=== PATIENT | male | born 1980 | race Caucasian/White ===

== ENCOUNTER 2020-08-01 17:18 | Outpatient (CLI) | payer OTHER, SELFPAY ==
--- NOTE | ~2020-08-01 | XR_ITS ---
EXAMINATION: XR chest 2V EXAM DATE: 08/01/2020 17:36 INDICATION: R07.9 - Chest pain upper right side x 5 months, no other hx . TECHNIQUE: Frontal and lateral projections of the chest obtained and reviewed. There is no prior estevan dy for comparison. FINDINGS: The lungs are clear. There are no pleural effusions. The cardiomediastinal silhouette is within normal limits. There is no pneumothorax suspected. The bones and soft tissues are unremarkab le. IMPRESSION: Normal chest x-ray exam. Reviewed, dictated and finalized at location A. IMPRESSION: Normal chest x-ray exam.
== END 2020-08-01 17:19 | disposition home or self-care (01) ==
LOC: ANHIMG 17:23
PROVIDERS: PCP Family Medicine; Visit Provider Family Medicine
DX: R07.9 Chest pain, unspecified (principal)
CPT/HCPCS: 71046

== ENCOUNTER 2021-04-28 11:05 | Outpatient (CLI) | payer OTHER, SELFPAY ==
--- NOTE | ~2021-04-28 | XR_ITS ---
XR chest 2V DATE: 04/28/2021 11:22 INDICATION: Cough TECHNIQUE: PA and lateral views COMPARISON: 08/01/2020 2 view chest FINDINGS: Normal heart size. No hilar or mediastinal enlargement. No pulmonary infiltrate or consolid ation, pleural effusion or pulmonary vascular congestion or pneumothorax. Included skeletal structure s are unremarkable. IMPRESSION: No active cardiopulmonary disease Reviewed, dictated and finalized at location A. ON CUTTER
== END 2021-04-28 11:06 | disposition home or self-care (01) ==
LOC: ANHIMG 11:13
PROVIDERS: PCP Family Medicine; Visit Provider Physician Assistant
DX: R05.9 Cough, unspecified (principal)
CPT/HCPCS: 71046

== ENCOUNTER 2021-10-27 16:31 | Outpatient (CLI) | payer OTHER, SELFPAY ==
--- NOTE | ~2021-10-27 | XR_ITS ---
XR hip LT min 2V DATE: 10/27/2021 16:43 INDICATION: Left hip pain TECHNIQUE: AP and lateral views COMPARISON: None FINDINGS: No fracture or dislocation, avascular necrosis or bone destruction of the left hip. Left hi p joint space appears well preserved. The pubic symphysis and included portions of the sacroiliac joints appear normal. IMPRESSION: No significant abnormality Reviewed, dictated and finalized at location B. IMPRESSION: No significant abnormality
== END 2021-10-27 16:32 | disposition home or self-care (01) ==
PROVIDERS: PCP Family Medicine; Visit Provider Nurse Practitioner Family
DX: M25.552 Pain in left hip (principal)
CPT/HCPCS: 73502

== ENCOUNTER → 2021-11-12 10:59 | Outpatient (CLI) | payer OTHER, SELFPAY ==
--- NOTE | ~2021-11-12 | MR_ITS ---
EXAMINATION: MR femur LT wo/w con DATE: 11/12/2021 11:48 INDICATION: 3 months of left hip and upper thigh pain after running. TECHNIQUE: Magnetic resonance imaging (MRI) of the left femur/thigh was performed without and with 19 mL Multihance intravenous contrast. Sequences included axial, sagittal and coronal T1-weighted FSE a nd fluid sensitive FSE STIR, axial T1-weighted FS FSE and post contrast axial, sagittal and coronal T 1-weighted FS FSE. COMPARISON: Left hip radiographs dated 10/27/2021 FINDINGS: Bone alignment is normal. Normal marrow signal throughout with no reactive edema, fracture, osteonecr osis or pathologic marrow replacing process. Cephalad aspect of the left hip joint is obscured. The v isualized portion of the joint spaces appear normal with no left hip joint effusion. The knee joint i s excluded from the wewao-or-tthm but with no joint effusion at the suprapatellar pouch. The muscles and tendons of the left lower limb appear normal. No muscular atrophy or abnormal signal to suggest m uscle strain. Specifically the proximal left hamstring tendons and gluteal tendons are normal. No tro chanteric bursitis or other abnormal fluid collections. Small bilateral hydroceles. No pathologically enlarged left pelvic or inguinal lymphadenopathy. No abnormally enhancing lesions identified. IMPRESSION: 1. Unremarkable MRI of the left femur/thigh. No evident etiology for reported left hip and upper thig h pain. Of note the left knee is not visualized and there is poor visualization of the cephalad aspec t of the left hip joint including portions of the labrum. Reviewed, dictated and finalized at location A. IMPRESSION: 1. Unremarkable MRI of the left femur/thigh. No evident etiology for reported l eft hip and upper thigh pain. Of note the left knee is not visualized and there is poor visualization of the cephalad aspect of the left hip joint including p ortions of the labrum.
== END ==
PROVIDERS: PCP Family Medicine; Visit Provider Nurse Practitioner Family
DX: M25.552 Pain in left hip (principal)
CPT/HCPCS: 73720; A9577

== ENCOUNTER 2021-12-30 21:27 | Observation (INO) | payer OTHER, SELFPAY ==
[2021-12-30] VITALS (9 sets, daily range): BP systolic 120–137; BP diastolic 84–104; PULSE 91–152; RESP 13–23; TEMP 36.2; O2SAT 97–100
--- NOTE | ~2021-12-30 | CT_ITS ---
EXAMINATION: CT brain wo con DATE: 12/30/2021 23:34 INDICATION: Syncope. Dizziness. TECHNIQUE: Computed tomography (CT) of the head was performed without intravenous contrast. The mA wa s adjusted according to patient size. Iterative reconstruction technique was employed. The dose-lengt h product was 605.33 mGy-cm. COMPARISON: None FINDINGS: There is no intracranial hemorrhage, acute infarction, or abnormal intracranial mass lesion . The ventricles are normal in size. There is mucosal thickening in the paranasal sinuses. The mastoi d air cells are normal. IMPRESSION: 1. Normal brain. Reviewed, dictated and finalized at location A. IMPRESSION: 1. Normal brain.
--- NOTE | 2021-12-30 21:58 | ECG_ITS ---
Measurements Intervals [place] Rate: 126 P: [place]: 0 QRS: 5 QRSD: 101 T: 29 QT: 309 QTc: 448 Interpretive Statements ATRIAL FIBRILLATION WITH RAPID VENTRICULAR RESPONSE MODERATE ST DEPRESSION [0.05+ mV ST DEPRESSION] NO PREVIOUS ECG AVAILABLE FOR COMPARISON Electronically Signed On 12-31-2021 14:53:17 CDT by Ronel Adams M.D.
[2021-12-30 22:05] LABS: Basophils Absolute Auto 0.1 K/mm3 (0.0-0.1); Basophils Percent Auto 0.7 % (0.2-1.2); Eosinophils Absolute Auto 0.5 K/mm3 (0-0.3); Eosinophils Percent Auto 4.9 % (0-4.4); Hemoglobin 14.5 g/dL (14.0-18.0); Immature Granulocyte Absolute 0.04 K/mm3 (0.00-0.031); Immature Granulocyte Percent A 0.4 % (0-0.5); Lymphocytes Percent Auto 32.1 % (18.3-44.2); Mean Corpuscular HGB Conc 34.5 g/dl (32-36); Mean Corpuscular Hemoglobin 30.9 pg (26-34); Mean Corpuscular Volume 89.6 fl (80-100); Mean Platelet Volume 10.2 fl (7.4-10.4); Monocytes Absolute Auto 0.7 K/mm3 (0.1-0.6); Monocytes Percent Auto 6.5 % (2.6-8.5); Neutrophils Absolute Auto 5.5 K/mm3 (1.3-6.7); Neutrophils Percent Auto 55.4 % (45.5-73.1); Platelet Count Result 229 k/mm3 (150-375); Red Blood Count 4.69 M/mm3 (4.6-6.20); Red Cell Distribution Width 12.5 % (11.5-14.5)
[2021-12-30 22:29] LABS: Alanine Aminotransferase 29 U/L (6-50); Albumin Level 4.3 g/dL (3.5-5.1); Alkaline Phosphatase 56 U/L (38-126); Anion Gap 9 mmol/L (8-16); Aspartate Amino Transferase 36 U/L (17-59); Bilirubin,Total 0.5 mg/dL (0.2-1.3); Blood Urea Nitrogen 18 mg/dL (9-20); Calcium 8.6 mg/dL (8.4-10.2); Carbon Dioxide 27 mmol/L (22-30); Chloride 103 mmol/L (98-107); Estimated CRCL calculation 106 ml/min; Estimated Glomerular Filt Rate > 60; Glucose 128 mg/dL (65-110); Potassium 3.6 mmol/L (3.4-5.0); Sodium 139 mmol/L (137-145)
[2021-12-30] MEDS: SODIUM CHLORIDE 0.9% IV 1,000 ML 999 ML IV CONT (23:04)
[2021-12-30] MEDS: dilTIAZem HCl INJ 25 MG/5 ML VIAL 10 MG IV PUSH (23:05)
--- NOTE | 2021-12-30 23:13 | ED.GENADULT ---
HPI - General Adult General Chief complaint: Syncope Stated complaint: Syncopal episode Time Seen by Provider: 12/30/21 21:43 History of Present Illness HPI narrative: Patient is a 41-year-old male who presents ER with syncope and palpitations. Patient reports he woke up from a nap and got up off the couch and was walking to the kitchen. He got warm and lightheaded. He began feeling like his heart was racing and then he passed out. Witnessed by spouse reports he was unconscious for 1 minute. No shaking. Patient had no loss of bowel or bladder. He awoke and continues to feel like his heart is racing and it makes him feel anxious. No chest pain or chest pressure. He is not short of breath. Reports he had palpitations in the past and underwent stress testing that was unremarkable. No history of arrhythmia. Related Data Allergies Allergy/AdvReac Type Severity Reaction Status Date / Time No Known Allergies Allergy Verified 12/30/21 21:30 Review of Systems Review of Systems: All systems reviewed & are unremarkable except as noted in HPI and below Constitutional: Constitutional: Denies chills, Denies fatigue and Denies fever(s) ENT: Denies nasal congestion and Denies sore throat Cardiovascular: Cardiovascular: Denies chest pain, Reports rapid heart rate and Denies radiating jaw, neck or arm pain Respiratory: Respiratory: Denies cough, Denies dyspnea and Denies wheezing Gastrointestinal: Gastrointestinal: Denies abdominal pain, Denies nausea and Denies vomiting Neurologic: Reports syncope, Denies headache(s), Denies focal weakness and Denies numbness PMFSH Past Medical History Medical History IFG (impaired fasting glucose) Surgical History Surgical History Status post lumbar surgery Family History Family History Father Malignant neoplasm of prostate Diabetes mellitus Social History Social History Social History: Smoking packs per day: 1 Smoking cigarettes per day: 20.0 Years smoked: 16 Smoking pack-years: 16.00 Smoking status: Former smoker Tobacco type: cigarettes Second hand tobacco smoke exposure: No Smoking end date: 03/22/14 Alcohol intake: never Substance use: never Substance use type: does not use Gender identity (if verbalized by the patient): Male Sexual Orientation (if Verbalized by the Patient): Straight or Heterosexual Exam Narrative: GENERAL: Well-appearing, well-nourished, and in no acute distress. HEAD: Normocephalic, atraumatic. EYES: PERRL and EOMI. ENT: Mucous membranes moist. CHEST: Clear to auscultation. No respiratory distress. HEART: Irregular regular rate and rhythm that is tachycardic. Normal peripheral pulses. ABDOMEN: Soft, nontender, nondistended. EXTREMITIES: Normal range of motion. No edema. SKIN: Warm, dry, no rash. NEURO: Alert and oriented x3. PSYCH: Normal mood and affect. Course Course Emergency Course: Suspect patient has been having paroxysmal atrial fibrillation. After diltiazem patient is in a normal sinus rhythm. Discussed case with cardiology who recommends admission for observation as well as echocardiogram. Accepted by hospitalist service Vital Signs Vital signs: Vital Signs Temperature 97.2 F L 12/30/21 21:30 Pulse Rate 127 H 12/30/21 21:30 Respiratory Rate 16 12/30/21 21:30 Blood Pressure 137/90 12/30/21 21:30 Pulse Oximetry 100 12/30/21 21:30 Oxygen Delivery Room Air 12/30/21 21:30 Temperature 97.2 F L 12/30/21 21:30 Pulse Rate 88 12/31/21 03:22 Respiratory Rate 20 12/31/21 03:22 Blood Pressure 134/80 12/31/21 03:22 Pulse Oximetry 100 12/31/21 03:22 Oxygen Delivery Room Air 12/30/21 21:30 Medical Decision Making Vital Signs Vital
[2021-12-31] VITALS (12 sets, daily range): BP systolic 119–144; BP diastolic 68–93; PULSE 52–88; RESP 17–20; TEMP 36.2–37; O2SAT 98–100; BMI 34.9
--- NOTE | 2021-12-31 00:47 | ECG_ITS ---
Measurements Intervals [place] Rate: 59 P: 44 [place]: 146 QRS: 2 QRSD: 113 T: 15 QT: 396 QTc: 393 Interpretive Statements SINUS BRADYCARDIA COMPARED TO ECG 12/30/2021 21:40:42 SINUS BRADYCARDIA NOW PRESENT Electronically Signed On 12-31-2021 15:16:13 CDT by Ronel Adams M.D.
--- NOTE | 2021-12-31 02:27 | ECHO_ITS ---
Patient Info Name: Stephen Tillman Age: 41 years : 1980 Gender: Male Ht: 67 in Wt: 215 lbs BSA: 2.18 m2 HR: 67 bpm BP: 121 / 75 mmHg Heart Rhythm: Sinus Rhythm Technical Quality: Fair Exam Date: 12/31/2021 8:24 AM Exam Location: [facility] Card Pulmonary Patient Status: Outpatient Admit Date: 12/31/2021 Staff Ordering Physician: Agnieszka Moon M.A., MD Pre Sales Systems Engineer: Lis Rachel RDCS Attending Provider: Grace Spencer PA-C Referring Physician: Jesus HALEY; Exam Type: CA echo doppler color flow Study Info Indications R55 - Syncope and collapse Complete two-dimensional, color flow and Doppler transthoracic echocardiogram is performed. Summary 1. Complete two-dimensional, color flow and Doppler transthoracic echocardiogram is performed. 2. Left ventricular systolic function is normal, estimated at 60-65%. 3. There is mildly increased left ventricular wall thickness. 4. The left ventricular diastolic function is normal. 5. Right ventricular systolic function is normal. 6. No significant valvular disease. Left Ventricle Left ventricular chamber dimension is normal. Left ventricular systolic function is normal, estimated at 60-65%. There is mildly increased left ventricular wall thickness. The left ventricular diastolic function is normal. Right Ventricle Right ventricular chamber dimension is normal. Right ventricular systolic function is normal. Left Atria Left atrial chamber dimension is normal. Right Atria Right atrial chamber dimension is normal. Atrial Septum Intact interatrial septum visualized by color flow imaging. Aortic Valve The aortic valve is trileaflet. There is no aortic valve stenosis. There is no aortic valve regurgitation. Pulmonic Valve The pulmonic valve is not well visualized. There is trace pulmonic regurgitation. Mitral Valve The mitral valve has normal leaflets. There is no mitral valve stenosis. There is no mitral valve regurgitation. Tricuspid Valve The tricuspid valve leaflets are normal. There is no significant tricuspid valve stenosis. There is trace tricuspid valve regurgitation. Pericardium/Pleural There is no pericardial effusion. Aorta The aortic root size at the sinus of Valsalva is normal. Left Ventricular Outflow Tract Name Value Normal LVOT 2D LVOT Diameter 2.0 cm LVOT Doppler LVOT Peak Gradient 5 mmHg LVOT Mean Gradient 2 mmHg LVOT VTI 23 cm LVOT VTI/AV VTI Ratio 0.8 LVOT Stroke Volume 70 ml LVOT CO 4.1 l/min LVOT CI 1.9 l/min/m2 Pulmonic Valve Name Value Normal RVOT Doppler RVOT Peak Gradient 3 mmHg
--- NOTE | 2021-12-31 02:30 | PM.IMHP ---
H&P: HPI History of Present Illness Date/Time: 12/31/21 02:30 Chief Complaint: 41 years old male presented to the hospital with syncopal episode patient was laying on the couch he stood up and went to the kitchen he has episode of feeling warm followed by loss of consciousness lasted for 1 minute associated with palpitation patient denies chest pain shortness of breath fever or chills patient denies similar episodes in the past at the ER patient was found to have AFib with RVR was given IV Cardizem cardiology was consulted patient will be admitted for serial troponin echo on further workup for AFib with RVR patient currently in sinus rhythm Review of Systems Review of Systems: Twelve system review was done was negative [facility] Past Medical History Medical History IFG (impaired fasting glucose) Surgical History Surgical History Status post lumbar surgery Family History Family History Father Malignant neoplasm of prostate Diabetes mellitus Social History Social History Social History: Smoking packs per day: 1 Smoking cigarettes per day: 20.0 Years smoked: 16 Smoking pack-years: 16.00 Smoking status: Former smoker Tobacco type: cigarettes Second hand tobacco smoke exposure: No Smoking end date: 03/22/14 Alcohol intake: never Substance use: never Substance use type: does not use Gender identity (if verbalized by the patient): Male Sexual Orientation (if Verbalized by the Patient): Straight or Heterosexual Meds Home Medications and Allergies Home Medications Medication Instructions Recorded Confirmed Type sertraline 50 mg tablet (Zoloft) 50 mg PO DAILY #90 tabs 12/05/21 Rx Allergies Allergy/AdvReac Type Severity Reaction Status Date / Time No Known Allergies Allergy Verified 12/30/21 21:30 Vital Signs Vital Signs - 24 hr 12/30/21 21:30 12/30/21 21:48 12/30/21 21:57 Temperature 97.2 F L Pulse Rate 127 H 146 H 138 H Respiratory Rate 16 18 Blood Pressure 137/90 136/104 H Pulse Oximetry 100 97 Oxygen Delivery Room Air 12/30/21 22:01 12/30/21 22:01 12/30/21 22:16 Temperature Pulse Rate 146 H 142 H Respiratory Rate 13 18 Blood Pressure 127/89 127/89 133/96 H Pulse Oximetry Oxygen Delivery 12/30/21 22:31 12/30/21 22:46 12/30/21 23:01 Temperature Pulse Rate 136 H 130 H 152 H Respiratory Rate 18 18 21 H Blood Pressure 122/91 H 122/85 125/95 H Pulse Oximetry Oxygen Delivery 12/30/21 23:16 12/31/21 00:33 Temperature Pulse Rate 91 65 Respiratory Rate 23 H 18 Blood Pressure 120/84 120/84 Pulse Oximetry 99 Oxygen Delivery Exam Narrative: GENERAL: Well appearing, well-nourished, non-toxic, in no acute distress. HEAD: Normocephalic, atraumatic. NECK: Supple. No adenopathy, no masses. RESPIRATORY: Airway patent, respirations nonlabored. Clear to auscultation bilaterally, no rales, rhonchi, wheezing. CARDIOVASCULAR: Regular rate and rhythm without murmurs, rubs, or gallops. Peripheral pulses 2+ and equal bilaterally. ABDOMINAL: Soft, nontender, nondistended, no hepatosplenomegaly. Normoactive BS. MUSCULOSKELETAL: Moves all extremities. Strength/ROM intact without gross deformities or TTP. No edema. No calf tenderness. No chest wall tenderness palpation. SKIN: Warm, dry, normal color. No rashes. NEURO: A&O X3. Speech clear. Cranial nerves II-XII grossly intact. Steady gait. No ataxic movements. PSYCHIATRIC: Appropriate mood and affect. Normal interaction. H&P: Results Labs Labs: Short CBC 12/30/21 Range/Units 21:59 WBC 10.0 (4.5-10.0) K/mm3 Hgb 14.5 (14.0-18.0) g/dL Hct 42.0 (42.0-52.0) % Plt Count 229 (150-375) k/mm3 [facility] 12/30/21 21:59 Sodium 139
[2021-12-31] MEDS: SODIUM CHLORIDE 0.9% IV 1,000 ML 100 ML IV CONT ×2 (03:18→13:34)
[2021-12-31 04:01] LABS: D Dimer 0.39 ug/mL (<0.48)
[2021-12-31 04:27] LABS: Thyroid Stimulating Hormone Reflex 0.724 uIU/mL (0.465-4.68)
[2021-12-31 06:07] LABS: Basophils Percent Auto 0.4 % (0.2-1.2); Eosinophils Absolute Auto 0.1 K/mm3 (0-0.3); Eosinophils Percent Auto 0.9 % (0-4.4); Hematocrit 40.1 % (42.0-52.0); Hemoglobin 13.6 g/dL (14.0-18.0); Immature Granulocyte Absolute 0.04 K/mm3 (0.00-0.031); Immature Granulocyte Percent A 0.4 % (0-0.5); Lymphocytes Absolute Auto 1.25 K/mm3 (0.9-3.2); Lymphocytes Percent Auto 13.9 % (18.3-44.2); Mean Corpuscular HGB Conc 33.9 g/dl (32-36); Mean Corpuscular Hemoglobin 30.3 pg (26-34); Mean Corpuscular Volume 89.3 fl (80-100); Mean Platelet Volume 10.3 fl (7.4-10.4); Monocytes Absolute Auto 0.4 K/mm3 (0.1-0.6); Monocytes Percent Auto 4.6 % (2.6-8.5); Neutrophils Absolute Auto 7.2 K/mm3 (1.3-6.7); Neutrophils Percent Auto 79.8 % (45.5-73.1); Platelet Count Result 233 k/mm3 (150-375); Red Blood Count 4.49 M/mm3 (4.6-6.20); Red Cell Distribution Width 12.6 % (11.5-14.5)
[2021-12-31 06:24] LABS: Alanine Aminotransferase 27 U/L (6-50); Albumin Level 4.2 g/dL (3.5-5.1); Alkaline Phosphatase 62 U/L (38-126); Anion Gap 8 mmol/L (8-16); Aspartate Amino Transferase 25 U/L (17-59); Bilirubin,Total 0.3 mg/dL (0.2-1.3); Blood Urea Nitrogen 13 mg/dL (9-20); Calcium 8.4 mg/dL (8.4-10.2); Carbon Dioxide 25 mmol/L (22-30); Chloride 108 mmol/L (98-107); Estimated CRCL calculation 118 ml/min; Estimated Glomerular Filt Rate > 60; Glucose 117 mg/dL (65-110); Sodium 141 mmol/L (137-145)
--- NOTE | 2021-12-31 08:30 | PC.NURSE ---
ECHO being performed at bedside this time.
--- NOTE | 2021-12-31 08:47 | PC.NURSE ---
BS 101
[2021-12-31 08:48] LABS: Glucose Point of Care 101 mg/dl (65-105)
[2021-12-31] MEDS: ENOXAPARIN 40 MG/0.4 ML SYRINGE SUB-Q (09:57)
[2021-12-31 12:15] LABS: Glucose Point of Care 139 mg/dl (65-105)
[2021-12-31 12:32] LABS: Hemoglobin A1C 5.4 % (<5.7)
--- NOTE | 2021-12-31 13:54 | PM.CNCAR ---
Assessment and Plan Assessment and plan (1) Atrial fibrillation with RVR: Code(s): I48.91 - Unspecified atrial fibrillation Status: Acute Assessment and Plan: history of brief palpitations, had sustained AFib RVR yesterday, converted to sinus rhythm with IV Cardizem. Few risk factors for PAF. No alcohol, hypertension, sleep apnea; normal echo, normal TSH etc.. Lone atrial fibrillation Counseled patient extensively about atrial fibrillation. There is a risk of recurrence. Reviewed stroke risk, evaluation and treatment of atrial fibrillation etc.. Unlikely to be caused by the flu shot. He did have some dental work, probably had lidocaine with epinephrine, but since there were so many hours between the filling and the event, and he was feeling fine, I doubt this contributed. CHADS2 Vasc score is 0 recommend aspirin 325 mg daily Recommend metoprolol succinate 25 mg daily to help prevent recurrent episodes. Patient is slightly bradycardic but I think he can tolerate this. If not, we can try Cardizem or digoxin, or perhaps no rate controlling treatment depending on if he has another episode in the near future or not for a long time. Can escalate therapy if needed to an antiarrhythmic if he has frequent recurrences, which I suspect will be unlikely. Up and ambulate, okay for discharge tonight or tomorrow. Follow-up in the office; will arrange for a home monitor. (2) Syncope: Code(s): R55 - Syncope and collapse Status: Acute Assessment and Plan: Syncope which occurred after the AFib RVR, probably due to the AFib RVR. Home monitor. (3) Atypical chest pain: Code(s): R07.89 - Other chest pain Status: Acute Assessment and Plan: Lower sternal chest discomfort drinking liquids, probably acid reflux. No exertional chest discomfort History of Present Illness History of Present Illness Consult date/time: 12/31/21 13:54 Reason For Visit: AFIB RVR, Syncope Narrative: Stephen Tillman is a 41 y.o. male whom I was asked to see at the request of Dr. Moon for my advice and opinion regarding his new onset a fib RVR, in consultation. The patient has noted palpitations for years, where he felt his heart was beating different, very briefly out of rhythm. He might feel winded when this occurs. He was exercising regularly, running 3 miles with no symptoms, until he hurt his back at the end of September. he got his flu shot over the weekend, and yesterday had a cavity filled. Yesterday evening he fell asleep on the couch in then woke up, and walked to the kitchen. He felt his heart was beating very fast and he was short of breath. Then he became dizzy and passed out for about a minute. He woke up sweaty and a little confused. His called 911 and on arrival to the ER he was in AFib RVR,130-150 BPM. he was given IV Cardizem and converted to sinus rhythm last night. Today he is anxious and tired but otherwise fine. No history of diabetes, heart disease, thyroid disease, sleep apnea. No alcohol intake. Has impaired glucose tolerance. Was treated for hypertension many years ago but since then stopped alcohol, cigarettes, and lost weight has not needed blood pressure medications. Evaluated for sleep apnea, negative. H/O anxiety. 1 prior episode of syncope, 15 years ago, thinks he was drinking heavily at that time. Review of Systems Constitutional: Constitutional: Denies fever(s) ENT: Denies dysphagia Cardiovascular: Cardiovascular: Denies chest pain, Denies pedal edema, Reports lightheadedness ( gets lightheaded if he stands up too quickly) and Denies dyspnea Respiratory: Respiratory: Denies chest congestion, Denies dyspnea and Reports dyspnea on exertion ( Is short of breath walking up a few flights of stairs) Comments: breathing seemed to be fine when he was jogging 3 miles. Gastrointestinal: Gastrointestinal: Denies abdominal pain and Denies hem
--- NOTE | 2021-12-31 16:00 | PC.NURSE ---
Patient taking metoprolol succinate 25mg at home.
--- NOTE | 2021-12-31 16:09 | PM.DS ---
DS: Admitting Diagnosis Discharge Date 12/31/2021 Admitting Diagnosis atrial fibrillation with rapid ventricular response DS: Discharge Diagnosis Discharge Diagnosis (1) Atrial fibrillation with RVR: Code(s): I48.91 - Unspecified atrial fibrillation Status: Acute Assessment and Plan: Presented with palpitations and syncope. EKG on presentation showed atrial fibrillation with rapid ventricular response with HR 126. Received diltiazem and converted to normal sinus rhythm with rate controlled. Seen in consultation by Cardiology. Echo reviewed with normal EF, no significant valvular disease. Patient denies alcohol use, caffeine use, drug use. TSH normal. [id number] is 0. Started on metoprolol succinate 25 mg daily per Cardiology recommendations. Also started on aspirin 325 mg daily. He will follow-up with cardiology as an outpatient and will obtain outpatient cardiac cath lab manager for further review. (2) Syncope: Code(s): R55 - Syncope and collapse Status: Acute Assessment and Plan: Patient with episode of syncope at home, felt to be secondary to AFib RVR. Head CT no acute findings. Orthostatic vital signs negative. See plan above (3) IFG (impaired fasting glucose): Code(s): R73.01 - Impaired fasting glucose Status: Acute Assessment and Plan: Random glucose 128 on presentation, fasting glucose 117. A1c is 5.4. No need for further monitoring (4) Anxiety: Code(s): F41.9 - Anxiety disorder, unspecified Status: Acute Assessment and Plan: Patient has poorly-controlled anxiety. Prescribed sertraline but had not been taking due to concern of side effects. Discussed concerns with patient and family, he would like to start taking the sertraline. Follow-up with PCP for further monitoring. DS: Summary Hospital Course Hospital Course: date of admission: 12/30/2021 date of discharge: 12/31/2021 Stephen Tillman is a 41-year-old male with a history of GERD and anxiety who presented to the emergency department on 12/30/2021 for evaluation of syncopal episode at home. she had a cavity filled earlier that day. He was feeling in his usual state of health. He got up from the couch, went to the kitchen to get some water and passed out, fell to the ground. Per his spouse, he was unconscious for about 1 minute and when he came to, he was disoriented. He complained of feeling his heart racing and feeling anxiety. On presentation to the ED, his heart rate was 127, additional vital signs stable, laboratory workup unremarkable, EKG showed atrial fibrillation with RVR, heart rate 126. He was given diltiazem and rate improved. Patient converted to normal sinus rhythm. He was admitted to the hospitalist service for further evaluation and management and was seen in consultation by cardiology. Please see above for further details. The patient was started on metoprolol succinate 25 mg daily for rate control. He will follow-up as an outpatient to obtain a 30 day cardiac cath lab manager and will follow-up with cardiology in the office. Syncopal episode felt to be related to rapid ventricular response. Etiology for onset of AFib on clear, not felt to be related to recent dental work Given prolonged duration in between in which patient was feeling fine. Patient does admit to poorly controlled anxiety, not taking his anxiety medications due to concerns of side effects. Discussed need for outpatient follow-up with PCP, possible psychiatric referral. Discussed alternative anxiety management strategies include meditation, counseling, etc. The patient was feeling back to his usual state of health and was eager for discharge. Given her overall improvement, he was determined to no longer require inpatient care and was discharged in hemodynamically stable condition on 12/31/2021. Time Spent with Patient Time attestation: Total time spent providing and/or coordinating discharge services
== END 2021-12-31 17:10 | disposition home or self-care (01) ==
LOC: ANHED 22:41 → ANH3MEDSUR 12-31 04:35
PROVIDERS: Admitting Provider Internal Medicine; Emergency Provider Emergency Medicine; PCP Family Medicine; Visit Provider Physician Assistant
DX: I48.91 Unspecified atrial fibrillation (principal); R55 Syncope and collapse; R73.01 Impaired fasting glucose; F41.9 Anxiety disorder, unspecified; R07.89 Other chest pain; R00.2 Palpitations; R00.1 Bradycardia, unspecified; M54.9 Dorsalgia, unspecified; K21.9 Gastro-esophageal reflux disease without esophagitis; J34.9 Unspecified disorder of nose and nasal sinuses; Z87.891 Personal history of nicotine dependence; Z79.899 Other long term (current) drug therapy; Z83.3 Family history of diabetes mellitus
CPT/HCPCS: 36415; 70450; 80053; 82948; 83036; 83735; 84443; 85025; 85380; 93005; 93306; 96360; 96361; 96372; 96374; 99285; G0378; J1650; J7030

== ENCOUNTER 2022-05-12 15:31 | Outpatient (CLI) | payer OTHER, SELFPAY ==
--- NOTE | 2022-05-12 15:30 | ECG_ITS ---
Measurements Intervals [place] Rate: 68 P: 63 VA: 155 QRS: -2 QRSD: 108 T: 11 QT: 386 QTc: 412 Interpretive Statements SINUS RHYTHM NONSPECIFIC ST ABNORMALITY ABNORMAL ECG COMPARED TO ECG 12/31/2021 00:47:48 SINUS RHYTHM NOW PRESENT Electronically Signed On 05-13-2022 13:36:23 [facility] by Shaw Yoon M.D.
[2022-05-12 16:01] LABS: Hematocrit 41.8 % (42.0-52.0); Hemoglobin 14.4 g/dL (14.0-18.0); Mean Corpuscular HGB Conc 34.4 g/dl (32-36); Mean Corpuscular Hemoglobin 30.5 pg (26-34); Mean Corpuscular Volume 88.6 fl (80-100); Platelet Count Result 243 k/mm3 (150-375); Red Blood Count 4.72 M/mm3 (4.6-6.20); Red Cell Distribution Width 12.8 % (11.5-14.5); White Blood Count 9.1 K/mm3 (4.5-10.0)
[2022-05-12 16:07] LABS: Appearance Urine Clear (Clear); Bilirubin Urine Negative (Negative); Blood Urine Trace-intact (Negative); Color Urine Yellow (Yellow); Glucose Urine UA Negative (Negative); Ketones Urine Negative (Negative); Leukocyte Esterase Ur Negative LEU/UL (NEGATIVE); Nitrate Urine Negative (Negative); Protein Urine Negative (Negative); Specific Grav Ur 1.015 (1.001-1.035); Urobilinogen Urine 0.2 mg/dL (<2.0); pH Urine 7.5 (5.0-9.0)
[2022-05-12 16:11] LABS: Anion Gap 4 mmol/L (8-16); Blood Urea Nitrogen 14 mg/dL (9-20); Calcium 8.6 mg/dL (8.4-10.2); Carbon Dioxide 31 mmol/L (22-30); Chloride 102 mmol/L (98-107); Estimated Glomerular Filt Rate > 60; Glucose 78 mg/dL (65-110); Potassium 3.9 mmol/L (3.4-5.0); Sodium 137 mmol/L (137-145)
[2022-05-12 16:16] LABS: Partial Thromboplastin Time 28.2 SECONDS (22.3-36.8)
[2022-05-12 16:17] LABS: Bacteria Urine Trace /hpf; Mucus Urine Rare /lpf; WBC Urine 0-3 /hpf (0-3)
[2022-05-12 16:18] LABS: Add Urine Microscopic? YES
== END 2022-05-12 15:32 | disposition home or self-care (01) ==
LOC: ANHSURGERY 15:34
PROVIDERS: PCP Family Medicine; Visit Provider Neurological Surgery
DX: Z01.818 Encounter for other preprocedural examination (principal); R94.31 Abnormal electrocardiogram [ECG] [EKG]
CPT/HCPCS: 36415; 80048; 81001; 85027; 85610; 85730; 86850; 86900; 86901; 93005

== ENCOUNTER 2022-05-19 00:57 | Day surgery (SDC) | payer OTHER, SELFPAY ==
[2022-05-07 15:13] VITALS: BMI 34.2
--- NOTE | 2022-05-07 15:15 | PC.NURSE ---
Report to the Outpatient Waiting Room, entrance under the green pavilion located off [facility], at time 11:00 on date 05/19/22. Planned Procedure Time: 1:00. Time changes happen often and if your time is changed the preop area will call you the afternoon before. - You and your visitor will be asked to self-screen and do not enter if you have any COVID symptoms. - Only one visitor is requested with a max of two and NO children visitors are allowed at this time. - The patient visitor may be requested to leave or wait in car when not with patient due to distancing restrictions. - A mask is optional within the hospital at this time. Patients may have clear liquids (water, carbonated beverages, clear teas, apple juice) until 3 hours prior to surgery (10:00) with a maximum of 20 ounces. - No food from midnight until time of surgery Take the following medications with a SIP of water the morning of surgery: NONE DO NOT STOP ANY OF YOUR OTHER PRESCRIPTION MEDICATIONS PRIOR TO SURGERY EXCEPT THE FOLLOWING Medications to discontinue per physician: N/A Date to take last dose: N/A Please no make-up, nail yoruba, hairspray, perfume, deodorant, or body powder the day of surgery. No jewelry (including any body piercings) or valuables the day of surgery, leave them at home. Please take a shower or bath the night before, or the morning of, surgery with an antibacterial soap. Wear comfortable, loose fitting clothing. - Jewelry must be removed prior to entering the operating room. Rings and piercings that are not removed may be cut off. - The hospital will not accept responsibility for valuables. - Please leave all valuables, including medications, at home the day of surgery. If you are going home after surgery, a licensed transfer driver must drive you home. - NO public transportation without another adult if you receive anesthesia. - We recommend that an adult stay with you for 24 hours following discharge. - We also recommend that you do not drive, make important decision, drink alcoholic beverages, or take any drugs that were not prescribed by your health care provider for at least 24 hours after your discharge time. Follow any additional instructions given to you from your surgeon. If you or anyone in your household have experienced Covid symptoms in the past week, please notify your surgeon or the nurse liaison at the phone number below for possible testing. Telephone instructions given to JOVI - MARTÍN MONTENEGRO and asked if any additional questions and then verbalized understanding. Patient advised to call surgeon office or pre surgery nurse liaison [phone] if any additional questions.
--- NOTE | 2022-05-18 09:19 | P.PNAN_ITS ---
Anes - Initial Pre Proc Eval Procedure: Operation Date: 05/19/22 10:00 Proposed Procedures p Left Lumbar Decompression L5-S1 - Eli Lawrence MD Date/Time: 05/18/22 09:19 Surgeon: Eli Lawrence MD Pre Op Diagnosis: lumbar spondylosis Patient Data Age: 42 Gender: M Height: 1.73 m Weight: 102 kg Allergies Allergy/AdvReac Type Severity Reaction Status Date / Time No Known Allergies Allergy Verified 05/19/22 09:01 Home Medications Medication Instructions Recorded Confirmed Type semaglutide (weight loss) 0.25 0.25 mg/0.5 mL Pen Injector#1 04/27/22 05/07/22 Sample mg/0.5 mL subcutaneous pen Samples injector (Wegovy) Patient hx anesthesia problems: none Family hx anesthesia problems: none Results Review: All pre-operative results and documents have been reviewed as part of the pre- operative evaluation. FORMERLY [facility] Past Medical History Medical History (Updated 05/18/22 @ 09:19 by Tamir Beavers DO) Anxiety Atrial fibrillation Back pain GERD (gastroesophageal reflux disease) IFG (impaired fasting glucose) Surgical History Surgical History Status post lumbar surgery Family History Family History Father Malignant neoplasm of prostate Diabetes mellitus Mother Cerebrovascular accident Mitral valve prolapse Social History Social History Social History: Smoking packs per day: 0.02 Smoking cigarettes per day: 0.4 Years smoked: 15 Smoking pack-years: 0.30 Smoking status: Former smoker Tobacco type: cigarettes Second hand tobacco smoke exposure: No Smoking end date: 03/22/15 Alcohol intake: never Substance use: never Substance use type: does not use Living arrangements: with family Occupation/Education: occupation Gender identity (if verbalized by the patient): Male Sexual Orientation (if Verbalized by the Patient): Straight or Heterosexual Spiritual care concerns: No Anes - Eval Final PreProcedure Day of Procedure 05/18/22 09:19 Patient weight: obese Heart: regular rate and rhythm Lungs: clear to auscultation Airway: Mallampati scale class II Neurological: alert and oriented Last oral intake: >/= 8 hours ASA classification: III Emergent: no Anesthetic plan: proceed Anesthesia type and monitoring: general GIVS and standard monitoring Results Review: All pre-operative results and documents have been reviewed as part of the pre- operative evaluation. Informed Consent: The patient's anesthetic plan and its attendant risks and benefits were discussed with the patient/family/POA. Questions were solicited and answers pro vided to the satisfaction of the patient/family/POA.
[2022-05-19] VITALS (10 sets, daily range): BP systolic 111–135; BP diastolic 67–85; PULSE 60–91; RESP 13–22; TEMP 36.5–36.7; O2SAT 94–100
--- NOTE | ~2022-05-19 | XR_ITS ---
EXAMINATION: XR lumbar spine min 4V DATE: 05/19/2022 09:27 INDICATION: Lumbar spondylosis. TECHNIQUE: 4 views of lumbar spine standing including flexion and extension views were obtained. COMPARISON: None. FINDINGS: There is 6 degrees dextrocurvature of thoracolumbar spine. Vertebral body heights are jose l. There is moderately decreased disc height at L4-L5 and mildly decreased disc height at L5-S1. The spine is hypomobile with flexion. There is multilevel mild facet joint osteoarthritis. IMPRESSION: 1. Moderate lower lumbar spondylosis. Reviewed, dictated and finalized at location A. APPLICATION ARCHITECT
--- NOTE | ~2022-05-19 | XR_ITS ---
EXAMINATION: XR fluoroscopy no charge DATE: 05/19/2022 10:15 INDICATION: Lumbar spondylosis. TECHNIQUE: 2 intraoperative fluoroscopic views of the lumbar spine were obtained. I was not present. Fluoroscopy the time was 4 seconds. COMPARISON: Radiographs 05/19/2022 FINDINGS: Lateral views demonstrates an instrument overlying the L5-S1 posterior elements. There is m oderate lower lumbar spondylosis. IMPRESSION: 1. Moderate lower lumbar spondylosis. Reviewed, dictated and finalized at location A. ICATIONS SPECIALIST
--- NOTE | 2022-05-19 09:04 | PM.IMHP ---
H&P: HPI History of Present Illness Date/Time: 05/19/22 09:04 Chief Complaint: Stephen Tilmlan is a 42 year old male who originally presented and was seen in January 2022? for consultation and evaluation of LLE pain, referred from Dr Minor Hinton.? Stephen reported that approximately 6 months prior to our initial visit, he started running-3 miles on his Treadmill advancing to running outdoors.? He reported that he noticed pain to his posterior left LE as well as numbness, tingling and a burning sensation stopping at his lateral left knee.? He stated that with walking he has a feeling of weakness and a heavy feeling to his left leg.? He denies any back pain, bowel or bladder dysfunction or change in his gait.? Stephen reports that his pain is exacerbated with standing and walking and feels that his pain is improved by sitting. Stephen reports having had a L4-5 microdiscectomy, completed by Dr Sharpe, on 11/13/2009.? He reported that the pre-op symptoms of back and left leg pain had significantly resolved. He has completed a formalized PT session, completed at [facility] 10/2021 which he reports did help him with stretching and muscle tension.? He has tried OTC medication which has decreased some of the tension in his low back.? He states that he obtained care from a chiropractor however received only temporary relief. a Lumbar MRI completed on 12/12/2021? shows changes from his prior lumbar decompression at L4-5 on the right with disc desiccation and loss of disc space height at this level.? At L5-S1 there is also disc desiccation and loss of disc space height with a left paracentral disc herniation that contributes to moderate to severe left lateral recess stenosis.? ? Stephen? has since participated in physical therapy.? He has seen Dr. Gusman and has undergone 2 epidural steroid injections.? These gave significant relief of his pain but only for 2-3 days at a stretch.? He is increasingly frustrated by his pain.? He has adjusted his activities at work but remains with discomfort.? He is frustrated that he is gaining weight.? He is inclined to consider surgery PMFSH Past Medical History Medical History (Updated 05/18/22 @ 09:19 by Tamir Beavers DO) Anxiety Atrial fibrillation Back pain GERD (gastroesophageal reflux disease) IFG (impaired fasting glucose) Surgical History Surgical History Status post lumbar surgery Family History Family History Father Malignant neoplasm of prostate Diabetes mellitus Mother Cerebrovascular accident Mitral valve prolapse Social History Social History Social History: Smoking packs per day: 0.02 Smoking cigarettes per day: 0.4 Years smoked: 15 Smoking pack-years: 0.30 Smoking status: Former smoker Tobacco type: cigarettes Second hand tobacco smoke exposure: No Smoking end date: 03/22/15 Alcohol intake: never Substance use: never Substance use type: does not use Living arrangements: with family Occupation/Education: occupation Gender identity (if verbalized by the patient): Male Sexual Orientation (if Verbalized by the Patient): Straight or Heterosexual Spiritual care concerns: No Meds Home Medications and Allergies Home Medications Medication Instructions Recorded Confirmed Type semaglutide (weight loss) 0.25 0.25 mg/0.5 mL Pen Injector#1 04/27/22 05/19/22 Sample mg/0.5 mL subcutaneous pen Samples injector (Wegovy) Allergies Allergy/AdvReac Type Severity Reaction Status Date / Time No Known Allergies Allergy Verified 05/19/22 09:01 Exam Narrative: Neurologic Exam: MENTAL STATUS: The patient was alert and oriented to person, place, and time, There was no memory deficit, There was a normal language pattern, attention span, and general fund of knowledge. GAIT and STATION: The ga
[2022-05-19] MEDS: LACTATED RINGERS 1,000 ML 30 ML IV CONT ×2 (09:05→11:45)
--- NOTE | 2022-05-19 09:22 | SUR.PREOP ---
0915-TO XRAY PER W/C.
--- NOTE | 2022-05-19 09:34 | WPDHPUPDATE1 ---
History and Physical Update Update Date/Time: 05/19/22 09:34 History and Physical has been reviewed, including an updated exam of the patient. There are NO changes in the patient's condition. Risks, benefits, and alternatives have been discussed and questions answered. Patient agrees to proceed with procedure. Plan is for left sided decompression at L5-S1
[2022-05-19] MEDS: ceFAZolin 2 GM/D5W 50 ML 2 GM/50 ML BAG IVPB (09:37)
[2022-05-19] MEDS: LIDO 1%/EPINEPHRINE 1:100,000 20 ML VIAL 10 ML INFILTRATE (10:08)
[2022-05-19] MEDS: methylPREDNISolone ACETATE 40 MG/ML VIAL IM (10:47)
--- NOTE | 2022-05-19 10:59 | W.PM.PROC2 ---
Procedure Note - Detailed Date of Procedure 05/19/22 Pre-op Diagnosis lumbar spondylosis Post-op Diagnosis Same Procedure Performed left sided lateral recess and neuroforaminal decompression L5-S1 Surgeon Eli Lawrence MD Anesthesia General Indications Stephen Tillman is a very pleasant? 42 year old? male who presents at the request of himself with signs and symptoms of low back and left lower extremity pain that fits best with an L5 and S1 radiculitis in the setting of? lumbar spondylosis with a left paracentral disc herniation at L5-S1 that contributes to moderate to severe left lateral recess stenosis on imaging.? Stephen has tried treatments that include defl-dbb-dzqwxqo medications, muscle relaxants, and a formal course of physical therapy without lasting relief of his pain.? he has also had 2 epidural steroid injections which have given temporary but not lasting relief the pain.? In the office today the most concerning symptom to the patient is? that he has gained 30 lb over the last 4 months due to relative inactivity.? Prior to that the patient had been exercising for weight loss and has lost nearly 50 lb. The patient and I have had an extended discussion in the office today regarding the options for management of these clinical symptoms and radiographic findings. We have discussed the option of additional physical therapy or repeated? interventional pain management strategies including SOHEILA or ablative procedures. In this case we have more specifically discussed? that? as these measures have not given lasting relief today, the likelihood that repeated times would offer a different result a small. Finally, we have thus discussed the option of surgery. In the absence of functional deficits, I have explained that my preference is to exhaust non surgical options prior to consideration of surgery. However, we have discussed that as he has been unable to obtain durable relief of symptoms with non surgical measures that it would be very reasonable to consider surgical intervention. In this case we have discussed that surgery would entail a? left-sided decompression at L5-S1.?? AP and lateral plain x-rays with flexion-extension show no evidence of dynamic instability.? ?Stephen is inclined to pursue surgery. I have discussed the indications as well as the risks of surgery including but not limited to bleeding, infection, CSF leak, numbness, weakness, paralysis, stroke, coma, even . We have discussed the fundamentals of the surgical procedure as well as the typical recovery from surgery. He indicates understanding and asks us to proceed with surgery, specifically a? lumbar decompression at L5-S1 on the left Description of Procedure The patient was brought into the operating room where general anesthesia was induced without complications.? Appropriate monitoring and access was achieved.? the patient was turned into a prone position on the operating table.? All extremities were padded The L5-S1 level was confirmed and identified using fluoroscopy.? The incision was planned and the site was prepped and draped sterilely.? A time out was performed. A linear incision was made using a #10 blade scalpel.? Dissection was carried down to the spinous process and the paraspinal muscle was dissected off of the lamina of L5 using electrocautery.? Self retaining retractors were advanced.? A curette was placed under the L5 lamina and localization was confirmed with fluoroscopy. A high speed elise drill was used to drill the left hemilamina of L5 and the medial facet.?? The medial facet was removed partially and then the bone overlying the lateral recess and neural foramen was removed using kerossen punches.? There was some fat in the lateral recess This was cauterized and the passing and exiting nerve roots were visualized and felt to be free.? The disc space was explored and there was not a soft disc herniation. The left passing L5 nerve root was medialized and the annulus was i
[2022-05-19] MEDS: fentaNYL CITRATE INJ (*CRX) 100 MCG/2 ML VIAL 25 MCG IV PUSH ×6 (11:35→12:21)
[2022-05-19] MEDS: ONDANSETRON INJ 4 MG/2 ML VIAL IV PUSH (11:44)
[2022-05-19] MEDS: diphenhydrAMINE HCl INJ 50 MG/ML VIAL 25 MG IV PUSH (12:20)
[2022-05-19] MEDS: SCOPOLAMINE 1.5 MG PATCH TRANSDERM (12:20)
[2022-05-19] MEDS: oxyCODONE HCL (*CRX) 5 MG TAB IR PO (12:50)
== END 2022-05-19 13:45 | disposition home or self-care (01) ==
PROVIDERS: PCP Family Medicine; Visit Provider Neurological Surgery
PROC: (CPT 22612; principal; 2022-05-19 11:00)
DX: M47.816 Spondylosis without myelopathy or radiculopathy, lumbar region (principal); M51.27 Other intervertebral disc displacement, lumbosacral region; Z79.899 Other long term (current) drug therapy; Z87.891 Personal history of nicotine dependence; E66.9 Obesity, unspecified; Z68.34 Body mass index [BMI] 34.0-34.9, adult
CPT/HCPCS: 63047; 36415; 72110; 80048; 81001; 85027; 85610; 85730; 86850; 86900; 86901; 93005; 99199; A9270; J0690; J1030; J1100; J1200; J2250; J2405; J2704; J2710; J3010; J7120

== ENCOUNTER 2023-06-11 01:17 | Day surgery (SDC) | payer OTHER, SELFPAY ==
[2023-06-03 14:24] VITALS: BMI 32.1
--- NOTE | 2023-06-09 10:03 | SUR.PREOP ---
Patient called regarding upcoming procedure. Reviewed preop instructions, appointment times, and procedure prep.
[2023-06-11 06:44] VITALS: BP 126/80; PULSE 69; RESP 18; TEMP 36.2; O2SAT 100; BMI 30.2
[2023-06-11] MEDS: LACTATED RINGERS 1,000 ML 150 ML IV CONT (07:03)
--- NOTE | 2023-06-11 07:44 | WPDANESEPPF ---
Anes - Initial Pre Proc Eval Procedure: Operation Date: 06/11/23 08:00 Proposed Procedures p Colonoscopy - Sidney Wright MD Date/Time: 06/11/23 07:44 Surgeon: Sidney Wright MD Pre Op Diagnosis: Family history of malignant neoplasm if digestive Patient Data Age: 43 Gender: M Height: 1.7 m Weight: 87.5 kg Last Vital Signs Temp 97.1 F L 06/11/23 06:44 Pulse 69 06/11/23 06:44 Resp 18 06/11/23 06:44 BP 126/80 06/11/23 06:44 Pulse Ox 100 06/11/23 06:44 O2 Del Method Room Air 06/11/23 06:44 Allergies Allergy/AdvReac Type Severity Reaction Status Date / Time No Known Allergies Allergy Verified 06/11/23 06:52 Home Medications Medication Instructions Recorded Confirmed Type bupropion HCl 150 mg 24 hr tablet, 300 mg PO QAM 04/07/23 06/03/23 History extended release (Wellbutrin XL) buspirone 5 mg tablet 10 mg PO TID 04/07/23 06/03/23 History fluvoxamine 50 mg tablet 50 mg PO DAILY 06/03/23 06/03/23 History Patient hx anesthesia problems: none Family hx anesthesia problems: none Results Review: All pre-operative results and documents have been reviewed as part of the pre-operative evaluation. FORMERLY [facility] Past Medical History Medical History (Updated 05/07/23 @ 08:06 by Shen Galaviz MD) Anxiety Atrial fibrillation Back pain Family history of colon cancer GERD (gastroesophageal reflux disease) IFG (impaired fasting glucose) Surgical History Surgical History Status post lumbar surgery Family History Family History Father Malignant neoplasm of prostate Diabetes mellitus Mother Cerebrovascular accident Mitral valve prolapse Social History Social History Social History: Stephen is very confident filling out medical forms. In the last 12 months he has not received any assistance from an organization or program. Stephen is a male. Smoking packs per day: 1 Smoking cigarettes per day: 20.0 Years smoked: 12 Smoking pack-years: 12.00 Smoking status: Former smoker Tobacco type: cigarettes Second hand tobacco smoke exposure: No Smoking end date: 03/22/15 Alcohol intake: never Substance use: never Substance use type: does not use Lack of Transportation: No Lack of Food: Never True Current Housing: I Have Housing Concerned About Future Housing: No Difficulty Paying Gas/Electric Bills: No Difficulty Paying for Meds: No Currently Unemployed: No Education: Trade/Vocational Certificate Difficulty w/ Childcare or Family Care: No Living arrangements: with family Occupation/Education: occupation Gender identity (if verbalized by the patient): Male Sexual Orientation (if Verbalized by the Patient): Straight or Heterosexual Spiritual care concerns: No Anes - Eval Final PreProcedure Day of Procedure 06/11/23 07:44 Patient weight: normal Heart: regular rate and rhythm Lungs: clear to auscultation Airway: Mallampati scale class II Neurological: alert and oriented Last oral intake: >/= 8 hours ASA classification: III Emergent: no Anesthetic plan: proceed Anesthesia type and monitoring: general GIVS and standard monitoring Results Review: All pre-operative results and documents have been reviewed as part of the pre-operative evaluation. Informed Consent: The patient's anesthetic plan and its attendant risks and benefits were discussed with the patient/family/POA. Questions were solicited and answers provided to the satisfaction of the patient/family/POA.
--- NOTE | 2023-06-11 07:50 | PM.HPGS ---
History of Present Illness History of Present Illness Consent: Risks, benefits, and alternatives have been discussed and questions answered. Patient agrees to proceed with procedure. Chief complaint: colon screen Narrative: Stephen Tillman is a 43 year old male here for first screening colonoscopy Review of Systems Review of Systems: All systems reviewed & are unremarkable except as noted in HPI and below PMFSH Past Medical History Medical History (Updated 06/11/23 @ 07:50 by Sidney Wright MD) Anxiety Atrial fibrillation Back pain Colon cancer screening Family history of colon cancer GERD (gastroesophageal reflux disease) IFG (impaired fasting glucose) Surgical History Surgical History Status post lumbar surgery Family History Family History Father Malignant neoplasm of prostate Diabetes mellitus Mother Cerebrovascular accident Mitral valve prolapse Social History Social History Social History: Stephen is very confident filling out medical forms. In the last 12 months he has not received any assistance from an organization or program. Stephen is a male. Smoking packs per day: 1 Smoking cigarettes per day: 20.0 Years smoked: 12 Smoking pack-years: 12.00 Smoking status: Former smoker Tobacco type: cigarettes Second hand tobacco smoke exposure: No Smoking end date: 03/22/15 Alcohol intake: never Substance use: never Substance use type: does not use Lack of Transportation: No Lack of Food: Never True Current Housing: I Have Housing Concerned About Future Housing: No Difficulty Paying Gas/Electric Bills: No Difficulty Paying for Meds: No Currently Unemployed: No Education: Trade/Vocational Certificate Difficulty w/ Childcare or Family Care: No Living arrangements: with family Occupation/Education: occupation Gender identity (if verbalized by the patient): Male Sexual Orientation (if Verbalized by the Patient): Straight or Heterosexual Spiritual care concerns: No Meds Home Medications and Allergies Home Medications Medication Instructions Recorded Confirmed Type bupropion HCl 150 mg 24 hr tablet, 300 mg PO QAM 04/07/23 06/03/23 History extended release (Wellbutrin XL) buspirone 5 mg tablet 10 mg PO TID 04/07/23 06/03/23 History fluvoxamine 50 mg tablet 50 mg PO DAILY 06/03/23 06/03/23 History Allergies Allergy/AdvReac Type Severity Reaction Status Date / Time No Known Allergies Allergy Verified 06/11/23 06:52 Vital Signs Vital Signs - 24 hr 06/11/23 06:44 Temperature 97.1 F L Pulse Rate 69 Respiratory Rate 18 Blood Pressure 126/80 Pulse Oximetry 100 Oxygen Delivery Room Air Exam Const: General: comfortable and no acute distress HENMT: Face/Nose/Sinus: Normal nares present Eyes: General: appearance normal, both eyes and all related structures Neck: Neck: no JVD Resp: Auscultation: clear to auscultation bilaterally Cardio: Rate: regular rate Rhythm: regular rhythm GI: Inspection: non-distended GI Palp: Yes Soft to palpation Skin: General skin exam: normal color Neuro: General: gait normal Speech: normal speech Extrem: General: normal to inspection Psych: Mental Status: mental status grossly normal Assessment and Plan Assessment and plan (1) Colon cancer screening: Code(s): Z12.11 - Encounter for screening for malignant neoplasm of colon Status: Acute Assessment and Plan: colonoscopy
[2023-06-11 08:10] VITALS: BP 98/60; PULSE 50; RESP 18; O2SAT 98
[2023-06-11 08:20] VITALS: BP 112/65; PULSE 57; RESP 23; O2SAT 100
== END 2023-06-11 08:36 | disposition home or self-care (01) ==
PROVIDERS: PCP Family Medicine; Visit Provider Internal Medicine Gastroenterology
PROC: 0DJD8ZZ Inspection of Lower Intestinal Tract, Via Natural or Artificial Opening Endoscopic (ICD-10-PCS; CPT 45378; principal; 2023-06-11 08:00)
DX: Z12.11 Encounter for screening for malignant neoplasm of colon (principal); K64.8 Other hemorrhoids; F41.9 Anxiety disorder, unspecified; I48.91 Unspecified atrial fibrillation; Z87.891 Personal history of nicotine dependence
CPT/HCPCS: 45378; J2704; J7120

== ENCOUNTER 2024-02-28 10:56 | Outpatient (CLI) | payer OTHER, SELFPAY ==
[2024-02-28 12:39] LABS: Influenza A QL RT-PCR Negative (Negative); Influenza B QL RT-PCR Negative (Negative); SARS-CoV-2 RNA PCR Negative (Negative)
== END 2024-02-28 10:57 | disposition home or self-care (01) ==
PROVIDERS: PCP Family Medicine; Visit Provider Physician Assistant Medical
DX: R05.9 Cough, unspecified (principal); R50.9 Fever, unspecified; R52 Pain, unspecified; Z20.822 Contact with and (suspected) exposure to COVID-19
CPT/HCPCS: 87636

== ENCOUNTER 2024-03-04 08:07 | Emergency (ER) | payer OTHER, SELFPAY ==
--- NOTE | 2024-03-04 08:28 | ED_ITS ---
HPI - General Adult General Chief complaint: Upper Respiratory Infection Stated complaint: Cough/fever/ headache Time Seen by Provider: 03/04/24 08:28 Source: patient Mode of arrival: ambulatory Limitations: no limitations History of Present Illness HPI narrative: 43-year-old male patient presents to the [facility] with complaints of cold symptoms cough past week. Patient states that he started having chills, body aches, coughing last week in and states he thought he was getting better and when out to dinner last night with his son and states that he got into a coughing fit went home continued to have chills body aches again waking up at night with sweats and continues to have an ongoing cough and low-grade fevers. Denies any abdominal pain, nausea, vomiting or diarrhea. Denies chest pain or shortness of breath at this time. Patient states he did take some COVID a and flu test earlier in the week which were both negative. Patient states that his doctor did send him in some Freeosk Incon Perles but it has not helped. Related Data Home Medications ?Medication ?Instructions ?Recorded ?Confirmed ?Last Taken ?Type bupropion HCl 150 mg 24 hr tablet, 300 mg PO QAM 04/07/23 06/03/23 Unknown History extended release (Wellbutrin XL) buspirone 5 mg tablet 10 mg PO TID 04/07/23 06/03/23 Unknown History fluvoxamine 50 mg tablet 50 mg PO DAILY 06/03/23 06/03/23 Unknown History Allergies Allergy/AdvReac Type Severity Reaction Status Date / Time No Known Allergies Allergy Verified 03/04/24 08:58 Review of Systems Review of Systems: CONSTITUTIONAL: positive fever, body aches and chills, and positive sweats. EYES: Denies visual changes, redness, or discharge. ENT: Denies rhinorrhea, congestion, sore throat, or otalgia. CARDIOVASCULAR: Denies chest pain, palpitations, or edema. RESPIRATORY: Positive cough , denies dyspnea. GASTROINTESTINAL: Denies abdominal pain, nausea, vomiting, or diarrhea. GENITOURINARY: Denies dysuria or hematuria. SKIN: Denies rash or itching. MUSCULOSKELETAL: Denies back pain, joint pain, or myalgia. NEUROLOGIC: Denies headache, numbness, or weakness. PSYCHIATRIC: Denies anxiety or depression. [facility], [facility] Past Medical History Medical History Colon cancer screening Family history of colon cancer Atrial fibrillation Back pain GERD (gastroesophageal reflux disease) Anxiety IFG (impaired fasting glucose) Surgical History Surgical History Status post lumbar surgery Family History Family History Father Malignant neoplasm of prostate Diabetes mellitus Mother Cerebrovascular accident Mitral valve prolapse Social History Social History Social History: Stephen is very confident filling out medical forms. In the last 12 months he has not received any assistance from an organization or program. Stephen is a male. Smoking packs per day: 1 Smoking cigarettes per day: 20.0 Years smoked: 12 Smoking pack-years: 12.00 Smoking status: Former smoker Tobacco type: cigarettes Second hand tobacco smoke exposure: No Smoking end date: 03/22/15 Alcohol intake: never Substance use: never Substance use type: does not use Lack of Transportation: No Lack of Food: Never True Current Housing: I Have Housing Concerned About Future Housing: No Difficulty Paying Gas/Electric Bills: No Difficulty Paying for Meds: No Currently Unemployed: No Education: Trade/Vocational Certificate Difficulty w/ Childcare or Family Care: No Living arrangements: with family Occupation/Education: occupation Gender identity (if verbalized by the patient): Male Sexual Orientation (if Verbalized by the Patient): Straight or Heterosexual Spiritual care concerns: No Comments At the time of my signature I agree with nursing past medical history, surgical, social, and family history. There is no relevant family history pertinent to the presenting complaint. Exam Narrative: GENERAL: Well-appearing, well-nourished, and in no acute distress. HEAD: Normocephalic, atraumatic. EYES: PERRLA and EOMI. ENT: Nares with erythema and edema bilaterally, no rhinorrhea or epistaxis. Mucous membranes moist. posterior pharynx with no erythema, tonsillar enlargement, exudates or lesions present. Bilateral TMs are clear no erythema or foreign bodies the canal. NECK: Supple. No lymphadenopathy CHEST: Patient has crackles noted to Left-sided lower lobes on auscultation. No respiratory distress. patient able talk in clear complete sentences. Dry cough noted during exam HEART: Regular rate and rhythm. No murmur heard. Normal peripheral pulses. ABDOMEN: Soft, nontender, nondistended, normal active bowel sounds. EXTREMITIES: Normal range of motion. No edema. SKIN: Warm, dry, no rash. NEURO: No focal deficits. Alert and oriented x3. Course Course Level of Care: Express Care Visit Vital Signs Vital signs: Vital signs reviewed. Medical Decision Making MDM Narrative Medical decision making narrative: discussed with patient that we do not have attack today and we are not able to do a chest x-ray to confirm the pneumonia however given his symptoms and the physical exam with crackles to left lower lobe I do believe he most likely does have pneumonia we will go ahead and treat appropriately. Discussed with patient we will discharge him home with oral antibiotics, inhaler and steroids. If patient continues to have worsening symptoms please follow-up with his primary doctor or report to the emergency department for further evaluation treatment. Patient verbalized understanding denies any other questions or concerns at this time. Differential Diagnosis Differential Diagnosis: Differential diagnosis: Allergic rhinitis, chronic sinusitis, tonsillitis, acute sinusitis, infectious mononucleosis, seasonal influenza, pertussis, diphtheria, meningococcal disease, viral syndrome, viral bronchitis, RSV, COVID- 19 Critical Care Time Critical Care Time Critical Care Time: No Discharge Plan Discharge Clinical Impression: Community acquired pneumonia Qualifiers: Laterality: left Lung location: lower lobe of lung Qualified Code(s): J18.9 - Pneumonia, unspecified organism Patient Disposition: Home, Self-Care Condition: Stable Instructions: Antibiotic Form, Community Acquired Pneumonia (ED) Additional Instructions: Take your medication exactly as directed. Don't skip doses. Continue taking your antibiotics as directed until they are all gone - even if you start to feel better. This will prevent the pneumonia from coming back. Drink at least 8 glasses of water daily, unless directed otherwise. This helps to loosen and thin secretions so that you can cough them up. Use a cool-mist humidifier in your bedroom. Be sure to clean the humidifier daily. Coughing up mucus is normal. Don't use medications to suppress your cough unless your cough is dry, painful, or interferes with your sleep. You may use an expectorant if ordered by your doctor. Warm compresses or a heating pad on the lowest setting can be used to relieve chest discomfort. Use several times a day for 15 to 20 minutes at a time. (To prevent injuring your skin, be sure the temperature of the compress or heating pad is warm, not hot.) Get plenty of rest until your fever, shortness of breath, and chest pain go away. Plan to get a flu shot every year. Ask your doctor about pneumonia vaccinations. Call 911 right away if you have any of the following: Chest pain Trouble breathing Blue lips or fingernails Otherwise, call your doctor if you have any of the following: Fever above 101.5?F (38.6?C) Yellow, green, bloody, or smelly sputum More than normal mucus production Vomiting Patient Language: Chinese Prescriptions: New azithromycin 250 mg tablet See Rx Instructions .ROUTE .COMPLEX Qty: 6 0RF Rx Instructions: For 250 mg dose pack: take 500 mg today (day 1), then 250 mg for 4 days (days 2-5) prednisone 20 mg tablet 40 mg PO DAILY 5 Days Qty: 10 0RF albuterol sulfate [Ventolin HFA] 90 mcg/actuation HFA aerosol inhaler 2 puff INHALATION .Q4 hours PRN (Reason: cough) Qty: 18 0RF No Action buspirone 5 mg tablet 10 mg PO TID bupropion HCl [Wellbutrin XL] 150 mg tablet extended release 24 hr 300 mg PO QAM fluvoxamine 50 mg tablet 50 mg PO DAILY benzonatate 200 mg capsule 200 mg PO TID PRN (Reason: cough) 10 Days Qty: 30 0RF Follow-up/Referrals: Shen Galaviz MD [Primary Care Provider] - Time of Disposition: 09:07
[2024-03-04 09:24] VITALS: BP 129/69; PULSE 59; RESP 18; TEMP 37.4; O2SAT 99
--- OUTSIDE RECORDS SUMMARY | 2024-03-07 22:29 | XMS_ITS ---
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 Role Phone Shen Galaviz MD Primary Care Provider Unavaila Nidhi Gilbert Unavailable [phone] REASON FOR VISIT Fluvoxamine Social History Sex Assigned At : Social History Observation Description Sex Assigned At Female Encounters Encounter Location Date Provider Diagnosis [place] [id number] [facility] [address] [address] 02/14/2024 Nidhi Bhatia Plan Of Treatment No Information Progress Notes * MONIMARTÍN TDOB: [birth year] (43 yo M)Acc No.[id number]:02/14/2024 Patient:?MARTÍN MONTENEGRO :1980???Age:43 Y???Sex:Male Address:[address] [place] [address] * true * Date:? Generated for Printi ng/Faxing/eTransmitting on:?03/07/2024 10:29 PM [employer]
--- OUTSIDE RECORDS SUMMARY | 2024-03-07 22:29 | XMS_ITS ---
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 Name Role Phone Shen Galaviz MD Primary Care Provider UnavailNidhi Centeno Unavailable [phone] REASON FOR VISIT RE:Fluvoxamine Medications Medication SIG (Take, Route, Frequency, Duration) Notes Start Date End Date Status fluvoxaMINE Maleate 100 MG 1 tablet at bedtime Oral Once a day for 30 days d/c 50 mg dose 02/04/2024 Active Social History Sex Assigned At : Social History Observation Description Sex Assigned At Female Problems Problem Type SNOMED Code ICD Code Onset Dates Problem Status W/U Status Risk Notes Problem [id number] Mixed obsessional thoughts and acts (F42.2) Active confirmed Encounters Encounter Location Date Provider Diagnosis [facility] [employer] [facility] [address] [facility] [address] [address] 03/01/2024 Nidhi Bhatia Mixed obsessional thoughts and acts F42.2 Assessments Encounter Date Diagnosis (ICD Code) Assessment Notes Treatment Notes Treatment Clinical Notes Section Notes 03/01/2024 Mixed obsessional thoughts and acts (ICD-10 - F42.2) fluvoxamine to 100 mg daily Plan Of Treatment Medication Medication Name Sig Start Date Stop Date Notes fluvoxaMINE Maleate 100 MG 1 tablet at b edtime Oral Once a day for 30 days 02/04/2024 d/c 50 mg dose Progress Notes * MARTÍN MONTENEGRO TDOB: [birth year] (43 yo M)Acc No.[id number]:03/01/2024 Patient:?MARTÍN MONTENEGRO :1980???Age:43 Y???Sex:Male Address:[address] [place] [address], [place], [address] * Refills? Refill fluvoxaMINE Maleate Tablet, 100 MG, Oral, 30, 1 tablet at bedtime, Once a day, 30 days, Refills=0 Subjective: * Chief Complaints: * ???RE:Fluvoxamine * Medical History:? * Surgical History:? * Hospitalization/Major Diagno stic Procedure:? * Medications:? Objective: * Vitals:? * Physical Examination:? Assessment: * Assessment: 1.?Mixed obsessional thought s and acts - F42.2 (Primary)??? fluvoxamine to 100 mg daily Plan: * Treatment: * Procedure Codes:? * true * Date:? Generated for cSott gomez/Grace/Sadesmitting on:?03/07/2024 10:29 PM [employer]
--- OUTSIDE RECORDS SUMMARY | 2024-03-07 22:30 | XMS_ITS ---
Author Organization [facility] [place] Address [address] [place] [address] Care Team Providers Care Machine Welt Butter Name Role Phone Shen Galaviz MD Primary Care Provider UnavailNidhi Centeno Unavailable [phone] Allergies No Known Allergies REASON FOR VISIT Follow Up Medication Eval Medications Medication SIG (Take, Route, Frequency, Duration) Notes Start Date End Date Status fluvoxaMINE Maleate 50 MG 1 tablet at be dtime Oral Once a day for 30 days 02/04/2024 Active Ibuprofen 800 MG Oral 07/30/2023 No t-Taking predniSONE 10 MG Oral 07/30/2023 No t-Taking Social History Tobacco Use: Social History Observation Description Date Details (start date - stop date) Former Smoker 03/22/1998 - 05/21/2015 Sex Assigned At : Social History Observation Description Sex Assigned At Female Household Question Answer Notes Marital status: Number of adults in household: 2 d aughter Number of children in household: 1 Level of education: finished high school Sexual History Question Answer Notes Had sex in the past 12 months (vaginal, oral, or anal)? Yes with Women only Tobacco Control (Standard) Question Answer Notes Tobacco use: Former smoker When did you start smoking? 03/22/1998 When did you stop smoking? 05/21/2015 How long has it been since y ou last smoked? Greater than 10 years Additional Findings: Tobacco user Light cigarett e smoker (1-9 cigs/day) Additional Findings: Tobacco non-user Current no nsmoker,Ex-cigarette smoker AUDIT-C (Standard) Question Answer Notes Did you have a drink containing alcohol in the p ast year? No Points 0 Interpretation Negative Vital Signs Blood pressure systolic 125 mm Hg 02/04/20 Blood pressure diastolic 80 mm Hg 024 Heart Rate 46 /min 02/04/2024 Height 67.00 in 02/04/2024 Weight 223.2 lbs 02/04/2024 BMI 34.95 kg/m2 02/04/2024 Height-cm 170.18 cm 02/04/2024 Weight-kg 101.24 kg 02/04/2024 Encounters Encounter Location Date Provider Diagnosis [email or web address] [address] [place] [address] 02/04/2024 Nidhi Bhatia Major depressive disorder, recurrent, mild F33.0 ; Generalized anxiety disorder F41.1 ; Obsessive-compulsive disorder, unspecified F42.9 ; Attention and concentration deficit R41.840 and 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 Mild recurrent major depression- patient stopped rx hx irritable at 300 mg dose educated on all medications, benefits, side effects and risk, and educated on depression, anxiety, and ADHD, mood d/o and educated on compliance of medications, metabolic and movement d/o education appointment's, continue therapy discussion with patient about course of treatmentand patient instructions. education on serotonin syndrome testoterone checked with PCP Continue therapy 2. Obsessive-compuls cristina disorder -therapy seen for last 5-6 years patient would like to restart Ehrrsfwmlas41 mg daily for OCD Discuss TMS 11/29/23 07/30/23 discuss TMS for OCD- patient has not thought about TMS since last visit hx Fluvoxamine 100 mg - educated on rx and take as prescribed- continue to have OCD and anxiety s/s therapy Discuss TMS for OCD and educated on TMS and pamphlet given- 05/28/23 patient will continue to think about TMS- patient would like to wait on TMS 09/27/23 discuss rx optionshx sexual side effects per patient on SSRI SSRI side effects discussed including but not limited to, gastric upset, nausea, vomiting, diarrhea and/or constipation, weight changes, sexual side effects including loss of libido, increased suicidal thoughts/behavior s in children and young adults, and serotonin syndrome. 3. Generalized anxiety disorder - lorazepam prescribed for flying- helped no rx prescribed pateint reported was taking Buspar daily and stopped rx Buspar 10 mg d/c Discussed and educated pt regarding benzodiazepines are generally not intended for prolonged use and that use can cause tolerance, dependence, depression, and associated memory issues including dementias (this list is not exhaustive). Benzodiazepine use is generally not recommended concurrently with pain medications and/or other controlled substances due to increased risks of profound sedation, respiratory depression, coma, and even . They are not to be used with any alcohol, as this combination can also be lethal. Patient was provided caution 4. Attention deficit hyperactivity disorder, combined type -REVIEWED JAYY-2 - ADHD combination 07/30/23 discuss ADHD rx and hx rx Qelbree D/C for ADHD- constipation and irritable 12/23/23 RECIEVED CLEARANCE LETTER from Actuarial Associate for Vyvanse ADHD stimulates education Discuss with patient risk of misuse, abuse, and addiction before prescribing stimulant medicines. Slabber Light patients not to share their prescribed stimulant with anyone else. Educate patients and their families on these serious risks, proper storage of the medicine, and proper disposal of any unused medicine. Educated patient will monitor Throughout treatment, regularly assess and monitor them for signs and symptoms of nonmedical use, addiction, and potential diversion, which may be evidenced by more frequent renewal. requests than warranted by the prescribed dosage. Random UDS [place] prescription reviewed local pharmacy in [facility], no early refills on control substance educated on non-stimulate and stimulates hx A-Fib see donor relations officer 11/30/2023 - donor relations officer approval and letter in chart Patient stopped Vyvanse 20 mg daily after 2 weeks - agitation patient educated on non-stimulates hx Strattera, hx Wellbutrin and hx Qelbree hx - Qelbree(irritable at 400 mg dose and constipation), strattera (5 weeks), educated on rx [place] prescription program reviewed Random UDS 5. BInge eating- discuss therapy cardilolkelseyst t approval for Vyvanse 12/23/23 - 02/04/2024 Generalized anxiety disorder (ICD-10 - F41.1) Learning About Generalized Anxiety Disorder material was published, Generalized Anxiety Disorder: Care Instructions material was published, Learning About Transcranial Magnetic Stimulation (TMS) material was published, Learning About Anxiety Disorders material was published, Learning About Anxiety Disorders material was published, Learning About Transcranial Magnetic Stimulation (TMS) material was published 1. Mild recurrent major depression- patient stopped rx hx irritable at 300 mg dose educated on all medications, benefits, side effects and risk, and educated on depression, anxiety, and ADHD, mood d/o and educated on compliance of medications, metabolic and movement d/o education appointment's, continue therapy discussion with patient about course of treatmentand patient instructions. education on serotonin syndrome testoterone checked with PCP Continue therapy 2. Obsessive-compuls cristina disorder -therapy seen for last 5-6 years patient would like to restart Gpewzinecmy05 mg daily for OCD Discuss TMS 11/29/23 07/30/23 discuss TMS for OCD- patient has not thought about TMS since last visit hx Fluvoxamine 100 mg - educated on rx and take as prescribed- continue to have OCD and anxiety s/s therapy Discuss TMS for OCD and educated on TMS and pamphlet given- 05/28/23 patient will continue to think about TMS- patient would like to wait on TMS 09/27/23 discuss rx optionshx sexual side effects per patient on SSRI SSRI side effects discussed including but not limited to, gastric upset, nausea, vomiting, diarrhea and/or constipation, weight changes, sexual side effects including loss of libido, increased suicidal thoughts/behavior s in children and young adults, and serotonin syndrome. 3. Generalized anxiety disorder - lorazepam prescribed for flying- helped no rx prescribed pateint reported was taking Buspar daily and stopped rx Buspar 10 mg d/c Discussed and educated pt regarding benzodiazepines are generally not intended for prolonged use and that use can cause tolerance, dependence, depression, and associated memory issues including dementias (this list is not exhaustive). Benzodiazepine use is generally not recommended concurrently with pain medications and/or other controlled substances due to increased risks of profound sedation, respiratory depression, coma, and even . They are not to be used with any alcohol, as this combination can also be lethal. Patient was provided caution 4. Attention deficit hyperactivity disorder, combined type -REVIEWED JAYY-2 - ADHD combination 07/30/23 discuss ADHD rx and hx rx Qelbree D/C for ADHD- constipation and irritable 12/23/23 RECIEVED CLEARANCE LETTER from Actuarial Associate for Vyvanse ADHD stimulates education Discuss with patient risk of misuse, abuse, and addiction before prescribing stimulant medicines. Slabber Light patients not to share their prescribed stimulant with anyone else. Educate patients and their families on these serious risks, proper storage of the medicine, and proper disposal of any unused medicine. Educated patient will monitor Throughout treatment, regularly assess and monitor them for signs and symptoms of nonmedical use, addiction, and potential diversion, which may be evidenced by more frequent renewal. requests than warranted by the prescribed dosage. Random UDS [place] prescription reviewed local pharmacy in [place], no early refills on control substance educated on non-stimulate and stimulates hx A-Fib see donor relations officer 11/30/2023 - donor relations officer approval and letter in chart Patient stopped Vyvanse 20 mg daily after 2 weeks - agitation patient educated on non-stimulates hx Strattera, hx Wellbutrin and hx Qelbree hx - Qelbree(irritable at 400 mg dose and constipation), strattera (5 weeks), educated on rx [place] prescription program reviewed Random UDS 5. BInge eating- discuss therapy evelyn levi approval for Vyvanse 12/23/23 - 02/04/2024 Obsessive-compul sive disorder, unspecified (ICD-10 - F42.9) Obsessive-Compu lsive Disorder: Care Instructions material was published, Obsessive-Compu lsive Disorder: Care Instructions material was published 1. Mild recurrent major depression- patient stopped rx hx irritable at 300 mg dose educated on all medications, benefits, side effects and risk, and educated on depression, anxiety, and ADHD, mood d/o and educated on compliance of medications, metabolic and movement d/o education appointment's, continue therapy discussion with patient about course of treatmentand patient instructions. education on serotonin syndrome testoterone checked with PCP Continue therapy 2. Obsessive-compuls cristina disorder -therapy seen for last 5-6 years patient would like to restart Uauyiseqghj33 mg daily for OCD Discuss TMS 11/29/23 07/30/23 discuss TMS for OCD- patient has not thought about TMS since last visit hx Fluvoxamine 100 mg - educated on rx and take as prescribed- continue to have OCD and anxiety s/s therapy Discuss TMS for OCD and educated on TMS and pamphlet given- 05/28/23 patient will continue to think about TMS- patient would like to wait on TMS 09/27/23 discuss rx optionshx sexual side effects per patient on SSRI SSRI side effects discussed including but not limited to, gastric upset, nausea, vomiting, diarrhea and/or constipation, weight changes, sexual side effects including loss of libido, increased suicidal thoughts/behavior s in children and young adults, and serotonin syndrome. 3. Generalized anxiety disorder - lorazepam prescribed for flying- helped no rx prescribed pateint reported was taking Buspar daily and stopped rx Buspar 10 mg d/c Discussed and educated pt regarding benzodiazepines are generally not intended for prolonged use and that use can cause tolerance, dependence, depression, and associated memory issues including dementias (this list is not exhaustive). Benzodiazepine use is generally not recommended concurrently with pain medications and/or other controlled substances due to increased risks of profound sedation, respiratory depression, coma, and even . They are not to be used with any alcohol, as this combination can also be lethal. Patient was provided caution 4. Attention deficit hyperactivity disorder, combined type -REVIEWED JAYY-2 - ADHD combination 07/30/23 discuss ADHD rx and hx rx Qelbree D/C for ADHD- constipation and irritable 12/23/23 RECIEVED CLEARANCE LETTER from Actuarial Associate for Vyvanse ADHD stimulates education Discuss with patient risk of misuse, abuse, and addiction before prescribing stimulant medicines. Slabber Light patients not to share their prescribed stimulant with anyone else. Educate patients and their families on these serious risks, proper storage of the medicine, and proper disposal of any unused medicine. Educated patient will monitor Throughout treatment, regularly assess and monitor them for signs and symptoms of nonmedical use, addiction, and potential diversion, which may be evidenced by more frequent renewal. requests than warranted by the prescribed dosage. Random UDS [place] prescription reviewed local pharmacy in [facility], no early refills on control substance educated on non-stimulate and stimulates hx A-Fib see donor relations officer 11/30/2023 - donor relations officer approval and letter in chart Patient stopped Vyvanse 20 mg daily after 2 weeks - agitation patient educated on non-stimulates hx Strattera, hx Wellbutrin and hx Qelbree hx - Qelbree(irritable at 400 mg dose and constipation), strattera (5 weeks), educated on rx [place] prescription program reviewed Random UDS 5. BInge eating- discuss therapy cardilolgist t approval for Vyvanse 12/23/23 - 02/04/2024 Attention and concentration deficit (ICD-10 - R41.840) 1. Mild recurrent major depression- patient stopped rx hx irritable at 300 mg dose educated on all medications, benefits, side effects and risk, and educated on depression, anxiety, and ADHD, mood d/o and educated on compliance of medications, metabolic and movement d/o education appointment's, continue therapy discussion with patient about course of treatmentand patient instructions. education on serotonin syndrome testoterone checked with PCP Continue therapy 2. Obsessive-compuls cristina disorder -therapy seen for last 5-6 years patient would like to restart Yxqiarptyri37 mg daily for OCD Discuss TMS 11/29/23 07/30/23 discuss TMS for OCD- patient has not thought about TMS since last visit hx Fluvoxamine 100 mg - educated on rx and take as prescribed- continue to have OCD and anxiety s/s therapy Discuss TMS for OCD and educated on TMS and pamphlet given- 05/28/23 patient will continue to think about TMS- patient would like to wait on TMS 09/27/23 discuss rx optionshx sexual side effects per patient on SSRI SSRI side effects discussed including but not limited to, gastric upset, nausea, vomiting, diarrhea and/or constipation, weight changes, sexual side effects including loss of libido, increased suicidal thoughts/behavior s in children and young adults, and serotonin syndrome. 3. Generalized anxiety disorder - lorazepam prescribed for flying- helped no rx prescribed pateint reported was taking Buspar daily and stopped rx Buspar 10 mg d/c Discussed and educated pt regarding benzodiazepines are generally not intended for prolonged use and that use can cause tolerance, dependence, depression, and associated memory issues including dementias (this list is not exhaustive). Benzodiazepine use is generally not recommended concurrently with pain medications and/or other controlled substances due to increased risks of profound sedation, respiratory depression, coma, and even . They are not to be used with any alcohol, as this combination can also be lethal. Patient was provided caution 4. Attention deficit hyperactivity disorder, combined type -REVIEWED JAYY-2 - ADHD combination 07/30/23 discuss ADHD rx and hx rx Qelbree D/C for ADHD- constipation and irritable 12/23/23 RECIEVED CLEARANCE LETTER from Actuarial Associate for Vyvanse ADHD stimulates education Discuss with patient risk of misuse, abuse, and addiction before prescribing stimulant medicines. Slabber Light patients not to share their prescribed stimulant with anyone else. Educate patients and their families on these serious risks, proper storage of the medicine, and proper disposal of any unused medicine. Educated patient will monitor Throughout treatment, regularly assess and monitor them for signs and symptoms of nonmedical use, addiction, and potential diversion, which may be evidenced by more frequent renewal. requests than warranted by the prescribed dosage. Random UDS [place] prescription reviewed local pharmacy [place], no early refills on control substance educated on non-stimulate and stimulates hx A-Fib see donor relations officer 11/30/2023 - donor relations officer approval and letter in chart Patient stopped Vyvanse 20 mg daily after 2 weeks - agitation patient educated on non-stimulates hx Strattera, hx Wellbutrin and hx Qelbree hx - Qelbree(irritable at 400 mg dose and constipation), strattera (5 weeks), educated on rx [place] prescription program reviewed Random UDS 5. 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 Mild recurrent major depression- patient stopped rx hx irritable at 300 mg dose educated on all medications, benefits, side effects and risk, and educated on depression, anxiety, and ADHD, mood d/o and educated on compliance of medications, metabolic and movement d/o education appointment's, continue therapy discussion with patient about course of treatmentand patient instructions. education on serotonin syndrome testoterone checked with PCP Continue therapy 2. Obsessive-compuls cristina disorder -therapy seen for last 5-6 years patient would like to restart Enhjdtcjbon83 mg daily for OCD Discuss TMS 11/29/23 07/30/23 discuss TMS for OCD- patient has not thought about TMS since last visit hx Fluvoxamine 100 mg - educated on rx and take as prescribed- continue to have OCD and anxiety s/s therapy Discuss TMS for OCD and educated on TMS and pamphlet given- 05/28/23 patient will continue to think about TMS- patient would like to wait on TMS 09/27/23 discuss rx optionshx sexual side effects per patient on SSRI SSRI side effects discussed including but not limited to, gastric upset, nausea, vomiting, diarrhea and/or constipation, weight changes, sexual side effects including loss of libido, increased suicidal thoughts/behavior s in children and young adults, and serotonin syndrome. 3. Generalized anxiety disorder - lorazepam prescribed for flying- helped no rx prescribed pateint reported was taking Buspar daily and stopped rx Buspar 10 mg d/c Discussed and educated pt regarding benzodiazepines are generally not intended for prolonged use and that use can cause tolerance, dependence, depression, and associated memory issues including dementias (this list is not exhaustive). Benzodiazepine use is generally not recommended concurrently with pain medications and/or other controlled substances due to increased risks of profound sedation, respiratory depression, coma, and even . They are not to be used with any alcohol, as this combination can also be lethal. Patient was provided caution 4. Attention deficit hyperactivity disorder, combined type -REVIEWED JAYY-2 - ADHD combination 07/30/23 discuss ADHD rx and hx rx Qelbree D/C for ADHD- constipation and irritable 12/23/23 RECIEVED CLEARANCE LETTER from Actuarial Associate for Vyvanse ADHD stimulates education Discuss with patient risk of misuse, abuse, and addiction before prescribing stimulant medicines. Slabber Light patients not to share their prescribed stimulant with anyone else. Educate patients and their families on these serious risks, proper storage of the medicine, and proper disposal of any unused medicine. Educated patient will monitor Throughout treatment, regularly assess and monitor them for signs and symptoms of nonmedical use, addiction, and potential diversion, which may be evidenced by more frequent renewal. requests than warranted by the prescribed dosage. Random UDS [place] prescription reviewed local pharmacy in [place], no early refills on control substance educated on non-stimulate and stimulates hx A-Fib see donor relations officer 11/30/2023 - donor relations officer approval and letter in chart Patient stopped Vyvanse 20 mg daily after 2 weeks - agitation patient educated on non-stimulates hx Strattera, hx Wellbutrin and hx Qelbree hx - Qelbree(irritable at 400 mg dose and constipation), strattera (5 weeks), educated on rx [place] prescription program reviewed Random UDS 5. BInge eating- discuss therapy cardilolkelseyst t approval for Vyvanse 10/3/24 - Plan Of Treatment Medication Medication Name Sig Start Date Stop Date Notes Lisdexamfetamine Dimesylate 20 MG 1 caps ule in the morning Orally Once a day for 30 days fluvoxaMINE Maleate 50 MG 1 tablet at be dtime Oral Once a day for 30 days 02/04/2024 Treatment Notes Assessment Notes Generalized anxiety disorder Learning Ab out Generalized Anxiety Disorder material was published, Generalized Anxiety Disorder: Care Instructions material was published, Learning About Transcranial Magnetic Stimulation (TMS) material was published, Learning About Anxiety Disorders material was published, Learning About Anxiety Disorders material was published, Learning About Transcranial Magnetic Stimulation (TMS) material was published Obsessive-compulsive disorder, unspecifi ed Obsessive-Compulsive Disorder: Care Instructions material was published, Obsessive-Compulsive Disorder: Care Instructions material was published 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 Follow Up Medication E kenroy. * HPI: ???Depression Screening:?WOODROW-7 (2018 Edition)?Feeling nervous, anxious, or on edge?Nearly every day,?Not being able to stop or control worrying?Nearly every day,?Worrying too much about different things?More than hafl the days,?Trouble relaxing?More than half the days,?Being so restless that it is hard to sit still?Several days,?Becoming easily annoyed or irritable?Nearly every day,?Feeling afraid as if something awful might happen?More than half the days,?Total WOODROW-7 Score?16,?Interpretation of Total?(15 and over) Severe.?[place]-Suicide Severity Rating Scale:?Suicide Risk (CSRS-screener)?in the past one month Have you wished you were or wished you could go to sleep and not wake up??No,?in the past one month Have you actually had any thoughts of killing yourself??No,?Have you ever done anything, started to do anything, or prepared to do anything to end your life??No.?Depression screening:?PHQ-9?Little interest or pleasure in doing things?Several days,?Feeling down, depressed, or hopeless?Not at all,?Trouble falling or staying asleep, or sleeping too much?Several days,?Feeling tired or having little energy?Several days,?Poor appetite or overeating?Not at all,?Feeling bad about yourself or that you are a failure, or have let yourself or your family down?Not at all,?Trouble concentrating on things, such as reading the newspaper or watching television?Several days,?Moving or speaking so slowly that other people could have noticed; or the opposite, being so fidgety or restless that you have been moving around a lot more than usual?Not at all,?Thoughts that you would be better off or of hurting yourself in some way?Not at all,?Total Score?4,?Interpretation?Minimal Depression.?Intervention?Depression Screening Findings?Positve,?Follow-Up for Depression?Mental health treatment assessment, Patient follow-up to return when and if necessary,?Suicide Risk Assessment Performed?02/04/2024 ,?Additional Evaluation for Depression?Psychiatric interview and evaluation,?Name of the standardized tool used for adult depression screening:?Patient Health Questionnaire (PHQ-9).? ADHD- received letter clearance donor relations officer for [facility] 12/23/23 - patient stopped after 2 weeks increase agitation? Eating Disorder Reported by?patient.Eating Disorder:?recurrent episodes of binge eating without inappropriate compensatory behavior; eating large amounts of food regardless of physical hunger; feeling disgusted after binge; eating more rapidly than normal during binge; will eat in middle night Onset:?gradually Duration:?years Frequency?intermittent Risk Factors:?family history of eating disorders (uncle had gastric bypass and whole family over weight); low self-esteem; substance abuse (hx ETOH) Aggravated By:?general worries; lack of sleep/rest; substance use (HX ETOH); stress at work Relieved By:?exercise; psychotherapy/counseling (ADDICTION Therapist weekly); social contact; talking with family Associated Symptoms:?constipation;?feeling out of control?(sometimes);?fixation on specific weight (number);?frequently eats alone;?intense fear of gaining weightNotes:daily excise 40-60 minuteshyper focus on weight not gaining weight AFIB Remission ETOH Follow up depression anxiety and OCD chronic since last visit reported I stopped Vyvanse after 2 weeks made me feel agiation and I am not on any rx right now I have intrusive thoughts and OCD again and I felt better on rx I had in 09/12, I feel not sad or down, no hopeless or helpless, I feel just OCD and may try to work in ADHD rx in a month or so and Fluvoxamine worked before and I felt like Vyvanse worked 1 week then not and more agitation, not restless or fidgety, sleep not too bad, hard time stay asleep, and average 7-8 hours, appetite fine, and no psychosis no marcia no SI/HI? I saw neurologist Dr. Castelan last year 05/13 with memory and did MRI brain and EEG said no dementia and scan looked fine discuss TMS for OCD, I had a sleep study before no sleep apnea, denies SI/HI no thoughts harm to self or others, no past attempts and no self cutting or self harm, past psychiatric hospital weapon - gun located at someone house and 3 at home not locked up- educated on placing in safe FH son OD father commit suicide OD 2018, father brother- murder and suicide killed and then self 2021 FH - mental illness back surgery 05/14 ETOH Remission 11 years addiction therapist weeklysmoking former stopped 7 year ago labs- PCP seen 04/14 drugs- denies not able to drink caffeine cause anxiety AFib 2021- donor relations officer? Marcia Reported by?patient.Notes:denies OCD HPI? Reported by?patient.Quality of OCD Symptoms:?obsessive, fearful thoughts?(food, weight, and excise and not over eating);?obsessive, worrying thoughts;?compulsive, anxiety decreasing behaviors Associated Symptoms OCD:?cleaning/washing obsessions;?symmetry obsessions;?ordering/arranging compulsions;?miscellaneous compulsions?(food, weight, and excise and not over eating) Obsessive Compulsive Severity:?moderate; obsessions: interference definite but manageable; obsessions: distress moderate but manageable; obsessions: resistance much resistance; obsessions: control little control; unchanged Notes:I obessive on different things sometimes and thoughts, worries and hard to stop the thoughts, I do breathing excise I am still able to work and do activities, increase anxious with obsessive thoughts and no compulsions, obsess thoughts over bad things like losing my job or something happen to one family members, then cause me a lot anxiety, and if not able to think of correct words in conversation and worried, hyper focus on things ?hx reported Fluvoxamine tolerating rx helped,? (discuss TMS for OCD) hx focus on weight and excise and not over eating grand mother- OCD and clean and would take own utensils hx I like to be clean and make sure I am clean OCD I am particular about placement of keys and wallets same spot each night, I do not like change, and cause anxiety and change job cause some anxiety, like to have ducks in row and over think Psychosis Reported by?patient.Notes:denies Psychotherapy InterventionReported by?patient.Notes:in therapy x 7 years and has helped Suicide AssessmentReported by?patient.Spectrum:?#0 of suicidal attempts; family history of suicide (see below); previous hospitalization for psychiatric condition (0)Notes:denies SI/HI no thoughts harm to self or others, no past attempts and no self cutting or self harm, past psychiatric hospital weapon - gun located at someone house and 3 at home not locked up- educated on placing in safeFH son OD father commit suicide OD 2018, father brother- murder and suicide killed and then self 2021FH - mental illness rx hx Lorazepam, Sertraline (tired), Diazepam, Lexapro (before sober), Wellbutrin, Trintellix (too expensive), Viibyrd (sexual s/e and increase appetite), Qelbree(irritable at 400 mg dose and constipation), strattera, Paxil (when younger), Buspar, Wellbutrin (irritable at 300 mg dose), Vyvanse (agitation),??Fluvoxamine. * ROS:?Patient reports no chest pain, no arm pain on exertion, no shortness of breath when walking, no shortness of breath when lying down, no palpitations, no known heart murmur, and no ankle swelling;?SOB with palpitations dxn 2021 AFIB.- Schedule to see donor relations officer 11/30/23 He reports?GERD (at times)?but reports no abdominal pain, no nausea, no vomiting, no constipation, normal appetite, no diarrhea,. He reports?incomplete emptying?but reports no incontinence, no difficulty urinating, no hematuria, and no increased frequency. He reports no muscle aches, no muscle weakness, no arthralgias/joint pain, no back pain, no neck pain, and no difficulty walking;?HX BACK SURGERY 05/19/22. He reports?sleep disturbances, anxiety, no memory loss, and? agitation?but reports mild depression, feeling safe in a relationship, no alcohol abuse, no hallucinations, no suicidal thoughts, no mood swings;?OCD. ?He reports?fatigue. He reports no fever, no significant weight gain, and no significant weight loss. He reports no cough and no shortness of breath. He reports no loss of consciousness, no weakness, no numbness, no seizures, no dizziness, no migraines, no headaches, no tremor, no gait dysfunction, and no paralysis. 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 * Social History:?Tobacco Use:?Tobacco Control (Standard)?Tobacco use:?Former smoker,?When did you start smoking??03/22/1998,?When did you stop smoking??05/21/2015,?How long has it been since you last smoked??Greater than 10 years,?Additional Findings: Tobacco user?Light cigarette smoker (1-9 cigs/day),?Additional Findings: Tobacco non-user?Current nonsmoker,Ex-cigarette smoker.?Migrated Social History:?Migrated Social History: Alcohol Intake: None 08/31/2022,Tobacco Years: Former smoker 08/31/2022. ???Sexual History:?Sexual History?Had sex in the past 12 months (vaginal, oral, or anal)??Yes,?with?Women only.?Drug/Alcohol:?Drugs?Have you used drugs other than those for medical reasons in the past 12 months??No.?Caffeine?Intake:?none.?Do you smoke marijuana?: Denies. AUDIT-C (Standard)?Did you have a drink containing alcohol in the past year??No,?Points?0,?Interpretation?Negative.?Household:?Household?Marital status:?,?Number of adults in household:?2 daughter,?Number of children in household:?1,?Number of siblings:?2 1 sister 1 brother,?Level of education:?finished high school,?Marital status of the child's parents:?,?With whom does the child live??with both parents,?Any household tobacco use??No,?Any household pets??No.?Miscellaneous:?Advance Care Planning?Are you your own decision-maker?Yes,?Do you have Power of [employer] for Health or Medical??Yes,?Do you have a power of city attorney for health??Yes,?Do you have power of city attorney for Medical ??Yes,?If yes, then please bring the POA paperwork so that we can upload it.?Yes.? * Medications:?Not-Taking Ibup rofen 800 MG Tablet Oral , Not-Taking predniSONE 10 MG Tablet Oral , Discontinued Lisdexamfetamine Dimesylate 20 MG Capsule 1 capsule in the morning Orally Once a day , Discontinued Qelbree 200 MG Capsule Extended Release 24 Hour 2 capsule Orally Once a day , Notes: total 400 mg daily in am, Discontinued clonazePAM 0.5 MG Tablet 1 tablet Oral as needed for flying , Notes to Pharmacist: # 2, Notes: flying, Discontinued Trintellix 20 MG Tablet Oral , Medication List reviewed and reconciled with the patient * Allergies:?N.K.D.A. Objective: * Vitals:?BP:125/80mm Hg, HR:4 6/min, Wt:223.2lbs, Wt-k.24 kg, Ht: 67.00 in, Ht-cm: 170.18 cm, BMI:34.95Index, Body Surface Area: 2.19. * Examination: ???Psychiatry: ?Appearance:?well-groomed, well-nourished, appears stated age.?Abnormal body movements:?none.?Affect / mood:?appropriate, full range.?Aggression:?low.?Anger control:?good.?Attention:?good.?Attitude:?cooperative.?Homicidal ideation:?none.?Suicidal ideation:?none.?Memory status:?no impairment.?Degree of awareness of surroundings:?within normal limits.?Delusions:?no.?Hallucinations:?no.?Impulse control:?good.?Insight:?good.?Intellectual functioning:?average.?Comprehension - Intellectual function:?average.?Judgement:?good.?Orientation:?awake, alert and oriented x 3.?Perceptual disorders:?no perceptual disorder noted.?Psychomotor activity:?within normal range.?Sexual impulse control:?good.?Speech / language:?appropriate pitch/modulation, clear and coherent, normal rate, volume, and articulation (RVR), proper grammar used.?Thought content:?appropriate.?Thought process:?intact.? Assessment: * Assessment: 1.?Major depressive disorder , recurrent, mild - F33.0 (Primary)???2.?Generalized anxiety disorder - F41.1???3.?Obsessive-compulsive disorder, unspecified - F42.9???4.?Attention and concentration deficit - R41.840???5. Other custodial (current) drug therapy - Z79.899??? 1. Mild recurrent major depr ession- patient stopped? rx hx irritable at 300 mg dose educated on all medications, benefits, side effects and risk, and educated on depression, anxiety, and ADHD, mood d/o and educated on compliance of medications, metabolic and movement d/o education appointment's, continue therapy discussion with patient about course of treatmentand patient instructions. education on serotonin syndrome testoterone checked with PCP Continue therapy 2. Obsessive-compulsive disorder -therapy seen for last 5-6 years patient would like to?restart [id number] mg daily?for OCD? Discuss TMS 11/29/23 07/30/23 discuss TMS for OCD- patient has not thought about TMS since last visit hx Fluvoxamine 100 mg - educated on rx and take as prescribed- continue to have OCD and anxiety s/s therapy Discuss TMS for OCD and educated on TMS and pamphlet given- 05/28/23 patient will continue to think about TMS- patient would like to wait on TMS 09/27/23 discuss rx optionshx sexual side effects per patient on SSRI SSRI side effects discussed including but not limited to, gastric upset, nausea, vomiting, diarrhea and/or constipation, weight changes, sexual side effects including loss of libido, increased suicidal thoughts/behaviors in children and young adults, and serotonin syndrome. 3. Generalized anxiety disorder - lorazepam prescribed for flying- helped no rx prescribed pateint reported was taking Buspar daily and stopped rx Buspar 10 mg d/c Discussed and educated pt regarding benzodiazepines are generally not intended for prolonged use and that use can cause tolerance, dependence, depression, and associated memory issues including dementias (this list is not exhaustive). Benzodiazepine use is generally not recommended concurrently with pain medications and/or other controlled substances due to increased risks of profound sedation, respiratory depression, coma, and even . They are not to be used with any alcohol, as this combination can also be lethal. Patient was provided caution 4. Attention deficit hyperactivity disorder, combined type -REVIEWED JAYY-2 - ADHD combination 07/30/23 discuss ADHD rx and hx rx Qelbree D/C for ADHD- constipation and irritable 12/23/23 RECIEVED CLEARANCE LETTER from Actuarial Associate for Vyvanse ADHD stimulates education Discuss with patient risk of misuse, abuse, and addiction before prescribing stimulant medicines. Slabber Light patients not to share their prescribed stimulant with anyone else. Educate patients and their families on these serious risks, proper storage of the medicine, and proper disposal of any unused medicine. Educated patient will monitor Throughout treatment, regularly assess and monitor them for signs and symptoms of nonmedical use, addiction, and potential diversion, which may be evidenced by more frequent renewal. requests than warranted by the prescribed dosage. Random UDS [place] prescription reviewed local pharmacy in [place], no early refills on control substance educated on non-stimulate and stimulates hx A-Fib see donor relations officer 11/30/2023 - donor relations officer approval and letter in chart Patient stopped Vyvanse 20 mg daily after 2 weeks - agitation patient educated on non-stimulates hx Strattera, hx Wellbutrin and hx Qelbree hx - Qelbree(irritable at 400 mg dose and constipation), strattera (5 weeks), educated on rx [place] prescription program reviewed Random UDS 5. BInge eating- discuss therapy cardilolgist t approval for Vyvanse 12/23/23 - Plan: * Treatment: 2.?Obsessive-compulsive diso rder, unspecified? Start fluvoxaMINE Maleate Tablet, 50 MG, 1 tablet at bedtime, Oral, Once a day, 30 days, 30, Refills 0.?? Notes: Obsessive-Compulsive Disorder: Care Instructions material was published, Obsessive-Compulsive Disorder: Care Instructions material was published?? 3.?Attention and concentrati on deficit? Stop Lisdexamfetamine Dimesylate Capsule, 20 MG, 1 capsule in the morning, Orally, Once a day, 30 days, 30 Capsule.?? 4.?Other custodial (current) drug therapy? Notes: Medication Refill: Care Instructions material was published, Medication Refill: Care Instructions material was published?? * Procedure Codes:?99048 BEHAV ASSMT W/SCORE & DOCD/STAND INSTRUMENT, G2211 VISIT COMPLEXITY INHERENT TO ONGOING CARE RELATED TO A PATIENT'S SINGLE, SERIOUS CONDITION OR A COMPLEX CONDITION * Follow Up:?4 Weeks (Reason: f/u OCD) * Billing Information: * Visit Code:? 67449 OFFICE OUTPATIENT VISIT 25 MINUTES DETAILED HISTORY AND EXAM/MODERATE MEDICAL DECISION MAKING. * Procedure Codes:? 63615 BEHAV ASSMT W/SCORE & DOCD/STAND INSTRUMENT. G2211 VISIT COMPLEXITY INHERENT TO ONGOING CARE RELATED TO A PATIENT'S SINGLE, SERIOUS CONDITION OR A COMPLEX CONDITION. * HANDISING INTERN Sign off status: Completed true * Provider:?GABBI GENTILE Date:? Generated for Scott gomez/Grace/eTransmitting on:?03/07/2024 10:29 PM MERCHANDISING INTERN History and Physical Notes * HPI (History of Present Illness) Category Sub-Category Detail Notes Category Not es Depression screening PHQ-9 Little inte rest or pleasure in doing things: Several days ADHD- received letter clearance donor relations officer for [facility] 12/23/23 - patient stopped after 2 weeks increase agitation Eating Disorder Reported by patient.Eating Disorder: recurrent episodes of binge eating without inappropriate compensatory behavior; eating large amounts of food regardless of physical hunger; feeling disgusted after binge; eating more rapidly than normal during binge; will eat in middle night Onset: gradually Duration: years Frequency intermittent Risk Factors: family history of eating disorders (uncle had gastric bypass and whole family over weight); low self-esteem; substance abuse (hx ETOH) Aggravated By: general worries; lack of sleep/rest; substance use (HX ETOH); stress at work Relieved By: exercise; psychotherapy/counseling (ADDICTION Therapist weekly); social contact; talking with family Associated Symptoms: constipation; feeling out of control (sometimes); fixation on specific weight (number); frequently eats alone; intense fear of gaining weightNotes:daily excise 40-60 minuteshyper focus on weight not gaining weight AFIB Remission ETOH Follow up depression anxiety and OCD chronic since last visit reported I stopped Vyvanse after 2 weeks made me feel agiation and I am not on any rx right now I have intrusive thoughts and OCD again and I felt better on rx I had in 09/12, I feel not sad or down, no hopeless or helpless, I feel just OCD and may try to work in ADHD rx in a month or so and Fluvoxamine worked before and I felt like Vyvanse worked 1 week then not and more agitation, not restless or fidgety, sleep not too bad, hard time stay asleep, and average 7-8 hours, appetite fine, and no psychosis no marcia no SI/HI I saw neurologist Dr. Castelan last year 05/13 with memory and did MRI brain and EEG said no dementia and scan looked fine discuss TMS for OCD, I had a sleep study before no sleep apnea, denies SI/HI no thoughts harm to self or others, no past attempts and no self cutting or self harm, past psychiatric hospital weapon - gun located at someone house and 3 at home not locked up- educated on placing in safe FH son OD father commit suicide OD 2018, father brother- murder and suicide killed and then self 2021 FH - mental illness back surgery 05/14 ETOH Remission 11 years addiction therapist weeklysmoking former stopped 7 year ago labs- PCP seen 04/14 drugs- denies not able to drink caffeine cause anxiety AFib 2021- donor relations officer Marcia Reported by patient.Notes:denies OCD HPI Reported by patient.Quality of OCD Symptoms: obsessive, fearful thoughts (food, weight, and excise and not over eating); obsessive, worrying thoughts; compulsive, anxiety decreasing behaviors Associated Symptoms OCD: cleaning/washing obsessions; symmetry obsessions; ordering/arranging compulsions; miscellaneous compulsions (food, weight, and excise and not over eating) Obsessive Compulsive Severity: moderate; obsessions: interference definite but manageable; obsessions: distress moderate but manageable; obsessions: resistance much resistance; obsessions: control little control; unchanged Notes:I obessive on different things sometimes and thoughts, worries and hard to stop the thoughts, I do breathing excise I am still able to work and do activities, increase anxious with obsessive thoughts and no compulsions, obsess thoughts over bad things like losing my job or something happen to one family members, then cause me a lot anxiety, and if not able to think of correct words in conversation and worried, hyper focus on things hx reported Fluvoxamine tolerating rx helped, (discuss TMS for OCD) hx focus on weight and excise and not over eating grand mother- OCD and clean and would take own utensils hx I like to be clean and make sure I am clean OCD I am particular about placement of keys and wallets same spot each night, I do not like change, and cause anxiety and change job cause some anxiety, like to have ducks in row and over think Psychosis Reported by patient.Notes:denies Psychotherapy InterventionReported by patient.Notes:in therapy x 7 years and has helped Suicide AssessmentReported by patient.Spectrum: #0 of suicidal attempts; family history of suicide (see below); previous hospitalization for psychiatric condition (0)Notes:denies SI/HI no thoughts harm to self or others, no past attempts and no self cutting or self harm, past psychiatric hospital weapon - gun located at someone house and 3 at home not locked up- educated on placing in safeFH son OD father commit suicide OD 2018, father brother- murder and suicide killed and then self 2021 - mental illness rx hx Lorazepam, Sertraline (tired), Diazepam, Lexapro (before sober), Wellbutrin, Trintellix (too expensive), Viibyrd (sexual s/e and increase appetite), Qelbree(irritable at 400 mg dose and constipation), strattera, Paxil (when younger), Buspar, Wellbutrin (irritable at 300 mg dose), Vyvanse (agitation), Fluvoxamine Feeling down, depressed, or hopeless: No t at all Trouble falling or staying asleep, or sl eeping too much: Several days Feeling tired or having little energy: S everal days Poor appetite or overeating: Not at all Feeling bad about yourself o r that you are a failure, or have let yourself or your family down: Not at all Trouble concentrating on thi ngs, such as reading the newspaper or watching television: Several days Moving or speaking so slowly that other people could have noticed; or the opposite, being so fidgety or restless that you have been moving around a lot more than usual: Not at all Thoughts that you would be b mary off or of hurting yourself in some way: Not at all Total Score: 4 Interpretation: Minimal Depression Intervention Depression Screening Findings: P ositve Follow-Up for Depression: [facility] treatment assessment, Patient follow-up to return when and if necessary Suicide Risk Assessment Performed: 11/15 /2024 Additional Evaluation for De pression: Psychiatric interview and evaluation Name of the standardized too l used for adult depression screening:: Patient Health Questionnaire (PHQ-9) Depression Screening WOODROW-7 (2018 Edition) Feelin g nervous, anxious, or on edge: Nearly every day Not being able to stop or control worryi ng: Nearly every day Worrying too much about different things : More than hafl the days Trouble relaxing: More than half the day s Being so restless that it is hard to sit still: Several days Becoming easily annoyed or irritable: Ne da every day Feeling afraid as if something awful baldev ht happen: More than half the days Total WOODROW-7 Score: 16 Interpretation of Total: (15 and over) S evere [place]-Suicide Severity Rating Scale Suicide Risk (CSRS-screener) in the past one month Have you wished you were or wished you could go to sleep and not wake up?: No in the past one month Have y ou actually had any thoughts of killing yourself?: No ?Have you ever done anything , started to do anything, or prepared to do anything to end your life?: No Examination Category Sub-Category Detail Notes Category Not es Psychiatry Appearance: well-groomed, we ll-nourished, appears stated age Attitude: cooperative Psychomotor activity: within normal rang e Abnormal body movements: none Attention: good Degree of awareness of surroundings: wit hin normal limits Orientation: awake, alert and maryan ented x 3 Affect / mood: appropriate, full ra nge Speech / language: appropriate pitch/mo dulation, clear and coherent, normal rate, volume, and articulation (RVR), proper grammar used Insight: good Judgement: good Thought process: intact Thought content: appropriate Perceptual disorders: no perceptual diso rder noted Aggression: low Anger control: good Suicidal ideation: none Homicidal ideation: none Intellectual functioning: average Impulse control: good Sexual impulse control: good Memory status: no impairment Delusions: no Hallucinations: no Comprehension - Intellectual function: a verage
--- OUTSIDE RECORDS SUMMARY | 2024-03-07 22:30 | XMS_ITS | Encounter Summary ---
Author Organization [facility] Address [address] [place] [address] Care Team Providers Care Welding Machine Operator/Tender Name Role Phone Shen Galaviz MD Primary Care Provider [phone] Reason for Visit * Reason Comments Ear Problem Encounter Details Date Type Department Care Team (Late st Contact Info) Description 01/18/2020 2:00 PM CDT Office Visit [facility] AT [address] [phone] Provider, [facility] [place] Dysfunction of left eustachian tube (Primary Dx) Social History Tobacco Use Types Packs/Day Years Used Date Smoking Tobacco: Never Assessed Sex and Gender Information Value Date Recorded Sex Assigned at Not on file Gender Identity Not on file Sexual Orientation Not on file COVID-19 Exposure Response Date Recorded In the last month, have you been in contact with someone who was confirmed or suspected to have Coronavirus / COVID-19? No / Unsure 01/17/2020 12:30 PM CDT documented as of this encounter Last Filed Vital Signs Vital Sign Reading Time Taken Comments Blood Pressure 122/68 01/18/2020 2:08 PM CDT Pulse 68 01/18/2020 2:08 PM CDT Temperature 36.7 ??C (98 ??F) 01/18/2020 2:08 PM CDT Respiratory Rate 16 01/18/2020 2:08 PM CDT Oxygen Saturation 97% 01/18/2020 2:08 PM CDT Inhaled Oxygen Concentration - - Weight 108.9 kg (240 lb) 01/18/2020 2:08 PM CDT Height 170.2 cm (5' 7 ) 01/18/2020 2:08 PM CDT Body Mass Index 37.59 01/18/2020 2:08 PM CDT documented in this encounter Patient Instructions * Patient Instructions* Desirae Escamilla, DIE MAKER BENCH STAMPING-PROFESSIONAL BONDSMAN - 01/18/2020 2:20 PM CDT Images from the original note were not included. It could take up to 12 weeks for the fluid behind your ear drum(s) to clear. If symptoms remain beyond 12 weeks, seek an evaluation from ENT. Applying a warm pack to the affected area may help with the discomfort. Do not place Q-Tips or other objects into ear canal Do not use OTC ear drops without consulting with your healthcare provider. May take Tylenol or Ibuprofen for fever or pain as directed per package instructions. May take OTC antihistamines such as Zyrtec, Kymberly, or Claritin as directed per package instructions for allergy relief May take Sudafed (must get from behind pharmacy counter), for relief of sinus congestion, as directed per package instructions Recommend daily use of Flonase or Nasonex, as directed per package instructions Reviewed education materials and instructions with patient and answered all questions. Stephen Tillman verbalized understanding and agrees with plan. Follow up with Shen Galaviz MD if symptoms worsen or do not completely resolve Patient Education Eustachian Tube Dysfunction SLAUGHTERER RELIGIOUS RITUAL: Eustachian tube dysfunction (ETD) is a condition that prevents your eustachian tubes from opening properly. It can also cause them to become blocked. Eustachian tubes connect your middle ear to the back of your nose and throat. These tubes open and allow air to flow in and out when you sneeze, swallow, or yawn. Common signs and symptoms include the following: ?? Fullness or pressure in your ears ?? Muffled hearing, or a feeling you are hearing under water or have clogged ears ?? Pain in one or both ears ?? Ringing in your ears ?? Popping, crackling, or clicking feeling in your ears ?? Trouble keeping your balance Call your doctor or assembler small products if: ?? Your symptoms do not improve or get worse. ?? You have a fever. ?? You have any hearing loss. ?? You have questions or concerns about your condition or care. Treatment: ETD may get better on its own without any treatment. If it continues, you may need any of the following: ?? Swallow, yawn, or chew gum to help open your eustachian tubes. Your healthcare provider may alsorecommend you blow with your mouth shut and your nostrils pinched closed. ?? Air pressure devices push air into your nose and eustachian tubes to help relieve air pressure in your ear. ?? Treatment for allergies such as decongestants, antihistamines, and nasal steroids may improve ETD. They may help decrease swelling of the eustachian tubes. ?? A myringotomy is surgery to make a hole in your eardrum. The hole relieves pressure and lets fluid drain from your ear. A pressure equalizing (PE) tube may be used to keep the hole open and to help drain fluid. ?? Tuboplasty is a procedure to widen your eustachian tubes. Follow up with your doctor or assembler small products as directed: Write down your questions so you remember to ask them during your visits. ?? Copyright [employer] 2019 Information is for End User's use only and may not be sold, redistributed or otherwise used for commercial purposes. All illustrations and images included in CareNotes?? are the copyrighted property of [employer] or [employer] The above information is an educational diagnostician only. It is not intended as medical advice for individual conditions or treatments. Talk to your doctor, nurse or pharmacist before following any medical regimen to see if it is safe and effective for you. documented in this encounter Progress Notes * Desiare Escamilla APRN-CNP - 01/18/2020 2:05 PM CDT Stephen Tillman is a 39 year old male who presents to clinic today for Chief Complaint Patient presents with ??? Ear Problem PCP is Shen Galaviz MD. Stephen Tillman is here for evaluation of left ear pain. He states the Onset was: 4 days and course isgradually worsening. He is drinking plenty of fluids. Past History of ear pain with eustachian tubedysfunction . He is a non-smoker. OTC- None No past medical history on file. No family history on file. No current outpatient medications on file. No current facility-administered medications for this visit. No Known Allergies Social History Socioeconomic History ??? Marital status: Spouse name: Not on file ??? Number of children: Not on file ??? Years of education: Not on file ??? Highest education level: Not on file Occupational History ??? Not on file Social Needs ??? Financial resource strain: Not on file ??? Food insecurity Worry: Not on file Inability: Not on file ??? Transportation needs Medical: Not on file Non-medical: Not on file Tobacco Use ??? Smoking status: Not on file Substance and Sexual Activity ??? Alcohol use: Not on file ??? Drug use: Not on file ??? Sexual activity: Not on file Lifestyle ??? Physical activity Days per week: Not on file Minutes per session: Not on file ??? Stress: Not on file Relationships ??? Social connections Talks on phone: Not on file Gets together: Not on file Attends buddhism service: Not on file Active member of club or organization: Not on file Attends meetings of clubs or organizations: Not on file Relationship status: Not on file ??? Intimate partner violence Fear of current or ex partner: Not on file Emotionally abused: Not on file Physically abused: Not on file Forced sexual activity: Not on file Other Topics Concern ??? Not on file Social History Narrative ??? Not on file Review of Systems Pertinent items are noted in HPI Constitutional: Negative Eyes: Negative Ears, nose, mouth, and throat: Positive for earaches on left Respiratory: Negative Cardiovascular: Negative Neurological: Negative Objective: BP 122/68 Pulse 68 Temp 98 ??F (36.7 ??C) Resp 16 Ht 1.702 m (5' 7 ) Wt 108.9 kg (240 lb) SpO2 97% BMI 37.59 kg/m2 General appearance: alert, cooperative, no distress, oriented to person, place, and time Head: normocephalic, without trauma Eyes: sclera and conjunctiva clear Ears: Right tympanic membrane - air/fluid interface visualized; Left tympanic membrane - air/fluid interface visualized Nose: nares open; no septal deviation is noted Throat: no mucous membrane abnormalities Neck: supple Nodes: no cervical adenopathy Lungs: breath sounds normal and symmetric; no rales or wheezes Heart: regular rhythm Neurologic: mental status normal Assessment: Encounter Diagnosis Name Primary? Dysfunction of left eustachian tube Yes Plan: Patient is to call PCP and discuss treatment for chronic eustachian tube dysfunction It could take up to 12 weeks for the fluid behind your ear drum(s) to clear. If symptoms remain beyond 12 weeks, seek an evaluation from ENT. Applying a warm pack to the affected area may help with the discomfort. Do not place Q-Tips or other objects into ear canal Do not use OTC ear drops without consulting with your healthcare provider. May take Tylenol or Ibuprofen for fever or pain as directed per package instructions. May take OTC antihistamines such as Zyrtec, Kymberly, or Claritin as directed per package instructions for allergy relief Recommend daily use of Flonase or Nasonex, as directed per package instructions Reviewed education materials and instructions with patient and answered all questions. Stephen Tillman verbalized understanding and agrees with plan. Follow up with Shen Galaviz MD if symptoms worsen or do not completely resolve Desirae Escamilla APRN, BONE CRUSHER- 01/18/2020 2:25 PM documented in this encounter Plan of Treatment Not on file documented as of this encounter Visit Diagnoses Diagnosis Dysfunction of left eustachian tube- Primary Dysfunction of Eustachian tube documented in this encounter Care Teams Welding Machine Operator/Tender Relationship Specialty Start Date End Date Shen Galaviz MD [address] [place] [address] PCP - General Family Medicine 01/18/20 documented as of this encounter
--- OUTSIDE RECORDS SUMMARY | 2024-03-07 22:30 | XMS_ITS | Clinical Summary ---
Author Organization [facility] Address [address] [place] [address]. [place], [place] [address] [place] [address] Care Team Providers Care Applied Marine Physics Professor Name Role Phone Shen Galaviz MD Primary Care Provider [phone] Allergies No known active allergies Medications No known medications Family History Medical History Relation Comments Prostate Cancer Father Stroke Mother Relation Status Comments Father Mother Alive Social History Tobacco Use Types Packs/Day Years Used Date Smoking Tobacco: Former Cigarettes Smokeless Tobacco: Never Tobacco Cessation:Counseling Given: No Comments:I quit six years ago Alcohol Use Standard Drinks/Week Comments Not Currently 0 (1 standard drink = 0.6 oz pur e alcohol) I haven't drank in 10 years PHQ-2 Answer Date Recorded PHQ-2 Score - If the patient scores above 3, please move on to questions 3-9 0 10/30/2021 Sex and Gender Information Value Date Recorded Sex Assigned at Not on file Legal Sex Male 7:45 PM CDT Gender Identity Not on file Sexual Orientation Not on file Last Filed Vital Signs Vital Sign Reading Time Taken Comments Blood Pressure 122/64 10/30/2021 1:32 PM CDT Pulse 57 10/30/2021 1:32 PM CDT Temperature 36.3 ??C (97.3 ??F) 10/30/2021 1:32 PM CD T Respiratory Rate 16 08/08/2021 8:00 AM CDT Oxygen Saturation 96% 10/30/2021 1:32 PM CDT Inhaled Oxygen Concentration - - Weight 98.4 kg (217 lb) 10/30/2021 1:32 PM CDT Height 172.7 cm (5' 8 ) 10/30/2021 1:32 PM CDT Body Mass Index 32.99 10/30/2021 1:32 PM CDT Plan of Treatment Health Maintenance Due Date Last Done Comments Annual Physical 1983 Hepatitis C 1998 DTaP, Tdap and Td Vaccines ( 1 - Tdap) 1999 Hepatitis B Vaccines (1 of 3 - 19+ 3-dose series) 1999 COVID-19 Vaccine (4 - 2023-2 5 season) 2023 03/02/2021, 06/24/2020, 06/03/2020 Influenza Adult (#1) 2023 03/02/2021 HPV Vaccines Aged Out No longer eligi ble based on patient's age to complete this topic Meningococcal Vaccine Aged Out No bridger rhoda eligible based on patient's age to complete this topic Pneumococcal Vaccine: Pediatrics (0 to 5 Years) and At-Risk Patients (6 to 64 Years) Aged Out No longer eligible b ased on patient's age to complete this topic RSV Immunizations Under 20 Months Aged Out No longer eligible b ased on patient's age to complete this topic Insurance [facility] Care Teams Applied Marine Physics Professor Relationship Specialty Start Date End Date Shen Galaviz MD [address] [place] [address] PCP - General FAMILY PRACTICE 05/30/21
--- OUTSIDE RECORDS SUMMARY | 2024-03-07 22:30 | XMS_ITS | Data Portability ---
Author Organization [facility] Address [address] [facility] [address] [place] [address] Care Team Providers Care Engineer Systems Name Role Phone JOIE LLOYD Referring Provider Assessment No assessment recorded. Plan of Treatment Reminders Order Date Submit Date Provider Last Modified By Organization Details Last Modified Time Details Appointments None record ed. Lab None record ed. Referral None record ed. Procedures None record ed. Surgeries None record ed. Imaging None record ed. Medication Orders None record ed. Patient TargetsNo targets recorded. Patient InstructionsNo instructions recorded. Reason for Referral None Reported. Procedures Surgical History Date Name Laterality Status Provider Name and Address Organization Details Recorded Time 10/17/2021 Sleep Study completed Omar Alonzo [facility] 10/21/19 09:39:00 Imaging Results None recorded. Procedure Notes None recorded. Medical Equipment None Reported. Medications Name Sig Start Date Stop Date Status Note LastModified by Organization Details LastModified Time methylpredni solone 4 mg tablets in a dose pack FOLLOW PACKAGE DIRECTIONS active Not Available Not Available N ot Available diazepam 5 mg tablet active Not Available Not Available No t Available ID NOW COVID-19 Test Kit TEST DIRECTED TODAY active Not Available Not Available No t Available Vitals Date Recorded Body height Body mass index (BMI) Body weight Provider Name and Address Organization Details Last Updated DateTime 10/17/2021 172.72 cm 32.7 kg/m2 82719.36 g Omar Alonzo [facility] 10/20/2021 09:38:10 Social History None recorded. Functional Status None recorded. Mental Status None recorded. Family History Nothing Reported. Medical History No medical history recorded. Past Encounters Encounter ID Performer Location Encounter Start Date Encounter Closed Date Diagnosis/Indication Diagnosis SNOMED-CT Code Diagnosis ICD10 Code [id number] Jong Rollins MD [facility] [id number] [address] [facility] [phone] [facility] [address] [place] [address] 10/17/2021 21:13:42 10/20/2021 09:21:55 Obstructive sleep apnea of adult 3483503899 103 G47.33 Health Concerns Section Related Observation LastModified by Organization Detai ls LastModified Time None Recorded Concern Status LastModified by Organization Details LastModified Time None Recorded Advance Directives Directive None Recorded Payers Encounter Date Sequence Insurance Name Policy Number Policy Ramírez Covered Member ID Ramírez Member ID Guarantor Name 10/17/2021 [employer] Stephen Tillman [id number] Stephen Tillman
--- OUTSIDE RECORDS SUMMARY | 2024-03-07 22:30 | XMS_ITS | Referral Summary ---
Author Organization [facility] [employer] Address [address] [place] [address] Care Team Providers Care Oracle Technical Developer Name Role Phone Shen Galaviz MD Primary Care Provider [phone] Source Comments [facility] [employer],non-owned Affiliates and Associated Physician Practices is amultiple site organization consisting of ambulatory clinics and hospital sitesin [place], [place], [place] and [place]. This disclosure is being madepursuant to the Care Everywhere program and may not contain all information available regarding this patient. Last updated 17.[facility] [employer] Allergies No known active allergies Medications Be aware that medications may not be up to date on this document. Always verify current medications with the patient. No known medications Social History Tobacco Use Types Packs/Day Years Used Date Smoking Tobacco: Former Smokeless Tobacco: Never PHQ-2 Answer Date Recorded PHQ2 TOTAL SCORE 1 10/28/2021 Sex and Gender Information Value Date Recorded [...] Mass Index 37.59 01/18/2020 2:08 PM CDT Plan of Treatment Not on file Care Teams Oracle Technical Developer Relationship Specialty Start Date End Date Shen Galaviz MD [address] [place], [place] [id number] PCP - General Family Medicine 01/18/20
--- OUTSIDE RECORDS SUMMARY | 2024-03-07 22:30 | XMS_ITS | Encounter Summary ---
Author Organization [facility] Address [address] [place] [address] Care Team Providers Care Youth Care Worker Name Role Phone Maverick Vu MD Primary Care Provider [phone] Encounter Details Date Type Department Care Team (Latest Contact Info) Description 01/17/2020 Travel Social History Tobacco Use Types Packs/Day Years [...] PM CDT documented as of this encounter Plan of Treatment Not on file documented as of this encounter Visit Diagnoses Not on filedocumented in this encounter Care Teams Youth Care Worker Relationship Specialty Start Date End Date Maverick Vu MD [address] [place] [address] PCP - General Family Medicine 02/18/16 01/17/20 documented as of this encounter
--- OUTSIDE RECORDS SUMMARY | 2024-03-07 22:30 | XMS_ITS | Patient Health Record ---
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 No Points 0 Interpretation Negative Section Notes: Substance UseDo you or have you ever smoked tobacco?: Former smokerHow much tobacco do you smoke?: NoneDo you or have you ever used any other forms of tobacco or nicotine?: NoDo you or have you ever used e-cigarettes or vape?: Never used electronic cigarettesWhat was the date of your most recent tobacco screening?: 07/30/2023Has tobacco cessation counseling been provided?: NoWhat is your level of alcohol consumption?: NoneHow many years have you consumed alcohol?: 13Do you use any illicit or recreational drugs?: NoWhich illicit or recreational drugs have you used?: NoneHave you used IV drugs?: NoWhat is your level of caffeine consumption?: NoneEducation and OccupationWhat is the highest grade or level of school you have completed or the highest degree you have received?: High school graduateAre you currently in school?: NoAre you currently employed?: YesWho is your employer?: [employer]What is your occupation?: constructionMarriage and SexualityWhat is your relationship status?: MarriedAre you sexually active?: YesDo you use protection during sex?: NoHow many children do you have?: 2Home and EnvironmentAre you a caregiver?: NoAre there any guns present in your home?: NoLifestyleDo you feel stressed (tense, restless, nervous, or anxious, or unable to sleep at night)?: To some extentDo you participate in social media?: YesDo you use your seat belt or car seat routinely?: YesAdvance DirectiveDo you have an advance directive?: NoWhat is your code status?: Full CodeDo you have a medical power of family law attorney?: NoPublic Health and TravelHave you been to an area known to be high risk for COVID-19?: NoGender Identity and LGBTQ IdentityGender identity: Identifies as MaleAssigned sex at : MaleSexual orientation: Straight or heterosexual Problems Problem Type SNOMED Code ICD Code Onset Dates Problem Status W/U Status Risk Notes Problem Mild recurrent major depression (03689860) Major depressive disorder, recurrent, mild (F33.0) 07/30/19 24 Active confirmed Problem Generalized anxiety disorder (07923661) Generalized anxiety disorder (F41.1) 07/30/19 24 Active confirmed Problem Attention deficit hyperactivity disorder, combined type (49291185) Attention-deficit hyperactivity disorder, combined type (F90.2) 07/30/19 24 Active confirmed Problem Attention and concentration deficit (R41.840) 10/30/19 23 Active confirmed Problem Long-term current use of drug therapy (043066106) Other skilled nursing (current) drug therapy (Z79.899) 09/01/19 23 Active confirmed Problem [id number] 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) Active confirmed Problem Obsessive-compuls cristina disorder (148549534) Obsessive-compuls cristina disorder, unspecified (F42.9) 07/30/19 24 Active confirmed Vital Signs Heart Rate 46 /min 02/04/2024 Respiratory Rate 16 /min 12/31/2023 Height-cm 170.18 cm 02/04/2024 Blood pressure diastolic 80 mm Hg 02/04/2024 Weight-kg 101.24 kg 02/04/2024 Height 67.00 in 02/04/2024 Blood pressure systolic 125 mm Hg 02/04/2024 Weight 223.2 lbs 02/04/2024 BMI 34.95 kg/m2 02/04/2024 Encounters Encounter Location Date Provider Diagnosis [facility] [place] [id number] [facility] [address] [address] 03/29/2023 Provider Migration Attention-deficit hyperactivity disorder, combined type F90.2 and Generalized anxiety disorder F41.1 [facility] [employer] [facility] [address] [facility] [address] [address] 03/30/2023 Nidhi Bhatia Obsessive-compulsive disorder, unspecified F42.9 ; Generalized anxiety disorder F41.1 ; Other fatigue R53.83 ; Major depressive disorder, recurrent, mild F33.0 and Attention-deficit hyperactivity disorder, combined type F90.2 [facility] [place] [employer] [facility] [address] [facility] [address] [address] 04/30/2023 Nidhi Bhatia Obsessive-compulsive disorder, unspecified F42.9 ; Other symptoms and signs concerning food and fluid intake R63.8 ; Generalized anxiety disorder F41.1 ; Major depressive disorder, recurrent, mild F33.0 ; Other fatigue R53.83 and Attention-deficit hyperactivity disorder, combined type F90.2 [facility] [address] [facility] [address] [place] [address] 05/28/2023 Nidhi Thery Obsessive-compulsive disorder, unspecified F42.9 ; Attention-deficit hyperactivity disorder, combined type F90.2 ; Other fatigue R53.83 ; Major depressive disorder, recurrent, mild F33.0 and Generalized anxiety disorder F41.1 [facility] [address] [facility] [address] [facility] [address] [place] [address] 07/30/2023 Nidhi Thery Generalized anxiety disorder F41.1 ; Attention-deficit hyperactivity disorder, combined type F90.2 ; Major depressive disorder, recurrent, mild F33.0 and Obsessive-compulsive disorder, unspecified F42.9 [facility] [address] [facility] [address] [address] 08/27/2023 Nidhi Thery Major depressive disorder, recurrent, mild F33.0 ; Generalized anxiety disorder F41.1 ; Attention-deficit hyperactivity disorder, combined type F90.2 ; Obsessive-compulsive disorder, unspecified F42.9 and Other skilled nursing (current) drug therapy Z79.899 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, [facility] [address] [facility] [address] [address] 11/29/2023 Nidhi Thery Major depressive disorder, recurrent, mild F33.0 ; Generalized anxiety disorder F41.1 ; Obsessive-compulsive disorder, unspecified F42.9 ; Attention and concentration deficit R41.840 and Other skilled nursing (current) drug therapy Z79.899 [facility], [facility] [address] [facility] [address] [address] 12/31/2023 Nidhi Thery Major depressive disorder, recurrent, mild F33.0 ; Generalized anxiety disorder F41.1 ; Obsessive-compulsive disorder, unspecified F42.9 ; Attention and concentration deficit R41.840 and Other skilled nursing (current) drug therapy Z79.899 [facility], [facility] [address] [place] [address] 02/04/2024 Nidhi Thery Major depressive disorder, recurrent, mild F33.0 ; Generalized anxiety disorder F41.1 ; Obsessive-compulsive disorder, unspecified F42.9 ; Attention and concentration deficit R41.840 and Other skilled nursing (current) drug therapy Z79.899 [facility], [facility] [address] [place] [address] 03/29/[address] [facility], [facility] [address] [place] [address] 08/07/[address] [facility], [facility] [address] [place] [address] 08/08/[address] [facility], [facility] [address] [place] [address] 08/27/[address] [facility], [facility] [address] [place] [address] 08/30/2023 Nidhi Thery Major depressive disorder, recurrent, mild F33.0 [facility] [address] [place] [address] 09/03/[address] [facility], [facility] [address] [place] [address] 12/20/[address] [facility], [facility] [address] [place] [address] 12/21/[address] [facility], [facility] [address] [place] [address] 12/24/[address] [facility], [facility] [address] [place] [address] 12/24/[address] [facility], [facility] [address] [place] [address] 08/31/2023 Nidhi Therthao Attention-deficit hyperactivity disorder, combined type F90.2 [facility], [facility] [address] [place] [address] 09/02/2023 Nidhi Thery Major depressive disorder, recurrent, mild F33.0 [facility] [place] [facility] [address] [place] [address] 12/22/[address] [facility], [facility] [address] [place] [address] 02/14/[address] [facility], [facility] [address] [place] [address] 03/01/2024 Nidhi Jannette Mixed obsessional thoughts and acts F42.2 Assessments Encounter Date Diagnosis (ICD Code) Assessment Notes Treatment Notes Treatment Clinical Notes Section Notes 03/29/2023 Generalized anxiety disorder (ICD-10 - F41.1) 03/29/2023 Attention-defi cit hyperactivity disorder, combined type (ICD-10 - F90.2) 03/30/2023 Major depressive disorder, recurrent, mild (ICD-10 - F33.0) 03/30/2023 Generalized anxiety disorder (ICD-10 - F41.1) 03/30/2023 Attention-defi cit hyperactivity disorder, combined type (ICD-10 - F90.2) 03/30/2023 Other fatigue (ICD-10 - R53.83) 03/30/2023 Obsessive-comp ulsive disorder, unspecified (ICD-10 - F42.9) 04/30/2023 Major depressive disorder, recurrent, mild (ICD-10 - F33.0) 04/30/2023 Generalized anxiety disorder (ICD-10 - F41.1) 04/30/2023 Attention-defi cit hyperactivity disorder, combined type (ICD-10 - F90.2) 04/30/2023 Other fatigue (ICD-10 - R53.83) 04/30/2023 Other symptoms and signs concerning food and fluid intake (ICD-10 - R63.8) 04/30/2023 Obsessive-comp ulsive disorder, unspecified (ICD-10 - F42.9) 05/28/2023 Major depressive disorder, recurrent, mild (ICD-10 - F33.0) 05/28/2023 Generalized anxiety disorder (ICD-10 - F41.1) 05/28/2023 Attention-defi cit hyperactivity disorder, combined type (ICD-10 - F90.2) 05/28/2023 Other fatigue (ICD-10 - R53.83) 05/28/2023 Obsessive-comp ulsive disorder, unspecified (ICD-10 - F42.9) 07/30/2023 Major depressive disorder, recurrent, mild (ICD-10 - F33.0) 07/30/2023 Generalized anxiety disorder (ICD-10 - F41.1) 07/30/2023 Attention-defi cit hyperactivity disorder, combined type (ICD-10 - F90.2) 07/30/2023 Obsessive-comp ulsive disorder, unspecified (ICD-10 - F42.9) 08/27/2023 Major depressive disorder, recurrent, mild (ICD-10 - F33.0) 1. Mild recurrent major depression -Wellbutrin XL 150 mg dose -decrease r/o irritable at 300 mg dose educated on all medications, benefits, side effects and risk, and educated on depression, anxiety, and ADHD, mood d/o and educated on compliance of medications, metabolic and movement d/o education appointment's, continue therapy discussion with patient about course of treatmentand patient instructions. education on serotonin syndrome testoterone checked with PCPContinue odlfrqkH59.0: Major depressive disorder, recurrent, mildDEPRESSION TREATMENT: CARE INSTRUCTIONS 2. Obsessive-compulsive disorder -therapy seen for last 5-6 years discuss TMS for OCD- patient has thought about TMS since last visit- still considering Fluvoxamine 100 mg daily - educated on rx and take as prescribed- continue to have OCD and anxiety s/stherapy Discuss TMS for OCD and educated on TMS and pamphlet given- 05/28/23 patient will continue to think about TMSdiscuss rx optionshx sexual side effects per patient on SSRI SSRI side effects discussed including but not limited to, gastric upset, nausea, vomiting, diarrhea and/or constipation, weight changes, sexual side effects including loss of libido, increased suicidal thoughts/behaviors in children and young adults, and serotonin syndrome.F42.9: Obsessive-compulsive disorder, unspecifiedOBSESSIVE-COM PULSIVE DISORDER: CARE INSTRUCTIONSfluvoxamine 100 mg tablet - Take 1 tablet(s) every day by oral route in the morning for 30 days. Qty: (30) tablet 3. Generalized anxiety disorder -lorazepam PCP prescribed for flying hx- reported did not help in past Will prescribe Clonazepam 0.5 mg PRN for flying # 2 Discuss Buspar and educated on Buspar patient agreed to Buspar as prescribed for anxietyBuspar 10 mg twice a day for anxiety - educate on taking as prescribed for anxiety (patient reported has not taken three times a day been taking daily) Discussed and educated pt regarding benzodiazepines are [...] also be lethal. Patient was provided caution F41.1: Generalized anxiety disorderANXIETY DISORDER: CARE INSTRUCTIONSbuspirone 10 mg tablet - Take 1 tablet(s) 3 times a day by oral route with meal(s) for 90 days. Qty: (270) tablet Refills: 0 4. Attention deficit hyperactivity disorder, combined type -REVIEWED JAYY-2 - ADHD combination 07/30/23 discuss ADHD rx and hx rx 07/30/23 decrease Wellbutrin XL to 150 mg daily am r/o having irritable at 300 mg dose hx A-Fib see commissioning specialist 2023 next visit - no stimulates without commissioning specialist approval and letter in chart patient educated on non-stimulates hx Strattera, Wellbutrin and hx Qelbree hx - Qelbree(irritable at 400 mg dose and constipation), strattera (5 weeks), 08/27/23 patient would like to re-try Qelbree 200 mg dose samples given for a month moitor for irritbale and constipation, discuss and education on rx and if irritbale let office know, may consider stopping Wellbutrin educated on rx [place] prescription program reviewed Random UDS F90.2: Attention-deficit hyperactivity disorder, combined typebupropion HCl XL 150 mg 24 hr tablet, extended release - Take 1 tablet(s) every day by oral route in the morning for 30 days, for adhd. Qty: (30) tablet Refills: 1 Pharmacy: [facility] #[id number] Note to Pharmacy: d/c 300 mg dose 1. Mild recurrent major depression - Wellbutrin XL 150 mg dose -decrease r/o irritable at 300 mg dose educated on all medications, benefits, side effects and risk, and educated on depression, anxiety, and ADHD, mood d/o and educated on compliance of medications, metabolic and movement d/o education appointment's, continue therapy discussion with patient about course of treatmentand patient instructions. education on serotonin syndrome testoterone checked with PCPContinue therapy F33.0: Major depressive disorder, recurrent, mild 2. Obsessive-compul sive disorder -therapy seen for last 5-6 years discuss TMS for OCD- patient has thought about TMS since last visit- still considering Fluvoxamine 100 mg daily - educated on rx and take as prescribed- continue to have OCD and anxiety s/s therapy Discuss TMS for OCD and educated on TMS and pamphlet given- 05/28/23 patient will continue to think about TMSdiscuss rx options hx sexual side effects per patient on SSRI SSRI side effects discussed including but not limited to, gastric upset, nausea, vomiting, diarrhea and/or constipation, weight changes, sexual side effects including loss of libido, increased suicidal thoughts/behavio rs in children and young adults, and serotonin syndrome. F42.9: Obsessive-compul sive disorder, unspecified fluvoxamine 100 mg tablet - Take 1 tablet(s) every day by oral route in the morning for 30 days. Qty: (30) tablet 3. Generalized anxiety disorder - lorazepam PCP prescribed for flying hx- reported did not help Will prescribe Clonazepam 0.5 mg PRN for flying # 2 Discuss Buspar and educated on Buspar patient agreed to Buspar as prescribed for anxiety Buspar 10 mg twice a day for anxiety - educate on taking as prescribed for anxiety (patient reported has not taken three times a day been taking daily) Discussed and educated pt regarding benzodiazepines are [...] also be lethal. Patient was provided caution F41.1: Generalized anxiety disorder buspirone 10 mg tablet - Take 1 tablet(s) 3 times a day by oral route with meal(s) for 90 days. Qty: (270) tablet Refills: 0 4. Attention deficit hyperactivity disorder, combined type -REVIEWED JAYY-2 - ADHD combination 07/30/23 discuss ADHD rx and hx rx 07/30/23 decrease Wellbutrin XL to 150 mg daily am r/o having irritable at 300 mg dose hx A-Fib see commissioning specialist 2023 next visit - no stimulates without commissioning specialist approval and letter in chart patient educated on non-stimulates hx Strattera, Wellbutrin and hx Qelbree hx - Qelbree(irritabl e at 400 mg dose and constipation), strattera (5 weeks), 08/27/23 patient would like to re-try Qelbree 200 mg dose samples given for a month moitor for irritbale and constipation, discuss and education on rx and if irritbale let office know, may consider stopping Wellbutrin educated on rx [place] prescription program reviewed Random UDS F90.2: Attention-defici t hyperactivity disorder, combined type bupropion HCl XL 150 mg 24 hr tablet, extended release - Take 1 tablet(s) every day by oral route in the morning for 30 days, for adhd. Qty: (30) tablet Refills: 1 Pharmacy: [facility] #[id number] Note to Pharmacy: d/c 300 mg dose 08/27/2023 Generalized anxiety disorder (ICD-10 - F41.1) Generalized Anxiety Disorder: Care Instructions material was published, Learning About Anxiety Disorders material was published 1. Mild recurrent major depression - Wellbutrin XL 150 mg dose -decrease r/o irritable at 300 mg dose educated on all medications, benefits, side effects and risk, and educated on depression, anxiety, and ADHD, mood d/o and educated on compliance of medications, metabolic and movement d/o education appointment's, continue therapy discussion with patient about course of treatmentand patient instructions. education on serotonin syndrome testoterone checked with PCPContinue therapy F33.0: Major depressive disorder, recurrent, mild 2. Obsessive-compul sive disorder -therapy seen for last 5-6 years discuss TMS for OCD- patient has thought about TMS since last visit- still considering Fluvoxamine 100 mg daily - educated on rx and take as prescribed- continue to have OCD and anxiety s/s therapy Discuss TMS for OCD and educated on TMS and pamphlet given- 05/28/23 patient will continue to think about TMSdiscuss rx options hx sexual side effects per patient on SSRI SSRI side effects discussed including but not limited to, gastric upset, nausea, vomiting, diarrhea and/or constipation, weight changes, sexual side effects including loss of libido, increased suicidal thoughts/behavio rs in children and young adults, and serotonin syndrome. F42.9: Obsessive-compul sive disorder, unspecified fluvoxamine 100 mg tablet - Take 1 tablet(s) every day by oral route in the morning for 30 days. Qty: (30) tablet 3. Generalized anxiety disorder - lorazepam PCP prescribed for flying hx- reported did not help Will prescribe Clonazepam 0.5 mg PRN for flying # 2 Discuss Buspar and educated on Buspar patient agreed to Buspar as prescribed for anxiety Buspar 10 mg twice a day for anxiety - educate on taking as prescribed for anxiety (patient reported has not taken three times a day been taking daily) Discussed and educated pt regarding benzodiazepines are [...] also be lethal. Patient was provided caution F41.1: Generalized anxiety disorder buspirone 10 mg tablet - Take 1 tablet(s) 3 times a day by oral route with meal(s) for 90 days. Qty: (270) tablet Refills: 0 4. Attention deficit hyperactivity disorder, combined type -REVIEWED JAYY-2 - ADHD combination 07/30/23 discuss ADHD rx and hx rx 07/30/23 decrease Wellbutrin XL to 150 mg daily am r/o having irritable at 300 mg dose hx A-Fib see commissioning specialist 2023 next visit - no stimulates without commissioning specialist approval and letter in chart patient educated on non-stimulates hx Strattera, Wellbutrin and hx Qelbree hx - Qelbree(irritabl e at 400 mg dose and constipation), strattera (5 weeks), 08/27/23 patient would like to re-try Qelbree 200 mg dose samples given for a month moitor for irritbale and constipation, discuss and education on rx and if irritbale let office know, may consider stopping Wellbutrin educated on rx [place] prescription program reviewed Random UDS F90.2: Attention-defici t hyperactivity disorder, combined type bupropion HCl XL 150 mg 24 hr tablet, extended release - Take 1 tablet(s) every day by oral route in the morning for 30 days, for adhd. Qty: (30) tablet Refills: 1 Pharmacy: [facility] #[id number] Note to Pharmacy: d/c 300 mg dose 08/30/2023 Major depressive disorder, recurrent, mild (ICD-10 - F33.0) 08/31/2023 Attention-defi cit hyperactivity disorder, combined type (ICD-10 - F90.2) 09/02/2023 Major depressive disorder, recurrent, mild (ICD-10 - F33.0) 09/27/2023 Major depressive disorder, recurrent, mild (ICD-10 - F33.0) 1. Mild recurrent major depression -Wellbutrin XL 150 mg dose - patient stopped r/t irritable 2 weeks ago and improved hx irritable at 300 mg dose educated on all medications, benefits, side effects and risk, and educated on depression, anxiety, and ADHD, mood d/o and educated on compliance of medications, metabolic and movement d/o education appointment's, continue therapy discussion with patient about course of treatmentand patient instructions. education on serotonin syndrome testoterone checked with PCPContinue ktfzkyhU81.0: Major depressive disorder, recurrent, mildstable 2. Obsessive-compulsive disorder -therapy seen for last 5-6 years07/30/23 discuss TMS for OCD- patient has not thought about TMS since last visit increase Fluvoxamine 150 mg daily - educated on rx and take as prescribed- continue to have OCD and anxiety s/stherapy Discuss TMS for OCD and educated on TMS and pamphlet given- 05/28/23 patient will continue to think about TMS- patient would like to wait on TMS 09/27/23discuss rx optionshx sexual side effects per patient on SSRI SSRI side effects discussed including but not limited to, gastric upset, nausea, vomiting, diarrhea and/or constipation, weight changes, sexual side effects including loss of libido, increased suicidal thoughts/behaviors in children and young adults, and serotonin syndrome.F42.9: Obsessive-compulsive disorder, unspecified fluvoxamine 150 mg tablet - Take 1 tablet(s) every day by oral route in the morning for 30 days. Qty: (30) tablet Refills: 1 Pharmacy: [facility] #[id number] Note to Pharmacy: d/c 50 mg dose 3. Generalized anxiety disorder -lorazepam prescribed for flying- helped no rx prescribed [...] also be lethal. Patient was provided caution F41.1: Generalized anxiety disorder 4. Attention deficit hyperactivity disorder, combined type -REVIEWED JAYY-2 - ADHD combination 07/30/23 discuss ADHD rx and hx rx Qelbree will increase to 400 mg dose for ADHD- Will monitor constipation and irritable hx A-Fib see commissioning specialist 2023 next visit - no stimulates without commissioning specialist approval and letter in chart patient educated on non-stimulates hx Strattera, Wellbutrin and hx Qelbree hx - Qelbree(irritable at 400 mg dose and constipation), strattera (5 weeks), educated on rx [place] prescription program reviewed Random UDS F90.2: Attention-deficit hyperactivity disorder, combined typeQelbree 400 mg daily , Preventing Depression From Coming Back: Care Instructions material was published, Seasonal Affective Disorder: Care Instructions material was published, Depression Treatment: Care Instructions material was published, Learning About How to Get Help During a Mental Health Crisis material was published, Learning About Depression Screening material was published 1. Mild recurrent major depression -Wellbutrin XL 150 mg dose - patient stopped r/t irritable 2 weeks ago and improved hx irritable at 300 mg dose educated on all medications, benefits, side effects and risk, and educated on depression, anxiety, and ADHD, mood d/o and educated on compliance of medications, metabolic and movement d/o education appointment's, continue therapy discussion with patient about course of treatmentand patient instructions. education on serotonin syndrome testoterone checked with PCP Continue therapy F33.0: Major depressive disorder, recurrent, mild stable 2. Obsessive-compul sive disorder -therapy seen for last 5-6 years 07/30/23 discuss TMS for OCD- patient has not thought about TMS since last visit increase Fluvoxamine 150 mg daily - educated on rx and take as [...] effects including loss of libido, increased suicidal thoughts/behavio rs in children and young adults, and serotonin syndrome. F42.9: Obsessive-compul sive disorder, unspecified fluvoxamine 150 mg tablet - Take 1 tablet(s) every day by oral route in the morning for 30 days. Qty: (30) tablet Refills: 1 Pharmacy: [facility] #[id number] Note to Pharmacy: d/c 50 mg dose 3. Generalized anxiety disorder - lorazepam prescribed [...] also be lethal. Patient was provided caution F41.1: Generalized anxiety disorder 4. Attention deficit hyperactivity disorder, combined type -REVIEWED JAYY-2 - ADHD combination 07/30/23 discuss ADHD rx and hx rx Qelbree will increase to 400 mg dose for ADHD- Will monitor constipation and irritable hx A-Fib see commissioning specialist 2023 next visit - no stimulates without commissioning specialist approval and letter in chart patient educated on non-stimulates hx Strattera, Wellbutrin and hx Qelbree hx - Qelbree(irritabl e at 400 mg dose and constipation), strattera (5 weeks), educated on rx [place] prescription program reviewed Random UDS F90.2: Attention-defici t hyperactivity disorder, combined type Qelbree 400 mg daily 09/27/2023 Generalized anxiety disorder (ICD-10 - F41.1) Learning About Generalized Anxiety Disorder material was published, Generalized Anxiety Disorder: Care Instructions material was published, Learning About Transcranial Magnetic Stimulation (TMS) material was published, Learning About Anxiety Disorders material was published 1. Mild recurrent major depression -Wellbutrin XL 150 mg dose - patient stopped r/t irritable 2 weeks ago and improved hx irritable at 300 mg dose educated on all medications, benefits, side effects and risk, and educated on depression, anxiety, and ADHD, mood d/o and educated on compliance of medications, metabolic and movement d/o education appointment's, continue therapy discussion with patient about course of treatmentand patient instructions. education on serotonin syndrome testoterone checked with PCP Continue therapy F33.0: Major depressive disorder, recurrent, mild stable 2. Obsessive-compul sive disorder -therapy seen for last 5-6 years 07/30/23 discuss TMS for OCD- patient has not thought about TMS since last visit increase Fluvoxamine 150 mg daily - educated on rx and take as [...] effects including loss of libido, increased suicidal thoughts/behavio rs in children and young adults, and serotonin syndrome. F42.9: Obsessive-compul sive disorder, unspecified fluvoxamine 150 mg tablet - Take 1 tablet(s) every day by oral route in the morning for 30 days. Qty: (30) tablet Refills: 1 Pharmacy: [facility] #[id number] Note to Pharmacy: d/c 50 mg dose 3. Generalized anxiety disorder - lorazepam prescribed [...] also be lethal. Patient was provided caution F41.1: Generalized anxiety disorder 4. Attention deficit hyperactivity disorder, combined type -REVIEWED JAYY-2 - ADHD combination 07/30/23 discuss ADHD rx and hx rx Qelbree will increase to 400 mg dose for ADHD- Will monitor constipation and irritable hx A-Fib see commissioning specialist 2023 next visit - no stimulates without commissioning specialist approval and letter in chart patient educated on non-stimulates hx Strattera, Wellbutrin and hx Qelbree hx - Qelbree(irritabl e at 400 mg dose and constipation), strattera (5 weeks), educated on rx [place] prescription program reviewed Random UDS F90.2: Attention-defici t hyperactivity disorder, combined type Qelbree 400 mg daily 11/29/2023 Major depressive disorder, recurrent, mild (ICD-10 - F33.0) NO RX SENT TODAY PATIENT HAS RX AT HOME Patient will see Cardilogist 11/30/23 and discuss clearance for stimualtes- Vyanase conitnue therapy educated on all medications, benefits, side effects and risk, and educated on depression, anxiety, and ADHD, mood d/o and educated on compliance of medications, metabolic and movement d/o education appointment's, continue therapy discussion with patient about course of treatmentand patient instructions. education on serotonin syndrome testoterone checked with PCPContinue therapy Discussed and educated pt regarding benzodiazepines are [...] also be lethal. Patient was provided caution 1. Mild recurrent major depression- patient stopped all rx last 6-8 weeks hx irritable at 300 mg dose educated on all medications, benefits, side effects and risk, and educated on depression, anxiety, and ADHD, mood d/o and educated on compliance of medications, metabolic and movement d/o education appointment's, continue therapy discussion with patient about course of treatmentand patient instructions. education on serotonin syndrome testoterone checked with PCP Continue therapy 2. Obsessive-compul sive disorder -therapy seen for last 5-6 years patient would like to restart Fluvoxamine for OCD Discuss TMS TODAY 11/29/23 07/30/23 discuss TMS for OCD- patient has not thought about TMS since last visit re-start Fluvoxamine 50 mg daily For 2 weeks then increase to 100 mg daily- no refill needed has rx at home - educated on rx and take as [...] effects including loss of libido, increased suicidal thoughts/behavio rs in children and young adults, and serotonin [...] Qelbree D/C for ADHD- constipation and irritable hx A-Fib see commissioning specialist 11/30/2023 - no stimulates without commissioning specialist approval and letter in chart patient educated on non-stimulates hx Strattera, Wellbutrin and hx Qelbree hx - Qelbree(irritabl e at 400 mg dose and constipation), strattera (5 weeks), educated on rx [place] prescription program reviewed Random UDS 5. BInge eating- discuss therapy and patient will talk to [facility] about approval for Vyvanse 11/30/23 - will need approval from commissioning specialist before [facility] will prescribe 12/31/2023 Major depressive disorder, recurrent, mild (ICD-10 - F33.0) 1. Mild recurrent major depression- patient stopped all rx hx irritable at 300 mg dose educated on all medications, benefits, side effects and risk, and educated on depression, anxiety, and ADHD, mood d/o and educated on compliance of medications, metabolic and movement d/o education appointment's, continue therapy discussion with patient about course of treatmentand patient instructions. education on serotonin syndrome testoterone checked with PCP Continue therapy 2. Obsessive-compul sive disorder -therapy seen for last 5-6 years patient would consider restart Fluvoxamine for OCD after had Vyvanse and see how he does 12/31/23 Discuss TMS 11/29/23 07/30/23 discuss TMS for [...] effects including loss of libido, increased suicidal thoughts/behavio rs in children and young adults, and serotonin [...] and irritable 12/23/23 RECIEVED CLEARANCE LETTER from Spa Manager for Vyvanse ADHD stimulates education Discuss with patient risk of misuse, abuse, and addiction before prescribing stimulant medicines. 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 Random UDS [place] prescription reviewed local pharmacy in [facility], no early refills on control substance educated on non-stimulate and stimulates hx A-Fib see commissioning specialist 11/30/2023 - commissioning specialist approval and letter in chart Will start Vyvanse 20 mg daily slow titration as needed patient educated on non-stimulates hx Strattera, Wellbutrin and hx Qelbree hx - Qelbree(irritabl e at 400 mg dose and constipation), strattera (5 weeks), educated on rx [place] prescription program reviewed Random UDS 5. BInge eating- discuss therapy cardilolgist t approval for Vyvanse 12/23/23 - 02/04/2024 Major depressive disorder, recurrent, mild (ICD-10 [...] testoterone checked with PCP Continue therapy 2. Obsessive-compul sive disorder -therapy seen for last 5-6 years patient would like to restart [id number] mg daily for OCD Discuss TMS 11/29/23 [...] effects including loss of libido, increased suicidal thoughts/behavio rs in children and young adults, and serotonin [...] and irritable 12/23/23 RECIEVED CLEARANCE LETTER from Spa Manager for Vyvanse ADHD stimulates education Discuss with patient risk of misuse, abuse, and addiction before prescribing stimulant medicines. 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 Random S [place] prescription reviewed local pharmacy in [place], no early refills on control substance educated on non-stimulate and stimulates hx A-Fib see commissioning specialist 11/30/2023 - commissioning specialist approval and letter in chart Patient stopped Vyvanse 20 mg daily after 2 weeks - agitation patient educated on non-stimulates hx Strattera, hx Wellbutrin and hx Qelbree hx - Qelbree(irritabl e at 400 mg dose and constipation), strattera (5 weeks), educated on rx [place] prescription program reviewed Random UDS 5. BInge eating- discuss therapy evelyn levi approval for [employer] 12/23/23 - 03/01/2024 Mixed obsessional thoughts and acts (ICD-10 - F42.2) fluvoxamine to 100 mg daily 02/04/2024 Generalized anxiety disorder (ICD-10 - F41.1) [...] testoterone checked with PCP Continue therapy 2. Obsessive-compul sive disorder -therapy seen for last 5-6 years patient would like to restart [id number] mg daily for OCD Discuss TMS 11/29/23 [...] effects including loss of libido, increased suicidal thoughts/behavio rs in children and young adults, and serotonin [...] and irritable 12/23/23 RECIEVED CLEARANCE LETTER from Spa Manager for Vyvanse ADHD stimulates education Discuss with patient risk of misuse, abuse, and addiction before prescribing stimulant medicines. 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 Random UDS [place] prescription reviewed local pharmacy in [facility], no early refills on control substance educated on non-stimulate and stimulates hx A-Fib see commissioning specialist 11/30/2023 - commissioning specialist approval and letter in chart Patient stopped Vyvanse 20 mg daily after 2 weeks - agitation patient educated on non-stimulates hx Strattera, hx Wellbutrin and hx Qelbree hx - Qelbree(irritabl e at 400 mg dose and constipation), strattera (5 weeks), educated on rx [place] prescription program reviewed Random UDS 5. BInge eating- discuss therapy cardilolgist t approval for Vyvanse 12/23/23 - 12/31/2023 Generalized anxiety disorder (ICD-10 - F41.1) Learning About Generalized Anxiety Disorder material was published, Generalized Anxiety Disorder: Care Instructions material was published, Learning About Transcranial Magnetic Stimulation (TMS) material was published, Learning About Anxiety Disorders material was published, Learning About Anxiety Disorders material was published, Learning About Transcranial Magnetic Stimulation (TMS) material was published 1. Mild recurrent major depression- patient stopped all rx hx irritable at 300 mg dose educated on all medications, benefits, side effects and risk, and educated on depression, anxiety, and ADHD, mood d/o and educated on compliance of medications, metabolic and movement d/o education appointment's, continue therapy discussion with patient about course of treatmentand patient instructions. education on serotonin syndrome testoterone checked with PCP Continue therapy 2. Obsessive-compul sive disorder -therapy seen for last 5-6 years patient would consider restart Fluvoxamine for OCD after had Vyvanse and see how he does 12/31/23 Discuss TMS 11/29/23 07/30/23 discuss TMS for [...] effects including loss of libido, increased suicidal thoughts/behavio rs in children and young adults, and serotonin [...] and irritable 12/23/23 RECIEVED CLEARANCE LETTER from Spa Manager for Vyvanse ADHD stimulates education Discuss with patient risk of misuse, abuse, and addiction before prescribing stimulant medicines. 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 Random UDS [place] prescription reviewed local pharmacy in [place], no early refills on control substance educated on non-stimulate and stimulates hx A-Fib see commissioning specialist 11/30/2023 - commissioning specialist approval and letter in chart Will start Vyvanse 20 mg daily slow titration as needed patient educated on non-stimulates hx Strattera, Wellbutrin and hx Qelbree hx - Qelbree(irritabl e at 400 mg dose and constipation), strattera (5 weeks), educated on rx [place] prescription program reviewed Random UDS 5. BInge eating- discuss therapy cardilolgist t approval for Vyvanse 12/23/23 - 09/27/2023 Obsessive-comp ulsive disorder, unspecified (ICD-10 - F42.9) Obsessive-Compulsive Disorder: Care Instructions material was published 1. Mild recurrent major depression -Wellbutrin XL 150 mg dose - patient stopped r/t irritable 2 weeks ago and improved hx irritable at 300 mg dose educated on all medications, benefits, side effects and risk, and educated on depression, anxiety, and ADHD, mood d/o and educated on compliance of medications, metabolic and movement d/o education appointment's, continue therapy discussion with patient about course of treatmentand patient instructions. education on serotonin syndrome testoterone checked with PCP Continue therapy F33.0: Major depressive disorder, recurrent, mild stable 2. Obsessive-compul sive disorder -therapy seen for last 5-6 years 07/30/23 discuss TMS for OCD- patient has not thought about TMS since last visit increase Fluvoxamine 150 mg daily - educated on rx and take as [...] effects including loss of libido, increased suicidal thoughts/behavio rs in children and young adults, and serotonin syndrome. F42.9: Obsessive-compul sive disorder, unspecified fluvoxamine 150 mg tablet - Take 1 tablet(s) every day by oral route in the morning for 30 days. Qty: (30) tablet Refills: 1 Pharmacy: [facility] #[id number] Note to Pharmacy: d/c 50 mg dose 3. Generalized anxiety disorder - lorazepam prescribed [...] also be lethal. Patient was provided caution F41.1: Generalized anxiety disorder 4. Attention deficit hyperactivity disorder, combined type -REVIEWED JAYY-2 - ADHD combination 07/30/23 discuss ADHD rx and hx rx Qelbree will increase to 400 mg dose for ADHD- Will monitor constipation and irritable hx A-Fib see commissioning specialist 2023 next visit - no stimulates without commissioning specialist approval and letter in chart patient educated on non-stimulates hx Strattera, Wellbutrin and hx Qelbree hx - Qelbree(irritabl e at 400 mg dose and constipation), strattera (5 weeks), educated on rx [place] prescription program reviewed Random UDS F90.2: Attention-defici t hyperactivity disorder, combined type Qelbree 400 mg daily 11/29/2023 Generalized anxiety disorder (ICD-10 - F41.1) Learning About Generalized Anxiety Disorder material was published, Generalized Anxiety Disorder: Care Instructions material was published, Learning About Transcranial Magnetic Stimulation (TMS) material was published, Learning About Anxiety Disorders material was published 1. Mild recurrent major depression- patient stopped all rx last 6-8 weeks hx irritable at 300 mg dose educated on all medications, benefits, side effects and risk, and educated on depression, anxiety, and ADHD, mood d/o and educated on compliance of medications, metabolic and movement d/o education appointment's, continue therapy discussion with patient about course of treatmentand patient instructions. education on serotonin syndrome testoterone checked with PCP Continue therapy 2. Obsessive-compul sive disorder -therapy seen for last 5-6 years patient would like to restart Fluvoxamine for OCD Discuss TMS TODAY 11/29/23 07/30/23 discuss TMS for OCD- patient has not thought about TMS since last visit re-start Fluvoxamine 50 mg daily For 2 weeks then increase to 100 mg daily- no refill needed has rx at home - educated on rx and take as [...] effects including loss of libido, increased suicidal thoughts/behavio rs in children and young adults, and serotonin [...] Qelbree D/C for ADHD- constipation and irritable hx A-Fib see commissioning specialist 11/30/2023 - no stimulates without commissioning specialist approval and letter in chart patient educated on non-stimulates hx Strattera, Wellbutrin and hx Qelbree hx - Qelbree(irritabl e at 400 mg dose and constipation), strattera (5 weeks), educated on rx [place] prescription program reviewed Random UDS 5. BInge eating- discuss therapy and patient will talk to [facility] about approval for Vyvanse 11/30/23 - will need approval from commissioning specialist before [facility] will prescribe 08/27/2023 Attention-defi cit hyperactivity disorder, combined type (ICD-10 - F90.2) Electronic Prior Authorization was requested for Qelbree 200 MG Capsule Extended Release 24 Hour. Provider can order medication once approval received., Learning About Attention Deficit Hyperactivity Disorder (ADHD) in Adults material was published 1. Mild recurrent major depression - Wellbutrin XL 150 mg dose -decrease r/o irritable at 300 mg dose educated on all medications, benefits, side effects and risk, and educated on depression, anxiety, and ADHD, mood d/o and educated on compliance of medications, metabolic and movement d/o education appointment's, continue therapy discussion with patient about course of treatmentand patient instructions. education on serotonin syndrome testoterone checked with PCPContinue therapy F33.0: Major depressive disorder, recurrent, mild 2. Obsessive-compul sive disorder -therapy seen for last 5-6 years discuss TMS for OCD- patient has thought about TMS since last visit- still considering Fluvoxamine 100 mg daily - educated on rx and take as prescribed- continue to have OCD and anxiety s/s therapy Discuss TMS for OCD and educated on TMS and pamphlet given- 05/28/23 patient will continue to think about TMSdiscuss rx options hx sexual side effects per patient on SSRI SSRI side effects discussed including but not limited to, gastric upset, nausea, vomiting, diarrhea and/or constipation, weight changes, sexual side effects including loss of libido, increased suicidal thoughts/behavio rs in children and young adults, and serotonin syndrome. F42.9: Obsessive-compul sive disorder, unspecified fluvoxamine 100 mg tablet - Take 1 tablet(s) every day by oral route in the morning for 30 days. Qty: (30) tablet 3. Generalized anxiety disorder - lorazepam PCP prescribed for flying hx- reported did not help Will prescribe Clonazepam 0.5 mg PRN for flying # 2 Discuss Buspar and educated on Buspar patient agreed to Buspar as prescribed for anxiety Buspar 10 mg twice a day for anxiety - educate on taking as prescribed for anxiety (patient reported has not taken three times a day been taking daily) Discussed and educated pt regarding benzodiazepines are [...] also be lethal. Patient was provided caution F41.1: Generalized anxiety disorder buspirone 10 mg tablet - Take 1 tablet(s) 3 times a day by oral route with meal(s) for 90 days. Qty: (270) tablet Refills: 0 4. Attention deficit hyperactivity disorder, combined type -REVIEWED JAYY-2 - ADHD combination 07/30/23 discuss ADHD rx and hx rx 07/30/23 decrease Wellbutrin XL to 150 mg daily am r/o having irritable at 300 mg dose hx A-Fib see commissioning specialist 2023 next visit - no stimulates without commissioning specialist approval and letter in chart patient educated on non-stimulates hx Strattera, Wellbutrin and hx Qelbree hx - Qelbree(irritabl e at 400 mg dose and constipation), strattera (5 weeks), 08/27/23 patient would like to re-try Qelbree 200 mg dose samples given for a month moitor for irritbale and constipation, discuss and education on rx and if irritbale let office know, may consider stopping Wellbutrin educated on rx [place] prescription program reviewed Random UDS F90.2: Attention-defici t hyperactivity disorder, combined type bupropion HCl XL 150 mg 24 hr tablet, extended release - Take 1 tablet(s) every day by oral route in the morning for 30 days, for adhd. Qty: (30) tablet Refills: 1 Pharmacy: [facility] #[id number] Note to Pharmacy: d/c 300 mg dose 09/27/2023 Attention and concentration deficit (ICD-10 - R41.840) 1. Mild recurrent major depression -Wellbutrin XL 150 mg dose - patient stopped r/t irritable 2 weeks ago and improved hx irritable at 300 mg dose educated on all medications, benefits, side effects and risk, and educated on depression, anxiety, and ADHD, mood d/o and educated on compliance of medications, metabolic and movement d/o education appointment's, continue therapy discussion with patient about course of treatmentand patient instructions. education on serotonin syndrome testoterone checked with PCP Continue therapy F33.0: Major depressive disorder, recurrent, mild stable 2. Obsessive-compul sive disorder -therapy seen for last 5-6 years 07/30/23 discuss TMS for OCD- patient has not thought about TMS since last visit increase Fluvoxamine 150 mg daily - educated on rx and take as [...] effects including loss of libido, increased suicidal thoughts/behavio rs in children and young adults, and serotonin syndrome. F42.9: Obsessive-compul sive disorder, unspecified fluvoxamine 150 mg tablet - Take 1 tablet(s) every day by oral route in the morning for 30 days. Qty: (30) tablet Refills: 1 Pharmacy: [facility] #[id number] Note to Pharmacy: d/c 50 mg dose 3. Generalized anxiety disorder - lorazepam prescribed [...] also be lethal. Patient was provided caution F41.1: Generalized anxiety disorder 4. Attention deficit hyperactivity disorder, combined type -REVIEWED JAYY-2 - ADHD combination 07/30/23 discuss ADHD rx and hx rx Qelbree will increase to 400 mg dose for ADHD- Will monitor constipation and irritable hx A-Fib see commissioning specialist 2023 next visit - no stimulates without commissioning specialist approval and letter in chart patient educated on non-stimulates hx Strattera, Wellbutrin and hx Qelbree hx - Qelbree(irritabl e at 400 mg dose and constipation), strattera (5 weeks), educated on rx [place] prescription program reviewed Random UDS F90.2: Attention-defici t hyperactivity disorder, combined type Qelbree 400 mg daily 08/27/2023 Obsessive-comp ulsive disorder, unspecified (ICD-10 - F42.9) Obsessive-Compulsive Disorder: Care Instructions material was published 1. Mild recurrent major depression - Wellbutrin XL 150 mg dose -decrease r/o irritable at 300 mg dose educated on all medications, benefits, side effects and risk, and educated on depression, anxiety, and ADHD, mood d/o and educated on compliance of medications, metabolic and movement d/o education appointment's, continue therapy discussion with patient about course of treatmentand patient instructions. education on serotonin syndrome testoterone checked with PCPContinue therapy F33.0: Major depressive disorder, recurrent, mild 2. Obsessive-compul sive disorder -therapy seen for last 5-6 years discuss TMS for OCD- patient has thought about TMS since last visit- still considering Fluvoxamine 100 mg daily - educated on rx and take as prescribed- continue to have OCD and anxiety s/s therapy Discuss TMS for OCD and educated on TMS and pamphlet given- 05/28/23 patient will continue to think about TMSdiscuss rx options hx sexual side effects per patient on SSRI SSRI side effects discussed including but not limited to, gastric upset, nausea, vomiting, diarrhea and/or constipation, weight changes, sexual side effects including loss of libido, increased suicidal thoughts/behavio rs in children and young adults, and serotonin syndrome. F42.9: Obsessive-compul sive disorder, unspecified fluvoxamine 100 mg tablet - Take 1 tablet(s) every day by oral route in the morning for 30 days. Qty: (30) tablet 3. Generalized anxiety disorder - lorazepam PCP prescribed for flying hx- reported did not help Will prescribe Clonazepam 0.5 mg PRN for flying # 2 Discuss Buspar and educated on Buspar patient agreed to Buspar as prescribed for anxiety Buspar 10 mg twice a day for anxiety - educate on taking as prescribed for anxiety (patient reported has not taken three times a day been taking daily) Discussed and educated pt regarding benzodiazepines are [...] also be lethal. Patient was provided caution F41.1: Generalized anxiety disorder buspirone 10 mg tablet - Take 1 tablet(s) 3 times a day by oral route with meal(s) for 90 days. Qty: (270) tablet Refills: 0 4. Attention deficit hyperactivity disorder, combined type -REVIEWED JAYY-2 - ADHD combination 07/30/23 discuss ADHD rx and hx rx 07/30/23 decrease Wellbutrin XL to 150 mg daily am r/o having irritable at 300 mg dose hx A-Fib see commissioning specialist 2023 next visit - no stimulates without commissioning specialist approval and letter in chart patient educated on non-stimulates hx Strattera, Wellbutrin and hx Qelbree hx - Qelbree(irritabl e at 400 mg dose and constipation), strattera (5 weeks), 08/27/23 patient would like to re-try Qelbree 200 mg dose samples given for a month moitor for irritbale and constipation, discuss and education on rx and if irritbale let office know, may consider stopping Wellbutrin educated on rx [place] prescription program reviewed Random UDS F90.2: Attention-defici t hyperactivity disorder, combined type bupropion HCl XL 150 mg 24 hr tablet, extended release - Take 1 tablet(s) every day by oral route in the morning for 30 days, for adhd. Qty: (30) tablet Refills: 1 Pharmacy: [facility] #[id number] Note to Pharmacy: d/c 300 mg dose 11/29/2023 Obsessive-comp ulsive disorder, unspecified (ICD-10 - F42.9) Obsessive-Compulsive Disorder: Care Instructions material was published 1. Mild recurrent major depression- patient stopped all rx last 6-8 weeks hx irritable at 300 mg dose educated on all medications, benefits, side effects and risk, and educated on depression, anxiety, and ADHD, mood d/o and educated on compliance of medications, metabolic and movement d/o education appointment's, continue therapy discussion with patient about course of treatmentand patient instructions. education on serotonin syndrome testoterone checked with PCP Continue therapy 2. Obsessive-compul sive disorder -therapy seen for last 5-6 years patient would like to restart Fluvoxamine for OCD Discuss TMS TODAY 11/29/23 07/30/23 discuss TMS for OCD- patient has not thought about TMS since last visit re-start Fluvoxamine 50 mg daily For 2 weeks then increase to 100 mg daily- no refill needed has rx at home - educated on rx and take as [...] effects including loss of libido, increased suicidal thoughts/behavio rs in children and young adults, and serotonin [...] Qelbree D/C for ADHD- constipation and irritable hx A-Fib see commissioning specialist 11/30/2023 - no stimulates without commissioning specialist approval and letter in chart patient educated on non-stimulates hx Strattera, Wellbutrin and hx Qelbree hx - Qelbree(irritabl e at 400 mg dose and constipation), strattera (5 weeks), educated on rx [place] prescription program reviewed Random UDS 5. BInge eating- discuss therapy and patient will talk to [facility] about approval for Vyvanse 11/30/23 - will need approval from commissioning specialist before [facility] will prescribe 12/31/2023 Obsessive-comp ulsive disorder, unspecified (ICD-10 - F42.9) Obsessive-Compulsive Disorder: Care Instructions material was published, Obsessive-Compulsive Disorder: Care Instructions material was published 1. Mild recurrent major depression- patient stopped all rx hx irritable at 300 mg dose educated on all medications, benefits, side effects and risk, and educated on depression, anxiety, and ADHD, mood d/o and educated on compliance of medications, metabolic and movement d/o education appointment's, continue therapy discussion with patient about course of treatmentand patient instructions. education on serotonin syndrome testoterone checked with PCP Continue therapy 2. Obsessive-compul sive disorder -therapy seen for last 5-6 years patient would consider restart Fluvoxamine for OCD after had Vyvanse and see how he does 12/31/23 Discuss TMS 11/29/23 07/30/23 discuss TMS for [...] effects including loss of libido, increased suicidal thoughts/behavio rs in children and young adults, and serotonin [...] and irritable 12/23/23 RECIEVED CLEARANCE LETTER from Spa Manager for Vyvanse ADHD stimulates education Discuss with patient risk of misuse, abuse, and addiction before prescribing stimulant medicines. 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 Random UDS [place] prescription reviewed local pharmacy in [facility], no early refills on control substance educated on non-stimulate and stimulates hx A-Fib see commissioning specialist 11/30/2023 - commissioning specialist approval and letter in chart Will start Vyvanse 20 mg daily slow titration as needed patient educated on non-stimulates hx Strattera, Wellbutrin and hx Qelbree hx - Qelbree(irritabl e at 400 mg dose and constipation), strattera (5 weeks), educated on rx [place] prescription program reviewed Random UDS 5. BInge eating- discuss therapy cardilolgist t approval for Vyvanse 12/23/23 - 02/04/2024 Obsessive-comp ulsive disorder, unspecified (ICD-10 - F42.9) Obsessive-Compulsive Disorder: Care Instructions material was published, Obsessive-Compulsive Disorder: Care Instructions material was published 1. [...] testoterone checked with PCP Continue therapy 2. Obsessive-compul sive disorder -therapy seen for last 5-6 years patient would like to restart [id number] mg daily for OCD Discuss TMS 11/29/23 [...] effects including loss of libido, increased suicidal thoughts/behavio rs in children and young adults, and serotonin [...] and irritable 12/23/23 RECIEVED CLEARANCE LETTER from Spa Manager for Vyvanse ADHD stimulates education Discuss with patient risk of misuse, abuse, and addiction before prescribing stimulant medicines. 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 Random [facility] prescription reviewed local pharmacy in [place], no early refills on control substance educated on non-stimulate and stimulates hx A-Fib see commissioning specialist 11/30/2023 - commissioning specialist approval and letter in chart Patient stopped Vyvanse 20 mg daily after 2 weeks - agitation patient educated on non-stimulates hx Strattera, hx Wellbutrin and hx Qelbree hx - Qelbree(irritabl e at 400 mg dose and constipation), strattera (5 weeks), educated on rx [place] prescription program reviewed Random UDS 5. BInge eating- discuss therapy evelyn levi approval for Vyvlarye 12/23/23 - 02/04/2024 Attention and concentration deficit [...] testoterone checked with PCP Continue therapy 2. Obsessive-compul sive disorder -therapy seen for last 5-6 years patient would like to restart [id number] mg daily for OCD Discuss TMS 11/29/23 [...] effects including loss of libido, increased suicidal thoughts/behavio rs in children and young adults, and serotonin [...] and irritable 12/23/23 RECIEVED CLEARANCE LETTER from Spa Manager for Vyvanse ADHD stimulates education Discuss with patient risk of misuse, abuse, and addiction before prescribing stimulant medicines. 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 Random UDS [place] prescription reviewed local pharmacy in [facility], no early refills on control substance educated on non-stimulate and stimulates hx A-Fib see commissioning specialist 11/30/2023 - commissioning specialist approval and letter in chart Patient stopped Vyvanse 20 mg daily after 2 weeks - agitation patient educated on non-stimulates hx Strattera, hx Wellbutrin and hx Qelbree hx - Qelbree(irritabl e at 400 mg dose and constipation), strattera (5 weeks), educated on rx [place] prescription program reviewed Random UDS 5. BInge eating- discuss therapy cardilolgist t approval for Vyvanse 12/23/23 - 12/31/2023 Attention and concentration deficit (ICD-10 - R41.840) 1. Mild recurrent major depression- patient stopped all rx hx irritable at 300 mg dose educated on all medications, benefits, side effects and risk, and educated on depression, anxiety, and ADHD, mood d/o and educated on compliance of medications, metabolic and movement d/o education appointment's, continue therapy discussion with patient about course of treatmentand patient instructions. education on serotonin syndrome testoterone checked with PCP Continue therapy 2. Obsessive-compul sive disorder -therapy seen for last 5-6 years patient would consider restart Fluvoxamine for OCD after had Vyvanse and see how he does 12/31/23 Discuss TMS 11/29/23 07/30/23 discuss TMS for [...] effects including loss of libido, increased suicidal thoughts/behavio rs in children and young adults, and serotonin [...] and irritable 12/23/23 RECIEVED CLEARANCE LETTER from Spa Manager for Vyvanse ADHD stimulates education Discuss with patient risk of misuse, abuse, and addiction before prescribing stimulant medicines. 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 Random [facility] prescription reviewed local pharmacy [place], no early refills on control substance educated on non-stimulate and stimulates hx A-Fib see commissioning specialist 11/30/2023 - commissioning specialist approval and letter in chart Will start Vyvanse 20 mg daily slow titration as needed patient educated on non-stimulates hx Strattera, Wellbutrin and hx Qelbree hx - Qelbree(irritabl e at 400 mg dose and constipation), strattera (5 weeks), educated on rx [place] prescription program reviewed Random UDS 5. 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 Mild recurrent major depression -Wellbutrin XL 150 mg dose - patient stopped r/t irritable 2 weeks ago and improved hx irritable at 300 mg dose educated on all medications, benefits, side effects and risk, and educated on depression, anxiety, and ADHD, mood d/o and educated on compliance of medications, metabolic and movement d/o education appointment's, continue therapy discussion with patient about course of treatmentand patient instructions. education on serotonin syndrome testoterone checked with PCP Continue therapy F33.0: Major depressive disorder, recurrent, mild stable 2. Obsessive-compul sive disorder -therapy seen for last 5-6 years 07/30/23 discuss TMS for OCD- patient has not thought about TMS since last visit increase Fluvoxamine 150 mg daily - educated on rx and take as [...] effects including loss of libido, increased suicidal thoughts/behavio rs in children and young adults, and serotonin syndrome. F42.9: Obsessive-compul sive disorder, unspecified fluvoxamine 150 mg tablet - Take 1 tablet(s) every day by oral route in the morning for 30 days. Qty: (30) tablet Refills: 1 Pharmacy: [facility] #[id number] Note to Pharmacy: d/c 50 mg dose 3. Generalized anxiety disorder - lorazepam prescribed [...] also be lethal. Patient was provided caution F41.1: Generalized anxiety disorder 4. Attention deficit hyperactivity disorder, combined type -REVIEWED JAYY-2 - ADHD combination 07/30/23 discuss ADHD rx and hx rx Qelbree will increase to 400 mg dose for ADHD- Will monitor constipation and irritable hx A-Fib see commissioning specialist 2023 next visit - no stimulates without commissioning specialist approval and letter in chart patient educated on non-stimulates hx Strattera, Wellbutrin and hx Qelbree hx - Qelbree(irritabl e at 400 mg dose and constipation), strattera (5 weeks), educated on rx [place] prescription program reviewed Random UDS F90.2: Attention-defici t hyperactivity disorder, combined type Qelbree 400 mg daily 11/29/2023 Attention and concentration deficit (ICD-10 - R41.840) 1. Mild recurrent major depression- patient stopped all rx last 6-8 weeks hx irritable at 300 mg dose educated on all medications, benefits, side effects and risk, and educated on depression, anxiety, and ADHD, mood d/o and educated on compliance of medications, metabolic and movement d/o education appointment's, continue therapy discussion with patient about course of treatmentand patient instructions. education on serotonin syndrome testoterone checked with PCP Continue therapy 2. Obsessive-compul sive disorder -therapy seen for last 5-6 years patient would like to restart Fluvoxamine for OCD Discuss TMS TODAY 11/29/23 07/30/23 discuss TMS for OCD- patient has not thought about TMS since last visit re-start Fluvoxamine 50 mg daily For 2 weeks then increase to 100 mg daily- no refill needed has rx at home - educated on rx and take as [...] effects including loss of libido, increased suicidal thoughts/behavio rs in children and young adults, and serotonin [...] Qelbree D/C for ADHD- constipation and irritable hx A-Fib see commissioning specialist 11/30/2023 - no stimulates without commissioning specialist approval and letter in chart patient educated on non-stimulates hx Strattera, Wellbutrin and hx Qelbree hx - Qelbree(irritabl e at 400 mg dose and constipation), strattera (5 weeks), educated on rx [place] prescription program reviewed Random UDS 5. BInge eating- discuss therapy and patient will talk to [facility] about approval for Vyvanse 11/30/23 - will need approval from commissioning specialist before [facility] will prescribe 08/27/2023 Other skilled nursing (current) drug therapy (ICD-10 - Z79.899) Medication Refill: Care Instructions material was published 1. Mild recurrent major depression - Wellbutrin XL 150 mg dose -decrease r/o irritable at 300 mg dose educated on all medications, benefits, side effects and risk, and educated on depression, anxiety, and ADHD, mood d/o and educated on compliance of medications, metabolic and movement d/o education appointment's, continue therapy discussion with patient about course of treatmentand patient instructions. education on serotonin syndrome testoterone checked with PCPContinue therapy F33.0: Major depressive disorder, recurrent, mild 2. Obsessive-compul sive disorder -therapy seen for last 5-6 years discuss TMS for OCD- patient has thought about TMS since last visit- still considering Fluvoxamine 100 mg daily - educated on rx and take as prescribed- continue to have OCD and anxiety s/s therapy Discuss TMS for OCD and educated on TMS and pamphlet given- 05/28/23 patient will continue to think about TMSdiscuss rx options hx sexual side effects per patient on SSRI SSRI side effects discussed including but not limited to, gastric upset, nausea, vomiting, diarrhea and/or constipation, weight changes, sexual side effects including loss of libido, increased suicidal thoughts/behavio rs in children and young adults, and serotonin syndrome. F42.9: Obsessive-compul sive disorder, unspecified fluvoxamine 100 mg tablet - Take 1 tablet(s) every day by oral route in the morning for 30 days. Qty: (30) tablet 3. Generalized anxiety disorder - lorazepam PCP prescribed for flying hx- reported did not help Will prescribe Clonazepam 0.5 mg PRN for flying # 2 Discuss Buspar and educated on Buspar patient agreed to Buspar as prescribed for anxiety Buspar 10 mg twice a day for anxiety - educate on taking as prescribed for anxiety (patient reported has not taken three times a day been taking daily) Discussed and educated pt regarding benzodiazepines are [...] also be lethal. Patient was provided caution F41.1: Generalized anxiety disorder buspirone 10 mg tablet - Take 1 tablet(s) 3 times a day by oral route with meal(s) for 90 days. Qty: (270) tablet Refills: 0 4. Attention deficit hyperactivity disorder, combined type -REVIEWED JAYY-2 - ADHD combination 07/30/23 discuss ADHD rx and hx rx 07/30/23 decrease Wellbutrin XL to 150 mg daily am r/o having irritable at 300 mg dose hx A-Fib see commissioning specialist 2023 next visit - no stimulates without commissioning specialist approval and letter in chart patient educated on non-stimulates hx Strattera, Wellbutrin and hx Qelbree hx - Qelbree(irritabl e at 400 mg dose and constipation), strattera (5 weeks), 08/27/23 patient would like to re-try Qelbree 200 mg dose samples given for a month moitor for irritbale and constipation, discuss and education on rx and if irritbale let office know, may consider stopping Wellbutrin educated on rx [place] prescription program reviewed Random UDS F90.2: Attention-defici t hyperactivity disorder, combined type bupropion HCl XL 150 mg 24 hr tablet, extended release - Take 1 tablet(s) every day by oral route in the morning for 30 days, for adhd. Qty: (30) tablet Refills: 1 Pharmacy: [facility] #[id number] Note to Pharmacy: d/c 300 mg dose 11/29/2023 Other skilled nursing (current) drug therapy (ICD-10 - Z79.899) Medication Refill: Care Instructions material was published 1. Mild recurrent major depression- patient stopped all rx last 6-8 weeks hx irritable at 300 mg dose educated on all medications, benefits, side effects and risk, and educated on depression, anxiety, and ADHD, mood d/o and educated on compliance of medications, metabolic and movement d/o education appointment's, continue therapy discussion with patient about course of treatmentand patient instructions. education on serotonin syndrome testoterone checked with PCP Continue therapy 2. Obsessive-compul sive disorder -therapy seen for last 5-6 years patient would like to restart Fluvoxamine for OCD Discuss TMS TODAY 11/29/23 07/30/23 discuss TMS for OCD- patient has not thought about TMS since last visit re-start Fluvoxamine 50 mg daily For 2 weeks then increase to 100 mg daily- no refill needed has rx at home - educated on rx and take as [...] effects including loss of libido, increased suicidal thoughts/behavio rs in children and young adults, and serotonin [...] Qelbree D/C for ADHD- constipation and irritable hx A-Fib see commissioning specialist 11/30/2023 - no stimulates without commissioning specialist approval and letter in chart patient educated on non-stimulates hx Strattera, Wellbutrin and hx Qelbree hx - Qelbree(irritabl e at 400 mg dose and constipation), strattera (5 weeks), educated on rx [place] prescription program reviewed Random UDS 5. BInge eating- discuss therapy and patient will talk to [facility] about approval for Vyvanse 11/30/23 - will need approval from commissioning specialist before [facility] will prescribe 12/31/2023 Other skilled nursing (current) drug therapy (ICD-10 - Z79.899) Medication Refill: Care Instructions material was published, Medication Refill: Care Instructions material was published 1. Mild recurrent major depression- patient stopped all rx hx irritable at 300 mg dose educated on all medications, benefits, side effects and risk, and educated on depression, anxiety, and ADHD, mood d/o and educated on compliance of medications, metabolic and movement d/o education appointment's, continue therapy discussion with patient about course of treatmentand patient instructions. education on serotonin syndrome testoterone checked with PCP Continue therapy 2. Obsessive-compul sive disorder -therapy seen for last 5-6 years patient would consider restart Fluvoxamine for OCD after had Vyvanse and see how he does 10/11/24 Discuss TMS 11/29/23 07/30/23 discuss TMS for [...] effects including loss of libido, increased suicidal thoughts/behavio rs in children and young adults, and serotonin [...] and irritable 12/23/23 RECIEVED CLEARANCE LETTER from Spa Manager for Vyvlarye ADHD stimulates education Discuss with patient risk of misuse, abuse, and addiction before prescribing stimulant medicines. 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 Random UDS [place] prescription reviewed local pharmacy in [place], no early refills on control substance educated on non-stimulate and stimulates hx A-Fib see commissioning specialist 11/30/2023 - commissioning specialist approval and letter in chart Will start Vyvanse 20 mg daily slow titration as needed patient educated on non-stimulates hx Strattera, Wellbutrin and hx Qelbree hx - Qelbree(irritabl e at 400 mg dose and constipation), strattera (5 weeks), educated on rx [place] prescription program reviewed Random UDS 5. 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 Obsessive-compul sive disorder -therapy seen for last 5-6 years patient would like to restart [id number] mg daily for OCD Discuss TMS 11/29/23 [...] effects including loss of libido, increased suicidal thoughts/behavio rs in children and young adults, and serotonin [...] and irritable 12/23/23 RECIEVED CLEARANCE LETTER from Spa Manager for Vyvanse ADHD stimulates education Discuss with patient risk of misuse, abuse, and addiction before prescribing stimulant medicines. 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 Random UDS [place] prescription reviewed local pharmacy in [facility], no early refills on control substance educated on non-stimulate and stimulates hx A-Fib see commissioning specialist 11/30/2023 - commissioning specialist approval and letter in chart Patient stopped Vyvanse 20 mg daily after 2 weeks - agitation patient educated on non-stimulates hx Strattera, hx Wellbutrin and hx Qelbree hx - Qelbree(irritabl e at 400 mg dose and constipation), strattera (5 weeks), educated on rx [place] prescription program reviewed Random UDS 5. BInge eating- discuss therapy donnast t approval for Vyvanse 12/23/23 - 08/27/2023 Other Bupropion Exten ded Release Oral Tablet (BUPROPION HCL EXTENDED-RELEASE (ANTIDEPRESSANT) - ORAL) material was published, Clonazepam Oral Tablet (CLONAZEPAM - ORAL) material was published, Buspirone Oral Tablet (BUSPIRONE - ORAL) material was published, Viloxazine Extended Release Oral Capsule (VILOXAZINE EXTENDED-RELEASE - ORAL) material was published, Fluvoxamine Oral Tablet (FLUVOXAMINE - ORAL) material was published 1. Mild recurrent major depression - Wellbutrin XL 150 mg dose -decrease r/o irritable at 300 mg dose educated on all medications, benefits, side effects and risk, and educated on depression, anxiety, and ADHD, mood d/o and educated on compliance of medications, metabolic and movement d/o education appointment's, continue therapy discussion with patient about course of treatmentand patient instructions. education on serotonin syndrome testoterone checked with PCPContinue therapy F33.0: Major depressive disorder, recurrent, mild 2. Obsessive-compul sive disorder -therapy seen for last 5-6 years discuss TMS for OCD- patient has thought about TMS since last visit- still considering Fluvoxamine 100 mg daily - educated on rx and take as prescribed- continue to have OCD and anxiety s/s therapy Discuss TMS for OCD and educated on TMS and pamphlet given- 05/28/23 patient will continue to think about TMSdiscuss rx options hx sexual side effects per patient on SSRI SSRI side effects discussed including but not limited to, gastric upset, nausea, vomiting, diarrhea and/or constipation, weight changes, sexual side effects including loss of libido, increased suicidal thoughts/behavio rs in children and young adults, and serotonin syndrome. F42.9: Obsessive-compul sive disorder, unspecified fluvoxamine 100 mg tablet - Take 1 tablet(s) every day by oral route in the morning for 30 days. Qty: (30) tablet 3. Generalized anxiety disorder - lorazepam PCP prescribed for flying hx- reported did not help Will prescribe Clonazepam 0.5 mg PRN for flying # 2 Discuss Buspar and educated on Buspar patient agreed to Buspar as prescribed for anxiety Buspar 10 mg twice a day for anxiety - educate on taking as prescribed for anxiety (patient reported has not taken three times a day been taking daily) Discussed and educated pt regarding benzodiazepines are [...] also be lethal. Patient was provided caution F41.1: Generalized anxiety disorder buspirone 10 mg tablet - Take 1 tablet(s) 3 times a day by oral route with meal(s) for 90 days. Qty: (270) tablet Refills: 0 4. Attention deficit hyperactivity disorder, combined type -REVIEWED JAYY-2 - ADHD combination 07/30/23 discuss ADHD rx and hx rx 07/30/23 decrease Wellbutrin XL to 150 mg daily am r/o having irritable at 300 mg dose hx A-Fib see commissioning specialist 2023 next visit - no stimulates without commissioning specialist approval and letter in chart patient educated on non-stimulates hx Strattera, Wellbutrin and hx Qelbree hx - Qelbree(irritabl e at 400 mg dose and constipation), strattera (5 weeks), 08/27/23 patient would like to re-try Qelbree 200 mg dose samples given for a month moitor for irritbale and constipation, discuss and education on rx and if irritbale let office know, may consider stopping Wellbutrin educated on rx [place] prescription program reviewed Random UDS F90.2: Attention-defici t hyperactivity disorder, combined type bupropion HCl XL 150 mg 24 hr tablet, extended release - Take 1 tablet(s) every day by oral route in the morning for 30 days, for adhd. Qty: (30) tablet Refills: 1 Pharmacy: [facility][id number] Note to Pharmacy: d/c 300 mg dose 09/27/2023 Other Fluvoxamine Ora l Tablet (FLUVOXAMINE - ORAL) material was published, Viloxazine Extended Release Oral Capsule (VILOXAZINE EXTENDED-RELEASE - ORAL) material was published 1. Mild recurrent major depression -Wellbutrin XL 150 mg dose - patient stopped r/t irritable 2 weeks ago and improved hx irritable at 300 mg dose educated on all medications, benefits, side effects and risk, and educated on depression, anxiety, and ADHD, mood d/o and educated on compliance of medications, metabolic and movement d/o education appointment's, continue therapy discussion with patient about course of treatmentand patient instructions. education on serotonin syndrome testoterone checked with PCP Continue therapy F33.0: Major depressive disorder, recurrent, mild stable 2. Obsessive-compul sive disorder -therapy seen for last 5-6 years 07/30/23 discuss TMS for OCD- patient has not thought about TMS since last visit increase Fluvoxamine 150 mg daily - educated on rx and take as [...] effects including loss of libido, increased suicidal thoughts/behavio rs in children and young adults, and serotonin syndrome. F42.9: Obsessive-compul sive disorder, unspecified fluvoxamine 150 mg tablet - Take 1 tablet(s) every day by oral route in the morning for 30 days. Qty: (30) tablet Refills: 1 Pharmacy: [facility] #[id number] Note to Pharmacy: d/c 50 mg dose 3. Generalized anxiety disorder - lorazepam prescribed [...] also be lethal. Patient was provided caution F41.1: Generalized anxiety disorder 4. Attention deficit hyperactivity disorder, combined type -REVIEWED JAYY-2 - ADHD combination 07/30/23 discuss ADHD rx and hx rx Qelbree will increase to 400 mg dose for ADHD- Will monitor constipation and irritable hx A-Fib see commissioning specialist 2023 next visit - no stimulates without commissioning specialist approval and letter in chart patient educated on non-stimulates hx Strattera, Wellbutrin and hx Qelbree hx - Qelbree(irritabl e at 400 mg dose and constipation), strattera (5 weeks), educated on rx [place] prescription program reviewed Random UDS F90.2: Attention-defici t hyperactivity disorder, combined type Qelbree 400 mg daily 12/31/2023 Other Lisdexamfetamin e Oral Capsule (LISDEXAMFETAMINE - ORAL) material was published 1. Mild recurrent major depression- patient stopped all rx hx irritable at 300 mg dose educated on all medications, benefits, side effects and risk, and educated on depression, anxiety, and ADHD, mood d/o and educated on compliance of medications, metabolic and movement d/o education appointment's, continue therapy discussion with patient about course of treatmentand patient instructions. education on serotonin syndrome testoterone checked with PCP Continue therapy 2. Obsessive-compul sive disorder -therapy seen for last 5-6 years patient would consider restart Fluvoxamine for OCD after had Vyvanse and see how he does 12/31/23 Discuss TMS 11/29/23 07/30/23 discuss TMS for [...] effects including loss of libido, increased suicidal thoughts/behavio rs in children and young adults, and serotonin [...] and irritable 12/23/23 RECIEVED CLEARANCE LETTER from Spa Manager for Vyvanse ADHD stimulates education Discuss with patient risk of misuse, abuse, and addiction before prescribing stimulant medicines. 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 Random UDS [place] prescription reviewed local pharmacy in [place], no early refills on control substance educated on non-stimulate and stimulates hx A-Fib see commissioning specialist 11/30/2023 - commissioning specialist approval and letter in chart Will start Vyvanse 20 mg daily slow titration as needed patient educated on non-stimulates hx Strattera, Wellbutrin and hx Qelbree hx - Qelbree(irritabl e at 400 mg dose and constipation), strattera (5 weeks), educated on rx [place] prescription program reviewed Random UDS 5. BInge eating- discuss therapy cardilolgist t approval for Vyvanse 12/23/23 - Plan Of Treatment No Information Insurance Providers Payer Name Payer Address Payer Phone Subscriber Number Group Number Insured Name Patient Relationship to Insured Coverage Start Date Coverage End Date [employer] [address] [place] [address] [id number] MARTÍN MONTENEGRO Self - patient is the insured Medical (General) History Medical History History ICD Code Problems: Attention deficit hyperactivit y disorder, combined type Eating problem Fatigue Generalized anxiety disorder Mild recurrent major depression Obsessive-compulsive disorder Unable to concentrate , Anxiety Disorder: Y Depressi on Major: Y Panic Episodes: Y PTSD: Y Substance Abuse: Y ADD/ADHD: Y 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
--- OUTSIDE RECORDS SUMMARY | 2024-03-07 22:30 | XMS_ITS | Clinical Summary ---
Author Organization [facility] [employer] Address [address] [place] [address] Care Team Providers Care Sleep Technologist Name Role Phone Shen Galaviz MD Primary Care Provider Source Comments [facility] [employer],non-owned Affiliates and Associated Physician Practices is amultiple site organization consisting of ambulatory clinics and hospital sitesin [place], [place], [place] and [place]. This disclosure is being madepursuant to the Care Everywhere program and may not contain all information available regarding this patient. Last updated 17.[facility] [employer] Allergies No known active allergies Medications Be [...] 01/18/2020 2:08 PM CDT Plan of Treatment Health Maintenance Due Date Last Done Comments LIPID TESTING 1980 HIV SCREENING 1995 HEPATITIS C SCREENING 04/01/1998 DTAP/TDAP/TD VACCINES (1 - Tdap) 1999 HEPATITIS B VACCINE (1 of 3 - 19+ 3-dose series) 1999 DEPRESSION SCREENING 03/22/2023 10/07/2021 COVID-19 VACCINE (1 - 2023-2 5 season) 2023 INFLUENZA VACCINE (#1) 2023 ZOSTER VACCINE (1 of 2) 2030 HIB VACCINE Aged Out No longer eligi ble based on patient's age to complete this topic HPV VACCINE Aged Out No longer eligi ble based on patient's age to complete this topic MENINGOCOCCAL VACCINE Aged Out No bridger rhoda eligible based on patient's age to complete this topic PNEUMOCOCCAL VACCINE Aged Out No long er eligible based on patient's age to complete this topic Care Teams Sleep Technologist Relationship Specialty Start Date End Date Shen Galaviz MD [address] [place] [address] PCP - General Family Medicine 01/18/20
--- OUTSIDE RECORDS SUMMARY | 2024-03-07 22:30 | XMS_ITS | Patient Health Summary ---
Author Organization [facility] [employer] Address [address] [place] [address] Care Team Providers Care Courtesy Clerk Name Role Phone Shen Galaviz MD Primary Care Provider [phone] Note from [facility],non-owned Affiliates and Associated Physician Practices is amultiple site organization consisting of ambulatory clinics and hospital sitesin [place], [place], [place] and [place]. This disclosure is being madepursuant to the Care Everywhere program and may not contain all information available regarding this patient. Last updated 17.[facility] [employer] Allergies No known active allergies Medications Be [...] Mass Index 37.59 01/18/2020 2:08 PM CDT Care Teams Courtesy Clerk Relationship Specialty Start Date End Date Shen Galaviz MD [address] [place] [address] PCP - General Family Medicine 01/18/20
--- OUTSIDE RECORDS SUMMARY | 2024-03-07 22:30 | XMS_ITS | Encounter Summary ---
Author Organization [facility] [employer] Address [facility] [place] [address] Care Team Providers Care Senior Quality Manager Name Role Phone Shen Galaviz MD Primary Care Provider [phone] Reason for Visit * Reason Onset Date Comments Follow-up 01/20/2020 Encounter Details Date Type Department Care Team (Late st Contact Info) Description 01/20/[address] [facility] [address] [phone] Provider, [facility] Follow-up Social History Tobacco Use Types Packs/Day Years [...] PM CDT documented as of this encounter Miscellaneous Notes * Telephone Encounter - Edelmira Pulliam - 01/20/2020 12:12 PM CDT Courtesy follow-up phone call made to patient. Message left advising patient to call service [facility] [phone] if they have any questions or concerns. Edelmira Pulliam documented in this encounter Plan of Treatment Not on file documented as of this encounter Visit Diagnoses Not on filedocumented in this encounter Care Teams Senior Quality Manager Relationship Specialty Start Date End Date Shen Galaviz MD [address] [place] [address] PCP - General Family Medicine 01/18/20 documented as of this encounter
--- OUTSIDE RECORDS SUMMARY | 2024-03-07 22:30 | XMS_ITS | Encounter Summary ---
Author Organization [facility] Address [address] [place] [address] Care Team Providers Care Forensic Science Examiner Name Role Phone Maverick Vu MD Primary Care Provider [phone] Reason for Visit * Reason Comments Ear Problem Encounter Details Date Type Department Care Team (Late st Contact Info) Description 02/18/2016 7:00 PM ENTRY LEVEL ADMINISTRATIVE ASSISTANT Office Visit [facility] [address] [phone] Provider, [facility] Eustachian tube disorder, bilateral (Primary Dx); Left acute suppurative otitis media Social History Tobacco Use Types Packs/Day Years Used Date Smoking Tobacco: Never Assessed Sex and Gender Information Value Date Recorded Sex Assigned at Not on file Gender Identity Not on file Sexual Orientation Not on file documented as of this encounter Last Filed Vital Signs Vital Sign Reading Time Taken Comments Blood Pressure 120/78 02/18/2016 6:37 PM ENTRY LEVEL ADMINISTRATIVE ASSISTANT Pulse 64 02/18/2016 6:37 PM ENTRY LEVEL ADMINISTRATIVE ASSISTANT Temperature 36.8 ??C (98.2 ??F) 02/18/2016 6:37 PM CS T Respiratory Rate 16 02/18/2016 6:37 PM ENTRY LEVEL ADMINISTRATIVE ASSISTANT Oxygen Saturation - - Inhaled Oxygen Concentration - - Weight 88.5 kg (195 lb) 02/18/2016 6:37 PM ENTRY LEVEL ADMINISTRATIVE ASSISTANT Height 172.7 cm (5' 8 ) 02/18/2016 6:37 PM ENTRY LEVEL ADMINISTRATIVE ASSISTANT Body Mass Index 29.65 02/18/2016 6:37 PM ENTRY LEVEL ADMINISTRATIVE ASSISTANT documented in this encounter Patient Instructions * Patient Instructions* Rosa Ham, COMMANDER INTERNAL AFFAIRS-PIT INSPECTOR - 02/18/2016 6:43 PM ENTRY LEVEL ADMINISTRATIVE ASSISTANT Sinusitis WHAT YOU NEED TO KNOW: What is sinusitis? Sinusitis is inflammation or infection of your sinuses. It is most often caused by a virus. Acute sinusitis may last up to 12 weeks. Chronic sinusitis lasts longer than 12 weeks. Recurrent sinusitis is when you have 3 or more episodes of sinusitis in 1 year. What increases my risk for sinusitis? ?? Medical conditions, such as an upper respiratory infection, allergies, asthma, or cystic fibrosis ?? Dental infections or procedures, such as gum infections, tooth decay, tooth removal, root canal,or a tooth implant ?? Abnormal sinus structure, such as nasal growths, swollen tonsils, or a deviated septum ?? A weak immune system, from diseases such as diabetes or HIV ?? Smoking What are the signs and symptoms of sinusitis? ?? Fever ?? Pain, pressure, redness, or swelling around the forehead, cheeks, or eyes ?? Thick yellow or green discharge from your nose ?? Tenderness when you touch your face over your sinuses ?? Dry cough that happens mostly at night or when you lie down ?? Headache and face pain that is worse when you lean forward ?? Teeth pain or pain when you chew How is sinusitis diagnosed? Your healthcare provider will examine you and ask about your symptoms. He will check inside your nose using a nasal speculum. This is a small tool used to open your nostrils. A sample of the mucus from your nose may show what germ is causing your infection. If you have chronic sinusitis, you may need imaging tests. How is sinusitis treated? Your symptoms may go away on their own. You may need any of the following: ?? Acetaminophen decreases pain and fever. It is available without a doctor's order. Ask how much to take and how often to take it. Follow directions. Acetaminophen can cause liver damage if not taken correctly. ?? NSAIDs , such as ibuprofen, help decrease swelling, pain, and fever. This medicine is available with or without a doctor's order. NSAIDs can cause stomach bleeding or kidney problems in certain people. If you take blood thinner medicine, always ask if NSAIDs are safe for you. Always read the medicine label and follow directions. Do not give these medicines to children under 6 months of age without direction from your child's healthcare provider. ?? Nasal steroid sprays may help decrease inflammation in your nose and sinuses. ?? Decongestants help reduce swelling and drain mucus in the nose and sinuses. They may help you breathe easier. ?? Antihistamines help dry mucus in the nose and relieve sneezing. How can I manage my symptoms? ?? Rinse your sinuses. Use a sinus rinse device to rinse your nasal passages with a saline (salt water) solution. This will help thin the mucus in your nose and rinse away pollen and dirt. It will also help reduce swelling so you can breathe normally. Ask your healthcare provider how often to do this. ?? Breathe in steam. Heat a bowl of water until you see steam. Lean over the bowl and make a tent over your head with a large towel. Breathe deeply for about 20 minutes. Be careful not to get too close to the steam or burn yourself. Do this 3 times a day. You can also breathe deeply when you take ahot shower. ?? Sleep with your head elevated. Place an extra pillow under your head before you go to sleep to help your sinuses drain. ?? Drink liquids as directed. Ask your healthcare provider how much liquid to drink each day and which liquids are best for you. Liquids will thin the mucus in your nose and help it drain. Avoid drinks that contain alcohol or caffeine. ?? Do not smoke, and avoid secondhand smoke. Nicotine and other chemicals in cigarettes and cigars can make your symptoms worse. Ask your healthcare provider for information if you currently smoke and need help to quit. E-cigarettes or smokeless tobacco still contain nicotine. Talk to your healthcare provider before you use these products. How can I help prevent the spread of germs that cause sinusitis? Wash your hands often with soap and water. Wash your hands after you use the bathroom, change a child's diaper, or sneeze. Wash your hands before you prepare or eat food. When should I seek immediate care? ?? Your eye and eyelid are red, swollen, and painful. ?? You cannot open your eye. ?? You have vision changes, such as double vision. ?? Your eyeball bulges out or you cannot move your eye. ?? You are more sleepy than normal, or you notice changes in your ability to think, move, or talk. ?? You have a stiff neck, a fever, or a bad headache. ?? You have swelling of your forehead or scalp. When should I contact my healthcare provider? ?? Your symptoms get worse after 5 to 7 days. ?? Your symptoms do not go away after 10 days. ?? You have nausea and vomiting. ?? Your nose is bleeding. ?? You have questions or concerns about your condition or care. CARE AGREEMENT: You have the right to help plan your care. Learn about your health condition and how it may be treated. Discuss treatment options with your caregivers to decide what care you want to receive. You always have the right to refuse treatment. The above information is an employment educational coord only. It is not intended as medical advice for individual conditions or treatments. Talk to your doctor, nurse or pharmacist before following any medical regimen to see if it is safe and effective for you. ?? 2016 [employer]. Information is for End User's use only and may not be sold, redistributed or otherwise used for commercial purposes. All illustrations and images included in CareNotes?? are the copyrighted property of [employer]. or [employer]. Y LEVEL ADMINISTRATIVE ASSISTANT documented in this encounter Progress Notes * Rosa Ham APRN-CNP - 02/18/2016 6:37 PM CST [facility] Chief Complaint Patient presents with ??? Ear Problem SUBJECTIVE: General The history is provided by the patient. This is a new problem. The current episode started more than 2 days ago. The problem occurs constantly. The problem has been gradually worsening. The pain is at a severity of 8/10. Associated symptoms include headaches. Pertinent negatives include no shortness of breath. The symptoms are relieved by NSAIDs. Treatments tried: old rx ear drops, left earache No past medical history on file. No current outpatient prescriptions on file prior to visit. No current facility-administered medications on file prior to visit. No past surgical history on file. History Social History ??? Marital status: Spouse name: N/A ??? Number of children: N/A ??? Years of education: N/A Occupational History ??? Not on file. Social History Main Topics ??? Smoking status: Not on file ??? Smokeless tobacco: Not on file ??? Alcohol use: Not on file ??? Drug use: Not on file ??? Sexual activity: Not on file Other Topics Concern ??? Not on file Social History Narrative No family history on file. No current outpatient prescriptions on file. No current facility-administered medications for this visit. No Known Allergies REVIEW OF SYSTEMS: Review of Systems Constitutional: Positive for chills. HENT: Positive for congestion and ear pain. Negative for sore throat. Respiratory: Negative for cough and shortness of breath. Gastrointestinal: Negative for diarrhea, nausea and vomiting. Neurological: Positive for headaches. OBJECTIVE: General appearance: alert, well appearing, and in no distress. BP 120/78 Pulse 64 Temp 98.2 ??F (Oral) Resp 16 Wt 88.5 kg (195 lb) BMI 29.65 kg/m2 Physical Exam Constitutional: He is oriented to person, place, and time and well-developed, well-nourished, and in no distress. HENT: Head: Normocephalic and atraumatic. Bilateral erythema swollen turbinates, left TM erythema opaque, bulging Neck: Normal range of motion. Neck supple. Cardiovascular: Normal rate and regular rhythm. Pulmonary/Chest: Effort normal and breath sounds normal. Neurological: He is alert and oriented to person, place, and time. Vitals reviewed. ASSESSMENT: No results found for this visit on 02/18/16. No diagnosis found. PLAN: Use Flonase per package instructions, Saline nasal mist to prevent nasal drying Tylenol or Motrin as needed Claritin or Zyrtec per package instructions Cool Mist humidifier as needed If no improvement in 48-72 hours follow up with PCP or return to clinic Y LEVEL ADMINISTRATIVE ASSISTANT documented in this encounter Plan of Treatment Not on file documented as of this encounter Visit Diagnoses Diagnosis Eustachian tube disorder, bilateral- Primary Left acute suppurative otitis media Acute suppurative otitis media without spontaneous rupture of eardrum documented in this encounter Care Teams Forensic Science Examiner Relationship Specialty Start Date End Date Maverick Vu MD [address] [place] [address] PCP - General Family Medicine 02/18/16 01/17/20 documented as of this encounter
--- OUTSIDE RECORDS SUMMARY | 2024-03-07 22:31 | XMS_ITS | Encounter Summary ---
Author Organization [facility] Address [address] [place] [address]. [place], [place] [address] [place] [address] Care Team Providers Care Spool Sander Name Role Phone Shen Galaviz MD Primary Care Provider [phone] Encounter Details Date Type Department Care Team (Latest Contact Info) Description 09/16/2021 Scan [facility] Scanned, Documents Social History Tobacco Use Types Packs/Day Years Used Date Smoking Tobacco: Former Smokeless Tobacco: Never Comments:I quit six years ag o Alcohol Use Standard Drinks/Week Comments Not Currently 0 (1 standard drink = 0.6 oz pur e alcohol) I haven't drank in 10 years PHQ-2 Answer Date Recorded PHQ-2 Score - If the patient scores above 3, please move on to questions 3-9 2 05/30/2021 Sex and Gender Information Value Date Recorded Sex Assigned at Not on file Legal Sex Male 7:45 PM CDT Gender Identity Not on file Sexual Orientation Not on file documented as of this encounter Plan of Treatment Not on file documented as of this encounter Visit Diagnoses Not on filedocumented in this encounter Additional Health Concerns Assessment Noted Time PHQ-9 Depression Total Score: 2 05/31/19 22 8:07 AM RESORT KEEPER documented as of this encounter Care Teams Spool Sander Relationship Specialty Start Date End Date Shen Galaviz MD [address] [place] [address] PCP - General FAMILY PRACTICE 05/30/21 documented as of this encounter
--- OUTSIDE RECORDS SUMMARY | 2024-03-07 22:31 | XMS_ITS | Encounter Summary ---
Author Organization [facility] Address [facility]. [place], [place] [address] [place] [address] Care Team Providers Care Manager Intranet Name Role Phone Shen Galaviz MD Primary Care Provider [phone] Reason for Referral * Imaging (Routine) - Closed Specialty Diagnoses / Procedures Referred By Contac t Referred To Contact RADIOLOGY Diagnoses Cerebrovascular accident (CVA), unspecified mechanism ([facility]/HCC HHS/HCC) Procedures USV CAROTID DUPLEX Casa Lamb MD [address] [place] [address] Phone: tel: fax: Referral ID Status Reason Start Date Expiration Date Visits Re quested Visits Authorized [id number] Closed 05/30/2021 06/30/2022 1 1 Reason for Visit * Imaging (Routine) - Closed Specialty Diagnoses / Procedures Referred By Frank levi Referred To Contact RADIOLOGY Diagnoses Cerebrovascular accident (CVA), unspecified mechanism ([facility]/HCC HHS/HCC) Procedures USV CAROTID DUPLEX Casa Lamb MD [address] [place] [address] Phone: tel: fax: Referral ID Status Reason Start Date Expiration Date Visits Re quested Visits Authorized [id number] Closed 05/30/2021 06/30/2022 1 1 Encounter Details Date Type Department Care Team (Latest Contact Info) Description 07/03/2021 6:50 AM CDT Hospital Encounter [facility] [address] Casa Fuchs MD [address] [facility] [place] [address] Discharge Disposition: Home or Self Care (Routine Discharge) Social History Tobacco Use Types Packs/Day Years [...] Exposure Response Date Recorded In the last 10 days, have yo u been in contact with someone who was confirmed or suspected to have Coronavirus/COVID-19? No / Unsure 07/02/2021 10:45 AM CDT documented as of this encounter Plan of Treatment Not on file documented as of this encounter Procedures Procedure Name Priority Date/Time Associated Diagnosis Comments USV CAROTID DUPLEX SHUBHAM Routine 07/03/2021 7:23 AM CDT Cerebrovascular accident (CVA), unspecified mechanism ([facility]) documented in this encounter Results * USV CAROTID DUPLEX [place] (07/03/2021 7:23 AM CDT) Anatomical Region Laterality Modality Neck Vascular Ultraso und 07/03/2021 7:05 AM CDT Narrative 07/04/2021 5:57 PM CDT ?CAROTID ARTERY DUPLEX IMAGING ? VASCULAR LAB Pat.Name: ??STEPHEN TILLMAN ?Pat.ID: ?[id number] ? St.Date: ?? 07/03/2021 ? Refer.MD: ??[id number] PREMA SALTER Exam Time: 7:05:00 AM ?Study Type:KEYUR VS Duplex Carotid BI ??Age: ??1980,41Y ? Sex: ? MALE ? Sonogrphr: Nidhi Marion RVT ?Pat. Stat.:Outpatient ? History / Clinical: Episodes of memory impairment and speech disturbance. No significant PMH Procedures: ??Langford scale, Color Doppler imaging, Doppler Spectral Analysis Race: ?W ? ++++++++++++++++++++++++++++++++++++ SUMMARY: ++++++++++++++++++++++++++++++++++++ Jaren ICA Stenosis Criteria: ?? >50% = PSV >160 and/or Ratio 2.0-4.0; ? >70% = PSV >325 and/or Ratio >4.0; ? >80% = PSV >325 with EDV >140 ? (for CCA, ECA, Subc: ?? >50% = PSV >200, Ratio >2.0; ?? for Vert: ??>50% = PSV >150, Ratio >2.2) ? STENT Criteria: ??>50% = PSV >220 and/or Ratio >2.7; ? >80% = PSV >340 and/or Ratio >4.1 Brachial waveforms are symmetrical bilaterally, with triphasic flow. The right subclavian artery is not assessed. ??The left subclavian artery is not assessed. Right side: ??The right bifurcation-internal carotid artery has no plaque. ??Internal carotid maximum velocity is 71 cm/s, with a ratio of 0.739 . ??The common carotid artery has no plaque present. ??The external carotid artery has no plaque proximally. ??Vertebral artery flow is antegrade. ??No defined ulceration noted. Left side: ??The left bifurcation-internal carotid artery has no plaque. ??Internal carotid maximum velocity is 77 cm/s , with a ratio of 0.653 . ??The common carotid artery has no plaque present. ??The external carotid artery has no plaque proximally. ??Vertebral artery flow is antegrade. ??No defined ulceration noted. CONCLUSION: ? The right ICA is normal, without significant plaque or stenosis. ??The right vertebral is antegrade. ??No evidence of ??ulceration. The left ICA is normal, without significant plaque or stenosis. ??The left vertebral is antegrade. ??No evidence of ulceration. ++++++++++++++++++++++++++++++++++++ FINDINGS: ++++++++++++++++++++++++++++++++++++ ++++++++++++++++++++++++++++++++++++ MEASUREMENTS: ++++++++++++++++++++++++++++++++++++ ?DOPPLER Right Prox CCA ?? Prox CCA PSV ? 119 cm/s ? Right Dist CCA ?? Dist CCA PSV ? 115 cm/s ? Prox ICA ?? Prox ICA PSV ?71 cm/s ?Prox ICA PSV ?70 cm/s Mid ICA ?? Mid ICA PSV ? 85 cm/s ?Mid ICA PSV ? 58 cm/s Dist ICA ?? Dist ICA PSV ?69 cm/s ? Right Prox ECA ?? Prox ECA PSV ?90 cm/s ? Vertebral ?? Vertebral PSV ? 33 cm/s ?Vertebral PSV ? 55 cm/s Right ICA/CCA RATIO ?? ICA/CCA RATIO P 0.739 ? Left Prox CCA ?? Prox CCA PSV ? 122 cm/s ? Left Dist CCA ?? Dist CCA PSV ? 118 cm/s ? Left Dist ICA ?? Dist ICA PSV ?77 cm/s ? Left Prox ECA ?? Prox ECA PSV ? 108 cm/s ? Left ICA/CCA RATIO ?? ICA/CCA RATIO P 0.653 ? Right Prox Brachial A ?? Prox Brachial A ??71.3 cm/s ? Left Prox Brachial A ?? Prox Brachial A ?79 cm/s ? Signed 07/04/2021 05:57 PM Neel Resendiz M.D. Procedure Note Neel Resendiz MD - 07/04/2021 CAROTID ARTERY DUPLEX IMAGING VASCULAR LAB Pat.Name: STEPHEN TILLMAN Pat.ID: [id number] .Date: 07/03/2021 : [id number] JOYCESHERLEYYESENIA SALTER Exam Time: 7:05:00 AM Study Type:KEYUR VS Duplex Carotid BI Age: 1 1980,41Y Sex: MALE Sonogrphr: Nidhi Marion RVT Pat. Stat.:Outpatient History / Clinical: Episodes of memory impairment and speech disturbance. No significant PMH Procedures: Langford scale, Color Doppler imaging, Doppler Spectral Analysis Race: W ++++++++++++++++++++++++++++++++++++ SUMMARY: ++++++++++++++++++++++++++++++++++++ Jaren ICA Stenosis Criteria: >50% = PSV >160 and/or Ratio 2.0-4.0; >70% = PSV >325 and/or Ratio >4.0; >80% = PSV >325 with EDV >140 (for CCA, ECA, Subc: >50% = PSV >200, Ratio >2.0; for Vert: >50% = PSV >150, Ratio >2.2) STENT Criteria: >50% = PSV >220 and/or Ratio >2.7; >80% = PSV >340 and/or Ratio >4.1 Brachial waveforms are symmetrical bilaterally, with triphasic flow. The right subclavian artery is not assessed. The left subclavian artery is not assessed. Right side: The right bifurcation-internal carotid artery has no plaque. Internal carotid maximum velocity is 71 cm/s, with a ratio of 0.739 . The common carotid artery has no plaque present. The external carotid artery has no plaque proximally. Vertebral artery flow is antegrade. No defined ulceration noted. Left side: The left bifurcation-internal carotid artery has no plaque. Internal carotid maximum velocity is 77 cm/s , with a ratio of 0.653 . The common carotid artery has no plaque present. The external carotid artery has no plaque proximally. Vertebral artery flow is antegrade. No defined ulceration noted. CONCLUSION: The right ICA is normal, without significant plaque or stenosis. The right vertebral is antegrade. No evidence of ulceration. The left ICA is normal, without significant plaque or stenosis. The left vertebral is antegrade. No evidence of ulceration. ++++++++++++++++++++++++++++++++++++ FINDINGS: ++++++++++++++++++++++++++++++++++++ ++++++++++++++++++++++++++++++++++++ MEASUREMENTS: ++++++++++++++++++++++++++++++++++++ DOPPLER Right Prox CCA Prox CCA PSV 119 cm/s Right Dist CCA Dist CCA PSV 115 cm/s Prox ICA Prox ICA PSV 71 cm/s Prox ICA PSV 70 cm/s Mid ICA Mid ICA PSV 85 cm/s Mid ICA PSV 58 cm/s Dist ICA Dist ICA PSV 69 cm/s Right Prox ECA Prox ECA PSV 90 cm/s Vertebral Vertebral PSV 33 cm/s Vertebral PSV 55 cm/s Right ICA/CCA RATIO ICA/CCA RATIO P 0.739 Left Prox CCA Prox CCA PSV 122 cm/s Left Dist CCA Dist CCA PSV 118 cm/s Left Dist ICA Dist ICA PSV 77 cm/s Left Prox ECA Prox ECA PSV 108 cm/s Left ICA/CCA RATIO ICA/CCA RATIO P 0.653 Right Prox Brachial A Prox Brachial A 71.3 cm/s Left Prox Brachial A Prox Brachial A 79 cm/s Signed 07/04/2021 05:57 PM Neel Resendiz M.D. Casa Fuchs MD [facility] Final Res ult documented in this encounter Visit Diagnoses Diagnosis Cerebrovascular accident (CVA), unspecified mechanism (CMS/HCC HHS/HCC) documented in this encounter Additional Health Concerns Assessment Noted Time PHQ-9 Depression Total Score: 2 05/31/19 22 8:07 AM CALENDER WIND UP TENDER documented as of this encounter Care Teams Manager Intranet Relationship Specialty Start Date End Date Shen Galaviz MD [address] [facility] [address] [place] [address] PCP - General FAMILY PRACTICE 05/30/21 documented as of this encounter
--- OUTSIDE RECORDS SUMMARY | 2024-03-07 22:31 | XMS_ITS | Encounter Summary ---
Author Organization [facility] Address [address] [place] [address]. [place] [address] [place] [address] Care Team Providers Care Roller Mill Operator Name Role Phone Shen Galaviz MD Primary Care Provider [phone] Reason for Visit * Reason Onset Date Comments Medication Request 07/03/2021 Encounter Details Date Type Department Care Team (Late st Contact Info) Description 07/03/2021 Telephone [facility] Medical [facility] Multispecialty Care - [facility] [address] [facility], [address] [place] [address] Casa Fuchs MD [address] [place] [address] Medication Request Social History Tobacco Use Types Packs/Day Years [...] AM CDT documented as of this encounter Progress Notes * Heather Monique MA - 07/04/2021 9:00 AM CDT Left detailed message regarding medication being sent * Casa Fuchs MD - 07/03/2021 8:02 PM CDTAddended by: CASA FUCHS on: 07/03/2021 08:02 PM Modules accepted: Orders * Heather Monique MA - 07/03/2021 3:50 PM CDT Please advise * Gertrude Walker - 07/03/2021 3:35 PM CDT Patient had to r/s his MRI since he was not able to complete. The r/s date is 07/21/21. Patient is asking for Valium prescription by Dr. Castelan to take before the r/s 07/21/21 to relax him. Pharmacy is [facility] in [facility]. Questions or to discuss request call patient [phone] documented in this encounter Plan of Treatment Not on file documented as of this encounter Visit Diagnoses Diagnosis Anxiety- Primary Anxiety state, unspecified documented in this encounter Additional Health Concerns Assessment Noted Time PHQ-9 Depression Total Score: 2 05/31/19 22 8:07 AM SPORT INTERN documented as of this encounter Care Teams Roller Mill Operator Relationship Specialty Start Date End Date Shen Galaviz MD [address] [place] [address] PCP - General FAMILY PRACTICE 05/30/21 documented as of this encounter
--- OUTSIDE RECORDS SUMMARY | 2024-03-07 22:31 | XMS_ITS | Encounter Summary ---
Author Organization [facility] Address [address] [place] [address]. [place], [place] [address] [place] [address] Care Team Providers Care Alteration Specialist Name Role Phone Shen Galaviz MD Primary Care Provider [phone] Encounter Details Date Type Department Care Team (Latest Contact Info) Description 01/29/2022 Scan [facility] INFO SRV[facility] Scanned, Doc Med Group Social History Tobacco Use Types Packs/Day Years Used Date Smoking Tobacco: Former Cigarettes Smokeless Tobacco: Never Comments:I quit six years [...] Total Score: 2 05/31/19 22 8:07 AM LIGHTING ENGINEER documented as of this encounter Care Teams Alteration Specialist Relationship Specialty Start Date End Date Shen Galaviz MD [address] [place] [address] PCP - General FAMILY PRACTICE 05/30/21 documented as of this encounter
--- OUTSIDE RECORDS SUMMARY | 2024-03-07 22:31 | XMS_ITS | Encounter Summary ---
Author Organization [facility] Address [facility] [facility]. [place], [place] [address] [place] [address] Care Team Providers Care Rolls Mill Operator Name Role Phone Freda Lazar MD Primary Care Provider Unavailable Encounter Details Date Type Department Care Team (Late st Contact Info) Description 03/23/2012 Abstract [facility] [place] [address] Jalen Zaman MD [address] [place] [address] [address] [place] [address] Social History Tobacco Use Types Packs/Day Years Used Date Smoking Tobacco: Never Assessed Sex and Gender Information Value Date Recorded Sex Assigned at Not on file Legal Sex Male 7:45 PM CDT Gender Identity Not on file Sexual Orientation Not on file documented as of this encounter Plan of Treatment Not on file documented as of this encounter Visit Diagnoses Diagnosis Other and unspecified alcohol dependence, episodic drinking behavior (CMS/HCC HHS/HCC) Other and unspecified alcohol dependence, episodic drinking behavior documented in this encounter Care Teams Rolls Mill Operator Relationship Specialty Start Date End Date Freda Lazar MD PCP - General 03/23/12 documented as of this encounter
--- OUTSIDE RECORDS SUMMARY | 2024-03-07 22:31 | XMS_ITS | Encounter Summary ---
Author Organization [facility] Address [address] [place] [address]. [place], [place] [address] [place] [address] Care Team Providers Care Olap Developer Name Role Phone Shen Galaviz MD Primary Care Provider [phone] Encounter Details Date Type Department Care Team (Latest Contact Info) Description 10/17/2021 Scan [facility] INFO SRVCS Scanned, Documents [...] please move on to questions 3-9 0 10/24/2021 Sex and Gender Information Value Date Recorded Sex Assigned at Not on file Legal Sex Male 7:45 PM CDT Gender Identity Not on file Sexual Orientation Not on file COVID-19 Exposure Response Date Recorded In the last 10 days, have yo u been in contact with someone who was confirmed or suspected to have Coronavirus/COVID-19? No / Unsure 10/24/2021 8:42 AM CDT documented as of this encounter Plan of Treatment Not on file documented as of this encounter Visit Diagnoses Not on filedocumented in this encounter Additional Health Concerns Assessment Noted Time PHQ-9 Depression Total Score: 2 05/31/19 22 8:07 AM MANAGER TRAVEL documented as of this encounter Care Teams Olap Developer Relationship Specialty Start Date End Date Shen Galaviz MD [address] [facility] [address] [place] [address] PCP - General FAMILY PRACTICE 05/30/21 documented as of this encounter
--- OUTSIDE RECORDS SUMMARY | 2024-03-07 22:31 | XMS_ITS | Encounter Summary ---
Author Organization [facility] Address [address] [place] [address]. [place], [place] [address] [place] [address] Care Team Providers Care Supervisor Trust Accounts Name Role Phone Shen Galaviz MD Primary Care Provider [phone] Encounter Details Date Type Department Care Team (Latest Contact Info) Description 10/24/2021 Travel Social History Tobacco Use Types Packs/Day [...] Total Score: 2 05/31/19 22 8:07 AM DIRECTOR OF SOFTWARE ENGINEERING documented as of this encounter Care Teams Supervisor Trust Accounts Relationship Specialty Start Date End Date Shen Galaviz MD [address] [place] [address] PCP - General FAMILY PRACTICE 05/30/21 documented as of this encounter
--- OUTSIDE RECORDS SUMMARY | 2024-03-07 22:31 | XMS_ITS | Encounter Summary ---
Author Organization [facility] Address [address] [place] [address]. [place] [address] [place] [address] Care Team Providers Care Nurse Consultant Name Role Phone Shen Galaviz MD Primary Care Provider [phone] Reason for Visit * Reason Onset Date Comments Orders 07/03/2021 Encounter Details Date Type Department Care Team (Late st Contact Info) Description 07/03/2021 Telephone [facility] Multispecialty Care - [address], [address] [place] [address] Casa Fuchs MD [address] [place] [address] Orders Social History Tobacco Use Types Packs/Day Years [...] Notes * Heather Monique MA - 07/04/2021 9:01 AM CDT MRI was rescheduled and valium sent by Dr. Castelan (see other task) - left patient a vm with this info today * Heather Hannah RN - 07/03/2021 9:45 AM CDT Please advise * Darlin Lozoya - 07/03/2021 9:29 AM CDT Pt tried to do Mri but he was too claustrophobic Can he do an Open MRI documented in this encounter Plan of Treatment Not on file documented as of this encounter Visit Diagnoses Not on filedocumented in this encounter Additional Health Concerns Assessment Noted Time PHQ-9 Depression Total Score: 2 05/31/19 22 8:07 AM CLAIMS ADJUDICATOR documented as of this encounter Care Teams Nurse Consultant Relationship Specialty Start Date End Date Shen Galaviz MD [address] [facility] [address] [place] [address] PCP - General FAMILY PRACTICE 05/30/21 documented as of this encounter
--- OUTSIDE RECORDS SUMMARY | 2024-03-07 22:31 | XMS_ITS | Encounter Summary ---
Author Organization [facility] Address [address] [place] [address]. [place] [address] [place] [address] Care Team Providers Care Cut Off Tender Glass Name Role Phone Shen Galaviz MD Primary Care Provider [phone] Reason for Visit * Reason Onset Date Comments Results 10/21/2021 Encounter Details Date Type Department Care Team (Late st Contact Info) Description 10/21/2021 Telephone [facility] Medical Group Multispecialty Care - [facility] [address] [facility], [address] [place] [address] Casa Fuchs MD [address] [place] [address] Results Social History Tobacco Use Types Packs/Day Years [...] on file documented as of this encounter Progress Notes * Heather Hannah RN - 10/21/2021 8:07 AM CDT Spoke with patient to discuss normal sleep study. Patient verbalized understanding. documented in this encounter Plan of Treatment Not on file documented as of this encounter Visit Diagnoses Not on filedocumented in this encounter Additional Health Concerns Assessment Noted Time PHQ-9 Depression Total Score: 2 05/31/19 22 8:07 AM REGULATORY LEAD documented as of this encounter Care Teams Cut Off Tender Glass Relationship Specialty Start Date End Date Shen Galaviz MD [address] [facility] [address] [place] [address] PCP - General FAMILY PRACTICE 05/30/21 documented as of this encounter
--- OUTSIDE RECORDS SUMMARY | 2024-03-07 22:31 | XMS_ITS | Encounter Summary ---
Author Organization [facility] Address [address] [place] [address]. [place] [address] [place] [address] Care Team Providers Care Camp Dishwasher Name Role Phone Shen Galaviz MD Primary Care Provider [phone] Reason for Visit * Reason Onset Date Comments Question 10/27/2021 Encounter Details Date Type Department Care Team (Late st Contact Info) Description 10/27/2021 Telephone [facility] Medical Group Multispecialty Care - [address], [address] [place] [address] Casa Fuchs MD [address] [place] [address] Question Social History Tobacco Use Types Packs/Day Years [...] Progress Notes * Heather Hannah RN - 10/27/2021 11:[address] Fletcher said this patient was next in his que to complete the report. He will fax either today or tomorrow. * Desirae Liz MA - 10/27/2021 11:24 AM CDT Tried to contact Dr. Sadi Jaimes office at [facility]. I had to LVM. So, hopefully they call back soon. Per Dr. Castelan, Can we plz get the neuropsych testing results from Dr Soto office at [facility]. documented in this encounter Plan of Treatment Not on file documented as of this encounter Visit Diagnoses Not on filedocumented in this encounter Additional Health Concerns Assessment Noted Time PHQ-9 Depression Total Score: 2 05/31/19 22 8:07 AM ART GILDER documented as of this encounter Care Teams Camp Dishwasher Relationship Specialty Start Date End Date Shen Galaviz MD [address] [place] [address] PCP - General FAMILY PRACTICE 05/30/21 documented as of this encounter
--- OUTSIDE RECORDS SUMMARY | 2024-03-07 22:31 | XMS_ITS | Encounter Summary ---
Author Organization [facility] Address Replaced by [facility]. [place], [place] [address] [place] [address] Care Team Providers Care Business Technology Professor Name Role Phone Shen Galaviz MD Primary Care Provider [phone] Reason for Visit * Reason Comments Follow Up Neuropsych eval * Consultation/Treatment (Routine) - Closed Specialty Diagnoses / Procedures Referred By Contac t Referred To Contact NEUROLOGY Diagnoses Dysarthria and anarthria Family history of epilepsy and other diseases of the nervous system Shen Galaviz MD [address] [facility] [address] [place] [address] Phone: tel: fax: Casa Fuchs MD [address] [place] [address] Phone: tel: fax: Referral ID Status Reason Start Date Expiration Date Visits Re quested Visits Authorized [id number] Closed 10/30/2021 10/31/2022 100 100 Encounter Details Date Type Department Care Team (Latest Contact Info) Description 10/30/2021 1:40 PM CDT Office Visit [facility] Multispecialty Care - [address], [address] [place] [address] Casa Fuchs MD [address] [place] [address] [phone] Follow Up (Neuropsych eval) Social History Tobacco Use Types Packs/Day Years [...] suspected to have Coronavirus/COVID-19? No / Unsure 10/30/2021 1:24 PM CDT documented as of this encounter Last Filed Vital Signs Vital Sign Reading Time Taken Comments Blood Pressure 122/64 10/30/2021 1:32 PM CDT Pulse 57 10/30/2021 1:32 PM CDT Temperature 36.3 ??C (97.3 ??F) 10/30/2021 1:32 PM CD T Respiratory Rate - - Oxygen Saturation 96% 10/30/2021 1:32 PM CDT Inhaled Oxygen Concentration - - Weight 98.4 kg (217 lb) 10/30/2021 1:32 PM CDT Height 172.7 cm (5' 8 ) 10/30/2021 1:32 PM CDT Body Mass Index 32.99 10/30/2021 1:32 PM CDT documented in this encounter Progress Notes * Casa Fuchs MD - 10/30/2021 1:40 PM CDT Chief Complaint: cognitive issues HPI: We have the pleasure of seeing Mr. Tillman in the clinic. Since I last saw him, he had neuropsych testing. It confirmed my suspicion that anxiety might be contributing to his cognitive issues. His EEGwas normal. Sleep study was normal. MRI brain was normal. I discussed these findings with him. He notes that previously he was on anxiolytic therapy although he stopped it because of weight gain. He has not revisited that. I have asked him to discuss with his PCP. I offered a referral to psychiatrist but he notes that he wants to discuss with his PCP, in case he is unable to get help, he will call me for referral. Review of Systems Gen:?denies??recent fever Eyes:?denies?double vision ENT:?denies?epistaxis Pulm:?denies??shortness of breath Cardiac:??denies??Chest pain Musc:??denies?back pain Heme:??denies??easy bruising Neuro: ??See HPI No current outpatient medications on file. No current facility-administered medications for this visit. Filed Vitals: 10/30/21 1332 BP: 122/64 Pulse: 57 Temp: 97.3 ??F (36.3 ??C) TempSrc: Temporal SpO2: 96% Weight: 98.4 kg (217 lb) Height: 5' 8 (1.727 m) PainSc: 4 Moderate Pain (0-10 Scale) Past Medical History: Diagnosis Date ??? Anxiety 2006 ended in 2012 ??? Hypertension Past Surgical History: Procedure Laterality Date ??? BACK SURGERY 2009 Family History Problem Relation Name Age of Onset ??? Stroke Mother ??? Prostate Cancer Father Social History Tobacco Use ??? Smoking status: Former Smoker Types: Cigarettes ??? Smokeless tobacco: Never Used ??? Tobacco comment: I quit six years ago Vaping Use ??? Vaping Use: Never used Substance Use Topics ??? Alcohol use: Not Currently Comment: I haven't drank in 10 years ??? Drug use: Never MOTOR: Normal strength 5/5 on MRC scale in the upper and lower extremities. Normal muscle tone. Fine finger movements were normal bilaterally. No pronator drift ? GAIT: Normal stride and base. REFLEXES: Normal 2+/4 in upper and lower extremities.Quintana's negative. ? Impression and Plan: In summary Mr. Tillman has episodes of cognitive impairment in the setting of a normal MRI brain, EEG and sleep study. Neuropsych testing showed that his cognitive issues could likely be correct anxiety. I discussed this with the patient. I did note to him that anxiety, left untreated could interfere with thought process, train of thought, focusing, multitasking among others. I have asked him to discuss antianxiety medication with his PCP. He notes that he was on them before but due to weight issues he stopped it. He will continue discussion with his PCP. I did note to him, in case he does notget clear answers, I am happy to refer him to a psychiatrist. He will keep me posted. I will see him as needed. Time spent: 20 total minutes reviewing records, history that was separately obtained, performing the exam, providing education to the patient/caregiver, ordering medicine and documenting in the medical record. 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
--- OUTSIDE RECORDS SUMMARY | 2024-03-07 22:31 | XMS_ITS | Encounter Summary ---
Author Organization [facility] Address [address] [place] [address]. [place], [place] [address] [place] [address] Care Team Providers Care Net Fisher Name Role Phone Shen Galaviz MD Primary Care Provider [phone] Reason for Referral * Consultation (Routine) - Closed Specialty Diagnoses / Procedures Referred By Frank levi Referred To Contact NEUROPSYCHOLOGY Diagnoses Obstructive sleep apnea syndrome MCI (mild cognitive impairment) Casa Fuchs MD [address] [place] [address] Phone: tel: fax: Sadi Fletcher, PHD Phone: tel: fax: Referral ID Status Reason Start Date Expiration Date V isits Requested Visits Authorized [id number] Closed Specialty Services 08/08/2021 09/08/2022 99 99 * Sleep Lab (Routine) - Closed Specialty Diagnoses / Procedures Referred By Contestee t Referred To Contact Diagnoses Obstructive sleep apnea syndrome MCI (mild cognitive impairment) Procedures Diagnostic PSG (80822, 09375) - POLYSOMNOGRAPHY 4 OR MORE PARAMETERS Casa Fuchs MD [address] [place] [address] Phone: tel: fax: Referral ID Status Reason Start Date Expiration Date Visits Re quested Visits Authorized [id number] Closed 08/08/2021 09/09/2022 1 1 Reason for Visit * Reason Comments Follow Up CVA * Consultation/Treatment (Routine) - Closed Specialty Diagnoses / Procedures Referred By Contac t Referred To Contact NEUROLOGY Diagnoses Dysarthria and anarthria Family history of epilepsy and other diseases of the nervous system Shen Galaviz MD [address] [place] [address] Phone: tel: fax: Casa Fuchs MD [address] [place] [address] Phone: tel: fax: Referral ID Status Reason Start Date Expiration Date Visits Re quested Visits Authorized [id number] Closed 10/30/2021 10/31/2022 100 100 Encounter Details Date Type Department Care Team (Late st Contact Info) Description 08/08/2021 8:00 AM CDT Office Visit [facility] Multispecialty Care - [address], [address] [place] [address] Casa Fuchs MD [address] [place] [address] Follow Up (CVA) Social History Tobacco Use Types Packs/Day Years Used Date Smoking Tobacco: Former Smokeless Tobacco: Never Tobacco Cessation:Counseling Given: No [...] suspected to have Coronavirus/COVID-19? No / Unsure 08/08/2021 7:43 AM CDT documented as of this encounter Last Filed Vital Signs Vital Sign Reading Time Taken Comments Blood Pressure 134/76 08/08/2021 8:00 AM CDT Pulse 46 08/08/2021 8:00 AM CDT Temperature 36.1 ??C (97 ??F) 08/08/2021 8:00 AM CDT Respiratory Rate 16 08/08/2021 8:00 AM CDT Oxygen Saturation 100% 08/08/2021 8:00 AM CDT Inhaled Oxygen Concentration - - Weight 97.5 kg (215 lb) 08/08/2021 8:00 AM CDT Height 172.7 cm (5' 8 ) 08/08/2021 8:00 AM CDT Body Mass Index 32.69 08/08/2021 8:00 AM CDT documented in this encounter Progress Notes * Casa Fuchs MD - 08/08/2021 8:00 AM CDT Chief Complaint: cognitive issues HPI: We have the pleasure of seeing Mr. Tillman in the clinic. He is here for cognitive issues. He notes that since we last saw him his cognition has improved. He is able to focus better. He has memory hasgotten better. He is exercising and has lost 40 pounds. He does have sleep apnea-like symptoms and s nores at night. Although he notes that this has gotten better. He notes that after getting Ativan for MRI he felt better. He does have history of anxiety. He had been on medications. But because of weight gain he stopped it. He struggled with therapist now. He notes that he has gotten better but still has cognitive issues and would like to pursue further testing. His MRI of the brain was normal. EEG is pending next week. Review of Systems Gen:?denies??recent fever Eyes:?denies??double vision ENT:?denies??epistaxis Pulm:?denies??shortness of breath Cardiac:??denies??Chest pain GI:??denies??lower abdominal pain Musc:?has??back pain Neuro: ??See HPI ?? Current Outpatient Medications Medication Sig Dispense Refill ??? diazePAM 5 MG tablet No current facility-administered medications for this visit. Filed Vitals: 08/08/21 0800 BP: 134/76 Pulse: (!) 46 Resp: 16 Temp: 97 ??F (36.1 ??C) TempSrc: Temporal SpO2: 100% Weight: 97.5 kg (215 lb) Height: 5' 8 (1.727 m) Past Medical History: Diagnosis Date ??? Anxiety 2006 ended in 2012 ??? Hypertension Past Surgical History: Procedure Laterality Date ??? BACK SURGERY 2009 Family History Problem Relation Name Age of Onset ??? Stroke Mother ??? Prostate Cancer Father Social History Tobacco Use ??? Smoking status: Former Smoker ??? Smokeless tobacco: Never Used ??? Tobacco [...] movements were normal bilaterally. No pronator drift GAIT: Normal stride and base. REFLEXES: Normal 2+/4 in upper and lower extremities.Quintana's negative. Impression and Plan: In summary Mr. Tillman has cognitive issues, difficulty with memory and concentration. He notes thatsymptoms are getting better after losing weight. He will continue working on losing weight by improving his physical activity. He does have features of sleep apnea. I have set up sleep study to see if he indeed has it. I noted to him that uncontrolled sleep apnea affects cognition, and also his risk factor for cardiovascular cerebrovascular complications. Finally, I have put a referral to neuropsych evaluation for a formal cognitive testing. He did note that his symptoms got better after getting Ativan. I suspect he has a competent of anxiety. I did ask him to discuss with his PCP about treating anxiety. He is not keen on it as he has been on these medications the past and has caused weightgain. He notes that he is doing with therapist and that might help him. He will work on losing weight. He will keep me posted but I will see him back in 10 weeks. Time spent: 20 total minutes reviewing records, history that was separately obtained, performing the exam, providing education to the patient/caregiver, ordering medicine and documenting in the medical record. CASA FUCHS MD documented in this encounter Plan of Treatment Scheduled Orders Name Type Priority Associated Diagnoses Orde r Schedule Diagnostic PSG (67718, 23960) - POLYSOMNOGRAPHY 4 OR MORE PARAMETERS Sleep Center Routine Obstructive sleep apnea syndrome MCI (mild cognitive impairment) Expected: 08/08/2021, Expires: 02/08/2022 Scheduled Referrals Name Type Priority Associated Diagnoses Orde r Schedule Ambulatory referral to Neuropsych Referral Routine Obstructive sleep apnea syndrome MCI (mild cognitive impairment) Ordered: 08/08/2021 documented as of this encounter Visit Diagnoses Diagnosis Obstructive sleep apnea syndrome- Primary Obstructive sleep apnea (adult) (pediatric) MCI (mild cognitive impairment) Mild cognitive impairment, so stated documented in this encounter Additional Health Concerns Assessment Noted Time PHQ-9 Depression Total Score: 2 05/31/19 22 8:07 AM 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
--- OUTSIDE RECORDS SUMMARY | 2024-03-07 22:31 | XMS_ITS | Encounter Summary ---
Author Organization [facility] Address [address] [place] [address]. [place], [place] [address] [place] [address] Care Team Providers Care Floor Trader Name Role Phone Shen Galaviz MD Primary Care Provider [phone] Encounter Details Date Type Department Care Team (Latest Contact Info) Description 10/30/2021 Travel Social History Tobacco Use Types Packs/Day [...] Total Score: 2 05/31/19 22 8:07 AM SURVEILLANCE OFFICER documented as of this encounter Care Teams Floor Trader Relationship Specialty Start Date End Date Shen Galaviz MD [address] [place] [address] PCP - General FAMILY PRACTICE 05/30/21 documented as of this encounter
--- OUTSIDE RECORDS SUMMARY | 2024-03-07 22:31 | XMS_ITS | Encounter Summary ---
Author Organization [facility] Address [address] [place] [address]. [place] [address] [place] [address] Care Team Providers Care Manufacturing Mechanic Name Role Phone Shen Galaviz MD Primary Care Provider [phone] Reason for Visit * Reason Onset Date Comments Results 10/08/2021 Encounter Details Date Type Department Care Team (Late st Contact Info) Description 10/08/[address] [facility] Multispecialty Care - [facility] [address] [facility], [address] [place] [address] Casa Fuchs MD [address] [place] [address] Results Social History Tobacco Use Types Packs/Day [...] Progress Notes * Heather Hannah RN - 10/08/2021 1:41 PM CDT Spoke with patient to discuss EEG results being normal. Patient verbalized understanding. 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
--- OUTSIDE RECORDS SUMMARY | 2024-03-07 22:31 | XMS_ITS | Encounter Summary ---
Author Organization [facility] Address [address] [place] [address]. 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
--- OUTSIDE RECORDS SUMMARY | 2024-03-07 22:31 | XMS_ITS | Encounter Summary ---
Author Organization [facility] Address [address] [place] [address]. [place], [place] [address] [place] [address] Care Team Providers Care Turbo Electric Operator Name Role Phone Shen Galaviz MD Primary Care Provider [phone] Encounter Details Date Type Department Care Team (Latest Contact Info) Description 08/12/2021 Travel Social History Tobacco Use Types Packs/Day [...] suspected to have Coronavirus/COVID-19? 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
--- OUTSIDE RECORDS SUMMARY | 2024-03-07 22:31 | XMS_ITS | Encounter Summary ---
Author Organization [facility] Address [address] [place] [address]. [place], [place] [address] [place] [address] Care Team Providers Care Supervisor Fiberglass Boat Assembly Name Role Phone Shen Galaviz MD Primary Care Provider Reason for Visit * Imaging (Routine) - Closed Specialty Diagnoses / Procedures Referred By Contac t Referred To Contact RADIOLOGY Diagnoses Cerebrovascular accident (CVA), unspecified mechanism ([facility]) Procedures MRI BRAIN WWO CON Casa Fuchs MD [address] [place] [address] Phone: tel: fax: Referral ID Status Reason Start Date Expiration Date Visits Re quested Visits Authorized [id number] Closed 06/26/2021 09/25/2021 1 1 Encounter Details Date Type Department Care Team (Latest Contact Info) Description 07/21/2021 4:33 PM CDT - 07/21/2021 11:59 PM CDT Hospital Encounter [facility] [address] Casa Fuchs MD [address] [place], [place] [id number] Discharge Disposition: Home or Self Care (Routine [...] suspected to have Coronavirus/COVID-19? No / Unsure 07/21/2021 4:31 PM CDT documented as of this encounter Medications at Time of Discharge Medication Sig Dispense Quantity Refills Last Filled Start D ate End Date diazePAM 5 MG tablet 07/04/2021 08/0 07/2021 documented as of this encounter Plan of Treatment Not on file documented as of this encounter Procedures Procedure Name Priority Date/Time Associated Diagnosis Comments MRI BRAIN WWO CON Routine 07/21/2021 5:2 9 PM CDT Cerebrovascular accident (CVA), unspecified mechanism ([facility]) documented in this encounter Visit Diagnoses Not on filedocumented in this encounter Administered Medications Inactive Administered Medications - up to 3 most recent administrations Medication Order MAR Action Action Date Dose Rate Site gadoterate meglumine (DOTAREM) 10 MMOL/20ML injection 20 mL 20 mL, Intravenous, IMG once as needed, Contrast, 1 dose, Starting on Wed07/21/21 at 1717, Until Wed07/21/21 at 1717 Given 07/21/2021 5:17 PM CDT 20 mLs Right Arm documented in this encounter Additional Health Concerns Assessment Noted Time PHQ-9 Depression Total Score: 2 05/31/19 8:07 AM RETAIL LOSS PREVENTION OFFICER documented as of this encounter Care Teams Supervisor Fib[employer]lass Boat Assembly Relationship Specialty Start Date End Date Shen Galaviz MD [address] [facility] [address] [place] [address] PCP - General FAMILY PRACTICE 05/30/21 documented as of this encounter
--- OUTSIDE RECORDS SUMMARY | 2024-03-07 22:31 | XMS_ITS | Encounter Summary ---
Author Organization [facility] Address Formerly [facility], [facility]. [place], [place] [address] [place] [address] Care Team Providers Care Direct Care Staffer Name Role Phone Shen Galaviz MD Primary Care Provider [phone] Reason for Referral * Imaging (Routine) - Closed Specialty Diagnoses / Procedures Referred By Frank t Referred To Contact RADIOLOGY Diagnoses Cerebrovascular accident (CVA), unspecified mechanism ([facility] HHS/HCC) Procedures USV CAROTID DUPLEX SHUBHAM Casa Fuchs MD 3 [place] [address] Phone: tel: fax: Referral ID Status Reason Start Date Expiration Date Visits Re quested Visits Authorized [id number] Closed 05/30/2021 06/30/2022 1 1 TER CHIEF DESIGN * Imaging (Routine) - Closed Specialty Diagnoses / Procedures Referred By Frank levi Referred To Contact RADIOLOGY Diagnoses Cerebrovascular accident (CVA), unspecified mechanism ([facility] HHS/HCC) Procedures MRI BRAIN WWO CON Casa Fuchs MD 3 [place] [address] Phone: tel: fax: Referral ID Status Reason Start Date Expiration Date Visits Re quested Visits Authorized [id number] Closed 06/26/2021 09/25/2021 1 1 TER CHIEF DESIGN Reason for Visit * Reason Comments New Patient Dysarthria * Consultation/Treatment (Routine) - Closed Specialty Diagnoses / Procedures Referred By Frank t Referred To Contact NEUROLOGY Diagnoses Dysarthria and anarthria Family history of epilepsy and other diseases of the nervous system Shen Galaviz MD [address] [place] [address] Phone: tel: fax: Casa Fuchs MD 3 [place] [address] Phone: tel: fax: Referral ID Status Reason Start Date Expiration Date Visits Re quested Visits Authorized [id number] Closed 10/30/2021 10/31/2022 100 100 Encounter Details Date Type Department Care Team (Latest Contact Info) Description 05/30/2021 8:00 AM DRAFTER CHIEF DESIGN Office Visit [facility] Multispecialty Care - [facility] [address] [facility], [address] [place] [phone] Casa Fuchs MD [address] [place], [place] [id number] New Patient (Dysarthria) Social History Tobacco Use Types Packs/Day Years [...] suspected to have Coronavirus/COVID-19? No / Unsure 05/30/2021 7:49 AM DRAFTER CHIEF DESIGN documented as of this encounter Last Filed Vital Signs Vital Sign Reading Time Taken Comments Blood Pressure 138/88 05/30/2021 8:08 AM DRAFTER CHIEF DESIGN Pulse 61 05/30/2021 8:08 AM DRAFTER CHIEF DESIGN Temperature 36.7 ??C (98.1 ??F) 05/30/2021 8:08 AM CS T Respiratory Rate - - Oxygen Saturation 97% 05/30/2021 8:08 AM DRAFTER CHIEF DESIGN Inhaled Oxygen Concentration - - Weight 66.2 kg (146 lb) 05/30/2021 8:08 AM DRAFTER CHIEF DESIGN Height 172.7 cm (5' 8 ) 05/30/2021 8:08 AM DRAFTER CHIEF DESIGN Body Mass Index 22.2 05/30/2021 8:08 AM DRAFTER CHIEF DESIGN documented in this encounter Progress Notes * Casa Fuchs MD - 05/30/2021 8:00 AM CST Chief Complaint: Cognitive issues HPI: We had the pleasure of seeing your patient Mr. Tillman in the clinic. He is here because he is having cognitive issues. He notes that he has history of smoking and alcohol use. He also notes that he has gained weight recently. He has had a healthy diet. In the background of this, he notes that he has having hard time focusing. At times he has hard time finding words, his words get jumbled up and confused. He has hard time with short-term memory sometimes. 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 He denies any tremors. He denies hallucinations. He denies REM behavior disorder. He denies any falls or near falls but he denies any head injury or head trauma. He denies any significant similar symptoms in the family. There is no sundowning. There is no fluctuatingcognition. Review of Systems Gen:?denies??recent fever Eyes:?denies?double vision ENT:?denies?epistaxis Pulm:?denies??shortness of breath Cardiac:??denies??Chest pain Musc:??denies?back pain Heme:??denies??easy bruising Neuro: ??See HPI No current outpatient medications on file. No current facility-administered medications for this visit. Filed Vitals: 05/30/21 0808 BP: 138/88 Pulse: 61 Temp: 98.1 ??F (36.7 ??C) TempSrc: Temporal SpO2: 97% Weight: 66.2 kg (146 lb) Height: 5' 8 (1.727 m) Past [...] in 10 years ??? Drug use: Never MENTAL STATUS: Patient was alert, awake and oriented x3, regards and follows commands. Normal language. CRANIAL NERVES: II: Pupils were equal, round and reactive to light . III, IV, : normal extraocular movements, no nystagmus. No eyelid ptosis. V: Normal jaw closure and opening. VII: face was symmetric. Eye closure and lip closure were normal. XI: normal symmetric shoulder shrug. Normal 5/5 sternocleidomastoid strength. XII: tongue was midline and strong. No fasciculations. MOTOR: Normal strength 5/5 on MRC scale in the upper and lower extremities. Normal muscle tone. GAIT: Normal stride and base. Normal heel, toe and could not do tandem gait. REFLEXES: Normal 2+/4 in upper and lower extremities. Impression and Plan: In summary Mr. Tillman has episodes of confusion, word finding difficulty, difficulty with processing and multitasking and memory loss. I suspect this is likely multifactorial. Patient notes that he has history of alcohol use, smoking. I suspect he may have a competent of vascular cognitive impairment which could be contributing to his symptoms. In addition, I also suspect the underlying medical issues including recent weight changes have contributed to his symptoms. Rule out any secondary causes, I will do MRI of the brain without contrast. This will help me to out any stroke, tumor, as well as assess the size of the temporal lobes. In addition I did extend EEG to look seizure-like activity. Finally, I will do a carotid ultrasound to look for carotid stenosis. I will call him with results of testing. I will see him back in 10 weeks. In the meantime, have asked him to continue a healthylifestyle, including keeping himself physically active and doing aerobic sizes as well as socially and mentally active by volunteering in the community, mosque and other places. Time spent: 50 total minutes reviewing records, history that was separately obtained, performing the exam, providing education to the patient/caregiver, ordering medicine and documenting in the medical record. CASA FUCHS MD TER CHIEF DESIGN documented in this encounter Plan of Treatment Not on file documented as of this encounter Results * EEG awake or drowsy routine (08/12/2021 12:00 PM CDT) Narrative [facility] - 08/12/2021 12:00 PM CDT Casa Fuchs MD ? 10/08/2021 ??1:18 PM EEG REPORT Type of EEG study: Extended EEG with video (>60min). Requesting Provider: Dr Fuchs Date of Study: 08/12/2021 Reason for EEG: ??seizures Technical Description and EEG Findings This is a 21-channel EEG recording utilizing the standard international 10-20 electrode placement along with additional electrodes to monitor eye movements; a single ECG channel was also utilized to record ECG. Bipolar and referential montages were utilized for analysis. EEG description: Awake: In the waking state, a continuous generalized medium-amplitude mixed-frequency background was noted; a symmetric posterior dominant rhythm of 10 Hz was recorded in the occipital regions bilaterally. The posterior dominant rhythm attenuated with eye opening and enhanced with eye closure. Drowsiness: ??There was waxing and waning of posterior dominant rhythm with appearance of diffuse synchronous and asynchronous theta-alpha activity during drowsiness. Provocative maneuvers: Hyperventilation: Hyperventilation for 3 minutes Provocative Maneuvers Hyperventilation: produced a mild generalized bisynchronous as well as asynchronous delta and theta activity Photic stimulation: Intermittent photic stimulation produced Provocative maneuvers photic stimulation: symmetrical bi-occipital response ECG: Single ECG channel showed regular cardiac rhythm. Impression/Clinical Correlation This extended EEG (>60) recorded in awake and drowsy states is normal. Of note, a normal EEG does not rule out seizure/epilepsy. Casa Fuchs MD NEUROLOGY ORDERABLES Keena l Result [facility] 3 [place] [address], * MRI BRAIN WWO CON (07/21/2021 5:29 PM CDT) Anatomical Region Laterality Modality Head Magnetic Resonan ce 07/22/2021 8:27 AM CDT Impressions 07/22/2021 8:44 AM CDT =====IMPRESSION:===== 1. No acute brain abnormality is demonstrated. 2. Mild post inflammatory sinus disease. Ordered By: CASA FUCHS Interpreted By: Rafa Guzman MD, 07/22/2021 8:27 AM Narrative 07/22/2021 8:44 AM CDT EXAMINATION: MRI brain with/without contrast. EXAM DATE/TIME: 07/03/2021 8:55 AM REASON FOR EXAM: ??Dizziness and memory loss. Stroke. ?? COMPARISON: None. TECHNIQUE: Multiplanar, multisequence imaging of the brain is obtained before and after uneventful intravenous administration of 20 mL Dotarem intravenously . FINDINGS: No acute intracranial hemorrhage, acute infarct, parenchymal mass or midline shift. Sulci, ventricles and basal cisterns have normal size, symmetry and configuration. Small cystic focus compatible with a benign prominent perivascular space just below the right lentiform nucleus. Smaller perivascular spaces on the contralateral side. Langford-white matter and white matter structures are otherwise unremarkable for age. No enhancing brain lesion with application of contrast material. Intact flow voids are demonstrated within the large intracranial vessels. The right vertebral artery is extremely hypoplastic. The left side is dominant. There is some normal variant asymmetry of the dural venous sinuses. The left transverse sinus is hypoplastic, normal variant. The intraorbital contents are unremarkable. Mild patchy mucosal thickening in the paranasal sinuses. Mucous retention cyst of the left maxillary sinus measures approximately 2.2 cm. Rightward bowing of the nasal septum is noted. Procedure Note Rafa Guzman MD - 07/22/2021 EXAMINATION: MRI brain with/without contrast. EXAM DATE/TIME: 07/03/2021 8:55 AM REASON FOR EXAM: Dizziness and memory loss. Stroke. COMPARISON: None. TECHNIQUE: Multiplanar, multisequence imaging of the brain is obtainedbefore and after uneventful intravenous administration of 20 mL Dotaremintravenously . FINDINGS: No acute intracranial hemorrhage, acute infarct, parenchymalmass or midline shift. Sulci, ventricles and basal cisterns have normalsize, symmetry and configuration. Small cystic focus compatible with abenign prominent perivascular space just below the right lentiformnucleus. Smaller perivascular spaces on the contralateral side. Langford-whitematter and white matter structures are otherwise unremarkable for age. Noenhancing brain lesion with application of contrast material. Intact flowvoids are demonstrated within the large intracranial vessels. The rightvertebral artery is extremely hypoplastic. The left side is dominant.There is some normal variant asymmetry of the dural venous sinuses. Theleft transverse sinus is hypoplastic, normal variant. The intraorbitalcontents are unremarkable. Mild patchy mucosal thickening in the paranasalsinuses. Mucous retention cyst of the left maxillary sinus measuresapproximately 2.2 cm. Rightward bowing of the nasal septum is noted. =====IMPRESSION:===== 1. No acute brain abnormality is demonstrated. 2. Mild post inflammatory sinus disease. Ordered By: CASA FUCHS Interpreted By: Rafa Guzman MD, 07/22/2021 8:27 AM us Casa Fuchs MD MRI Final Res ult * USV CAROTID DUPLEX SHUBHAM (07/03/2021 7:23 AM CDT) Anatomical Region Laterality Modality Neck Vascular Ultraso und 07/03/2021 7:05 AM CDT Narrative 07/04/2021 5:57 PM CDT ?CAROTID ARTERY DUPLEX IMAGING ? VASCULAR LAB Pat.Name: ??STEPHEN TILLMAN ?Pat.ID: ?[id number] ? St.Date: ?? 07/03/2021 ? Refer.MD: ??[id number] PREMA SALTER Exam Time: 7:05:00 AM ?Study [...] IMAGING VASCULAR LAB Pat.Name: STEPHEN TILLMAN Pat.ID: [id number] .Date: 07/03/2021 Refer.MD: [id number] PREMA SALTER Exam Time: 7:05:00 AM Study Type:KEYUR [...] PM Neel Resendiz M.D. Casa Fuchs MD [facility] Final Res ult documented in this encounter Visit Diagnoses Diagnosis Cerebrovascular accident (CVA), unspecified mechanism (CMS/HCC HHS/HCC)- Primary Cerebrovascular accident (CVA), unspecified mechanism (CMS/HCC HHS/HCC) Cerebrovascular accident (CVA), unspecified mechanism (CMS/HCC HHS/HCC) documented in this encounter Additional Health Concerns Assessment Noted Time PHQ-9 Depression Total Score: 2 05/31/19 22 8:07 AM DRAFTER CHIEF DESIGN documented as of this encounter Care Teams Direct Care Staffer Relationship Specialty Start Date End Date Shen Galaviz MD [address] [place] [address] PCP - General FAMILY PRACTICE 05/30/21 documented as of this encounter
--- OUTSIDE RECORDS SUMMARY | 2024-03-07 22:31 | XMS_ITS | Encounter Summary ---
Author Organization [facility] Address [address] [place] [address]. [place], [place] [address] [place] [address] Care Team Providers Care Inspector Ball Points Name Role Phone Shen Galaviz MD Primary Care Provider [phone] Encounter Details Date Type Department Care Team (Latest Contact Info) Description 07/21/2021 Travel Social History Tobacco Use Types Packs/Day [...] Total Score: 2 05/31/19 22 8:07 AM SOFTWARE CLERK documented as of this encounter Care Teams Inspector Ball Points Relationship Specialty Start Date End Date Shen Galaviz MD [address] [place] [address] PCP - General FAMILY PRACTICE 05/30/21 documented as of this encounter
--- OUTSIDE RECORDS SUMMARY | 2024-03-07 22:31 | XMS_ITS | Encounter Summary ---
Author Organization [facility] Address [address] [place] [address]. [place], [place] [address] [place] [address] Care Team Providers Care Catastrophe Claims Supervisor Name Role Phone Shen Galaviz MD Primary Care Provider [phone] Encounter Details Date Type Department Care Team (Latest Contact Info) Description 08/12/2021 11:59 AM CDT - 08/12/2021 11:59 PM CDT Hospital Encounter [facility] [place] [address] Casa Fuchs MD 3 [place] [address] Discharge Disposition: Home or Self Care (Routine [...] AM CDT documented as of this encounter Medications at Time of Discharge Medication Sig Dispense Quantity Refills Last Filled Start D ate End Date diazePAM 5 MG tablet 07/04/2021 08/0 07/2021 documented as of this encounter Procedure Notes * Casa Fuchs MD - 08/12/2021 12:00 PM CDTAssociated Order(s): EEG AWAKE OR DROWSY ROUTINE EEG REPORT Type of EEG study: Extended EEG with video (>60min). Requesting Provider: Dr Fuchs Date of Study: 08/12/2021 Reason for EEG: seizures Technical Description and EEG Findings This is a 21-channel EEG recording utilizing the standard international 10-20 electrode placement along with additional electrodes to monitor eye movements; a single ECG channel was also utilized to record ECG. Bipolar and referential montages were utilized for analysis. EEG description: Awake: In the waking state, a continuous generalized medium-amplitude mixed- frequency background was noted; a symmetric posterior dominant rhythm of 10 Hz was recorded in the occipital regions bilaterally. The posterior dominant rhythm attenuated with eye opening and enhanced with eye closure. Drowsiness: There was waxing and waning of posterior dominant rhythm with appearance of diffuse synchronous and asynchronous theta-alpha activity during drowsiness. Provocative maneuvers: Hyperventilation: Hyperventilation for 3 minutes Provocative Maneuvers Hyperventilation: produced amild generalized bisynchronous as well as asynchronous delta and theta activity Photic stimulation: Intermittent photic stimulation produced Provocative maneuvers photic stimulation: symmetrical bi-occipital response ECG: Single ECG channel showed regular cardiac rhythm. Impression/Clinical Correlation This extended EEG (>60) recorded in awake and drowsy states is normal. Of note, a normal EEG does not rule out seizure/epilepsy. documented in this encounter Plan of Treatment Not on file documented as of this encounter Procedures Procedure Name Priority Date/Time Associated Diagnosis Comments EEG AWAKE OR DROWSY ROUTINE Routine 08/12/2021 12:00 PM CDT Cerebrovascular accident (CVA), unspecified mechanism ([facility]/HCC [facility]) documented in this encounter Results * EEG awake or drowsy routine (08/12/2021 12:00 PM CDT) Narrative [facility] - 08/12/2021 12:00 PM CDT Casa [...] normal EEG does not rule out seizure/epilepsy. 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
--- OUTSIDE RECORDS SUMMARY | 2024-03-07 22:31 | XMS_ITS | Encounter Summary ---
Author Organization [facility] Address [facility]6 [facility] [place], [place] [address] [place] [address] Care Team Providers Care Associate Professor Of Library Media Name Role Phone Shen Galaviz MD Primary Care Provider [phone] Reason for Visit * Reason Comments Follow Up 10 wk follow up * Consultation/Treatment (Routine) - Closed Specialty Diagnoses / Procedures Referred By Contac t Referred To Contact NEUROLOGY Diagnoses Dysarthria and anarthria Family history of epilepsy and other diseases of the nervous system Shen Galaviz MD [address] [facility] [address] [place] [address] Phone: tel: fax: Casa Fuchs MD [address] [place] [address] Phone: tel: fax: Referral ID Status Reason Start Date Expiration Date Visits Re quested Visits Authorized [id number] Closed 10/30/2021 10/31/2022 100 100 Encounter Details Date Type Department Care Team (Latest Contact Info) Description 10/24/2021 9:00 AM CDT Office Visit [facility] Multispecialty Care - [address], [address] [place] [address] Casa Fuchs MD [address] [place] [address] Follow Up (10 wk follow up ) Social History Tobacco Use Types Packs/Day Years [...] Sign Reading Time Taken Comments Blood Pressure 112/80 10/24/2021 8:55 AM CDT Pulse 55 10/24/2021 8:55 AM CDT Temperature 36.2 ??C (97.1 ??F) 10/24/2021 8:55 AM CD T Respiratory Rate - - Oxygen Saturation 96% 10/24/2021 8:55 AM CDT Inhaled Oxygen Concentration - - Weight 99.3 kg (219 lb) 10/24/2021 8:55 AM CDT Height 172.7 cm (5' 8 ) 10/24/2021 8:55 AM CDT Body Mass Index 33.3 10/24/2021 8:55 AM CDT documented in this encounter Progress Notes * Casa Fuchs MD - 10/24/2021 9:00 AM CDT Chief Complaint: cognitive issues HPI: [...] of anxiety. He had been on medications. He did MRI of the brain. This was normal. EEG was normal. Sleep study was normal. He did have neuropsych testing. Unfortunately do not have the results of this. Review of Systems Gen:?denies??recent fever Eyes:?denies??double vision ENT:?denies??epistaxis Pulm:?denies??shortness of breath Cardiac:??denies??Chest pain GI:??denies??lower abdominal pain Musc:?has??back pain Neuro: ??See HPI ?? No current outpatient medications on file. No current facility-administered medications for this visit. Filed Vitals: 10/24/21 0855 BP: 112/80 Pulse: 55 Temp: 97.1 ??F (36.2 ??C) TempSrc: Temporal SpO2: 96% Weight: 99.3 kg (219 lb) Height: 5' 8 (1.727 m) PainSc: 5 Moderate Pain (0-10 Scale) Past Medical History: [...] MRI brain, EEG and sleep study. Neuropsych test results are pending. I suspect his cognitive issues could be due to ADD and/or anxiety. Neuropsych testing will give us more answers on this. Once I get the results,I will discuss further treatment options with him. I will see him back in a month's time. Time spent: 20 total minutes reviewing records, history that was separately obtained, performing the exam, providing education to the patient/caregiver, ordering medicine and documenting in the medical record. CASA FUCHS MD documented in this encounter Plan of Treatment Not on file documented as of this encounter Visit Diagnoses Diagnosis Cognitive change- Primary Other signs and symptoms involving cognition documented in this encounter Additional Health Concerns Assessment Noted Time PHQ-9 Depression Total Score: 2 05/31/19 22 8:07 AM ORDER PLANNER documented as of this encounter Care Teams Associate Professor Of Library Media Relationship Specialty Start Date End Date Shen Galaviz MD [address] [place] [address] PCP - General FAMILY PRACTICE 05/30/21 documented as of this encounter
--- OUTSIDE RECORDS SUMMARY | 2024-03-07 22:31 | XMS_ITS | Encounter Summary ---
Author Organization [facility] Address [address] [place] [address]. 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
--- OUTSIDE RECORDS SUMMARY | 2024-03-07 22:31 | XMS_ITS | Encounter Summary ---
Author Organization [facility] Address [address] [place] [address]. [place], [place] [address] [place] [address] Care Team Providers Care Epoxy Coatings Installer Name Role Phone Shen Galaviz MD Primary Care Provider [phone] Reason for Visit * Reason Onset Date Comments Appointment Request 10/28/2021 Returned Call 10/28/2021 Encounter Details Date Type Department Care Team (Late st Contact Info) Description 10/28/2021 Telephone [facility] Group Multispecialty Care - [address], [address] [place] [id number] Casa Fuchs MD [address] [place] [address] Appointment Request; Returned Call Social History Tobacco Use Types Packs/Day Years [...] Progress Notes * Heather Hannah RN - 10/28/2021 11:39 AM CDT Patient scheduled 10/30 at 1:40 * Chris Travis - 10/28/2021 11:38 AM CDT Pt called returning call from Heather. Call transferred * Heather Hannah RN - 10/28/2021 11:35 AM CDT Left voicemail for patient. We received patients neuropsych evaluation and Dr Castelan would like to discuss it. documented in this encounter Plan of Treatment Not on file documented as of this encounter Visit Diagnoses Not on filedocumented in this encounter Additional Health Concerns Assessment Noted Time PHQ-9 Depression Total Score: 2 05/31/19 22 8:07 AM ELECTROMECHANICAL ASSEMBLY TECHNICIAN documented as of this encounter Care Teams Epoxy Coatings Installer Relationship Specialty Start Date End Date Shen Galaviz MD [address] [place] [address] PCP - General FAMILY PRACTICE 05/30/21 documented as of this encounter
--- OUTSIDE RECORDS SUMMARY | 2024-03-07 22:31 | XMS_ITS | Encounter Summary ---
Author Organization [facility] Address [address] [place] [address]. [place], [place] [id number] [place] [address] Care Team Providers Care Fuel Cell Engineer Name Role Phone Shen Galaviz MD Primary Care Provider [phone] Encounter Details Date Type Department Care Team (Late st Contact Info) Description 01/29/2022 Orders Only [facility] Multispecialty Care - [facility] [address], [address] [place] [address] Casa Fuchs MD [address] [place] [address] Social History Tobacco Use Types Packs/Day Years [...] encounter Visit Diagnoses Diagnosis Obstructive sleep apnea syndrome Obstructive sleep apnea (adult) (pediatric) MCI (mild cognitive impairment) Mild cognitive impairment, so stated documented in this encounter Additional Health Concerns Assessment Noted Time PHQ-9 Depression Total Score: 2 05/31/19 22 8:07 AM DEATH CLAIM CLERK documented as of this encounter Care Teams Fuel Cell Engineer Relationship Specialty Start Date End Date Shen Galaviz MD [address] [place] [address] PCP - General FAMILY PRACTICE 05/30/21 documented as of this encounter
--- OUTSIDE RECORDS SUMMARY | 2024-03-07 22:31 | XMS_ITS | Encounter Summary ---
Author Organization [facility] Address [address] [place] [address]. [place], [place] [id number] [place] [address] Care Team Providers Care Beeswax Bleacher Name Role Phone Shen Galaviz MD Primary Care Provider [phone] Encounter Details Date Type Department Care Team (Latest Contact Info) Description 05/30/2021 Travel Social History Tobacco Use Types Packs/Day [...] Coronavirus/COVID-19? 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
--- OUTSIDE RECORDS SUMMARY | 2024-03-07 22:31 | XMS_ITS | Encounter Summary ---
Author Organization [facility] Address [address] [place] [address]. [place], [place] [address] [place] [address] Care Team Providers Care Sales Development Associate Name Role Phone Shen Galaviz MD Primary Care Provider [phone] Encounter Details Date Type Department Care Team (Latest Contact Info) Description 10/07/2021 Scan [facility] Scanned, Documents [...] Total Score: 2 05/31/19 22 8:07 AM SILK WINDING MACHINE OPERATOR documented as of this encounter Care Teams Sales Development Associate Relationship Specialty Start Date End Date Shen Galaviz MD [address] [facility] [address] [place] [address] PCP - General FAMILY PRACTICE 05/30/21 documented as of this encounter
--- OUTSIDE RECORDS SUMMARY | 2024-03-07 22:32 | XMS_ITS | Encounter Summary ---
Author Organization [facility] Address [address] [place] [address] Care Team Providers Care Fitness Manager Name Role Phone Unavailable Primary Care Provider Unavailabl e Encounter Details Date Type Department Care Team (Late st Contact Info) Description 04/06/2020 Lab Requisition [facility] [address] [place] [address] Miles, [place] [address] [place] [address] Social History Tobacco Use Types Packs/Day Years Used Date Smoking Tobacco: Never Assessed Sex and Gender Information Value Date Recorded Sex Assigned at Not on file Legal Sex Male 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
--- OUTSIDE RECORDS SUMMARY | 2024-03-07 22:32 | XMS_ITS | Encounter Summary ---
Author Organization [facility] Address [address] [place] [address] Care Team Providers Care Separating Machine Operator Name Role Phone Shen Galaviz MD Primary Care Provider Reason for Visit * Cardiology (Routine) - Closed Specialty Diagnoses / Procedures Referred By Frank levi Referred To Contact Diagnoses Exercise intolerance Procedures Stress Treadmill Test Summer Jorge NP [address] [address] Phone: tel: fax: [facility] Medical Group Referral ID Status Reason Start Date Expiration Date Visits Re quested Visits Authorized [id number] Closed 08/02/2023 08/31/2024 1 1 Encounter Details Date Type Department Care Team (Latest Contact Info) Description 08/11/2023 2:30 PM CDT Ancillary Procedure [facility] Medical [facility] Cardiology [address] [place] [phone] Exercise intolerance Social History Tobacco Use Types Packs/Day Years Used Date Smoking Tobacco: Former Cigarettes Q uit: 05/31/2015 AUDIT-C Answer Date Recorded Q1: How often do you have a drink containing alcohol? Never 01/26/2022 Q2: How many drinks containi ng alcohol do you have on a typical day when you are drinking? Patient does not drink Q3: How often do you have si x or more drinks on one occasion? 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 Primary Physician: ??Dr. Galaviz Requesting Physician: ??Summer Jorge Type of stress test: ??Treadmill stress test Indication: ??AFib Quality of the study: ??Good Interpretation: ??Baseline 12 lead EKG showed normal rate rhythm axis. ?? Normal EKG. ??After obtaining baseline 12 lead EKG and blood pressure, patient exercised on treadmill using standard Kenny protocol for 12 minutes 55 seconds, achieving a cardiac workload of 14.8 METS. ??Patient stopped exercise due to dyspnea. ??Baseline blood pressure 120/74 mmHg, baseline heart rate 53 beats per minute, maximum blood pressure 190/80 mmHg, maximal heart rate 156 beats per minute which is 88 percent of maximum age predicted heart rate. Stress EKG: ??Normal Arrhythmias: ??None Blood pressure response to exercise: ??Normal Heart rate recovery: ??Normal Conclusions: Treadmill stress test is negative for ischemia by EKG criteria at 88 % of maximum age predicted heart rate. Above average exercise capacity for patient's age. No exercise-induced chest pain Voice recognition software was used to complete this document. Shaw Yoon MD, FACC Summer Jorge NP CV STRESS PROCEDURES Keena l Result documented in this encounter Visit Diagnoses Diagnosis Exercise intolerance Other general symptoms documented in this encounter Care Teams Separating Machine Operator Relationship Specialty Start Date End Date Shen Galaviz MD [address] [facility] [address] [place] [address] PCP - General Family Medicine 10/28/20 documented as of this encounter
--- OUTSIDE RECORDS SUMMARY | 2024-03-07 22:32 | XMS_ITS | Encounter Summary ---
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 Advised pt that we will call once completed and reviewed by MAF. * Telephone Encounter - Jolie Napier - 12/09/2023 4:10 PM CDT Pt requesting call to discuss monitor results. Contact: documented in this encounter Plan of Treatment Not on file documented as of this encounter Visit Diagnoses Not on filedocumented in this encounter Care Teams Fine Arts Model Relationship Specialty Start Date End Date Shen Galaviz MD [address] [facility] [address] [place] [address] PCP - General Family Medicine 10/28/20 documented as of this encounter
--- OUTSIDE RECORDS SUMMARY | 2024-03-07 22:32 | XMS_ITS | Encounter Summary ---
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 The heart rate varies from a minimum of 39 to a maximum of 149 average rate was 55. The minimum heart rate was sinus bradycardia occurring at 2:02 a.m.. Supraventricular ectopic activity consisted of occasional PACs occurring throughout the day these commonly occurred with right bundle branch block aberrancy. There was 1 brief episode of atrial fibrillation lasting for approximately 4 seconds at 2:53 p.m. on 12/01/2023. There was another episode of regular narrow QRS tachycardia with a heart rate of 147 at 3:43 p.m.. The onset and offset of this arrhythmia were not demonstrated so its duration is unknown. It was regular and more consistent withSVT or atrial flutter rather than atrial fibrillation. Ventricular arrhythmias were not seen. There were no symptoms recorded in the diary Conclusions: Sinus rhythm with normal heart rate variability, no significant Stone arrhythmias, sinus bradycardia noted during sleeping hours Rare if any atrial fibrillation, atrial flutter or SVT noted as detailed above which was asymptomatic No ventricular arrhythmia Voice recognition software was used to complete this document, therefore, manager of data variances may occur. Cal Wade MD [facility] 12/09/23 documented in this encounter Plan of Treatment Not on file documented as of this encounter Visit Diagnoses Not on filedocumented in this encounter Care Teams Entry Processor Relationship Specialty Start Date End Date Shen Galaviz MD [address] [address] PCP - General Family Medicine 10/28/20 documented as of this encounter
--- OUTSIDE RECORDS SUMMARY | 2024-03-07 22:32 | XMS_ITS | Encounter Summary ---
Author Organization [facility] Address [address] [place] [address] Care Team Providers Care Fryer Operator Name Role Phone Shen Galaviz MD Primary Care Provider Reason for Referral * Cardiology (Routine) - Closed Specialty Diagnoses / Procedures Referred By Frank levi Referred To Contact Diagnoses Exercise intolerance Procedures Stress Treadmill Test Summer Walter NP [address] [place] [address] Phone: tel: fax: [facility] Referral ID Status Reason Start Date Expiration Date Visits Re quested Visits Authorized [id number] Closed 08/02/2023 08/31/2024 1 1 * Cardiology (Routine) - Closed Specialty Diagnoses / Procedures Referred By Frank levi Referred To Contact Cardiology Diagnoses Exercise intolerance Procedures Transthoracic Echo (TTE) Complete W Doppler/CF Summer Walter NP [address] [address] Phone: tel: fax: Referral ID Status Reason Start Date Expiration Date Visits Re quested Visits Authorized [id number] Closed 08/02/2023 08/31/2024 1 1 Reason for Visit * Reason Comments Annual Exam Encounter Details Date Type Department Care Team (Late st Contact Info) Description 08/02/2023 2:00 PM CDT Office Visit [facility] Cardiology [address] [facility] [address] [phone] Summer Walter NP [address] [facility] [address] [place] [id number] H/O atrial fibrillation without current medication (Primary Dx); Exercise intolerance; Attention deficit hyperactivity disorder (ADHD), unspecified ADHD type Social History Tobacco Use Types Packs/Day Years Used Date Smoking Tobacco: Former Cigarettes Q uit: 05/31/2015 Tobacco Cessation:Counseling Given: Not Answered AUDIT-C Answer Date Recorded Q1: How often [...] on file 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 Gender Identity Male 01/01/2022 11:28 AM CDT Sexual Orientation Straight 01/01/2022 11 :28 AM CDT documented as of this encounter Last Filed Vital Signs Vital Sign Reading Time Taken Comments Blood Pressure 120/84 08/02/2023 2:18 PM CDT Pulse 58 08/02/2023 2:18 PM CDT Temperature - - Respiratory Rate - - Oxygen Saturation 99% 08/02/2023 2:18 PM CDT Inhaled Oxygen Concentration - - Weight 93 kg (205 lb) 08/02/2023 2:18 PM CDT Height 172.7 cm (5' 8 ) 08/02/2023 2:18 PM CDT Body Mass Index 31.17 08/02/2023 2:18 PM CDT documented in this encounter Progress Notes * Summer Walter NP - 08/02/2023 2:00 PM CDT Images from the original note were not included. [facility] Cardiology [address] [place] [id number] Date of Visit: 08/02/2023 Patient ID: Martín Tillman 1980 Chief Complaint Patient presents with Annual Exam Martín Tillman is a 43 y.o. male With a history of 1 episode of atrial fibrillation in December of 2021 returning to the office for annual follow-up. History of Present Illness: Martín Tillman is a 43 y.o. male with 1 episode of lone atrial fibrillation in December 2021. Also: history of GERD, anxiety, back pain, impaired glucose tolerance, anxiety. He was treated for hypertension years ago but after weight loss, quitting alcohol and cigarettes he no longer needed medication. He also reported a negative sleep apnea evaluation in the past. 12/31/2021 [facility] w/ new onset atrial fib. He had shortness of breath and a racing heartbeat. He gotten up at home to walk after laying down, got dizzy and had a brief episode of syncope. In the ER he was found to be in AFib with RVR, heart rate 130-150. Dr. Lawrence met him in consultation. His echocardiogram was unremarkable, normal TSH. Dr. Lawrence recommended starting aspirin and metoprolol (which he did not start) and having outpatient follow-up. 01/26/2022 Hospital follow-up with SCHOOL GUARD - Martín Tillman comes to the office today for a hospital follow up visit. He still has brief sporadic episodes of feeling his heart flutter or getting short of breath, lasts for about 10 seconds, some days he has not feel it at all. At the time of discharge she states the nurse advised him to only take metoprolol if his heart rate was above 60, so he never took it. He was not good about taking the aspirin regularly either. He checks his heart rate with an pilar on his phone and the resting heart rate ranges about 55-65. He is anticipating he will need a back surgery in near future. He wants to know if he has any restrictions in regards to exercising. 07/21/[address] Lawrence: No new problems, occ little blips and palps/flutters lasting for a few seconds. Had back problems and surgery, stopped running, gained 19#. No caffeine, or alcohol, no tob, no drugs. Eats a lot of sugar and bad food instead. Quit soda. No WEEMS, CP, some mild LE edema, occ dizzy when he changes position quickly. Reviewed Echo, stress test, labs 08/02/2023 office follow-up with SCHOOL GUARD: He is here for annual follow-up. He monitors his heart rate with a smart watch and it can go down in the 40s. When he exercises his heart rate will go up to 130-160. He runs 3 miles 3 to 4 times a week at a pace of 8:45 min/mile. He is trying to increase his pace but has been unable to because he gets exhausted. He also swims 45 laps and bikes 10 miles. When he jumps out of the pool he gets lightheaded. He does weights every other day. He was diagnosed with ADHD earlier this year but his psychiatrist has not wanted to use a stimulant due to his history of AFib. He feels like the current medications he is taking are not helping his attention deficit and he is considering stopping them. Records that I personally reviewed on the day of this visit include: (the interpretation is outlined in the HPI above) 01/26/2022 office note from myself, 07/21/[address] Lawrence I have also reviewed: allergies, current medications, past family history, past medical history, past social history, past surgical history and problem list. Medical History: Past Medical History: Diagnosis Date Atrial fibrillation (CMS/HCC) (HCC) Shortness of breath Syncope Past Surgical History: Procedure Laterality Date BACK SURGERY Social History Tobacco Use Smoking Status Former Current packs/day: 0.00 Types: Cigarettes Quit date: 05/31/2015 Years since quittin.1 Smokeless Tobacco Not on file Social History Tobacco Use Smoking status: Former Current packs/day: 0.00 Types: Cigarettes Quit date: 05/31/2015 Years since quittin.1 Smokeless tobacco: None Substance and Sexual Activity Drug use: None Sexual activity: None Alcohol Use: Not At Risk (01/26/2022) AUDIT-C Frequency of Alcohol Consumption: Never Average Number of Drinks: Patient does not drink Frequency of Binge Drinking: Never Family History Problem Relation Age of Onset Stroke Mother Suicide Completion Father Review of Systems Constitutional: Positive for malaise/fatigue. Negative for weight gain and weight loss. Cardiovascular: Negative for chest pain, dyspnea on exertion, leg swelling, near-syncope, orthopnea, palpitations, paroxysmal nocturnal dyspnea and syncope. Respiratory: Negative for cough, shortness of breath and sleep disturbances due to breathing. Hematologic/Lymphatic: Negative for bleeding problem. Does not bruise/bleed easily. Vital Signs: BP 120/84 (BP Location: Left arm, Patient Position: Sitting) Pulse 58 Ht 172.7 cm (5' 8 ) Wt 93 kg (205 lb) SpO2 99% BMI 31.17 kg/m?? Physical Exam Constitutional: General: He is not in acute distress. Appearance: He is well-developed. HENT: Head: Normocephalic and atraumatic. Eyes: General: No scleral icterus. Conjunctiva/sclera: Conjunctivae normal. Neck: Vascular: No JVD. Trachea: No tracheal deviation. Cardiovascular: Rate and Rhythm: Regular rhythm. Bradycardia present. Heart sounds: Normal heart sounds. No murmur heard. Comments: Rate 52 bpm Pulmonary: Effort: Pulmonary effort is normal. No respiratory distress. Breath sounds: Normal breath sounds. Skin: General: Skin is warm and dry. Neurological: Mental Status: He is alert and oriented to person, place, and time. Psychiatric: Mood and Affect: Mood normal. Behavior: Behavior normal. No Known Allergies Current Outpatient Medications: buPROPion XL (WELLBUTRIN XL) 150 mg 24 hr tablet, , Disp: , Rfl: busPIRone (BUSPAR) 10 mg tablet, TAKE 1 TABLET BY MOUTH THREE TIMES DAILY WITH MEALS, Disp: , Rfl: fluvoxaMINE (LUVOX) 100 mg tablet, Take 1 tablet (100 mg total) by mouth every morning, Disp: , Rfl: No results found for: POTASSIUM , BUNSER , CREATININE , CHOL , TRIG , LDL , LDLCALC , HDL No results found for: WBC , HGB , HCT , MCV , PLT No results found for this or any previous visit (from the past 4 hour(s)). Lab Results Component Value Date POCCHOL 157 01/26/2022 POCHDL 50 01/26/2022 POCTRIG 150 01/26/2022 POCLDL 76 01/26/2022 POCNONHDL 106 01/26/2022 POCCHLPL 157 01/26/2022 Assessment: Diagnoses and all orders for this visit: H/O atrial fibrillation without current medication (Primary) Exercise intolerance - Transthoracic Echo (TTE) Complete W Doppler/CF; Future - Stress Treadmill Test; Future Attention deficit hyperactivity disorder (ADHD), unspecified ADHD type Plan/Recommendations: He had a lone episode of atrial fibrillation in December of 2021, unable to identify a trigger for this episode. He has had no recurrence since then. He did not take metoprolol and aspirin prescribed at that time. Right now he is exercising it a high level of intensity and has been unable to increase his endurance, he has been prohibited by a sense of exhaustion. He is looking for reassurance thathe can continue to exercise at this level. Therefore I will bring him back for plain treadmill stress test to monitor for any ischemic changes during exercise. I will also repeat an echocardiogram toreassess his cardiac structure and function in comparison to December 2021. After this testing is complete I can give him further guidance with his ongoing exercise. He has been diagnosed with ADHD but his psychiatrist does not want to use a stimulant due to his history of atrial fibrillation. I explained to the patient that it is difficult to know for sure if the use of a stimulant it would increase his risk of AFib recurrence or other cardiovascular problems. I will follow-up with him over the phone after the tests are performed. And then I would like to have office follow-up with him in 3-4 months to reassess his symptoms. 08/02/2023 FROYLAN Unger- Nurse Practitioner with [facility] Cardiology This note is dictated and transcribed using AppTrigger Direct Software. Roll Finisher variancesmay occur. Despite proofreading, typographical errors may occur. documented in this encounter Plan of Treatment Not on file documented as of this encounter Results * Stress Treadmill Test (08/11/2023 2:15 PM CDT) Anatomical Region Laterality Modality Nuclear Medicine Narrative 08/11/2023 4:16 PM CDT TREADMILL STRESS TEST Patient Name: Martín Tilmlan Date of : 1980 ?? Primary Physician: ??Dr. Galaviz Requesting Physician: ??Summer Jose Angel Type of stress test: ??Treadmill stress test [...] to complete this document. Shaw Yoon MD, [facility] Summer Walter NP CV STRESS PROCEDURES Keena sonia Result * TRANSTHORACIC ECHO (TTE) COMPLETE W DOPPLER/CF WO CONTRAST (08/11/2023 1:48 PM CDT) Anatomical Region Laterality Modality Ultrasound 08/11/2023 1:07 PM CDT Narrative 08/11/2023 4:30 PM CDT [facility] Cardiology [address] [facility] [address] [address] [address] [facility] [address] [address] P:[phone] P:[phone] Echocardiographic Report Patient Name: MARTÍN TILLMAN T : 1980 Study Date: 08/11/2023 1:07:59 PM Gender: M Tech: Location: [facility] Provider: SUMMER WALTER ?Height(Cm): 173 BSA: 2.11 Weight(Kg): 93 Heart Rate: 53 BP: 119 / 80 Quality: Good Order Provider: JOSE ANGEL,SUMMER PROCEDURES: Echocardiographic Report: Transthoracic echocardiogram with complete 2D, M-Mode, and color Doppler examination. With Strain Analysis. INDICATIONS: Exercise intolerance, and Paroxysmal atrial fibrillation. Measurements: 2D/M Mode ?Doppler Measurement ?Value ?Normal Range ?Measurement ?Value ?Normal Range LVIDd 2D ? 4.47 ? [ 4.20 - 5.80 ] cm ?NNEKA Vmax ? 3.70 ? [ 2.00 - 4.00 ] cm2 LVIDs 2D ? 2.72 ? [ 2.50 - 4.00 ] cm ?AV Mean PG ? 3 ?mmHg LVPWd 2D ? 1.26 ? [ 0.60 - 1.00 ] cm ?AV Peak Matt ?1.22 ? [ 1.00 - 1.70 ] m/s IVSd 2D ?1.15 ? [ 0.60 - 1.00 ] cm ?AV Peak PG ? 6 ?mmHg LA Volume Index ?30 ? [ 16 - 34 ] cc/m2 ? AV VTI ? 25.92 ?cm LVOT Diam ?2.12 ?[ 1.70 - 2.10 ] cm LVOT Peak Matt ?1.28 ?[ 0.70 - 1.10 ] m/s LVOT VTI ? 28.46 ? cm MV E Peak Matt ?0.69 ?[ 0.60 - 1.30 ] m/s MV A Peak Matt ?0.28 ?[ 1.00 - 1.20 ] m/s MV Decel Time ?199 ? [ 104 - 258 ] msec TR Peak Matt ?2.10 ?[ 1.00 - 2.80 ] m/s TR Peak PG ? 18 ?mmHg Lateral E` ? 0.16 ?[ 0.10 - 0.15 ] m/s E` ? 0.10 ?m/s E/E` ? 4 Measurement ?Value ?Normal Range ?Measurement ?Value ?Normal Range 2D/M Mode ?Doppler - FINDINGS: Interpretation Site: Exam was interpreted at [facility]. Left Ventricle: Normal left ventricular systolic function. No focal wall motion abnormalities. Normal left ventricular size. Mild concentric left ventricular hypertrophy. Normal left ventricular diastolic function. Ejection fraction is visually estimated at 55 %. Ejection fraction is measured at 62 %. Global Longitudinal Strain is -19 %. GLS is normal. Right Ventricle: Normal right ventricular size. Normal right ventricular systolic function. Left Atrium: There is mild enlargement of left atrium. Right Atrium: The right atrium is normal in size. Atrial Septum: Normal atrial septum. Mitral Valve: Normal appearance of the mitral valve. Mild mitral valve regurgitation. There is no hemodynamically significant mitral stenosis by Doppler. Aortic Valve: Normal appearance of the aortic valve. No evidence of hemodynamically significant aortic stenosis by Doppler. Trileaflet aortic valve. Trace aortic valve regurgitation. Tricuspid Valve: Normal appearance of the tricuspid valve. Normal right ventricular systolic pressure. Estimated peak RVSP is 20-25 mmHg. Mild tricuspid regurgitation. Pulmonic Valve: Normal appearance of the pulmonic valve. No pulmonic stenosis. Mild pulmonic regurgitation. Pericardium: Normal pericardium with no significant pericardial effusion. Aorta: Normal aortic root. IVC: Normal size and normal respiratory collapse consistent with normal right atrial pressure (<5 mmHg). CONCLUSIONS: Normal left ventricular systolic function. No focal wall motion abnormalities. Normal left ventricular size. Mild concentric left ventricular hypertrophy. Normal left ventricular diastolic function. Ejection fraction is visually estimated at 55 %. Ejection fraction is measured at 62 %. Global Longitudinal Strain is -19 %. GLS is normal. There is mild enlargement of left atrium. Mild mitral valve regurgitation. Mild tricuspid regurgitation. Mild pulmonic regurgitation. Normal sinus rhythm. Electronically Signed By: Shaw Yoon MD 2023-08-11 16:29:30 CDT Procedure Note Shaw Yoon MD - 08/11/2023 [facility] Cardiology [address] [facility] [address], [place], [place] [id number] [address] [facility] [address], [place] [address] [phone] P:[phone] Echocardiographic Report Patient Name: MARTÍN TILLMAN T : 1980 Study Date: 08/11/2023 1:07:59 PM Gender: M Tech: Location: [place] Ref Provider: SUMMER WALTER Height(Cm): 173 BSA: 2.11 Weight(Kg): 93 Heart Rate: 53 BP: 119 / 80 Quality: Good Order Provider: SUMMER WALTER PROCEDURES: Echocardiographic Report: Transthoracic echocardiogram with complete 2D, M-Mode, and color Dopplerexamination. With Strain Analysis. INDICATIONS: Exercise intolerance, and Paroxysmal atrial fibrillation. Measurements: 2D/M ModeDoppler Measurement Value Normal Range MeasurementValue Normal Range LVIDd 2D 4.47 [ 4.20 - 5.80 ] cm NNEKA Vmax3.70 [ 2.00 - 4.00 ] cm2 LVIDs 2D 2.72 [ 2.50 - 4.00 ] cm AV Mean PG3 mmHg LVPWd 2D 1.26 [ 0.60 - 1.00 ] cm AV Peak Vel1.22 [ 1.00 - 1.70 ] m/s IVSd 2D 1.15 [ 0.60 - 1.00 ] cm AV Peak PG6 mmHg LA Volume Index 30 [ 16 - 34 ] cc/m2 AV VTI25.92 cm LVOT Diam 2.12 [ 1.70 - 2.10 ] cm LVOT Peak Matt 1.28 [ 0.70 - 1.10 ] m/s LVOT VTI 28.46 cm MV E Peak Matt 0.69 [ 0.60 - 1.30 ] m/s MV A Peak Matt 0.28 [ 1.00 - 1.20 ] m/s MV Decel Time 199 [ 104 - 258 ] msec TR Peak Matt 2.10 [ 1.00 - 2.80 ] m/s TR Peak PG 18 mmHg Lateral E` 0.16 [ 0.10 - 0.15 ] m/s E` 0.10 m/s E/E` 4 Measurement Value Normal Range MeasurementValue Normal Range 2D/M ModeDoppler - FINDINGS: Interpretation Site: Exam was interpreted at [facility]. Left Ventricle: Normal left ventricular systolic function. No focal wall motionabnormalities. Normal left ventricular size. Mild concentric left ventricular hypertrophy.Normal left ventricular diastolic function. Ejection fraction is visually estimated at55 %. Ejection fraction is measured at 62 %. Global Longitudinal Strain is -19 %. GLS isnormal. Right Ventricle: Normal right ventricular size. Normal right ventricular systolicfunction. Left Atrium: There is mild enlargement of left atrium. Right Atrium: The right atrium is normal in size. Atrial Septum: Normal atrial septum. Mitral Valve: Normal appearance of the mitral valve. Mild mitral valve regurgitation.There is no hemodynamically significant mitral stenosis by Doppler. Aortic Valve: Normal appearance of the aortic valve. No evidence of hemodynamicallysignificant aortic stenosis by Doppler. Trileaflet aortic valve. Trace aortic valveregurgitation. Tricuspid Valve: Normal appearance of the tricuspid valve. Normal right ventricularsystolic pressure. Estimated peak RVSP is 20-25 mmHg. Mild tricuspid regurgitation. Pulmonic Valve: Normal appearance of the pulmonic valve. No pulmonic stenosis. Mildpulmonic regurgitation. Pericardium: Normal pericardium with no significant pericardial effusion. Aorta: Normal aortic root. IVC: Normal size and normal respiratory collapse consistent with normal rightatrial pressure (<5 mmHg). CONCLUSIONS: Normal left ventricular systolic function. No focal wall motionabnormalities. Normal left ventricular size. Mild concentric left ventricular hypertrophy.Normal left ventricular diastolic function. Ejection fraction is visually estimated at55 %. Ejection fraction is measured at 62 %. Global Longitudinal Strain is -19 %. GLS isnormal. There is mild enlargement of left atrium. Mild mitral valve regurgitation. Mild tricuspid regurgitation. Mild pulmonic regurgitation. Normal sinus rhythm. Electronically Signed By: Shaw Yoon MD 2023-08-11 16:29:30 CDT Summer Walter NP CV ECHO PROCEDURES Final Result documented in this encounter Visit Diagnoses Diagnosis H/O atrial fibrillation without current medication- Primary Exercise intolerance Other general symptoms Attention deficit hyperactivity disorder (ADHD), unspecified ADHD type Exercise intolerance Other general symptoms Exercise intolerance Other general symptoms documented in this encounter Discontinued Medications Medication Sig Discontinue Reason Start Date End Da te aspirin 325 mg tablet Take 1 tablet (325 mg total) by mouth daily Alternate therapy 12/31/2021 08/02/2023 documented as of this encounter Historical Medications * This list may reflect changes made after this encounter. fluvoxaMINE (LUVOX) 100 mg tablet Take 1 tablet (100 mg total) by mouth every morning 07/30/2023 11/30/2023 busPIRone (BUSPAR) 10 mg tablet TAKE 1 TABLET BY MOUTH THREE TIMES DAILY WITH MEALS 05/28/2023 11/30/2023 buPROPion XL (WELLBUTRIN XL) 150 mg 24 hr tablet 07/30/2023 11/30/2023 added in this encounter Care Teams Fryer Operator Relationship Specialty Start Date End Date Shen Galaviz MD [address] [facility] [address] [place] [address] PCP - General Family Medicine 10/28/20 documented as of this encounter
--- OUTSIDE RECORDS SUMMARY | 2024-03-07 22:32 | XMS_ITS | Encounter Summary ---
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 Name Role Phone Shen Galaviz MD Primary Care Provider Encounter Details Date Type Department Care Team (Late st Contact Info) Description 10/14/2023 Telephone [facility] Cardiology [address] [place] [address] Summer Jorge, DRYING AND WINDING SUPERVISOR [address] [place] [address] Social History Tobacco Use Types [...] on file Legal Sex Male 11:58 PM [facility] Gender Identity Male 01/01/2022 11:28 AM CDT Sexual Orientation Straight 01/01/2022 11 :28 AM CDT documented as of this encounter Miscellaneous Notes * Telephone Encounter - Nidhi Harrington RN - 10/18/2023 10:14 AM CDT Noted, pt does have a smart watch that he wears although he did not have it on when episode happened. * Telephone Encounter - Summer Jorge NP - 10/18/2023 9:37 AM CDT Note reviewed, I agree with the advice you gave him Nidhi, thank you. If he doesn't already do so, would he consider wearing a smart watch to monitor his heart rhythm? * Telephone Encounter - Nidhi Harrington RN - 10/15/2023 4:02 PM CDT Spoke with pt, pt feeling ok, getting ready to go for run. Hr last OV was 58, pt usually runs in the 50s for HR. Pt will continue to monitor symptoms, bp/hr and call sooner with any questions or concerns. Advised pt to go to ER if he has any more syncopal episodes. Pt verbalizes understanding. * Telephone Encounter - Oriana Crawford - 10/15/2023 3:45 PM CDT Pt calling to report his BP 128/83 and HR 50. Contact:[phone] * Telephone Encounter - Nidhi Harrington RN - 10/14/2023 3:40 PM CDT Called and spoke with pt, pt states that he went home from work and left again to help his andforgot to check his bp/hr. Pt will check tomorrow and call the office. Advised pt to go to ER for any new or recurring symptoms. Pt verbalizes understanding. * Telephone Encounter - Nidhi Harrington RN - 10/14/2023 9:28 AM CDT Spoke with pt, pt reports that he got up last night from sleeping to use the bathroom and had an episode that caused him to have a syncopal episode. Pt reports that he felt like his heart rate was elevated, went to his knees because he felt like he was going to pass out. Pt states that he does feellike he hit his head, pt not on AC. Pt at work now, does not feel like his HR is elevated. Pt reports this is the exact same symptoms as before when he had an episode of a-fib. Pt alert and oriented x 3. Feeling ok now. Advised pt to go to ER for any new or worsening symptoms. If pt has another syncopal episode pt should be seen in the ER. Pt verbalizes understanding. Pt will check bp/hr when he gets home and call the office with an update. Pt will call if he feels like he is back in a-fib and we will have him come in for an EKG. Pt has f/u with CT on 11/29. Will forward to CT. * Telephone Encounter - Oriana Crawford - 10/14/2023 8:47 AM CDT Pt calling to report last night when getting up to use the restroom he had an episode. States all of a sudden he felt SOB as well as lightheaded and tried to hurry up and get back to the bed before passing out. Although pt woke up on the ground with sweat all over his body. States after his episodehe went back to sleep and when waking up this morning he felt a spot on his head that was really sore that must have been from when he fainted. Pt requesting a call back to discuss. Contact:[phone] documented in this encounter Plan of Treatment Not on file documented as of this encounter Visit Diagnoses Not on filedocumented in this encounter Care Teams Sheet Metal Work Furnace Installer Relationship Specialty Start Date End Date Shen Galaviz MD [address] [facility] [address] [place] [address] PCP - General Family Medicine 10/28/20 documented as of this encounter
--- OUTSIDE RECORDS SUMMARY | 2024-03-07 22:32 | XMS_ITS | Encounter Summary ---
Author Organization [facility] Healthcare Address [address] [place] [address] Care Team Providers Care Physician Surgeon Name Role Phone Shen Galaviz MD Primary Care Provider Reason for Referral * Cardiology (Routine) - Closed Specialty Diagnoses / Procedures Referred By Frank levi Referred To Contact Diagnoses Bradycardia Procedures Extended/Skilled Nursing Holter Patch (>48 hours up to 7 days) Summer Jorge NP [address] [facility] [address] [address] Phone: tel: fax: [facility] Medical Group Referral ID Status Reason Start Date Expiration Date Visits Re quested Visits Authorized [id number] Closed 11/30/2023 12/29/2024 1 1 Reason for Visit * Reason Comments Follow-up 4 mo Encounter Details Date Type Department Care Team (Late st Contact Info) Description 11/30/2023 3:00 PM CDT Office Visit 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 [facility] Cardiology [address] [place] [address] Date of Visit: 11/30/2023 Patient ID: Stephen Tillman 1980 Chief Complaint Patient presents with Follow-up 4 mo Stephen Tillman is a 43 y.o. male with a history of 1 episode of atrial fibrillation in December of 2021 returning to the office for follow up after having an echocardiogram and stress test. History of Present Illness: Stephen Tillman is a 43 y.o. male with 1 episode of lone atrial fibrillation in December 2021. Also: history of GERD, anxiety, back pain, impaired glucose tolerance, anxiety, recovering alcoholic. He was treated for hypertension years ago but after weight loss, quitting alcohol and cigarettes he no longer needed medication. He also reported a negative sleep apnea evaluation in the past. 12/31/2021 [facility] w/ new onset atrial fib. He had [...] did not start) and having outpatient follow-up. He had a hospital follow-upappointment in the office January 2022 and a routine follow-up appointment with Dr. Lawrence in July of 2022. 08/02/2023 office visit- he told me he was exercising intensely but was getting exhausted and wanted some reassurance the he was safe for him to continue exercising at a high intensity. He was diagnosed with ADHD earlier this year but his psychiatrist has not wanted to use a stimulant due to his history of AFib. I set him up for treadmill stress test and an echocardiogram and these were unremarkable, therefore I reassured him can continue exercising at a high intensity, and consider talking to PCP about checking his glucose and testosterone. 11/30/2023 office visit- in late September he had a syncopal episode when getting out of bed in the middle of the night (documented in telephone note). He continues to exercise and is training for half marathon, currently running about 22 miles per week. [employer] watch shows his heart rate averages 40-255 beats per minute. Earlier today when he was seated at his desk at work his average heart rate was 44-57 beats per minute. He feels lightheaded when he 1st stands up. He is seeing applied psychology teacher Nidhi Bhatia regarding his ADHD and he is now struggling with binge eating, even nocturnal binge eating he is not aware of. She would like to try him on Vyvanse if ok with us. Medical History: Past Medical History: Diagnosis Date Atrial fibrillation (CMS/HCC) (HCC) Shortness of breath Syncope Past Surgical History: Procedure Laterality Date BACK SURGERY Social History Tobacco Use Smoking Status Former Current packs/day: 0.00 Types: Cigarettes Quit date: 05/31/2015 Years since quittin.5 Smokeless Tobacco Not on file Social History Tobacco Use Smoking status: Former Current packs/day: 0.00 Types: Cigarettes Quit date: 05/31/2015 Years since quittin.5 Smokeless tobacco: None Substance and Sexual Activity Drug use: None Sexual activity: None Alcohol Use: Not At Risk (01/26/2022) AUDIT-C Frequency of Alcohol Consumption: Never Average Number of Drinks: Patient does not drink Frequency of Binge Drinking: Never Family History Problem Relation Age of Onset Stroke Mother Suicide Completion Father Review of Systems Constitutional: Positive for weight gain. Negative for malaise/fatigue and weight loss. Cardiovascular: Positive for syncope (September 2023). Negative for chest pain, dyspnea on exertion, legswelling, orthopnea, palpitations and paroxysmal nocturnal dyspnea. Respiratory: Negative for cough, shortness of breath and sleep disturbances due to breathing. Hematologic/Lymphatic: Negative for bleeding problem. Does not bruise/bleed easily. Neurological: Positive for light-headedness. Vital Signs: There were no vitals taken for this visit. Physical Exam Constitutional: General: He is not in acute distress. Appearance: He is well-developed. HENT: Head: Normocephalic and atraumatic. Eyes: General: No scleral icterus. Conjunctiva/sclera: Conjunctivae normal. Neck: Vascular: No JVD. Trachea: No tracheal deviation. Cardiovascular: Rate and Rhythm: Normal rate and regular rhythm. Heart sounds: Normal heart sounds. No murmur heard. Comments: Rate 66 bpm Pulmonary: Effort: Pulmonary effort is normal. No respiratory distress. Breath sounds: Normal breath sounds. Skin: General: Skin is warm and dry. Neurological: Mental Status: He is alert and oriented to person, place, and time. Psychiatric: Mood and Affect: Mood normal. Behavior: Behavior normal. No Known Allergies No current outpatient medications on file. No results found for: POTASSIUM , BUNSER [...] Diagnoses and all orders for this visit: Bradycardia (Primary) - Extended/Skilled Nursing Holter Patch (>48 hours up to 7 days); Future Attention deficit hyperactivity disorder (ADHD), unspecified ADHD type H/O atrial fibrillation without current medication Plan/Recommendations: He had a lone episode of atrial fibrillation in December of 2021, unable to identify a trigger for this episode. He has had no recurrence since then. He did not take metoprolol and aspirin prescribed at that time. Stress test and echocardiogram were repeated ago to reassess for any abnormality because he wanted to continue exercising at a high intensity. Stress test was unremarkable and echocardiogram was unremarkable aside from mild MR and TR. He has continued to exercise. He had a syncopal episode about 7 weeks ago which sounds like it was probably orthostatic hypotension. His Apple watch shows bradycardia even during waking hours. He feels lightheaded when he stands up after being seated during the day. I will place a 72 hour Holter monitor to rule out Bradyarrhythmia. If this is unremarkable, I think it is reasonable for him to try Vyvanse as treatment for his ADHD/binge eating disorder. I will follow-up with him over the phone and update his psychiatry provider after we receive the results of the Holter monitor. I will also plan follow-up for him next year to transition from Dr. Lawrence to Dr. Yoon but I will be available to manage his care in the interim. 11/30/2023 FROYLAN Unger- Nurse Practitioner with [facility] Cardiology This note is dictated and transcribed using [employer] Direct Software. Napper Grinder variancesmay occur. Despite proofreading, typographical errors may occur. documented in this encounter Plan of Treatment Pending Results Name Type Priority Associated Diagnoses Date /Time Extended/Skilled Nursing Holter Patch (>48 hours up to 7 days) Cardiac Services Routine Bradycardia 11/30/2023 3:43 PM CDT Scheduled Orders Name Type Priority Associated Diagnoses Orde r Schedule Extended/Skilled Nursing Holter Patch (>48 hours up to 7 days) Cardiac Services Routine Bradycardia Expected: 11/30/2023, Expires: 11/29/2024 documented as of this encounter Visit Diagnoses Diagnosis Bradycardia- Primary Other specified cardiac dysrhythmias Attention deficit hyperactivity disorder (ADHD), unspecified ADHD type H/O atrial fibrillation without current medication documented in this encounter Discontinued Medications Medication Sig Discontinue Reason Start Date End Da te buPROPion XL (WELLBUTRIN XL) 150 mg 24 hr tablet Other 07/30/2023 11/30/19 busPIRone (BUSPAR) 10 mg tablet TAKE 1 TABLET BY MOUTH THREE TIMES DAILY WITH MEALS Other 05/28/2023 11/30/2023 fluvoxaMINE (LUVOX) 100 mg tablet Take 1 tablet (100 mg total) by mouth every morning Other 07/30/2023 11/30/2023 documented as of this encounter Care Teams Physician Surgeon Relationship Specialty Start Date End Date Shen Galaviz MD [address] [facility] [address] [place] [address] PCP - General Family Medicine 10/28/20 documented as of this encounter
--- OUTSIDE RECORDS SUMMARY | 2024-03-07 22:32 | XMS_ITS | Encounter Summary ---
Author Organization [facility] Healthcare Address [address] [place] [address] Care Team Providers Care Technical Maintenance Specialist Name Role Phone Shen Galaviz MD Primary Care Provider Reason for Visit * Cardiology (Routine) - Closed Specialty Diagnoses / Procedures Referred By Frank levi Referred To Contact Diagnoses Bradycardia Procedures Extended/Assisted Holter Patch (>48 hours up to 7 days) Summer Jorge NP [address] [address] Phone: tel: fax: [facility] Medical Group Referral ID Status Reason Start Date Expiration Date Visits Re quested Visits Authorized [id number] Closed 11/30/2023 12/29/2024 1 1 Encounter Details Date Type Department Care Team (Late st Contact Info) Description 11/30/2023 2:30 PM CDT Ancillary Procedure [facility] Medical Group Cardiology [address] [place] [phone] Bradycardia Social History Tobacco Use Types Packs/Day Years [...] on file 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 Gender Identity Male 01/01/2022 11:28 AM CDT Sexual Orientation Straight 01/01/2022 11 :28 AM CDT documented as of this encounter Plan of Treatment Pending Results Name Type Priority Associated Diagnoses Date /Time Extended/Assisted Holter Patch (>48 hours up to 7 days) Cardiac Services Routine Bradycardia 11/30/2023 3:43 PM CDT documented as of this encounter Visit Diagnoses Diagnosis Bradycardia Other specified cardiac dysrhythmias documented in this encounter Care Teams Technical Maintenance Specialist Relationship Specialty Start Date End Date Shen Galaviz MD [address] [facility] [address] [address] PCP - General Family Medicine 10/28/20 documented as of this encounter
--- OUTSIDE RECORDS SUMMARY | 2024-03-07 22:32 | XMS_ITS | Referral Summary ---
Author Organization [facility] [address] [facility] [address] Address [address] [place] [address] Care Team Providers Care Electric Sign Wirer Name Role Phone Shen Galaviz MD Primary Care Provider Encounters Date Type Department Care Team Description 12/17/2023 Telephone [facility] Cardiology [address] [place] [address] Summer Jorge NP 12/09/2023 Documentation [facility] Cardiology [address] [place] [address] Cal Wade MD 12/09/2023 Telephone [facility] Cardiology [address] [place] [address] Shaw Yoon MD from Last 3 Months Allergies No known active allergies Medications No known medications Active Problems Problem Noted Date Diagnosed Date H/O atrial fibrillation without current medicati on 07/21/2022 Obesity 07/21/2022 Social History Tobacco Use Types Packs/Day Years [...] on file 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 Gender Identity Male 01/01/2022 11:28 AM CDT Sexual Orientation Straight 01/01/2022 11 :28 AM CDT Last Filed Vital Signs Vital Sign Reading Time Taken Comments Blood Pressure 119/80 08/11/2023 1:48 PM CDT Pulse 58 08/02/2023 2:18 PM CDT Temperature - - Respiratory Rate - - Oxygen Saturation 99% 08/02/2023 2:18 PM CDT Inhaled Oxygen Concentration - - Weight 93 kg (205 lb) 08/02/2023 2:18 PM CDT Height 172.7 cm (5' 8 ) 08/02/2023 2:18 PM CDT Body Mass Index 31.17 08/02/2023 2:18 PM CDT Plan of Treatment Not on file Procedures Procedure Name Priority Date/Time Associated Diagnosis Comments MAGNESIUM Routine 12/17/2023 3:05 PM CDT H/O atrial fibrillation without current medication BASIC METABOLIC PANEL Routine 12/17/2023 3:05 PM CDT H/O atrial fibrillation without current medication from Last 3 Months Results * Magnesium (12/17/2023 3:05 PM CDT) Magnesium 2.1 1.6 - 2.3 mg/dL [facility] - 01 Blood 12/17/2023 3:05 PM CDT 12/17/2023 Narrative [facility] - 12/18/2023 10:10 AM CDT Performed at: ??01 - [facility] [address], [place], [place] ??[id number] Network Strategist: Gokul Cool PhD, Phone: ??[phone] us Summer Jorge NP LAB BLOOD ORDERABLES Keena l Result [facility] - [facility] * Basic metabolic panel (12/17/2023 3:05 PM CDT) Glucose 80 70 - 99 mg/dL [facility] - 01 BUN 17 6 - 24 mg/dL [facility] - 01 Creatinine, Serum 0.93 0.76 - 1.27 mg/dL [facility] - 01 eGFR 104 >59 mL/min/1.73 [facility] - 01 BUN/creat ratio 18 9 - 20 [facility] - 01 Sodium 139 134 - 144 mmol/L [facility] - 01 Potassium, sr 4.2 3.5 - 5.2 mmol/L [facility] - 01 Chloride 102 96 - 106 mmol/L [facility] - 01 CO2 22 20 - 29 mmol/L [facility] - 01 Calcium 8.9 8.7 - 10.2 mg/dL [facility] - 01 Blood 12/17/2023 3:05 PM CDT 12/17/2023 Narrative [facility] - 12/18/2023 9:11 AM CDT Performed at: ??01 - [facility] [address] ??[id number] Network Strategist: Gokul Cool PhD, Phone: ??[phone] us Summer Jorge NP LAB BLOOD ORDERABLES Keena scott Result [facility] - 01 from Last 3 Months Insurance [place] [id number] [employer] Care Teams Electric Sign Wirer Relationship Specialty Start Date End Date Shen Galaviz MD [address] [place] [address] PCP - General Family Medicine 10/28/20
--- OUTSIDE RECORDS SUMMARY | 2024-03-07 22:32 | XMS_ITS | Clinical Summary ---
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 Gender Identity Not on file Sexual Orientation Not on file Plan of Treatment Health Maintenance Due Date Last Done Comments Hepatitis C Virus (HCV) Screening 1980 TdaP Immunization 1980 Hepatitis B Immunization (1 of 3 - 19+ 3-dose series) 1999 SARS-COV-2 Immunization (2022- season) 2022 Influenza Immunization (Seas on Ended) 2023 Meningococcal Immunization (ACWY) Aged Out No longer eligible based on patient's age to complete this topic Pneumococcal Immunization Combined Aged Out No longer eligible based on patient's age to complete this topic Rotavirus Immunization Aged Out No lo nger eligible based on patient's age to complete this topic
--- OUTSIDE RECORDS SUMMARY | 2024-03-07 22:32 | XMS_ITS | Encounter Summary ---
Author Organization [facility] Healthcare Address [address] [place] [address] Care Team Providers Care Planner Name Role Phone Shen Galaviz MD Primary Care Provider Reason for Visit * Cardiology (Routine) - Closed Specialty Diagnoses / Procedures Referred By Frank levi Referred To Contact Cardiology Diagnoses Exercise intolerance Procedures Transthoracic Echo (TTE) Complete W Doppler/CF Jm Walter NP [address] [facility] [address] [address] Phone: tel: fax: Referral ID Status Reason Start Date Expiration Date Visits Re quested Visits Authorized [id number] Closed 08/02/2023 08/31/2024 1 1 Encounter Details Date Type Department Care Team (Latest Contact Info) Description 08/11/2023 1:00 PM CDT Ancillary Procedure [facility] Cardiology [address] [phone] Exercise intolerance Social History Tobacco Use Types [...] on file 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 Gender Identity Male 01/01/2022 11:28 AM CDT Sexual Orientation Straight 01/01/2022 11 :28 AM CDT documented as of this encounter Last Filed Vital Signs Vital Sign Reading Time Taken Comments Blood Pressure 119/80 08/11/2023 1:48 PM CDT Pulse - - Temperature - - Respiratory Rate - - Oxygen Saturation - - Inhaled Oxygen Concentration - - Weight - - Height - - Body Mass Index - - documented in this encounter Plan of Treatment Not on file documented as of this encounter Procedures Procedure Name Priority Date/Time Associated Diagnosis Comments TRANSTHORACIC ECHO (TTE) COMPLETE W DOPPLER/CF WO CONTRAST Routine 08/11/2023 1:48 PM CDT Exercise intolerance documented in this encounter Results * TRANSTHORACIC ECHO (TTE) COMPLETE W DOPPLER/CF WO CONTRAST (08/11/2023 1:48 PM CDT) Anatomical Region Laterality Modality Ultrasound 08/11/2023 1:07 PM CDT Narrative 08/11/2023 4:30 PM CDT [facility] Cardiology [address] [facility] [address] [address] [address] [facility] [address], [place] [address] P:[phone] P:[phone] Echocardiographic Report Patient Name: STEPHEN TILLMAN T : 1980 Study Date: 08/11/2023 1:07:59 PM Gender: M Tech: Location: [facility] Provider: JM WALTER ?Height(Cm): 173 BSA: 2.11 Weight(Kg): 93 Heart Rate: 53 BP: 119 / 80 Quality: Good Order Provider: JM WALTER PROCEDURES: Echocardiographic Report: Transthoracic echocardiogram with [...] Site: Exam was interpreted at [facility]. Left Ventricle: Normal left ventricular systolic [...] Procedure Note Shaw Yoon MD - 08/11/2023 [facility] Cardiology [address] [facility] [address] [address] [address], [place] [address] P:[phone] P:[phone] Echocardiographic Report Patient Name: STEPHEN TILLMAN T : 1980 Study Date: 08/11/2023 1:07:59 PM Gender: M Tech: JAEL Location: [place] Ref Provider: JM WALTER Height(Cm): 173 BSA: 2.11 Weight(Kg): 93 Heart Rate: 53 BP: 119 / 80 Quality: Good Order Provider: JM WALTER PROCEDURES: Echocardiographic Report: Transthoracic echocardiogram with [...] Site: Exam was interpreted at [facility]. Left Ventricle: Normal left ventricular systolic [...] By: Shaw Yoon MD 2023-08-11 16:29:30 CDT Jm Walter NP CV ECHO PROCEDURES Final Result documented in this encounter Visit Diagnoses Diagnosis Exercise intolerance Other general symptoms documented in this encounter Care Teams Planner Relationship Specialty Start Date End Date Shen Galaviz MD [address] [facility] [address] [place] [address] PCP - General Family Medicine 10/28/20 documented as of this encounter
--- OUTSIDE RECORDS SUMMARY | 2024-03-07 22:32 | XMS_ITS | CONTINUITY OF CARE DOCUMENT ---
Author Name nicole rivera Address Unknown Organization [facility] Address [address] [facility] [address] [place] [address] Phone [phone] Care Team Providers Care Vice President Regulatory Name Role Phone nicole rivera Unavailable Unavailable INSURANCE PROVIDERS Payer name Policy type / Coverage type [place] red libertarian ID [id number] PPO Other [id number]
--- OUTSIDE RECORDS SUMMARY | 2024-03-07 22:32 | XMS_ITS | Encounter Summary ---
Author Organization [facility] Address [address] [place] [address] Care Team Providers Care Liquor Inspector Name Role Phone Unavailable Primary Care Provider Unavailabl e Encounter Details Date Type Department Care Team (Late st Contact Info) Description 04/06/2020 8:45 AM HOG COUNTER Rapid Evaluation [place] [facility] Community Testing [address] [address] Social History Tobacco Use Types Packs/Day Years Used Date Smoking Tobacco: Never Assessed Sex and Gender Information Value Date Recorded Sex Assigned at Not on file Legal Sex Male 8:25 AM HOG COUNTER Gender Identity Not on file Sexual Orientation Not on file documented as of this encounter Plan of Treatment Not on file documented as of this encounter Visit Diagnoses Not on filedocumented in this encounter
--- OUTSIDE RECORDS SUMMARY | 2024-03-07 22:32 | XMS_ITS | Encounter Summary ---
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 Contact: * Telephone Encounter - Nidhi Harrington RN - 12/20/2023 2:43 PM CDT Letter faxed as requested. * Telephone Encounter - Jolie Napier - 12/20/2023 2:37 PM CDT Pt requesting letter be faxed to [phone]. Attn Nidhi Bhatia. Contact: * Telephone Encounter - Summer Jorge NP - 12/17/2023 1:19 PM CDT The patient's history and Holter monitor result were reviewed with Dr. Yoon. I called patient to let him know there were no concerning bradyarrhythmias seen on his monitor. There was one isolated 8-9 beat tachycardia. I don't recommend any further testing at this time other than check potassium and magnesium level. If those are ok, he may start Vyvanse. If syncope occurs again and could not be b lamed on orthostasis, consider ILR. Pt verbalized understanding and was appreciative. Once I get lab results I will send note to Psych provider that he can start Vyvanse. documented in this encounter Plan of Treatment Not on file documented as of this encounter Procedures Procedure Name Priority Date/Time Associated Diagnosis Comments MAGNESIUM Routine 12/17/2023 3:05 PM CDT H/O atrial fibrillation without current medication BASIC METABOLIC PANEL Routine 12/17/2023 3:05 PM CDT H/O atrial fibrillation without current medication documented in this encounter Results * Magnesium (12/17/2023 3:05 PM CDT) Magnesium 2.1 1.6 - 2.3 mg/dL [facility] - 01 Blood 12/17/2023 3:05 PM CDT 12/17/2023 Narrative [facility] - 12/18/2023 10:10 AM CDT Performed at: ??01 - [facility] ??[id number] Stripper And Taper: Gokul Cool PhD, Phone: ??[phone] Summer Jorge NP LAB BLOOD ORDERABLES Keena [...] AM CDT Performed at: ??01 - [facility] [address] ??[id number] Stripper And Taper: Gokul Cool PhD, Phone: ??[phone] Summer Jorge NP LAB BLOOD ORDERABLES Keena l Result [facility] - 01 documented in this encounter Visit Diagnoses Diagnosis H/O atrial fibrillation without current medication- Primary documented in this encounter Care Teams Nurse Chemical Dependency Relationship Specialty Start Date End Date Shen Galaviz MD [address] [facility] [address] [place] [address] PCP - General Family Medicine 10/28/20 documented as of this encounter
--- OUTSIDE RECORDS SUMMARY | 2024-03-07 22:32 | XMS_ITS | Clinical Summary ---
Author Organization [facility] – [place] [address] [facility] [address] Address [address] [place] [address] Care Team Providers Care Safety Person Name Role Phone Shen Galaviz MD Primary Care Provider Allergies No known active allergies Medications No known medications Active Problems Problem Noted Date Diagnosed Date H/O atrial fibrillation without current medicati on 07/21/2022 Obesity 07/21/2022 Encounters Date Type Department Care Team Description 12/17/2023 Telephone [facility] Medical [facility] Cardiology [address] [place] [address] Summer Jorge NP 12/09/2023 Documentation [facility] Medical [facility] Cardiology [address] [place] [address] Cal Wade MD 12/09/2023 Telephone [facility] Cardiology [address] [facility] [address] [place] [address] Shaw Yoon MD from Last 3 Months Surgical History Surgery Date Site/Laterality Comments BACK SURGERY Medical History Medical History Date Comments Syncope Atrial fibrillation (CMS/HCC) (HCC) Shortness of breath Family History Medical History Relation Name Comments Suicide Completion Father Stroke Mother Relation Name Status Comments Brother Alive Father (Age 62) Mother Alive Sister Alive Social History Tobacco Use Types Packs/Day [...] on file 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 Gender Identity Male 01/01/2022 11:28 AM CDT Sexual Orientation Straight 01/01/2022 11 :28 AM CDT Obstetrics History Last Filed Vital Signs Vital Sign Reading [...] 08/02/2023 2:18 PM CDT Plan of Treatment Health Maintenance Due Date Last Done Comments Depression Screening 1980 Hepatitis C Screening 1980 DTaP/Tdap/Td Vaccine (1 - Tdap) 1991 Varicella Vaccines (1 of 2 - 13+ 2-dose series) 1993 Hepatitis B Screening 1998 Regular Well Visit/Exam 18-64 1998 Covid-19 Vaccine (3 - 2023-2 5 season) 2023 06/24/2020, 06/03/2020 Influenza Vaccine (#1) 2023 HPV Vaccines Aged Out No longer eligi ble based on patient's age to complete this topic Pneumococcal vaccine <65 Aged Out No longer eligible based on patient's age to complete this topic Procedures Procedure Name Priority Date/Time Associated Diagnosis [...] AM CDT Performed at: ??01 - [facility] [address] ??[id number] Orchardist: Gokul Cool PhD, Phone: ??[phone] Summer Jorge NP LAB BLOOD ORDERABLES Keena [...] AM CDT Performed at: ??01 - [facility] [address] ??[id number] Orchardist: Gokul Cool PhD, Phone: ??[phone] Summer Jorge NP LAB BLOOD ORDERABLES Keena l Result [facility] from Last 3 Months Insurance CIGNA CIGNA Care Teams Safety Person Relationship Specialty Start Date End Date Shen Galaviz MD [address] [facility] [address] [place] [address] PCP - General Family Medicine 10/28/20
--- OUTSIDE RECORDS SUMMARY | 2024-03-07 22:32 | XMS_ITS | Encounter Summary ---
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 Read message from EU. Pt states he probably will avoid trying a stimulant. Pt hasno other questions. Contact: CAGER * Telephone Encounter - Nidhi Berry MA - 04/22/2023 2:43 PM CST Left msg asking pt to call office CAGER * Telephone Encounter - Nidhi Berry MA - 04/21/2023 3:[address] Lawrence, Please see msg and advise? Thank you CAGER * Telephone Encounter - Jolie Napier - 04/21/2023 3:06 PM CST Pt states he has been diagnosed with ADD. 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 Wants to know if EU thinks it is safe for him to take a stimulant or not and ifhe can take a stimulant wants to know if there are any recommendations. Contact: CAGER documented in this encounter Plan of Treatment Not on file documented as of this encounter Visit Diagnoses Not on filedocumented in this encounter Care Teams Steam Box Hand Relationship Specialty Start Date End Date Shen Galaviz MD [address] [place] [id number] PCP - General Family Medicine 10/28/20 documented as of this encounter
--- OUTSIDE RECORDS SUMMARY | 2024-03-07 22:33 | XMS_ITS | Encounter Summary ---
Author Organization [facility] Address [address] [facility] [address] [place] [address] Care Team Providers Care Block Breaker Operator Name Role Phone Shen Galaviz MD Primary Care Provider Encounter Details Date Type Department Care Team (Late st Contact Info) Description 12/31/[address] 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 Gender Identity Male 01/01/2022 11:28 AM CDT Sexual Orientation Straight 01/01/2022 11 :28 AM CDT documented as of this encounter Plan of Treatment Not on file documented as of this encounter Procedures Procedure Name Priority Date/Time Associated Diagnosis Comments CARDIOLOGY DOCUMENT SCAN Routine 12/31/2021 documented in this encounter Results * Cardiology Document Scan (12/31/2021) Anatomical Region Laterality Modality Other [facility] Jase Adams MD CV CARDIAC SERVICES PRO CEDURES Final Result documented in this encounter Visit Diagnoses Not on filedocumented in this encounter Care Teams Block Breaker Operator Relationship Specialty Start Date End Date Shen Galaviz MD [address] [facility] [address] [place] [address] PCP - General Family Medicine 10/28/20 documented as of this encounter
--- OUTSIDE RECORDS SUMMARY | 2024-03-07 22:33 | XMS_ITS | Encounter Summary ---
Author Organization [facility] Address [address] [facility] [address] [place] [address] Care Team Providers Care Video Recorder Mechanic Name Role Phone Shen Galaviz MD Primary Care Provider Reason for Referral * Cardiology (Routine) - Closed Specialty Diagnoses / Procedures Referred By Frank levi Referred To Contact Diagnoses Atrial fibrillation, unspecified type (HCC) Palpitations Procedures M[facility] Mobile Cardiac Telemetry Event Monitor Marie Lawrence MD Phone: tel: fax: [facility] Referral ID Status Reason Start Date Expiration Date Visits Re quested Visits Authorized [id number] Closed 01/01/2022 01/31/2023 1 1 Reason for Visit * Reason Onset Date Comments Additional Services Or Orders 12/31/2021 Scheduling Appointments 12/31/2021 Encounter Details Date Type Department Care Team (Late st Contact Info) Description 12/31/[address] 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 * Telephone Encounter - Remington Harrington RN - 01/01/2022 9:11 AM CDT LM on VM requesting return call to schedule monitor placement and follow up appt. * Addendum Note - Remington Harrington RN - 01/01/2022 9:01 AM CDTAddended by: REMINGTON HARRINGTON on: 01/01/2022 09:01 AM Modules accepted: Orders * Telephone Encounter - Marie Lawrence MD - 12/31/2021 8:22 PM CDT Patient admitted with new onset AFib RVR, converted to sinus rhythm on Cardizem. History of brief palpitations. Discharged on metoprolol succinate 25 mg daily and aspirin Please call patient to set up a 2 week monitor and also outpatient follow-up in the next several weeks. documented in this encounter Plan of Treatment Not on file documented as of this encounter Results * [facility] Mobile Cardiac Telemetry Event Monitor (01/01/2022 1:49 PM CDT) Anatomical Region Laterality Modality Other Narrative 01/20/2022 4:57 PM CDT AMBULATORY FENDER REPAIRER REPORT Patient Name: Stephen Tillman Date of : 1980 ?? Requesting Physician: ??Dr. Lawrence Date of interpretation: 01/20/22 Type of monitor : ??14 day school bus monitor Date of the study/Enrollment period: ??01/01/2022 through 01/14/2022 Indication: ??Palpitations Quality of the study: ??Good Interpretation: ??Total of 11 days 17 hours and 50 minutes recorded analyzed Underlying normal sinus rhythm heart rate variability between 50 and 120 beats per minute with average heart rate of 66 beats per minute. ?? No atrial fibrillation, SVT, pauses, heart block or ventricular tachycardia. ?? Low-frequency ventricular ectopy totaling 6549 beats which is 1% ectopic burden. ??Low-frequency supraventricular ectopy totaling 1,570 beats which is less than 1% ectopic burden. Nineteen patient triggered events were noted with symptoms of lightheadedness, shortness of breath, dizzy, skipped beat, heart racing, chest pain. ??All of these symptom events correlated to sinus rhythm, sinus bradycardia or sinus tachycardia and without arrhythmia except on 1 occasion in which shortness of breath, heart racing correlated to sinus rhythm and atrial couplet. ??Heart rate variability noted during the symptom events were between 52 and 119 beats per minute. ??Generally heart rate was in the 60s and 70s Conclusions: Underlying normal sinus rhythm with average heart rate of 66 beats per minute Low-frequency ventricular and supraventricular ectopy but without complex arrhythmia, heart block or pauses Numerous symptom events as detailed above correlating sinus rhythm, sinus bradycardia or sinus tachycardia and only on 1 occasion did correlate to an atrial couplet Voice recognition software was used to complete this document, therefore, president and ceo variances may occur. Shaw Yoon MD, [facility] 01/20/22 Procedure Note Shaw Yoon MD - 01/20/2022 AMBULATORY FENDER REPAIRER REPORT Patient Name: Stephen Tillman Date of : 1980 Requesting Physician: Dr. Lawrence Date of interpretation: 01/20/22 Type of monitor : 14 day school bus monitor Date of the study/Enrollment period: 01/01/2022 through 01/14/2022 Indication: Palpitations Quality of the study: Good Interpretation: Total of 11 days 17 hours and 50 minutes recordedanalyzed Underlying normal sinus rhythm heart rate variability between 50 and 120beats per minute with average heart rate of 66 beats per minute. No atrial fibrillation, SVT, pauses, heart block or ventriculartachycardia. Low-frequency ventricular ectopy totaling 6549 beats which is 1% ectopicburden. Low-frequency supraventricular ectopy totaling 1,570 beats whichis less than 1% ectopic burden. Nineteen patient triggered events were noted with symptoms oflightheadedness, shortness of breath, dizzy, skipped beat, heart racing,chest pain. All of these symptom events correlated to sinus rhythm, sinusbradycardia or sinus tachycardia and without arrhythmia except on 1occasion in which shortness of breath, heart racing correlated to sinusrhythm and atrial couplet. Heart rate variability noted during thesymptom events were between 52 and 119 beats per minute. Generally heartrate was in the 60s and 70s Conclusions: Underlying normal sinus rhythm with average heart rate of 66 beats perminute Low-frequency ventricular and supraventricular ectopy but without complexarrhythmia, heart block or pauses Numerous symptom events as detailed above correlating sinus rhythm, sinusbradycardia or sinus tachycardia and only on 1 occasion did correlate thang atrial couplet Voice recognition software was used to complete this document, therefore,president and ceo variances may occur. Shaw Yoon MD, [facility] 01/20/22 Marie Lawrence MD CV CARDIAC SERVICES PROCEDU RES Final Result documented in this encounter Visit Diagnoses Diagnosis Atrial fibrillation, unspecified type (HCC)- Primary Palpitations Atrial fibrillation, unspecified type (HCC) Palpitations documented in this encounter Care Teams Video Recorder Mechanic Relationship Specialty Start Date End Date Shen Galaviz MD [address] [facility] [address] [place] [address] PCP - General Family Medicine 10/28/20 documented as of this encounter
--- OUTSIDE RECORDS SUMMARY | 2024-03-07 22:33 | XMS_ITS | Encounter Summary ---
Author Organization [facility] Care Team Providers Care Fibreglass Lay Up Worker Name Role Phone Unavailable Primary Care Provider Unavailabl e Encounter Details Date Type Department Care Team (Late st Contact Info) Description 06/13/2009 9:00 AM CDT - 06/13/2009 11:59 PM CDT Hospital Encounter [facility] Julián Valdez MD [address] [place] [address] Sebaceous cyst Social History Tobacco Use Types Packs/Day Years Used Date Smoking Tobacco: Never Assessed Sex and Gender Information Value Date Recorded Sex Assigned at Not on file Legal Sex Male 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
--- OUTSIDE RECORDS SUMMARY | 2024-03-07 22:33 | XMS_ITS | Encounter Summary ---
Author Organization [facility] Address [address] [place] [address] Care Team Providers Care Customer Success Director Name Role Phone Shen Galaviz MD Primary Care Provider Reason for Visit * Reason Comments Follow-up 6 mo Encounter Details Date Type Department Care Team (Late st Contact Info) Description 07/21/2022 2:45 PM CDT Office Visit [facility] Cardiology [address] [place] [address] Marie Lawrence MD [address] [place] [address] H/O atrial fibrillation without current medication (Primary Dx); Class 2 severe obesity due to excess calories with serious comorbidity and body mass index (BMI) of 37.0 to 37.9 in adult (HCC) Social History Tobacco Use Types Packs/Day Years [...] more drinks on one occasion? 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 Gender Identity Male 01/01/2022 11:28 AM CDT Sexual Orientation Straight 01/01/2022 11 :28 AM CDT documented as of this encounter Last Filed Vital Signs Vital Sign Reading Time Taken Comments Blood Pressure 120/82 07/21/2022 2:58 PM CDT Pulse 61 07/21/2022 2:58 PM CDT Temperature - - Respiratory Rate - - Oxygen Saturation 98% 07/21/2022 2:58 PM CDT Inhaled Oxygen Concentration - - Weight 111.1 kg (245 lb) 07/21/2022 2:58 PM CDT Height 172.7 cm (5' 8 ) 07/21/2022 2:58 PM CDT Body Mass Index 37.25 07/21/2022 2:58 PM CDT documented in this encounter Patient Instructions * Attachments The following attachments cannot be sent through Care Everywhere. * Heart Healthy Diet (Heavy Equipment Diesel Mechanic) (Montenegrin) documented in this encounter Progress Notes * Marie Lawrence MD - 07/21/2022 2:45 PM CDT [facility] CARDIOLOGY DATE OF VISIT: 07/21/2022 DATE: 1980 CHIEF COMPLAINT Chief Complaint Patient presents with Follow-up 6 mo FU one atrial fib HPI Stephen Tillman is a 42 y.o. male with 1 episode of lone atrial fibrillation in December 2021. Also: history of GERD, anxiety, back pain, impaired glucose tolerance, anxiety. He was treated for hypertension years ago but after weight loss, quitting alcohol and cigarettes he no longer needed medication. He also reported a negative sleep apnea evaluation in the past. 12/31/2021 [facility] w/ new onset atrial fib. He had [...] having outpatient follow-up. 01/26/2022 Hospital follow-up with CERTIFIED PERSONAL FINANCE COUNSELOR - Stephen Tillman comes to the office today for [...] position quickly. Reviewed Echo, stress test, labs MEDICAL HISTORY Past Medical History: Diagnosis Date Atrial fibrillation (CMS/HCC) (HCC) Shortness of breath Syncope Social History Tobacco Use Smoking status: Former Types: Cigarettes Quit date: 05/31/2015 Years since quittin.1 Smokeless tobacco: None Substance and Sexual Activity Drug use: None Sexual activity: None Alcohol Use: Not At Risk (01/26/2022) AUDIT-C Frequency of Alcohol Consumption: Never Average Number of Drinks: Patient does not drink Frequency of Binge Drinking: Never Family History Problem Relation Age of Onset Stroke Mother Suicide Completion Father MEDICATIONS Current Outpatient Medications: aspirin 325 mg tablet, Take 1 tablet (325 mg total) by mouth daily (Patient not taking: Reported on07/21/2022), Disp: , Rfl: ALLERGIES No Known Allergies REVIEW OF SYSTEMS Review of Systems Constitutional: Negative for malaise/fatigue. HENT: Negative for congestion. Eyes: Negative for visual disturbance. Cardiovascular: Positive for leg swelling (mild). Negative for chest pain, dyspnea on exertion and syncope. Respiratory: Negative for shortness of breath. Hematologic/Lymphatic: Negative for bleeding problem. Musculoskeletal: Positive for back pain and myalgias (torn hamstring). Gastrointestinal: Negative for abdominal pain. Genitourinary: Negative for hematuria. Neurological: Negative for dizziness. Psychiatric/Behavioral: Negative for depression. PHYSICAL EXAM Blood pressure 120/82, pulse 61, height 172.7 cm (5' 8 ), weight 111.1 kg (245 lb), SpO2 98 %. Body mass index is 37.25 kg/m??. Physical Exam Constitutional: Appearance: Normal appearance. He is well-developed. Neck: Thyroid: No thyromegaly. Vascular: No carotid bruit. Cardiovascular: Rate and Rhythm: Normal rate and regular rhythm. Heart sounds: Normal heart sounds. No murmur heard. Pulmonary: Effort: Pulmonary effort is normal. No respiratory distress. Breath sounds: Normal breath sounds. Abdominal: General: There is no distension. Musculoskeletal: General: Swelling (trace lower tibial) present. Skin: General: Skin is warm and dry. Neurological: Mental Status: He is alert and oriented to person, place, and time. Psychiatric: Mood and Affect: Mood normal. Behavior: Behavior normal. LABS AND OTHER DIAGNOSTIC TESTS No results found for: WBC, HGB, HCT, MCV, PLT Chemistry No results found for: SODIUM, POTASSIUM, CHLORIDE, CO2, BUNSER, CREATININE, GLUCOSE No results found for: CALCIUM, ALKPHOS, AST, ALT, BILITOT No results found for: GLUCOSE, CALCIUM, SODIUM, POTASSIUM, CO2, CHLORIDE, BUNSER, CREATININE No results found for: INR, PROTIME No results found for: CHOLHDL Lab Results Component Value Date POCCHOL 157 01/26/2022 Lab Results Component Value Date POCHDL 50 01/26/2022 Lab Results Component Value Date POCLDL 76 01/26/2022 Lab Results Component Value Date POCTRIG 150 01/26/2022 Lab Results Component Value Date POCCHDLR 1.5 01/26/2022 Lab Results Component Value Date POCNONHDL 106 01/26/2022 Lab Results Component Value Date POCCHLPL 157 01/26/2022 Lab Results Component Value Date POCCHOL 157 01/26/2022 POCHDL 50 01/26/2022 POCTRIG 150 01/26/2022 POCLDL 76 01/26/2022 POCNONHDL 106 01/26/2022 POCCHLPL 157 01/26/2022 Cardiac testin10/2020 treadmill stress test: 11 minutes, no ischemia 12/2021 echo: EF 60-65%, mild LVH 12/2021 Two week monitor: Average HR 66 (range 50-120), 1% burden of PACs and also 1% burden of PVCs. Most of symptoms correlated with sinus rhythm, once with an atrial couplet. May have some sinus arrhythmia. No atrial fibrillation. ASSESSMENT Diagnoses and all orders for this visit: H/O atrial fibrillation without current medication (Primary) Class 2 severe obesity due to excess calories with serious comorbidity and body mass index (BMI) of37.0 to 37.9 in adult (HCC) History of atrial fibrillation: One lone episode of atrial fibrillation, no recurrence of sustainedarrhythmias other the patient does have some mild palpitations. No clear etiology. Pt did not try the metoprolol that he was discharged on. Discussed signs and symptoms of AFib and when to go to the e mergency room. Continue aspirin. Obesity: Congratulated the patient on not consuming alcohol or sodas. Reviewed heart healthy diet. PLAN/RECOMMENDATIONS Follow-up in 1 year, sooner if needed. Marie Lawrence MD, [facility] Cardiology Office: [phone] or [phone] Note: Portions of the record may have been created with voice recognition [email or web address] Direct Software. Chief Of Service variances may occur. Despite proofreading, typographical errors may occur. documented in this encounter Plan of Treatment Not on file documented as of this encounter Visit Diagnoses Diagnosis H/O atrial fibrillation without current medication- Primary Class 2 severe obesity due to excess calories with serious comorbidity and body mass index (BMI) of 37.0 to 37.9 in adult (HCC) documented in this encounter Care Teams Customer Success Director Relationship Specialty Start Date End Date Shen Galaviz MD [address] [facility] [address] [place] [address] PCP - General Family Medicine 10/28/20 documented as of this encounter
--- OUTSIDE RECORDS SUMMARY | 2024-03-07 22:33 | XMS_ITS | Encounter Summary ---
Author Organization [facility] Address [address] [place] [address] Care Team Providers Care Account Engineer Name Role Phone Shen Galaviz MD Primary Care Provider Reason for Visit * Cardiology (Routine) - Closed Specialty Diagnoses / Procedures Referred By Frank levi Referred To Contact Diagnoses Atypical chest pain Procedures Stress Treadmill Test Shen Galaviz MD [address] [facility] [address] [place] [address] Phone: tel: fax: [facility] Referral ID Status Reason Start Date Expiration Date Visits Re quested Visits Authorized [id number] Closed 10/28/2020 11/27/2021 1 1 Encounter Details Date Type Department Care Team (Latest Contact Info) Description 11/06/2020 2:30 PM CDT Ancillary Procedure [facility] Medical [facility] Cardiology [address] [place] [phone] Atypical chest pain Social History Tobacco Use Types Packs/Day Years Used Date Smoking Tobacco: Never Assessed Sex and Gender Information Value Date Recorded Sex Assigned at Not on file 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 Ordering Provider Dr. Galaviz Brief Clinical History Patient is a 40-year-old patient, who has chest pain and other risk factors, including former smoker. Stress test is recommended for further risk evaluation. Resting Electrocardiogram Normal. Procedure in Detail After obtaining baseline 12-lead electrocardiogram and blood pressure assessment of 122/80 mmHg, patient exercised a total of 11 minute and zero seconds on a standard Kenny protocol, achieving a peakheart rate of 166 beats per minute, which is 92% of maximum predicted heart rate for age. METS achieved 12.8. Peak blood pressure 180/94. Normal blood pressure response. No arrhythmias. No exercise-induced chest pain. Test was terminated due to shortness of breath and fatigue. There were no ischemic EKG changes up to a level of 92% of maximum predicted heart rate for age. Average exercise capacity for age. Conclusion 1. Normal regular exercise treadmill stress test without ischemic EKG changes inducible up to a level of 92% of maximum predicted heart rate for age. 2. No exercise-induced chest pain. 3. Average exercise capacity for age. Job ID/VF Job ID: [id number] documented in this encounter Plan of Treatment Pending Results Name Type Priority Associated Diagnoses Date /Time Stress Treadmill Test Cardiac Services Routine Atypical chest pain 11/06/2020 3:05 PM CDT documented as of this encounter Visit Diagnoses Diagnosis Atypical chest pain Other chest pain documented in this encounter Care Teams Account Engineer Relationship Specialty Start Date End Date Shen Galaviz MD [address] [facility] [facility] [address] [place] [address] PCP - General Family Medicine 10/28/20 documented as of this encounter
--- OUTSIDE RECORDS SUMMARY | 2024-03-07 22:33 | XMS_ITS | Encounter Summary ---
Author Organization [facility] Facility Care Team Providers Care Home Health Registered Nurse Name Role Phone Unavailable Primary Care Provider Unavailabl e Encounter Details Date Type Department Care Team (Latest Contact Info) Description 06/07/2009 10:56 AM CDT - 06/07/2009 11:59 PM CDT Hospital Encounter [facility] [place] [address] [facility] [address] [place] [phone] Clubbing of fingers Social History Tobacco Use Types Packs/Day Years Used Date Smoking Tobacco: Never Assessed Sex and Gender Information Value Date Recorded Sex Assigned at Not on file 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
--- OUTSIDE RECORDS SUMMARY | 2024-03-07 22:33 | XMS_ITS | Encounter Summary ---
Author Organization [facility] Address [address] [place] [address] Care Team Providers Care Row Boss Name Role Phone Shen Galaviz MD Primary Care Provider Reason for Visit * Cardiology (Routine) - Closed Specialty Diagnoses / Procedures Referred By Frank levi Referred To Contact Diagnoses Atrial fibrillation, unspecified type (HCC) Palpitations Procedures MCT Mobile Cardiac Telemetry Event Monitor Marie Lawrence MD Phone: tel: fax: [facility] Referral ID Status Reason Start Date Expiration Date Visits Re quested Visits Authorized [id number] Closed 01/01/2022 01/31/2023 1 1 Encounter Details Date Type Department Care Team (Latest Contact Info) Description 01/01/2022 1:30 PM CDT Ancillary Procedure [facility] Medical [facility] Cardiology [address] [place] [address] Atrial fibrillation, unspecified type (HCC); Palpitations Social History Tobacco Use Types Packs/Day Years Used Date Smoking Tobacco: Never Assessed Sex and Gender Information Value Date Recorded Sex Assigned at Not on file 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 Gender Identity Male 01/01/2022 11:28 AM CDT Sexual Orientation Straight 01/01/2022 11 :28 AM CDT documented as of this encounter Plan of Treatment Not on file documented as of this encounter Procedures Procedure Name Priority Date/Time Associated Diagnosis Comments MCT - MOBILE CARDIAC TELEMETRY EVENT MONITOR Routine 01/01/2022 1:49 PM CDT Atrial fibrillation, unspecified type (HCC) Palpitations documented in this encounter Results * MCT Mobile Cardiac Telemetry Event Monitor (01/01/2022 1:49 PM CDT) Anatomical Region Laterality Modality Other Narrative 01/20/2022 4:57 PM CDT AMBULATORY ASSOCIATE BUSINESS ANALYST REPORT Patient Name: Stephen Tillman Date of : 1980 ?? Requesting Physician: ??Dr. Lawrence Date of interpretation: 01/20/22 Type of monitor : ??14 day healthcare project manager Date of the study/Enrollment period: ??01/01/2022 through [...] was used to complete this document, therefore, after school tutor variances may occur. Shaw Yoon MD, FACC 01/20/22 Procedure Note Shaw Yoon MD - 01/20/2022 AMBULATORY ASSOCIATE BUSINESS ANALYST REPORT Patient Name: Stephen Tillman Date of : 1980 Requesting Physician: Dr. Lawrence Date of interpretation: 01/20/22 Type of monitor : 14 day healthcare project manager Date of the study/Enrollment period: 01/01/2022 through [...] software was used to complete this document, therefore,after school tutor variances may occur. Shaw Yoon MD, [facility] 01/20/22 Marie Lawrence MD CV CARDIAC SERVICES PROCEDU RES Final Result documented in this encounter Visit Diagnoses Diagnosis Atrial fibrillation, unspecified type (HCC) Palpitations documented in this encounter Care Teams Row Boss Relationship Specialty Start Date End Date Shen Galaviz MD [address] [facility] [address] [place] [address] PCP - General Family Medicine 10/28/20 documented as of this encounter
--- OUTSIDE RECORDS SUMMARY | 2024-03-07 22:33 | XMS_ITS | Encounter Summary ---
Author Organization [facility] Address [address] [place] [address] Care Team Providers Care Fence Setter Name Role Phone Shen Galaviz MD Primary Care Provider Encounter Details Date Type Department Care Team (Late st Contact Info) Description 10/28/2020 Orders Only [facility] Cardiology [address] [place] [address] Provider, MD Radha [address] [place], [place] [id number] Social History Tobacco Use Types Packs/Day Years Used Date Smoking Tobacco: Never Assessed Sex and Gender Information Value Date Recorded Sex Assigned at Not on file 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 Gender Identity Male 01/01/2022 11:28 AM CDT Sexual Orientation Straight 01/01/2022 11 :28 AM CDT documented as of this encounter Plan of Treatment Not on file documented as of this encounter Procedures Procedure Name Priority Date/Time Associated Diagnosis Comments CARDIOLOGY DOCUMENT SCAN Routine 10/28/2020 documented in this encounter Results * SCAN - CARDIOLOGY (10/28/2020) Anatomical Region Laterality Modality Other Historical Provider CV CARDIAC SERVICES HARDIK MCDONNELL Final Result documented in this encounter Visit Diagnoses Not on filedocumented in this encounter Care Teams Fence Setter Relationship Specialty Start Date End Date Shen Galaviz MD [address] [place], [place] [phone] PCP - General Family Medicine 10/28/20 documented as of this encounter
--- OUTSIDE RECORDS SUMMARY | 2024-03-07 22:33 | XMS_ITS | Encounter Summary ---
Author Organization [facility] Address [address] [place] [address] Care Team Providers Care Screed Person Name Role Phone Shen Galaviz MD Primary Care Provider Reason for Visit * Reason Comments Hospital Follow Up ER Encounter Details Date Type Department Care Team (Late st Contact Info) Description 01/26/2022 2:00 PM CHART COLLECTOR Office Visit [facility] Cardiology [address] [facility] [address] [place] [phone] Summer Jorge NP [address] [facility] [address] [place] [address] Lone atrial fibrillation (CMS/HCC) (HCC) (Primary Dx); Hospital discharge follow-up; Lipid screening Social History Tobacco Use Types Packs/Day Years [...] on file Legal Sex Male 11:58 PM CHART COLLECTOR Gender Identity Male 01/01/2022 11:28 AM CDT Sexual Orientation Straight 01/01/2022 11 :28 AM CDT documented as of this encounter Last Filed Vital Signs Vital Sign Reading Time Taken Comments Blood Pressure 118/76 01/26/2022 2:24 PM CHART COLLECTOR Pulse 56 01/26/2022 2:24 PM CHART COLLECTOR Temperature - - Respiratory Rate - - Oxygen Saturation 98% 01/26/2022 2:24 PM CHART COLLECTOR Inhaled Oxygen Concentration - - Weight 102.5 kg (226 lb) 01/26/2022 2:24 PM CHART COLLECTOR Height 172.7 cm (5' 8 ) 01/26/2022 2:24 PM CHART COLLECTOR Body Mass Index 34.36 01/26/2022 2:24 PM CHART COLLECTOR documented in this encounter Progress Notes * Summer Jorge NP - 01/26/2022 2:00 PM CST Images from the original note were not included. [facility] Cardiology [address] [place] [address] Date of Visit: 01/26/2022 Patient ID: Stephen Tillman 1980 Chief Complaint Patient presents with Hospital Follow Up ER Stephen Tillman is a 41 y.o. male who comes to the office for a hospital follow up after he was treated for AFib with RVR. History of Present Illness: Stephen Tillman is a 41 y.o. male with a past medical history of GERD, anxiety, back pain, impaired glucose tolerance. He was treated for hypertension years ago but after weight loss, quitting alcoholand cigarettes he no longer needed medication. He also reported a negative sleep apnea evaluation in the past. He presented to [facility] on 12/[facility]/2021 with complaint of shortness of breath and a racing heartbeat. He gotten up at home to walk after laying down, got dizzy and had a brief episode of syncope. In the ER he was found to be in AFib with RVR, heart rate 130-150. Dr. Lawrence met him in consultation. His echocardiogram was unremarkable, normal TSH. Dr. Lawrence recommended starting aspirin and metoprolol and having outpatient follow-up. 01/26/2022 Hospital follow-up with RETAIL EXPERIENCE SPECIALIST - Stephen Tillman comes to the office [...] has any restrictions in regards to exercising. Records that I personally reviewed on the day of this visit include: (the interpretation is outlined in the HPI above) Records from the above mentioned hospital admission. 01/01/2022 event monitor report. I have also reviewed: allergies, current medications, past family history, past medical history, past social history, past surgical history and problem list Medical History: Past Medical History: Diagnosis Date Atrial fibrillation (CMS/HCC) (HCC) Shortness of breath Syncope Past Surgical History: Procedure Laterality Date BACK SURGERY Social History Tobacco Use Smoking Status Former Types: Cigarettes Quit date: 05/31/2015 Years since quittin.6 Smokeless Tobacco Not on file Social History Tobacco Use Smoking status: Former Types: Cigarettes Quit date: 05/31/2015 Years since quittin.6 Smokeless tobacco: None Substance and Sexual Activity Drug use: None Sexual activity: None Alcohol Use: Not At Risk Frequency of Alcohol Consumption: Never Average Number of Drinks: Patient does not drink Frequency of Binge Drinking: Never Family History Problem Relation Age of Onset Stroke Mother Suicide Completion Father Review of Systems Constitutional: Negative for diaphoresis, fever, malaise/fatigue, weight gain and weight loss. HENT: Negative for hearing loss. Eyes: Negative for visual disturbance. Cardiovascular: Positive for palpitations. Negative for chest pain, claudication, leg swelling, orthopnea, paroxysmal nocturnal dyspnea and syncope. Respiratory: Positive for shortness of breath. Negative for cough, hemoptysis, snoring and wheezing. Hematologic/Lymphatic: Does not bruise/bleed easily. Skin: Negative for poor wound healing and rash. Musculoskeletal: Negative for joint pain and myalgias. Gastrointestinal: Negative for heartburn, nausea and vomiting. Genitourinary: Negative for hematuria. Neurological: Negative for dizziness, headaches and light-headedness. Psychiatric/Behavioral: Negative for depression. The patient is not nervous/anxious. Vital Signs: BP 118/76 (BP Location: Left arm, Patient Position: Sitting) Pulse 56 Ht 172.7 cm (5' 8 ) Wt102.5 kg (226 lb) SpO2 98% BMI 34.36 kg/m?? Physical Exam Constitutional: General: He is not in acute distress. Appearance: He is well-developed. HENT: Head: Normocephalic and atraumatic. Nose: Comments: Wearing a mask Eyes: General: No scleral icterus. Conjunctiva/sclera: Conjunctivae [...] normal. No Known Allergies Current Outpatient Medications: aspirin 325 mg tablet, Take 325 mg by mouth daily, Disp: , Rfl: No results found for: POTASSIUM, BUNSER, CREATININE, CHOL, TRIG, LDL, LDLCALC, HDL No results found for: WBC, HGB, HCT, MCV, PLT Recent Results (from the past 4 hour(s)) POCT lipid panel Collection Time: 01/26/22 2:30 PM Result Value Ref Range Cholesterol, POC 157 mg/dL HDL, POC 50 mg/dL Triglycerides, POC 150 mg/dL LDL, Direct, POC 76 mg/dL Chol/HDL Ratio, POC 1.5 Non-HDL Cholesterol, POC 106 mg/dL Cholesterol Total, POC 157 mg/dL Assessment: Diagnoses and all orders for this visit: Lone atrial fibrillation (CMS/HCC) (HCC) (Primary) Hospital discharge follow-up Lipid screening - POCT lipid panel Plan/Recommendations: He was hospitalized last month for AFib with RVR. No cause could be identified and he does not haverisk factors for AFib that could be identified either. Subsequent event monitor showed no atrial arrhythmias. Therefore since the patient did not take metoprolol after discharge I advised him to remain off of it. I explained that there is a risk he will have AFib recurrence at some point in his life. He has a suspicion AFib has recurred, notify our office. Otherwise I recommend a follow-up visit in 6 months' time. He has no activity or exercise restrictions. I advised him to do appropriate warmup and cool down with exercise and to avoid dehydration. He would be an acceptable candidate for back surgery, and I would advise that he could proceed with back surgery without any further cardiac testing. I did explain that sometimes AFib will recur shortly after a person has surgery. Point of care lipid testing in the office today looked favorable showing a total cholesterol 157, HDL 50, triglyceride 150, LDL 76. 01/26/2022 FROYLAN Unger- Nurse Practitioner with [facility] Card[facility] This note is dictated and transcribed using [email or web address] Direct Software. Licensed Psychologist variancesmay occur. Despite proofreading, typographical errors may occur. T COLLECTOR documented in this encounter Plan of Treatment Not on file documented as of this encounter Procedures Procedure Name Priority Date/Time Associated Diagnosis Comments POCT LIPID PANEL Routine 01/26/2022 2:30 PM CHART COLLECTOR Lipid screening documented in this encounter Results * POCT lipid panel (01/26/2022 2:30 PM CHART COLLECTOR) Cholesterol, POC 157 mg/dL HDL, POC 50 mg/dL Triglycerides, POC 150 mg/dL LDL Cholesterol POC 76 mg/dL Chol/HDL Ratio, POC 1.5 Non-HDL Cholesterol, POC 106 mg/dL Cholesterol Total, POC 157 mg/dL Capillary blood 01/26/2022 2 :30 PM CHART COLLECTOR Summer Jorge NP POINT OF CARE TEST ORDERA BLES Final Result documented in this encounter Visit Diagnoses Diagnosis Lone atrial fibrillation (CMS/HCC) (HCC)- Primary Atrial fibrillation Hospital discharge follow-up Other follow-up examination Lipid screening Screening for lipoid disorders documented in this encounter Historical Medications * This list may reflect changes made after this encounter. aspirin 325 mg tablet Take 1 tablet (325 mg total) by mouth daily 12/31/2021 08/02/2023 added in this encounter Care Teams Screed Person Relationship Specialty Start Date End Date Shen Galaviz MD [address] [facility] [address] [place] [phone] PCP - General Family Medicine 10/28/20 documented as of this encounter
--- OUTSIDE RECORDS SUMMARY | 2024-03-07 22:35 | XMS_ITS | Encounter Summary ---
Author Organization [facility] Address [address] [place] [address] Care Team Providers Care Mill Labor Supervisor Name Role Phone Singer Qiana MD, Maverick Hong Primary Care Provider Kyle wood Reason for Visit * Reason Comments Hypertension Anxiety Blood Sugar Problem Encounter Details Date Type Department Care Team (Late st Contact Info) Description 02/05/2014 3:30 PM PRESIDENTIAL HELICOPTER CREW CHIEF Office Visit [facility] Internal Medicine - [facility] [address] [facility] [address] [place] [address] Maverick Vu Jr., MD NO ADDRESS ON FILE Essential hypertension, benign (Primary Dx); Anxiety state, unspecified; Hypoglycemia Social History Tobacco Use Types Packs/Day Years Used Date Smoking Tobacco: Every Day Cigarettes 1 16 Smokeless Tobacco: Never Alcohol Use Standard Drinks/Week Comments No 0 (1 standard drink = 0.6 oz pur e alcohol) Sex and Gender Information Value Date Recorded Sex Assigned at Not on file Gender Identity Not on file Sexual Orientation Not on file documented as of this encounter Last Filed Vital Signs Vital Sign Reading Time Taken Comments Blood Pressure 116/68 02/05/2014 3:29 PM PRESIDENTIAL HELICOPTER CREW CHIEF Pulse 68 02/05/2014 3:29 PM PRESIDENTIAL HELICOPTER CREW CHIEF Temperature - - Respiratory Rate - - Oxygen Saturation - - Inhaled Oxygen Concentration - - Weight 83.5 kg (184 lb) 02/05/2014 3:29 PM PRESIDENTIAL HELICOPTER CREW CHIEF Height 175.3 cm (5' 9 ) 02/05/2014 3:29 PM PRESIDENTIAL HELICOPTER CREW CHIEF Body Mass Index 27.17 02/05/2014 3:29 PM PRESIDENTIAL HELICOPTER CREW CHIEF documented in this encounter Progress Notes * Maverick Vu MD - 02/05/2014 3:46 PM CST Hypertension/anxiety follow up. Patient adhering to medication well without side effects. No intercurrent illness. ROS: No chest pain, headaches, lightheadedness, orthostasis, dyspnea, edema. No cough or visual disturbance. No change in urinary habits. Pt compliant with sodium restricted diet. PE: Vital sign stable. Chest -- clear BS COR -- RRR with normal heart sounds, no murmur or gallop, peripheral pulses intact -- carotids palpable and no bruits Extremites -- no edema Abdomen -- no bruits IMP: Hypertension controlled with diet and weight loss Anxiety and panic controlled with exercise. Reactive hypoglycemia, discussed diet management REC: Monitor off medications. Discussed management with diet. Discussed diet, exercise and weight control Check lab as indicated. IDENTIAL HELICOPTER CREW CHIEF documented in this encounter Plan of Treatment Not on file documented as of this encounter Procedures Procedure Name Priority Date/Time Associated Diagnosis Comments CBC WITH DIFFERENTIAL Routine 02/05/2014 4:15 PM PRESIDENTIAL HELICOPTER CREW CHIEF Essential hypertension, benign Anxiety state, unspecified Hypoglycemia URINALYSIS WITH MICROSCOPIC Routine 02/05/2014 4:15 PM PRESIDENTIAL HELICOPTER CREW CHIEF Essential hypertension, benign Anxiety state, unspecified Hypoglycemia TSH Routine 02/05/2014 4:15 PM PRESIDENTIAL HELICOPTER CREW CHIEF Essential hypertension, benign Anxiety state, unspecified Hypoglycemia HEMOGLOBIN A1C Routine 02/05/2014 4:15 PM PRESIDENTIAL HELICOPTER CREW CHIEF Essential hypertension, benign Anxiety state, unspecified Hypoglycemia LIPID PANEL Routine 02/05/2014 4:15 PM PRESIDENTIAL HELICOPTER CREW CHIEF Essential hypertension, benign Anxiety state, unspecified Hypoglycemia COMPREHENSIVE METABOLIC PANEL Routine 02/05/2014 4:15 PM PRESIDENTIAL HELICOPTER CREW CHIEF Essential hypertension, benign Anxiety state, unspecified Hypoglycemia documented in this encounter Results * TSH (02/05/2014 4:15 PM PRESIDENTIAL HELICOPTER CREW CHIEF) TSH 1.82 0.27 - 4.20 uU/mL [facility] Blood 02/05/2014 4:15 PM PRESIDENTIAL HELICOPTER CREW CHIEF 02/05/2014 9:39 PM PRESIDENTIAL HELICOPTER CREW CHIEF Maverick Vu Jr., MD CHEMISTRY ORDERA FRANNIE Performing Organization Address City/[facility] Co de Phone Number [facility] [id number] [address] [facility] [address] * HEMOGLOBIN A1C (02/05/2014 4:15 PM PRESIDENTIAL HELICOPTER CREW CHIEF) HEMOGLOBIN A1C 5.4 4.1 - 6.1 % of Hgb [facility] EST. AVG GLUCOSE, A1C 108 mg/dL [facility] Comment:Based on the ADAG st ud equation. Blood 02/05/2014 4:15 PM PRESIDENTIAL HELICOPTER CREW CHIEF 02/05/2014 9:37 PM PRESIDENTIAL HELICOPTER CREW CHIEF Maverick Vu Jr., MD CHEMISTRY NESHA KATHLEEN Performing Organization Address [facility] Co de Phone Number [facility]# [id number] [address] [facility] [facility] [address] [facility] [id number] [address] * URINALYSIS WITH MICROSCOPIC (02/05/2014 4:15 PM PRESIDENTIAL HELICOPTER CREW CHIEF) COLOR UA Colorless [facility] CLARITY UA Clear Clear [facility] SPECIFIC GRAVITY UA 1.004 1.001 - 1.035 [facility] PH UA 6.5 5.0 - 8.0 [facility] LEUKOCYTE ESTERASE UA Negative Negative [facility] - . [place] N[facility]RITE UA Negative Negative [facility] - [facility] PROTEIN UA Negative Negative [facility] - [facility] GLUCOSE UA Negative Negative [facility] - [facility] KETONES UA Negative Negative [facility] UROBILINOGEN UA <1 <=1 mg/dL [facility] - [facility] BILIRUBIN UA Negative Negative [facility] - [facility] BLOOD UA Negative Negative [facility] - [facility] WBC URINE <1 0 - 3 /HPF [facility] - [facility] RBC, URINE <1 0 - 3 /HPF [facility] Urine URINE SPECIMEN OBTAINED BY CLEAN CATCH PROCEDURE / Unknown 02/05/2014 4:15 PM PRESIDENTIAL HELICOPTER CREW CHIEF 02/05/2014 9:22 PM PRESIDENTIAL HELICOPTER CREW CHIEF Comment:Urine Maverick Vu Jr., MD URINE ORDERABLES [facility] CLIA# [id number] [address] [facility] [place] [address] * (ABNORMAL) CBC WITH DIFFERENTIAL (02/05/2014 4:15 PM PRESIDENTIAL HELICOPTER CREW CHIEF) WBC 10.9(H) 4.0 - 9.8 K/uL [facility] RBC 4.76 4.50 - 5.40 M/uL [facility] HEMOGLOBIN 14.9 13.6 - 16.5 g/dL [facility] HEMATOCRIT 44.0 40.0 - 48.0 % [facility] MCV 92.4 82.0 - 99.0 fL [facility] MCH 31.3 27.2 - 32.6 pg [facility] MCHC 33.9 31.5 - 35.5 % [facility] PLATELETS 234 140 - 350 K/uL [facility] MPV 11.6 9.3 - 12.4 fL [facility] RDW 12.9 11.5 - 14.5 % [facility] RDW-STDEV 43.4 37.1 - 48.7 fL [facility] NEUTROPHILS 55 45 - 70 % [facility] LYMPHOCYTES 33 16 - 45 % [facility] - [facility] MONOCYTES 6 3 - 13 % [facility] EOSINOPHILS 5 0 - 7 % [facility] - . [facility] BASOPHILS 0 0 - 2 % [facility] NEUTROPHIL ABSOLUTE 6.03 1.90 - 7.00 K/uL [facility] LYMPHOCYTE ABSOLUTE 3.63 0.70 - 4.50 K/uL [facility] - . [facility] MONOCYTE ABSOLUTE 0.66 0.10 - 1.30 K/uL [facility] - . [facility] EOSINOPHIL ABSOLUTE 0.55 0.00 - 0.70 K/uL [facility] BASOPHILS ABSOLUTE 0.05 0.00 - 0.20 K/uL [facility] Blood 02/05/2014 4:15 PM PRESIDENTIAL HELICOPTER CREW CHIEF 02/05/2014 9:37 PM PRESIDENTIAL HELICOPTER CREW CHIEF Maverick Vu Jr., MD HEMATOLOGY ORDER ELLYN [facility] CLIA# [id number] [address] [place] [address] * LIPID PANEL (02/05/2014 4:15 PM PRESIDENTIAL HELICOPTER CREW CHIEF) CHOLESTEROL 126 100 - 199 mg/dL [facility] TRIGLYCERIDE 140 10 - 149 mg/dL [facility] HDL 43 40 - 59 mg/dL [facility] CHOL/HDL RATIO 2.9 2.0 - 5.0 [facility] LDL CALCULATED 55 <=99 mg/dL [facility] LIPID PANEL COMMENT See Below [facility] Comment: Classifications: Adult: Total Cholesterol mg/dL ? HDL Cholesterol ??mg/dL ?Desirable ?<200 ? Low ? <40 ?Borderline high ?200-239 ?Normal ?40-60 ??High ? >=240 ?Desirable ?? >60 Triglycerides ??mg/dL ?LDL Cholesterol ??mg/dL ??Normal ? <150 ? Optimal ? <100 ??Borderline high ?150-199 ?Low risk ?100-129 ??High ? 200-499 ?Borderline ??130-159 ??Very high ?>=500 ?High ?160-189 ?Very high ?? >=190 Pediatric: Total Cholesterol (<20 yrs) mg/dL ?? HDL Cholesterol (<5yrs) ?Desirable ?<170 ? No Reference Range ??Borderline high ?170-199 ?Established ??High ? >=200 Triglyceride ??mg/dL ? LDL ??mg/dL ?Pediatric classification ?Desirable ?<110 ?not defined ? Borderline ?? 110-129 ?High ? >=130 LDL calculation is not accurate if Triglycerides ??are greater than 400 mg/dL Based on AHA/NCEP Guidelines Blood 02/05/2014 4:15 PM PRESIDENTIAL HELICOPTER CREW CHIEF 02/05/2014 9:39 PM PRESIDENTIAL HELICOPTER CREW CHIEF Maverick Vu Jr., MD CHEMISTRY NESHA KATHLEEN [facility] [id number] [address] [place] [address] * COMPREHENSIVE METABOLIC PANEL (02/05/2014 4:15 PM PRESIDENTIAL HELICOPTER CREW CHIEF) SODIUM 140 136 - 145 mmol/L [facility] POTASSIUM 4.3 3.5 - 5.0 mmol/L [facility] CHLORIDE 103 98 - 107 mmol/L [facility]ORY SERVICES [facility] CO2 27 22 - 29 mmol/L [facility] SERVICES [facility] CALCIUM 9.2 8.6 - 10.2 mg/dL [facility] SERVICES [facility] BUN 15 6 - 20 mg/dL [facility] SERVICES [facility] CREATININE 0.97 0.67 - 1.17 mg/dL [facility] GLUCOSE 79 79 - 99 mg/dL [facility] TOTAL PROTEIN 7.3 6.7 - 8.6 g/dL [facility] ALBUMIN 4.5 3.5 - 5.2 g/dL [facility] SERVICES [facility] BILIRUBIN TOTAL 0.3 0.3 - 1.2 mg/dL [facility] LAB[facility]ORY SERVICES [facility] ALKALINE PHOSPHATASE 74 40 - 129 U/L [facility] AST 22 <=40 U/L [facility] ALT 28 <=41 U/L [facility] GFR, >60 >=60 mL/min/1.[address] [facility] SERVICES [facility] GFR >60 >=60 mL/min/1.[address] [facility] Comment: eGFR has not been validated for use in the elderly (>70 years of age), women, patients with serious co-morbid conditions, or persons with extremes of body size or muscle mass and should also be interpreted with caution in patients with acute kidney failure, dialysis dependant patients, patients reporting exceptional dietary intake (e.g.vegetarian diet, high protein diets, creatine supplementation), and patients with severe liver disease. eGFR is not valid for patients <18 years of age. ?? Based on National Kidney Disease Education Program. Blood 02/05/2014 4:15 PM PRESIDENTIAL HELICOPTER CREW CHIEF 02/05/2014 9:39 PM PRESIDENTIAL HELICOPTER CREW CHIEF Maverick Vu Jr., MD CHEMISTRY [facility] Organization Address City/State/ZIP Co de Phone Number [facility]# [id number] [address] [place] [address] documented in this encounter Visit Diagnoses Diagnosis Essential hypertension, benign- Primary Anxiety state, unspecified Hypoglycemia Hypoglycemia, unspecified documented in this encounter Care Teams Mill Labor Supervisor Relationship Specialty Start Date End Date Maverick Vu Jr., MD NO ADDRESS ON FILE PCP - General 05/19/12 01/17/20 documented as of this encounter
--- OUTSIDE RECORDS SUMMARY | 2024-03-07 22:35 | XMS_ITS | Encounter Summary ---
Author Organization [facility] Address [address] [place] [address] Care Team Providers Care Radiophone Operator Name Role Phone Singer Qiana MD, Maverick Hong Primary Care Provider Kyle wood Reason for Visit * Reason Onset Date Comments Question 06/14/2017 Encounter Details Date Type Department Care Team (Late st Contact Info) Description 06/14/2017 Telephone [facility] Primary Care - [address] [address] Singer Kiran, Maverick Hong MD NO ADDRESS ON FILE Question Social History Tobacco Use Types Packs/Day Years Used Date Smoking Tobacco: Former Cigarettes 1 16 Smokeless Tobacco: Never Alcohol Use Standard Drinks/Week Comments No 0 (1 standard drink = 0.6 oz pur e alcohol) Sex and Gender Information Value Date Recorded Sex Assigned at Not on file Gender Identity Not on file Sexual Orientation Not on file documented as of this encounter Miscellaneous Notes * Telephone Encounter - Sakina Pang - 06/14/2017 5:10 PM CDT Spoke with DR - patient notified & advised that we are not familiar with [place] providers. Patient was advised to contact the # on back of his insurance & they should be able to advise of covered provider in area he is requesting. Patient verbalized understanding(km) * Telephone Encounter - Stepan Sandra Suzan - 06/14/2017 4:12 PM CDT Pt has questions for Dr. Cosby 1. Pt went to alcohol rehab about 5 yrs ago. 2. Now applying for gun permit, was denied until a mental health certification exam is done by a [place] physician,clinical psychologist or qualified examiner? 3. Asking if dr cosby would know of an [place] dr that could do this for him? documented in this encounter Plan of Treatment Not on file documented as of this encounter Visit Diagnoses Not on filedocumented in this encounter Care Teams Radiophone Operator Relationship Specialty Start Date End Date Maverick Cosby Jr., MD NO ADDRESS ON FILE PCP - General 05/19/12 01/17/20 documented as of this encounter
--- OUTSIDE RECORDS SUMMARY | 2024-03-07 22:35 | XMS_ITS | Encounter Summary ---
Author Organization [facility] Address [address] [place] [address] Care Team Providers Care Upholstery Technician Name Role Phone Singer Qiana MD, Maverick Hong Primary Care Provider Kyle wood Reason for Visit * Reason Onset Date Comments Provider Call 03/19/2015 Encounter Details Date Type Department Care Team (Late st Contact Info) Description 03/19/2015 Telephone [facility] Internal Medicine - [facility] [address] [place] [address] Maverick Vu Jr., MD NO ADDRESS ON FILE Provider Call Social History Tobacco Use Types Packs/Day [...] encounter Miscellaneous Notes * Telephone Encounter - Aurora Mina - 03/19/2015 3:45 PM CST Patient notified GER AUTOMOTIVE * Telephone Encounter - Maverick Vu MD - 03/19/2015 3:36 PM CST There is no earlier appt available on . Pt can call morning and if there is a cancellation he can be seen earlier GER AUTOMOTIVE * Telephone Encounter - Marielena Sahni - 03/19/2015 3:25 PM CST Patient has appointment with Dr. Vu on at 3:45 - patient has just been informed by hiswork that they will probably be closing around 12 or 12:30 on . Patient lives in [place] and is wondering if Dr. Vu could move his appointment up so that he doesn't have to go into [place] and then backtrack to [place] for his appointment. Please call to discuss. GER AUTOMOTIVE documented in this encounter Plan of Treatment Not on file documented as of this encounter Visit Diagnoses Not on filedocumented in this encounter Care Teams Upholstery Technician Relationship Specialty Start Date End Date Maverick Vu Jr., MD NO ADDRESS ON FILE PCP - General 05/19/12 01/17/20 documented as of this encounter
--- OUTSIDE RECORDS SUMMARY | 2024-03-07 22:35 | XMS_ITS | Encounter Summary ---
Author Organization [facility] Address [address] [place] [address] Care Team Providers Care Ordnance Equipment Worker Name Role Phone Singer Qiana MD, Maverick Hong Primary Care Provider Kyle wood Reason for Visit * Reason Onset Date Comments Referral Request 11/28/2018 Encounter Details Date Type Department Care Team (Late st Contact Info) Description 11/28/2018 Telephone [facility] Primary Care - [address] [address] Maverick Vu Jr., MD NO ADDRESS ON FILE Referral Request Social History Tobacco Use Types Packs/Day [...] * Telephone Encounter - Sakina Pang - 11/28/2018 1:41 PM CDT Patient notified; verbalized understanding(km) * Telephone Encounter - Maverick Vu MD - 11/28/2018 11:39 AM CDT I do not know physicians in his area. He should contact [facility] Physician referral line for a recommendation * Telephone Encounter - Melodie Hinton - 11/28/2018 10:21 AM CDT Pt has just moved over to [place]. Pt has moved close to [facility]. He is wanting to know if we have a referral for primary care dr in that area. Pt is sad to let Dr. Vu go of 30 years but the distance is just hard when he has a hospital close by. Please advise. documented in this encounter Plan of Treatment Not on file documented as of this encounter Visit Diagnoses Not on filedocumented in this encounter Care Teams Ordnance Equipment Worker Relationship Specialty Start Date End Date Maverick Vu Jr., MD NO ADDRESS ON FILE PCP - General 05/19/12 01/17/20 documented as of this encounter
--- OUTSIDE RECORDS SUMMARY | 2024-03-07 22:35 | XMS_ITS | Encounter Summary ---
Author Organization [facility] Address [address] [place] [address] Care Team Providers Care Director Presales Name Role Phone Singer Qiana MD, Maverick Hong Primary Care Provider Kyle wood Reason for Visit * Reason Onset Date Comments ear symptoms worse 04/13/2016 Encounter Details Date Type Department Care Team (Late st Contact Info) Description 04/13/2016 Telephone [facility] Primary Care - [address] [address] Maverick Vu Jr., MD NO ADDRESS ON FILE ear symptoms worse Social History Tobacco Use Types Packs/Day Years [...] encounter Miscellaneous Notes * Telephone Encounter - Archana Kwan - 04/13/2016 11:55 AM CST Pt contacted EATION OFFICER * Telephone Encounter - Maverick Vu MD - 04/13/2016 10:16 AM CST OK to switch to a different antibiotic, trial levaquin daily in place of amox/clav EATION OFFICER * Telephone Encounter - Nini Manzanares - 04/13/2016 9:41 AM CST Patient has been taking augmentin since last for his ear infection-also taking ibuprofin for pain-his symptoms seem to be getting worse-his R ear is draining yellow fluid and he has throbbing pain-it is totally blocked and he also gets stabbing pains-wanting to know if he should be doing something else EATION OFFICER documented in this encounter Plan of Treatment Not on file documented as of this encounter Visit Diagnoses Not on filedocumented in this encounter Care Teams Director Presales Relationship Specialty Start Date End Date Maverick Vu Jr., MD NO ADDRESS ON FILE PCP - General 05/19/12 01/17/20 documented as of this encounter
--- OUTSIDE RECORDS SUMMARY | 2024-03-07 22:35 | XMS_ITS | Encounter Summary ---
Author Organization [facility] Address [address] [place] [address] Care Team Providers Care Statistical Reporting Analyst Name Role Phone Singer Qiana MD, Maverick Hong Primary Care Provider U chelseaailamber Reason for Referral * Eval and Treat (Routine) - Closed Specialty Diagnoses / Procedures Referred By Contac t Referred To Contact Dermatology Diagnoses Blue nevus of forearm, left Maverick Vu Jr., MD NO ADDRESS ON FILE Julián Beatty PA [address] [facility] [address] [place] [address] Referral ID Status Reason Start Date Expiration Date V isits Requested Visits Authorized [id number] Closed CRS To Schedule (STL) 03/21/2015 03/20/2016 1 1 L POLISHER Reason for Visit * Reason Comments Physical Encounter Details Date Type Department Care Team (Late st Contact Info) Description 03/21/2015 3:45 PM WHEEL POLISHER Office Visit [facility] Internal Medicine - [facility] [address] [facility] [address] [place] [id number] Maverick Vu Jr., MD NO ADDRESS ON FILE Routine general medical examination at a health care facility (Primary Dx); Personal history of tobacco use, presenting hazards to health; Blue nevus of forearm, left Social History Tobacco Use Types Packs/Day Years Used Date Smoking Tobacco: Every Day Cigarettes 1 16 Smokeless Tobacco: Never Tobacco Cessation:Ready to Q uit: No; Counseling Given: Yes Alcohol Use Standard Drinks/Week Comments No 0 (1 standard drink = 0.6 oz pur e alcohol) Sex and Gender Information Value Date Recorded Sex Assigned at Not on file Gender Identity Not on file Sexual Orientation Not on file documented as of this encounter Last Filed Vital Signs Vital Sign Reading Time Taken Comments Blood Pressure 115/78 03/21/2015 3:37 PM WHEEL POLISHER Pulse 70 03/21/2015 3:37 PM WHEEL POLISHER Temperature - - Respiratory Rate - - Oxygen Saturation - - Inhaled Oxygen Concentration - - Weight 88.9 kg (196 lb) 03/21/2015 3:37 PM WHEEL POLISHER Height 175.3 cm (5' 9 ) 03/21/2015 3:37 PM WHEEL POLISHER Body Mass Index 28.94 03/21/2015 3:37 PM WHEEL POLISHER documented in this encounter Progress Notes * Maverick Vu MD - 03/21/2015 3:53 PM CST SUBJECTIVE: Lyudmila Tillman is a 34 y.o. male presenting for his annual checkup. Patient Active Problem List Diagnosis Date Noted ??? GERD (gastroesophageal reflux disease) 11/02/2012 ??? Degeneration of lumbar or lumbosacral intervertebral disc 12/24/2010 ??? Esophageal reflux 08/29/2010 ??? Panic disorder without agoraphobia 08/29/2010 ??? Clubbing of fingers 06/07/2009 ??? Essential hypertension, benign 06/07/2009 ??? Personal history of tobacco use, presenting hazards to health 11/07/2008 ??? Obstructive sleep apnea (adult) (pediatric) 01/18/2008 ??? Anxiety state, unspecified 09/02/2006 ??? Benign paroxysmal positional vertigo 09/02/2006 No current outpatient prescriptions on file prior to visit. No current facility-administered medications on file prior to visit. No Known Allergies Past Medical History Diagnosis Date ??? HTN (hypertension) No past surgical history on file. Family History Problem Relation Age of Onset ??? Cancer Father colon ??? Bipolar Disorder Father ??? Anxiety Mother ??? Inflammatory Bowel Disease Mother ulcerative colitis ??? Diabetes History Substance Use Topics ??? Smoking status: Current Every Day Smoker -- 1.00 packs/day for 16 years Types: Cigarettes ??? Smokeless tobacco: Never Used ??? Alcohol Use: No ROS: Feeling well. No dyspnea or chest pain on exertion. No abdominal pain, change in bowel habits,black or bloody stools. No urinary tract or prostatic symptoms. No neurological complaints. OBJECTIVE: The patient appears well, alert, oriented x 3, in no distress. BP 115/78 mmHg Pulse 70 Ht 5' 9 (1.753 m) Wt 196 lb (88.905 kg) BMI 28.93 kg/m2 ENT normal. Neck supple. No adenopathy or thyromegaly. LI. Lungs are clear, good air entry, no wheezes, rhonchi or rales. S1 and S2 normal, no murmurs, regular rate and rhythm. Abdomen is soft without tenderness, guarding, mass or organomegaly. exam: no penile lesions or discharge, no testicular masses or tenderness, no hernias, HERNIA EXAM: no hernias found on exam, TESTICULAR EXAM: normal, no masses. Extremities show no edema, normal peripheral pulses. Neurological is normal without focal findings. Skin - bluish mole left forearm ASSESSMENT: healthy adult male Suspicious mole left arm - dermatology consult for excision Tobacco use disorder PLAN: continue current healthy lifestyle patterns Trial nocitine patches. L POLISHER documented in this encounter Plan of Treatment Scheduled Referrals Name Type Priority Associated Diagnoses Order Schedule AMB REFERRAL TO DERMATOLOGY Outpatient Referral Routine Blue nevus of forearm, left Ordered: 03/21/2015 documented as of this encounter Results * (ABNORMAL) URINALYSIS WITH MICROSCOPIC (03/21/2015 4:14 PM WHEEL POLISHER) COLOR UA Colorless(A ) Pale to Dark Yellow 03/21/2015 8:22 PM WHEEL POLISHER [employer] LABORATORY SERVICES - [facility] CLARITY UA Clear Clear 03/21/2015 8:22 PM [employer] LABORATORY SERVICES - . [facility] SPECIFIC GRAVITY UA 1.005 1.003 - 1.035 03/21/2015 8:22 PM [employer] LABORATORY SERVICES - . [facility] PH UA 7.0 5.0 - 8.0 03/21/2015 8:22 PM WHEEL POLISHER [employer] LABORATORY SERVICES - . [facility] LEUKOCYTE ESTERASE UA Negative Negative 03/21/2015 8:22 PM WHEEL POLISHER [employer] LABORATORY SERVICES - . [facility] NITRITE UA Negative Negative 03/21/2015 8:22 PM [facility] [employer] LABORATORY SERVICES - . [facility] PROTEIN UA Negative Negative 03/21/2015 8:22 PM WHEEL POLISHER [employer] LABORATORY SERVICES - . [facility] GLUCOSE UA Negative Negative 03/21/2015 8:22 PM [facility] LABORATORY SERVICES - [facility] KETONES UA Negative Negative 03/21/2015 8:22 PM [facility] LABORATORY [facility] UROBILINOGEN UA Normal <2.0 mg/dL 03/21/2015 8:22 PM [facility] LABORATORY [facility] BILIRUBIN UA Negative Negative 03/21/2015 8:22 PM [facility] LABORATORY [facility] BLOOD UA Negative Negative 03/21/2015 8:22 PM [facility] LABORATORY [facility] - [facility] WBC UA 0-2 0 - 2 /hpf 03/21/2015 8:22 PM [facility] LABORATORY [facility] - [facility] RBC UA 0-2 0 - 2 /hpf 03/21/2015 8:22 PM [facility] LABORATORY [facility] BACTERIA UA Negative Negative /hpf 03/21/2015 8:22 PM [facility] LABORATORY [facility] Urine, clean catch URINE SPECIMEN OBTAINED BY CLEAN CATCH PROCEDURE / Unknown Collection / Unknown 03/21/2015 4:14 PM WHEEL POLISHER 03/21/2015 4:14 PM WHEEL POLISHER Maverick Vu Jr., MD URINE ORDERABLES [facility] CLIA# [id number] [address] [place] [address] * TSH (03/21/2015 4:14 PM WHEEL POLISHER) TSH 1.70 0.27 - 4.20 uIU/mL 03/21/2015 8:49 PM [facility] LABORATORY [facility] Blood Venipuncture - L ab Collect / Unknown 03/21/2015 4:14 PM WHEEL POLISHER 03/21/2015 4:14 PM WHEEL POLISHER Maverick Vu Jr., MD CHEMISTRY ORDERA BLES [facility] CLIA# [id number] [address] [place] [address] * LIPID PANEL (03/21/2015 4:14 PM WHEEL POLISHER) [facility] Signature CHOLESTEROL 142 <200 mg/dL 03/21/2015 8:44 PM [facility] [employer] [facility] TRIGLYCERIDE 67 <150 mg/dL 03/21/2015 8:44 PM [facility] [employer] [facility] HDL 52 40 - 59 mg/dL 03/21/2015 8:44 PM [facility] [employer] [facility] LDL CALCULATED 77 <100 mg/dL 03/21/2015 8:44 PM [facility] [employer] [facility] NON-HDL CHOLESTEROL 90 <130 mg/dL 03/21/2015 8:44 PM [facility] [employer] [facility] Blood Venipuncture - L ab Collect / Unknown 03/21/2015 4:14 PM WHEEL POLISHER 03/21/2015 4:14 PM [facility] [employer] [facility] - 03/21/2015 8:44 PM WHEEL POLISHER TOTAL CHOLESTEROL mg/dL ??Desirable ? <200 ??Borderline high ?200-239 ??High ?>=240 TRIGLYCERIDES mg/dL ??Normal ?<150 ??Borderline high ?150-199 ??High ? 200-499 ??Very high ? >=500 HDL CHOLESTEROL mg/dL ??Low ?<40 ??Normal ?40-59 ??Desirable ? >=60 LDL CHOLESTEROL mg/dL ??Optimal ? <100 ??Low risk ? 100-129 ??Borderline high ?130-159 ??High ? 160-189 ??Very high ? >=190 NON HDL CHOLESTEROL mg/dL ??Optimal ? <130 ??Near Optimal ? 130-159 ??Borderline High ?160-189 ??High ? 190-219 ??Very high ? >=220 Based on AHA/NCEP Guidelines Maverick Vu Jr., MD CHEMISTRY ORDERA BLES [facility] LABORATORY SERVICES - [facility] CLIA# [id number] [address] [place] [address] * (ABNORMAL) CBC WITH DIFFERENTIAL (03/21/2015 4:14 PM WHEEL POLISHER) [facility] WBC 9.0 4.0 - 9.8 K/uL 03/21/2015 8:18 PM WHEEL POLISHER [employer] LABORATORY SERVICES - [facility] RBC 4.73 3.90 - 4.90 M/uL 03/21/2015 8:18 PM WHEEL POLISHER [employer] [facility] - [facility] HEMOGLOBIN 14.6 13.6 - 16.5 g/dL 03/21/2015 8:18 PM [facility] HEMATOCRIT 43.0 40.0 - 48.0 % 03/21/2015 8:18 PM WHEEL POLISHER [employer] SERVICES - [facility] MCV 90.9 82.0 - 99.0 fL 03/21/2015 8:18 PM WHEEL POLISHER [employer] [facility]ATORY SERVICES - [facility] MCH 30.9 27.2 - 32.6 pg 03/21/2015 8:18 PM WHEEL POLISHER [employer] [facility] - [facility] MCHC 34.0 30.0 - 36.0 g/dL 03/21/2015 8:18 PM WHEEL POLISHER [employer] [facility] - [facility] RDW 12.8 11.5 - 14.5 % 03/21/2015 8:18 PM WHEEL POLISHER [employer] [facility] - [facility] RDW-STDEV 42.3 37.1 - 48.7 fL 03/21/2015 8:18 PM WHEEL POLISHER [employer] [facility] - [facility] PLATELETS 216 140 - 350 K/uL 03/21/2015 8:18 PM [facility]ORY SERVICES - . [place] MPV 11.0 9.3 - 12.4 fL 03/21/2015 8:18 PM [facility]AT[facility] - [facility] [place] NEUTROPHILS 51 45 - 70 % 03/21/2015 8:18 PM [facility]ATORY [facility] - [facility] [place] LYMPHOCYTES 36 16 - 45 % 03/21/2015 8:18 PM [facility] [employer] [facility] MONOCYTES 7 3 - 13 % 03/21/2015 8:18 PM [facility] LABORATORY [facility] EOSINOPHILS 7(H) <7 % 03/21/2015 8:18 PM [facility] [employer] LABORATORY SERVICES - [facility] [place] BASOPHILS 1 <3 % 03/21/2015 8:18 PM [facility] [employer] LABORATORY [facility] [place] NEUTROPHIL ABSOLUTE 4.52 1.90 - 7.00 K/uL 03/21/2015 8:18 PM [facility] LABORATORY [facility] [place] LYMPHOCYTE ABSOLUTE 3.18 0.70 - 4.50 K/uL 03/21/2015 8:18 PM [facility] [employer] [facility] MONOCYTE ABSOLUTE 0.58 0.10 - 1.30 K/uL 03/21/2015 8:18 PM [facility] [employer] LABORATORY SERVICES - . [place] EOSINOPHIL ABSOLUTE 0.60 <0.70 K/uL 03/21/2015 8:18 PM [facility] [employer] LABORATORY SERVICES - [facility] [place] BASOPHILS ABSOLUTE 0.07 <0.30 K/uL 03/21/2015 8:18 PM [facility] [employer] [facility] [place] Blood Venipuncture - L ab Collect / Unknown 03/21/2015 4:14 PM WHEEL POLISHER 03/21/2015 4:14 PM WHEEL POLISHER Maverick Vu Jr., MD HEMATOLOGY ORDER [facility] [employer] [facility]# [id number] [address] [facility] [place] [address] * HEMOGLOBIN A1C (03/21/2015 4:14 PM WHEEL POLISHER) HEMOGLOBIN A1C 5.3 4.1 - 6.1 % 03/21/2015 8:26 PM [facility] LABORATORY SERVICES - [facility] EST. AVG GLUCOSE, A1C 105 mg/dL 03/21/2015 8:26 PM [facility] LAB[facility]ATORY SERVICES - [facility] Blood Venipuncture - L ab Collect / Unknown 03/21/2015 4:14 PM WHEEL POLISHER 03/21/2015 4:14 PM WHEEL POLISHER [facility] LABORATORY SERVICES - [facility] - 03/21/2015 8:26 PM WHEEL POLISHER Based on the ADAG study equation. Maverick Vu Jr., MD CHEMISTRY ORDERA BLES [facility] [employer] SERVICES [facility] CLIA# [id number] [address] [facility] [place] [address] * COMPREHENSIVE METABOLIC PANEL (03/21/2015 4:14 PM WHEEL POLISHER) SODIUM 141 136 - 145 mmol/L 03/21/2015 8:44 PM [facility] [employer] LABORATORY SERVICES - . [place] POTASSIUM 4.3 3.5 - 5.0 mmol/L 03/21/2015 8:44 PM [facility] LABORATORY SERVICES - [facility] CHLORIDE 101 98 - 107 mmol/L 03/21/2015 8:44 PM [facility] [employer] LAB[facility]ATORY SERVICES - [facility] [place] CO2 28 22 - 29 mmol/L 03/21/2015 8:44 PM [facility]ATORY SERVICES - [facility] CALCIUM 9.0 8.6 - 10.2 mg/dL 03/21/2015 8:44 PM [facility] LABORATORY [facility] BUN 19 6 - 20 mg/dL 03/21/2015 8:44 PM [facility] LABORATORY [facility] CREATININE 1.06 0.67 - 1.17 mg/dL 03/21/2015 8:44 PM [facility] [employer] LABORATORY [facility] GLUCOSE 85 79 - 99 mg/dL 03/21/2015 8:44 PM [facility] LABORATORY [facility] TOTAL PROTEIN 7.3 6.7 - 8.6 g/dL 03/21/2015 8:44 PM [facility] [employer] LABORATORY [facility] ALBUMIN 4.7 3.5 - 5.2 g/dL 03/21/2015 8:44 PM [facility] [employer] LABORATORY SERVICES - [facility] [place] BILIRUBIN TOTAL 0.4 0.3 - 1.2 mg/dL 03/21/2015 8:44 PM [facility] LABORATORY [facility] ALKALINE PHOSPHATASE 66 40 - 129 U/L 03/21/2015 8:44 PM [facility] LABORATORY [facility] AST 23 <41 U/L 03/21/2015 8:44 PM [facility] LABORATORY [facility] ALT 26 <42 U/L 03/21/2015 8:44 PM [facility] LABORATORY [facility] GFR >60 >=60 mL/min/1.7 3 sq meter 03/21/2015 8:44 PM [facility] LABORATORY [facility] Comment: eGFR has not been validated for use in the elderly (> 70 years of age), women, patients with serious co-morbid conditions, or persons with extremes of body size or muscle mass and should also be interpreted with caution in patients with acute kidney failure, dialysis dependent patients, patients reporting exceptional dietary intake (e.g. vegetarian diet, high protein diets, creatine supplementation), and patients with severe liver disease. Based on National Kidney Disease Education Program If patient is , please refer to the GFR result. GFR, >60 >=60 mL/min/1.7 3 sq meter 03/21/2015 8:44 PM [facility] LABORATORY [facility] ANION GAP 12 8 - 16 mmol/L 03/21/2015 8:44 PM [facility] LABORATORY [facility] Blood Venipuncture - L ab Collect / Unknown 03/21/2015 4:14 PM WHEEL POLISHER 03/21/2015 4:14 PM WHEEL POLISHER Maverick Vu Jr., MD [id number] 5 [facility] [place] [address] documented in this encounter Visit Diagnoses Diagnosis Routine general medical examination at a health care facility- Primary Personal history of tobacco use, presenting hazards to health Blue nevus of forearm, left documented in this encounter Care Teams Statistical Reporting Analyst Relationship Specialty Start Date End Date Maverick Vu Jr., MD NO ADDRESS ON FILE PCP - General 05/19/12 01/17/20 documented as of this encounter
--- OUTSIDE RECORDS SUMMARY | 2024-03-07 22:35 | XMS_ITS | Encounter Summary ---
Author Organization [facility] Address [address] [place] [address] Care Team Providers Care Pump House Operator Name Role Phone Singer Qiana MD, Maverick Hong Primary Care Provider Kyle wood Encounter Details Date Type Department Care Team (Late st Contact Info) Description 03/21/2015 Orders Only [facility] Internal Medicine - [facility] [address] [place] [address] Carmela Murillo Routine general medical examination at a health care facility Social History Tobacco Use Types Packs/Day Years [...] Associated Diagnosis Comments CBC WITH DIFFERENTIAL Routine 03/21/2015 4:14 PM [employer]IGITAL PHOTOGRAPHIC PRINTER Routine general medical examination at a health care facility URINALYSIS WITH MICROSCOPIC Routine 03/21/2015 4:14 PM DIGITAL PHOTOGRAPHIC PRINTER Routine general medical examination at a health care facility TSH Routine 03/21/2015 4:14 PM DIGITAL PHOTOGRAPHIC PRINTER Routine general medical examination at a health care facility HEMOGLOBIN A1C Routine 03/21/2015 4:14 PM DIGITAL PHOTOGRAPHIC PRINTER Routine general medical examination at a [facility] care facility LIPID PANEL Routine 03/21/2015 4:14 PM DIGITAL PHOTOGRAPHIC PRINTER Routine general medical examination at a health care facility COMPREHENSIVE METABOLIC PANEL Routine 03/21/2015 4:14 PM DIGITAL PHOTOGRAPHIC PRINTER Routine general medical examination at a health care facility documented in this encounter Results * (ABNORMAL) URINALYSIS WITH MICROSCOPIC (03/21/2015 4:14 PM DIGITAL PHOTOGRAPHIC PRINTER) COLOR UA Colorless(A ) Pale to Dark Yellow 03/21/2015 8:22 PM [facility] [employer] LABORATORY SERVICES - . [facility] CLARITY UA Clear Clear 03/21/2015 8:22 PM [facility] [employer] LABORATORY SERVICES - . [place] SPECIFIC GRAVITY UA 1.005 1.003 - 1.035 03/21/2015 8:22 PM [facility] [employer] LABORATORY SERVICES - . [place] PH UA 7.0 5.0 - 8.0 03/21/2015 8:22 PM [facility] [employer] LABORATORY SERVICES - . [facility] LEUKOCYTE ESTERASE UA Negative Negative 03/21/2015 8:22 PM [facility] [employer] LABORATORY SERVICES - . [facility] NITRITE UA Negative Negative 03/21/2015 8:22 PM [facility] [employer] LABORATORY SERVICES - . [facility] PROTEIN UA Negative Negative 03/21/2015 8:22 PM [facility] [employer] LABORATORY SERVICES - . [facility] GLUCOSE UA Negative Negative 03/21/2015 8:22 PM [facility] [employer] LABORATORY SERVICES - . [facility] KETONES UA Negative Negative 03/21/2015 8:22 PM [facility] [employer] LABORATORY SERVICES - . [facility] UROBILINOGEN UA Normal <2.0 mg/dL 03/21/2015 8:22 PM [facility] [employer] LABORATORY SERVICES - . [facility] BILIRUBIN UA Negative Negative 03/21/2015 8:22 PM [facility] [employer] LABORATORY SERVICES - . [facility] BLOOD UA Negative Negative 03/21/2015 8:22 PM [facility] [employer] LABORATORY SERVICES - . [place] WBC UA 0-2 0 - 2 /hpf 03/21/2015 8:22 PM [facility] [employer] LABORATORY SERVICES - . [place] RBC UA 0-2 0 - 2 /hpf 03/21/2015 8:22 PM DIGITAL PHOTOGRAPHIC PRINTER [employer] LABORATORY SERVICES - . [place] BACTERIA UA Negative Negative /hpf 03/21/2015 8:22 PM [facility] [employer] LABORATORY SERVICES - [facility] Urine, clean catch URINE SPECIMEN OBTAINED BY CLEAN CATCH PROCEDURE / Unknown Collection / Unknown 03/21/2015 4:14 PM DIGITAL PHOTOGRAPHIC PRINTER 03/21/2015 4:14 PM DIGITAL PHOTOGRAPHIC PRINTER Maverick Vu Jr., MD URINE ORDERABLES Performing Organization Address [facility]/ZIP Co de Phone Number [facility]# [id number] [address] [place] [address] * TSH (03/21/2015 4:14 PM DIGITAL PHOTOGRAPHIC PRINTER) TSH 1.70 0.27 - 4.20 uIU/mL 03/21/2015 8:49 PM DIGITAL PHOTOGRAPHIC PRINTER [facility] LABORATORY [facility] Blood Venipuncture - L ab Collect / Unknown 03/21/2015 4:14 PM DIGITAL PHOTOGRAPHIC PRINTER 03/21/2015 4:14 PM DIGITAL PHOTOGRAPHIC PRINTER Maverick Vu Jr., MD CHEMISTRY ORDERA BLES Performing Organization Address [facility] Phone Number [facility]# [id number] [address] [place] [address] * LIPID PANEL (03/21/2015 4:14 PM DIGITAL PHOTOGRAPHIC PRINTER) CHOLESTEROL 142 <200 mg/dL 03/21/2015 8:44 PM DIGITAL PHOTOGRAPHIC PRINTER [facility] LABORATORY [facility] TRIGLYCERIDE 67 <150 mg/dL 03/21/2015 8:44 PM [facility] LABORATORY [facility] HDL 52 40 - 59 mg/dL 03/21/2015 8:44 PM [facility] LABORATORY [facility] LDL CALCULATED 77 <100 mg/dL 03/21/2015 8:44 PM DIGITAL PHOTOGRAPHIC PRINTER [facility] [employer] [facility] NON-HDL CHOLESTEROL 90 <130 mg/dL 03/21/2015 8:44 PM [facility] LABORATORY [facility] Blood Venipuncture - L ab Collect / Unknown 03/21/2015 4:14 PM DIGITAL PHOTOGRAPHIC PRINTER 03/21/2015 4:14 PM DIGITAL PHOTOGRAPHIC PRINTER Narrative [facility] LABORATORY SERVICES - [facility] - 03/21/2015 8:44 PM DIGITAL PHOTOGRAPHIC PRINTER TOTAL CHOLESTEROL mg/dL ??Desirable ? <200 ??Borderline [...] ? >=220 Based on AHA/NCEP Guidelines Maverick uV Jr., MD CHEMISTRY NESHA KATHLEEN Performing Organization Address [facility] de Phone Number [facility] LABORATORY [facility]# [id number] [address] [place] [address] * (ABNORMAL) CBC WITH DIFFERENTIAL (03/21/2015 4:14 PM DIGITAL PHOTOGRAPHIC PRINTER) Pathologist [facility] WBC 9.0 4.0 - 9.8 K/uL 03/21/2015 8:18 PM DIGITAL PHOTOGRAPHIC PRINTER [employer] LABORATORY SERVICES - [facility] RBC 4.73 3.90 - 4.90 M/uL 03/21/2015 8:18 PM DIGITAL PHOTOGRAPHIC PRINTER [employer] LABORATORY SERVICES - [facility] HEMOGLOBIN 14.6 13.6 - 16.5 g/dL 03/21/2015 8:18 PM DIGITAL PHOTOGRAPHIC PRINTER [employer] LABORATORY SERVICES - [facility] HEMATOCRIT 43.0 40.0 - 48.0 % 03/21/2015 8:18 PM DIGITAL PHOTOGRAPHIC PRINTER [employer] LABORATORY SERVICES - [facility] MCV 90.9 82.0 - 99.0 fL 03/21/2015 8:18 PM DIGITAL PHOTOGRAPHIC PRINTER [employer] LABORATORY SERVICES - [facility] MCH 30.9 27.2 - 32.6 pg 03/21/2015 8:18 PM DIGITAL PHOTOGRAPHIC PRINTER [employer] LABORATORY SERVICES - . [place] MCHC 34.0 30.0 - 36.0 g/dL 03/21/2015 8:18 PM [employer] LABORATORY SERVICES - [facility] RDW 12.8 11.5 - 14.5 % 03/21/2015 8:18 PM [facility] LABORATORY SERVICES - . [place] RDW-STDEV 42.3 37.1 - 48.7 fL 03/21/2015 8:18 PM [facility] - [facility] PLATELETS 216 140 - 350 K/uL 03/21/2015 8:18 PM [facility] - [facility] MPV 11.0 9.3 - 12.4 fL 03/21/2015 8:18 PM [facility] - [facility] NEUTROPHILS 51 45 - 70 % 03/21/2015 8:18 PM [facility] [facility] - [facility] LYMPHOCYTES 36 16 - 45 % 03/21/2015 8:18 PM DIGITAL PHOTOGRAPHIC PRINTER [employer] LABORATORY SERVICES - [facility] MONOCYTES 7 3 - 13 % 03/21/2015 8:18 PM DIGITAL PHOTOGRAPHIC PRINTER [employer] LABORATORY SERVICES - [facility] EOSINOPHILS 7(H) <7 % 03/21/2015 8:18 PM DIGITAL PHOTOGRAPHIC PRINTER [employer] LABORATORY SERVICES - [facility] BASOPHILS 1 <3 % 03/21/2015 8:18 PM DIGITAL PHOTOGRAPHIC PRINTER [employer] LABORATORY SERVICES - [facility] NEUTROPHIL ABSOLUTE 4.52 1.90 - 7.00 K/uL 03/21/2015 8:18 PM DIGITAL PHOTOGRAPHIC PRINTER [employer] LABORATORY SERVICES - . [place] LYMPHOCYTE ABSOLUTE 3.18 0.70 - 4.50 K/uL 03/21/2015 8:18 PM DIGITAL PHOTOGRAPHIC PRINTER [employer] LABORATORY [facility] MONOCYTE ABSOLUTE 0.58 0.10 - 1.30 K/uL 03/21/2015 8:18 PM [facility] LABORATORY [facility] EOSINOPHIL ABSOLUTE 0.60 <0.70 K/uL 03/21/2015 8:18 PM [facility] LABORATORY [facility] BASOPHILS ABSOLUTE 0.07 <0.30 K/uL 03/21/2015 8:18 PM [facility] Blood Venipuncture - L ab Collect / Unknown 03/21/2015 4:14 PM DIGITAL PHOTOGRAPHIC PRINTER 03/21/2015 4:14 PM DIGITAL PHOTOGRAPHIC PRINTER Maverick Vu Jr., MD HEMATOLOGY ORDER [facility]# [id number] [address] [place] [address] * HEMOGLOBIN A1C (03/21/2015 4:14 PM DIGITAL PHOTOGRAPHIC PRINTER) Pathologist [facility] HEMOGLOBIN A1C 5.3 4.1 - 6.1 % 03/21/2015 8:26 PM [facility] EST. AVG GLUCOSE, A1C 105 mg/dL 03/21/2015 8:26 PM [facility] Blood Venipuncture - L ab Collect / Unknown 03/21/2015 4:14 PM DIGITAL PHOTOGRAPHIC PRINTER 03/21/2015 4:14 PM DIGITAL PHOTOGRAPHIC PRINTER Narrative [facility] - 03/21/2015 8:26 PM DIGITAL PHOTOGRAPHIC PRINTER Based on the ADAG study equation. Maverick Vu Jr., MD CHEMISTRY ORDERA BLES [facility]# [id number] [address] [place] [address] * COMPREHENSIVE METABOLIC PANEL (03/21/2015 4:14 PM DIGITAL PHOTOGRAPHIC PRINTER) SODIUM 141 136 - 145 mmol/L 03/21/2015 8:44 PM DIGITAL PHOTOGRAPHIC PRINTER [facility] POTASSIUM 4.3 3.5 - 5.0 mmol/L 03/21/2015 8:44 PM DIGITAL PHOTOGRAPHIC PRINTER [employer] LABORATORY SERVICES - [facility] CHLORIDE 101 98 - 107 mmol/L 03/21/2015 8:44 PM DIGITAL PHOTOGRAPHIC PRINTER [employer] LABORATORY SERVICES - [facility] [place] CO2 28 22 - 29 mmol/L 03/21/2015 8:44 PM DIGITAL PHOTOGRAPHIC PRINTER [employer] LABORATORY SERVICES - [facility] CALCIUM 9.0 8.6 - 10.2 mg/dL 03/21/2015 8:44 PM [facility] - [facility] BUN 19 6 - 20 mg/dL 03/21/2015 8:44 PM [facility] - [facility] CREATININE 1.06 0.67 - 1.17 mg/dL 03/21/2015 8:44 PM [facility] - [facility] GLUCOSE 85 79 - 99 mg/dL 03/21/2015 8:44 PM [facility] - [facility] TOTAL PROTEIN 7.3 6.7 - 8.6 g/dL 03/21/2015 8:44 PM [facility] - [facility] ALBUMIN 4.7 3.5 - 5.2 g/dL 03/21/2015 8:44 PM [facility] - [facility] BILIRUBIN TOTAL 0.4 0.3 - 1.2 mg/dL 03/21/2015 8:44 PM [facility] - [facility] ALKALINE PHOSPHATASE 66 40 - 129 U/L 03/21/2015 8:44 PM [facility] - [facility] AST 23 <41 U/L 03/21/2015 8:44 PM [facility] - [facility] ALT 26 <42 U/L 03/21/2015 8:44 PM [facility] - [facility] GFR >60 >=60 mL/min/1.7 3 sq meter 03/21/2015 8:44 PM [facility] - [facility] Comment: eGFR has not been validated for [...] mL/min/1.7 3 sq meter 03/21/2015 8:44 PM DIGITAL PHOTOGRAPHIC PRINTER [facility] LABORATORY SERVICES [facility] ANION GAP 12 8 - 16 mmol/L 03/21/2015 8:44 PM DIGITAL PHOTOGRAPHIC PRINTER [facility] LABORATORY SERVICES [facility] Blood Venipuncture - L ab Collect / Unknown 03/21/2015 4:14 PM DIGITAL PHOTOGRAPHIC PRINTER 03/21/2015 4:14 PM DIGITAL PHOTOGRAPHIC PRINTER Maverick Vu Jr., MD CHEMISTRY ORDERA BLES 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
--- OUTSIDE RECORDS SUMMARY | 2024-03-07 22:35 | XMS_ITS | Encounter Summary ---
Author Organization [facility] Address [address] [place] [address] Care Team Providers Care Assistant Facility Manager Name Role Phone Singer Qiana MD, Maverick Hong Primary Care Provider U israel Reason for Visit * Reason Comments Skin Exam Skin check, pt c/o g rowing blue nevus on L forearm * Eval and Treat (Routine) - Closed Specialty Diagnoses / Procedures Referred By Contac t Referred To Contact Dermatology Diagnoses Blue nevus of forearm, left Singer Kiran, Maverick Hong MD NO ADDRESS ON FILE Julián Beatty PA [address] [facility] [place] [address] [place] [address] Referral ID Status Reason Start Date Expiration Date V isits Requested Visits Authorized [id number] Closed CRS To Schedule (STL) 03/21/2015 03/20/2016 1 1 Encounter Details Date Type Department Care Team (Late st Contact Info) Description 04/18/2015 2:30 PM PLASTER MACHINE OPERATOR Office Visit [facility] DERMATOLOGY [address] [place] [id number] Julián Beatty PA [address] [facility] [place] [address] [place] [address] Skin neoplasm (Primary Dx); Squires angioma; Blue nevus of forearm, left Social History [...] Sign Reading Time Taken Comments Blood Pressure 118/68 04/18/2015 3:16 PM PLASTER MACHINE OPERATOR Pulse - - Temperature - - Respiratory Rate - - Oxygen Saturation - - Inhaled Oxygen Concentration - - Weight 88.9 kg (196 lb) 04/18/2015 3:16 PM PLASTER MACHINE OPERATOR Height 175.3 cm (5' 9 ) 04/18/2015 3:16 PM PLASTER MACHINE OPERATOR Body Mass Index 28.94 04/18/2015 3:16 PM PLASTER MACHINE OPERATOR documented in this encounter Progress Notes * Julián Beatty PA - 04/18/2015 3:19 PM CST Dermatology Outpatient History and Physical Julián Beatty PA-C 04/18/2015 3:19 PM Patient Name: Lyudmila Tillman 1980 Primary Care Physician: Maverick Vu MD Date of Service: 04/18/2015 Chief Complaint Patient presents with ??? Skin Exam Skin check, pt c/o growing blue nevus on L forearm HPI: Patient is 35 y.o. male who is seen in consultation for blue nevus on left forearm present x 3years and has grown in size but is asymptomatic. Pt denies personal or family hx of skin cancer. Ptadmits he does not use sunscreen. Past Medical History Diagnosis Date ??? HTN (hypertension) Past Surgical History Procedure Laterality Date ??? Hx skin biopsy Current Medications: No current outpatient prescriptions on file. No current facility-administered medications for this visit. Medication Allergies: No Known Allergies Family History Problem Relation Age of Onset ??? Cancer Father colon ??? Bipolar Disorder Father ??? Anxiety Mother ??? Inflammatory Bowel Disease Mother ulcerative colitis ??? Diabetes History Substance Use Topics ??? Smoking status: Current Every Day Smoker -- 1.00 packs/day for 16 years Types: Cigarettes ??? Smokeless tobacco: Never Used ??? Alcohol Use: No Problem List Patient Active Problem List Diagnosis Date Noted [...] 09/02/2006 ??? Benign paroxysmal positional vertigo 09/02/2006 Review of Systems: General ROS: negative for weight changes, fever Dermatological ROS: positive for - mole changes Psychological ROS: negative for anxiety or depressive symptoms Physical Examination: BP 118/68 mmHg Ht 5' 9 (1.753 m) Wt 88.905 kg (196 lb) BMI 28.93 kg/m2 General Appearance: Prasad skin type II, Well-appearing, not in apparent distress Mood Pleasant, alert and oriented Scalp: Within normal limits Face: 3 mm pearly papule with telangiectasia on right wall of nose Neck: Within normal limits Chest: Within normal limits Abdomen: Scattered 2-3 mm red ovoid papules Back: Within normal limits Upper extremities:5 mm blue ovoid macule with smooth borders and uniform color on left forearm Lower extremities: Within normal limits Digits and nails: Within normal limits Assessment and Plan: 1. Neoplasm of nose:r/o BCC Patient is consented for a shave biopsy, risks are discussed, including pain, bleeding, infection, scarring and no definitive diagnosis. Patient wishes to proceed. Shave biopsy performed today. Specimen was sent to pathology. Wound care instruction was provided orally and in print. The patient will be informed of the result of biopsy as soon as it becomes available. 2. Blue Nevus: This is clinically benign Discussed with patient about ABCDE of melanoma: A - Asymmetrical Shape Melanoma lesions are typically irregular, or not symmetrical, in shape. Benign moles are usually symmetrical. B - Border Typically, non-cancerous moles have smooth, even borders. Melanoma lesions usually have iregular borders that are difficult to define. C - Color The presence of more than one color (blue, black, brown, woody, etc.) or the uneven distribution of color can sometimes be a warning sign of melanoma. Benign moles are usually a single shade of brown or woody. D - Diameter Melanoma lesions are often greater than 6 millimeters in diameter (approximately the size of a pencil eraser). E - Evolution The evolution of your moles(s) has become the most important factor to consider when it comes to melanoma. Pt's lesion on left forearm is not concerning, will continue to monitor. 3. Squires angiomas, on trunk I discussed the benign nature of this condition with the patient. Patient was reassured. RTC 1 year Thank you for allowing me to participate in the evaluation and care of your patient and the family.I appreciate your thoughtful referrals. Please do not hesitate to contact me if there are any questions or concerns. Julián Beatty PA-C Dermatology [facility] (tel) (fax) TER MACHINE OPERATOR documented in this encounter Procedure Notes * Julián Beatty PA - 04/18/2015 3:49 PM CSTAssociated Order(s): BIOPSY SKIN LESION Procedure(s): WA BIOPSY OF SKIN LESION Pre-Procedure Diagnose(s): Skin neoplasm PROCEDURE: Shave Biopsy LOCATION: right side of nose PRE-OPERATIVE DIAGNOSIS: Skin neoplasm POST-OPERATIVE DIAGNOSIS: Same SIZE OF LESION (PRE AND POST OP): 3 mm PRE-OPERATIVE MEDICATIONS: None POST-OPERATIVE MEDICATIONS: None ANESTHESIA: 1% lidocaine with epinephrine 1:100,000 METHOD: Shave with second intention COMMENT: After informed consent was obtained, including a discussion of the risk for bleeding, infection, incomplete removal, scarring, and recurrence/persistence, the lesional area was prepped with alcohol prior to infiltration with local anesthesia. A biopsy was obtained with #15 blade. The specimen was placed in formalin, and sent for routine histopathological evaluation. Hemostasis was obtained with drysol and there was no complications. The wound was then dressed with Vaseline ointment andsterile dressing. Wound care instructions were provided in verbal and written form including a 24-hour contact number in case of emergency. The patient will be notified by one of the clinical staff upon return to clinic or by phone regarding the biopsy results and the need for further treatment. TER MACHINE OPERATOR documented in this encounter Miscellaneous Notes * Patient Instructions - Julián Beatty PA - 04/18/2015 3:29 PM PLASTER MACHINE OPERATOR Post Biopsy Wound Care Instructions Please keep the biopsy site dry and keep the bandage that we place intact for 24 hours. Then removethe band-aid, cleanse the wound gently with soap and water, apply a small amount of Vaseline, and then cover with another Band-aid. Keeping the wound moist with Vaseline will prevent a thick scab from forming, which allows the wound to heal quickly and will also minimize scarring. We prefer Vaseline to antibiotic ointment because some people are allergic to antibiotic ointment. Biopsy sites usually take 3-4 weeks to heal. During this time, you should expect the sites to be somewhat tender to the touch-especially in the bath or shower. You should also expect to see a thin rim of redness around the edge of the biopsy site. If the biopsy site is on your face, and you do not want to wear a band-aid, it is especially important to apply Vaseline to the biopsy site 2-3 times a day. Please utilize your [employer] account to advise us how you are doing after procedure. If you have any questions or concerns about healing of your biopsy wound, please do not hesitate tocall us at [phone]. 24 hours exchange at .gri TER MACHINE OPERATOR documented in this encounter Plan of Treatment Not on file documented as of this encounter Procedures Procedure Name Priority Date/Time Associated Diagnosis Comments WA BIOPSY OF SKIN LESION Routine 04/18/2015 3:53 PM PLASTER MACHINE OPERATOR Skin neoplasm PATHOLOGY Routine 04/18/2015 2:55 PM PLASTER MACHINE OPERATOR Skin neoplasm documented in this encounter Results * WA BIOPSY OF SKIN LESION (04/18/2015 3:53 PM PLASTER MACHINE OPERATOR) [facility] - 04/18/2015 3:53 PM PLASTER MACHINE OPERATOR Julián Beatty PA ? 04/18/2015 ??3:53 PM PROCEDURE: Shave Biopsy LOCATION: right side of nose PRE-OPERATIVE DIAGNOSIS: ??Skin neoplasm POST-OPERATIVE DIAGNOSIS: ??Same SIZE OF LESION (PRE AND POST OP): 3 mm PRE-OPERATIVE MEDICATIONS: ??None POST-OPERATIVE MEDICATIONS: None ANESTHESIA: ??1% lidocaine with epinephrine 1:100,000 METHOD: Shave with second intention ?? COMMENT: ??After informed consent was obtained, including a discussion of the risk for bleeding, infection, incomplete removal, scarring, and recurrence/persistence, the lesional area was prepped with alcohol prior to infiltration with local anesthesia. ??A biopsy was obtained with #15 blade. The specimen was placed in formalin, and sent for routine histopathological evaluation. Hemostasis was obtained with drysol and there was no complications. The wound was then dressed with Vaseline ointment and sterile dressing. Wound care instructions were provided in verbal and written form including a 24-hour contact number in case of emergency. The patient will be notified by one of the clinical staff upon return to clinic or by phone regarding the biopsy results and the need for further treatment. Julián MCDONNELL PROCEDURE/MINOR SURGICAL ORDERABLES Performing Organization Address City/State/[facility] Co de Phone Number [facility] * PATHOLOGY (04/18/2015 2:55 PM PLASTER MACHINE OPERATOR) CASE REPORT Surgical Pathology Report ? Case: [id number] ? Authorizing Provider: ??Julián Beatty PA ?Collected: ? 04/18/2015 02:55 PM ? Ordering Location: ? [facility] DERMATOLOGY ?? Received: ?04/20/2015 07:19 AM ? Pathologist: ? Radha Sutherland MD ? Specimen: ?Nose ? 04/22/2015 6:17 PM [facility] FINAL DIAGNOSIS SKIN, NOSE, SHAVE BIOPSY: - COMPOUND, PREDOMINANTLY INTRADERMAL, MELANOCYTIC NEVUS. 04/22/2015 6:17 PM [facility] IMEN DESCRIPTION Nose. 04/22/2015 6:17 PM [facility] OPERATIVE PROCEDURE Shave biopsy. 04/22/2015 6:17 PM [facility] CLINICAL DIAGNOSIS Skin neoplasm, D49.2. Rule out BCC. 04/22/2015 6:17 PM [facility] GROSS DESCRIPTION Received is one formalin-filled container labeled Lyudmila Tillman and jair. It holds a 0.2-cm circular piece of woody skin. The specimen is submitted in A1. [facility] 04/22/2015 6:17 PM [facility] MICROSCOPIC DESCRIPTION The slides are labeled [id number] and Lyudmila Tillman. Histologic sections of skin from the nose reveal a predominantly intradermal melanocytic nevus. The lesion is characterized by nests and aggregates of cytologically bland nevomelanocytes within the dermis, showing vertical maturation. There are single and nested melanocytes also present at the dermoepidermal junction. 04/22/2015 6:17 PM [facility] COMMENT Special stain and/or immunohistochemical results are interpreted with controls that demonstrate appropriate staining reactions. Note on use of immunocytochemistry reagents: This test was developed and its performance characteristic determined by [facility], Department of Laboratory Medicine. It has not been cleared or approved by the U.S. Food and Drug Administration. The FDA has determined that such clearance or approval is not necessary. The test is used for clinical purpose. It should not be regarded as investigational or for research. This laboratory is certified to perform high complexity testing. Case types starting with WS, WF and WH are performed by [address], [address]. All other case types are performed by [facility] [address], [facility], [address]. 04/22/2015 6:17 PM PLASTER MACHINE OPERATOR [facility] Tissue ENTIRE NOSE / Unknown 04/18/2015 2:55 PM PLASTER MACHINE OPERATOR 04/20/2015 7:19 AM PLASTER MACHINE OPERATOR Julián MCDONNELL PATHOLOGY/CYTOLO GY ORDERABLES [facility] CLIA# [id number] [address] [place] [address] [facility] [place] [address] documented in this encounter Visit Diagnoses Diagnosis Skin neoplasm- Primary Neoplasm of unspecified nature of bone, soft tissue, and skin Squires angioma Nevus, non-neoplastic Blue nevus of forearm, left documented in this encounter Care Teams Assistant Facility Manager Relationship Specialty Start Date End Date Maverick Vu Jr., MD NO ADDRESS ON FILE PCP - General 05/19/12 01/17/20 documented as of this encounter
--- OUTSIDE RECORDS SUMMARY | 2024-03-07 22:35 | XMS_ITS | Encounter Summary ---
Author Organization [facility] Address [address] [place] [address] Care Team Providers Care Vision Rehabilitation Therapist Name Role Phone Singer Qiana MD, Maverick Hong Primary Care Provider Kyle wood Reason for Visit * Reason Onset Date Comments Unable To Contact 04/12/2016 Encounter Details Date Type Department Care Team (Late st Contact Info) Description 04/12/2016 Nurse Triage [facility] Nurse telecommunications engineer [address] [place] [address] Carissa Logan RN Social History Tobacco Use Types Packs/Day Years [...] encounter Miscellaneous Notes * Telephone Encounter - Carissa Logan RN - 04/12/2016 4:12 PM CST Reason for Disposition ??? Message left on identified answering machine. Protocols used: NO CONTACT OR DUPLICATE CONTACT CALL-A-AH ENGINEER * Telephone Encounter - Carissa Logan RN - 04/12/2016 4:03 PM CST Regarding: Ear pain ----- Message from Bailee Schultz sent at 04/12/2016 3:30 PM UI ENGINEER ----- Patient's [address] on file: [address] [facility] [address] Patient's current location: Same as above ENGINEER documented in this encounter Plan of Treatment Not on file documented as of this encounter Visit Diagnoses Not on filedocumented in this encounter Care Teams Vision Rehabilitation Therapist Relationship Specialty Start Date End Date Maverick Vu Jr., MD NO ADDRESS ON FILE PCP - General 05/19/12 01/17/20 documented as of this encounter
--- OUTSIDE RECORDS SUMMARY | 2024-03-07 22:35 | XMS_ITS | Encounter Summary ---
Author Organization [facility] Address [address] [place] [address] Care Team Providers Care Council On Aging Director Name Role Phone Singer Qiana MD, Maverick Hong Primary Care Provider Kyle wood Reason for Visit * Reason Onset Date Comments Ear Pain 04/12/2016 Encounter Details Date Type Department Care Team (Late st Contact Info) Description 04/12/2016 Nurse Triage [facility] Nurse cardiovascular surgeon [address] [place] [address] Carissa Logan RN Social History [...] Encounter - Carissa Logan RN - 04/12/2016 4:17 PM CST Reason for Disposition ? ? [1] Taking antibiotic > 72 hours (3 days) and [2] pain persists or recurs Protocols used: EAR - OTITIS MEDIA FOLLOW-UP CALL-A- RDOUS SUBSTANCES SCIENTIST * Telephone Encounter - Carissa Logan RN - 04/12/2016 4:14 PM CST Regarding: ear pain ----- Message from Carissa Logan RN sent at 04/12/2016 4:14 PM HAZARDOUS SUBSTANCES SCIENTIST ----- Patient's address on file: [address] [place] [id number] Patient's current location: Same as above RDOUS SUBSTANCES SCIENTIST documented in this encounter Plan of Treatment Not on file documented as of this encounter Visit Diagnoses Not on filedocumented in this encounter Care Teams Council On Aging Director Relationship Specialty Start Date End Date Maverick Vu Jr., MD NO ADDRESS ON FILE PCP - General 05/19/12 01/17/20 documented as of this encounter
--- OUTSIDE RECORDS SUMMARY | 2024-03-07 22:35 | XMS_ITS | Encounter Summary ---
Author Organization [facility] Address [address] [place] [address] Care Team Providers Care Chief Power Dispatcher Name Role Phone Singer Qiana MD, Maverick Hong Primary Care Provider Kyle wood Reason for Visit * Reason Onset Date Comments Upper Respiratory Symptoms 09/26/2014 Encounter Details Date Type Department Care Team (Late st Contact Info) Description 09/26/2014 Telephone [facility] Internal Medicine - [facility] [address] [facility] [address] [place] [address] Singer Kiran, Maverick Hong MD NO ADDRESS ON FILE Upper Respiratory Symptoms Social History Tobacco Use Types Packs/Day Years [...] encounter Miscellaneous Notes * Telephone Encounter - Lorenza Norman RMA - 09/26/2014 11:49 AM CDT Patient notified. * Telephone Encounter - Richard Burks FNP - 09/26/2014 9:57 AM CDT This is likely viral and antibiotics will not help. URIs last 4-9 days and generally resolve on their own. Advise increased fluids, saline nasal spray, Mucinex DM. * Telephone Encounter - Nini Manzanares - 09/26/2014 9:18 AM CDT Patient was offered appointment Yes wishes not to be seen Yes Duration : Patient has been sick for 1 days Sore throat Yes Nasal congestion Yes Lung congestion No Cough no Discolored secretions No Ear pain No Fever No No. Patients condition is moderate Comments : patient thinks he has a sinus infection-he hasn't taken anything otc- says he can't come in today to see RN [facility] but possibly tomorrow-really just wants something called in to pharmacy . documented in this encounter Plan of Treatment Not on file documented as of this encounter Visit Diagnoses Not on filedocumented in this encounter Care Teams Chief Power Dispatcher Relationship Specialty Start Date End Date Maverick Vu Jr., MD NO ADDRESS ON FILE PCP - General 05/19/12 01/17/20 documented as of this encounter
--- OUTSIDE RECORDS SUMMARY | 2024-03-07 22:35 | XMS_ITS | Encounter Summary ---
Author Organization [facility] Address [address] [place] [address] Care Team Providers Care Crystal Inspector Name Role Phone Singer Qiana MD, Maverick Hong Primary Care Provider Kyle wood Reason for Visit * Reason Comments Ear Pain Encounter Details Date Type Department Care Team (Late st Contact Info) Description 04/08/2016 3:00 PM PROJECT STRUCTURAL ENGINEER Office Visit [facility] Primary Care - [address] [address] Maverick Vu Jr., MD NO ADDRESS ON FILE Recurrent acute serous otitis media of right ear (Primary Dx) Social History Tobacco Use Types [...] Sign Reading Time Taken Comments Blood Pressure 125/70 04/08/2016 2:43 PM PROJECT STRUCTURAL ENGINEER Pulse 89 04/08/2016 2:43 PM PROJECT STRUCTURAL ENGINEER Temperature 36.7 ??C (98.1 ??F) 04/08/2016 2:43 PM CS T Respiratory Rate - - Oxygen Saturation 98% 04/08/2016 2:43 PM PROJECT STRUCTURAL ENGINEER Inhaled Oxygen Concentration - - Weight 95.7 kg (211 lb) 04/08/2016 2:43 PM PROJECT STRUCTURAL ENGINEER Height 175.3 cm (5' 9 ) 04/08/2016 2:43 PM PROJECT STRUCTURAL ENGINEER Body Mass Index 31.16 04/08/2016 2:43 PM PROJECT STRUCTURAL ENGINEER documented in this encounter Progress Notes * Maverick Vu MD - 04/08/2016 2:55 PM CST Right earache New onset upper respiratory symptoms this past with including coryza, rhinorrhea, nasal congestion,and cough. Additional symptoms include: ROS: No chest pain, dyspnea, or wheezing. No nausea, vomiting, or diarrhea. PE: Vital signs obtained including temperature.No acute distress. HEENT -- eyes: conjunctiva - clear -- ears: TM's - right TM erythema and bulging, no drainage - left TM normal -- oropharynx - clear -- nose -- no discharge -- sinuses -- nontender Neck -- mild anterior adenopathy Chest - hacking cough, no rales or wheezing Skin - normal temp and turgor, no rash IMP: Left otitis media. REC: augmentin 875mg bid for 10d. Igo saline spray twice daily as needed for nasal congestion. Adverse effects medications reviewed with patient. If symptoms worsen or do not improve over the next 7-10 days then contact the office. ECT STRUCTURAL ENGINEER documented in this encounter Plan of Treatment Not on file documented as of this encounter Visit Diagnoses Diagnosis Recurrent acute serous otitis media of right ear- Primary Acute serous otitis media documented in this encounter Care Teams Crystal Inspector Relationship Specialty Start Date End Date Maverick Vu Jr., MD NO ADDRESS ON FILE PCP - General 05/19/12 01/17/20 documented as of this encounter
--- OUTSIDE RECORDS SUMMARY | 2024-03-07 22:35 | XMS_ITS | Encounter Summary ---
Author Organization [facility] Address [address] [place] [address] Care Team Providers Care Wastewater Treatment Plant Instructor Name Role Phone Singer Qiana MD, Maverick Hong Primary Care Provider Kyle wood Encounter Details Date Type Department Care Team (Late st Contact Info) Description 05/01/2016 Abstract [facility] Primary Care - [address] [id number] Maverick Vu Jr., MD NO ADDRESS ON FILE Social History Tobacco Use Types Packs/Day Years [...] on filedocumented in this encounter Care Teams Wastewater Treatment Plant Instructor Relationship Specialty Start Date End Date Maverick Vu Jr., MD NO ADDRESS ON FILE PCP - General 05/19/12 01/17/20 documented as of this encounter
--- OUTSIDE RECORDS SUMMARY | 2024-03-07 22:35 | XMS_ITS | Encounter Summary ---
Author Organization [facility] Address [address] [place] [address] Care Team Providers Care Shipping Lead Name Role Phone Singer Qiana MD, Maverick Hong Primary Care Provider Kyle wood Encounter Details Date Type Department Care Team (Late st Contact Info) Description 04/27/2014 Orders Only [facility] Internal Medicine - [facility] [address] [facility] [address] [place] [address] Provider, Abstract NO ADDRESS ON FILE Social History Tobacco [...] Procedure Name Priority Date/Time Associated Diagnosis Comments SLEEP STUDY REPORT Routine 06/08/2012 SLEEP STUDY REPORT Routine 05/18/2012 documented in this encounter Results * SLEEP STUDY REPORT (06/08/2012) Abstract Provider [facility] * SLEEP STUDY REPORT (05/18/2012) Abstract Provider [facility] documented in this encounter Visit Diagnoses Not on filedocumented in this encounter Care Teams Shipping Lead Relationship Specialty Start Date End Date Maverick Vu Jr., MD NO ADDRESS ON FILE PCP - General 05/19/12 01/17/20 documented as of this encounter
--- OUTSIDE RECORDS SUMMARY | 2024-03-07 22:35 | XMS_ITS | Clinical Summary ---
Author Organization [facility] Address [address] [place] [address] Care Team Providers Care Communications Clerk Name Role Phone Unavailable Primary Care Provider Unavailabl e Allergies No known active allergies Medications Medication Sig Dispensed Refills Start Date End Date Status triamcinolone acetonide (KENALOG) 0.1 % Ointment Apply to affected area of right leg twice per day. 30 Gram 1 04/18/2015 Active levoFLOXacin (LEVAQUIN) 500 mg tablet Take 1 Tablet (500 mg) by mouth daily. 10 Tablet 04/13/2016 Active amoxicillin-clavulan ate (AUGMENTIN) 875-125 mg tablet Take 1 Tablet by mouth 2 times daily with meals. 20 Tablet 11/26/2016 Active Active Problems Problem Noted Date Diagnosed Date GERD (gastroesophageal reflux disease) 3 Degeneration of lumbar or lumbosacral interverte bral disc 12/24/2010 Esophageal reflux 08/29/2010 Panic disorder without agoraphobia 08/29/2010 Clubbing of fingers 06/07/2009 Personal history of tobacco use, presenting hazards to health 11/07/2008 Obstructive sleep apnea (adult) (pediatric) 12/21 Anxiety state, unspecified 09/02/2006 Benign paroxysmal positional vertigo 09/02/2006 Family History Medical History Relation Name Comments Bipolar Disorder Father Cancer Father colon Anxiety Mother Inflammatory Bowel Disease Mother u lcerative colitis Diabetes Other Relation Name Status Comments Father Mother Other Social History Tobacco Use Types Packs/Day Years Used Date Smoking Tobacco: Former Cigarettes 1 16 Smokeless Tobacco: Never Tobacco [...] Sign Reading Time Taken Comments Blood Pressure 120/70 04/27/2016 3:10 PM PAINTING INSTRUCTOR Pulse 61 04/27/2016 3:10 PM PAINTING INSTRUCTOR Temperature 36.7 ??C (98.1 ??F) 04/08/2016 2:43 PM CS T Respiratory Rate 16 11/02/2012 9:18 AM CDT Oxygen Saturation 98% 04/27/2016 3:10 PM PAINTING INSTRUCTOR Inhaled Oxygen Concentration - - Weight 97.5 kg (215 lb) 04/27/2016 3:10 PM PAINTING INSTRUCTOR Height 175.3 cm (5' 9 ) 04/27/2016 3:10 PM PAINTING INSTRUCTOR Body Mass Index 31.75 04/27/2016 3:10 PM PAINTING INSTRUCTOR Plan of Treatment Health Maintenance Due Date Last Done Comments DTAP/TDAP/TD VACCINES (1 - Tdap) 1999 HEPATITIS B VACCINES (1 of 3 - 19+ 3-dose series) 1999 INFLUENZA VACCINE (#1) 2023 HPV VACCINES Aged Out No longer eligi ble based on patient's age to complete this topic PNEUMOCOCCAL VACCINE 0-64 YEARS Aged Out No longer eligible based on patient's age to complete this topic
--- OUTSIDE RECORDS SUMMARY | 2024-03-07 22:35 | XMS_ITS | Encounter Summary ---
Author Organization [facility] Address [address] [place] [address] Care Team Providers Care Fisher Diving Name Role Phone Singer Qiana MD, Maverick Hong Primary Care Provider Kyle wood Reason for Visit * Reason Comments Results lab work form work f air Encounter Details Date Type Department Care Team (Late st Contact Info) Description 04/27/2016 3:15 PM DISABILITY PROGRAM NAVIGATOR Office Visit [facility] Primary Care - [address] [address] Maverick Vu Jr., MD NO ADDRESS ON FILE Routine general medical examination at a health care facility (Primary Dx); Right chronic serous otitis media Social History Tobacco Use Types [...] Comments Blood Pressure 120/70 04/27/2016 3:10 PM DISABILITY PROGRAM NAVIGATOR Pulse 61 04/27/2016 3:10 PM DISABILITY PROGRAM NAVIGATOR Temperature - - Respiratory Rate - - Oxygen Saturation 98% 04/27/2016 3:10 PM DISABILITY PROGRAM NAVIGATOR Inhaled Oxygen Concentration - - Weight 97.5 kg (215 lb) 04/27/2016 3:10 PM DISABILITY PROGRAM NAVIGATOR Height 175.3 cm (5' 9 ) 04/27/2016 3:10 PM DISABILITY PROGRAM NAVIGATOR Body Mass Index 31.75 04/27/2016 3:10 PM DISABILITY PROGRAM NAVIGATOR documented in this encounter Progress Notes * Maverick Vu MD - 04/27/2016 3:29 PM CST SUBJECTIVE: Lyudmila Tillman is a 36 y.o. male presenting for his annual checkup. [...] 09/02/2006 ??? Benign paroxysmal positional vertigo 09/02/2006 Current Outpatient Prescriptions on File Prior to Visit Medication Sig Dispense Refill ??? levoFLOXacin (LEVAQUIN) 500 mg tablet Take 1 Tablet (500 mg) by mouth daily. 10 Tablet 0 ??? amoxicillin-clavulanate (AUGMENTIN) 875-125 mg tablet Take 1 Tablet by mouth 2 times daily withmeals. 20 Tablet 0 ??? triamcinolone acetonide (KENALOG) 0.1 % Ointment Apply to affected area of right leg twice per day. 30 Gram 1 No current facility-administered medications on file prior to visit. No Known Allergies Past Medical History Diagnosis Date ??? HTN (hypertension) Past Surgical History Procedure Laterality Date ??? Hx skin biopsy Family History Problem Relation Age of Onset ??? Cancer Father colon ??? Bipolar Disorder Father ??? Anxiety Mother ??? Inflammatory Bowel Disease Mother ulcerative colitis ??? Diabetes Social History Substance Use Topics ??? Smoking status: Former Smoker Packs/day: 1.00 Years: 16.00 Types: Cigarettes ??? Smokeless tobacco: Never Used ??? Alcohol use No ROS: Feeling well. No dyspnea or chest pain on exertion. No abdominal pain, change in bowel habits,black or bloody stools. No urinary tract or prostatic symptoms. No neurological complaints. OBJECTIVE: The patient appears well, alert, oriented x 3, in no distress. Visit Vitals ??? BP 120/70 ??? Pulse 61 ??? Ht 5' 9 (1.753 m) ??? Wt 97.5 kg (215 lb) ??? SpO2 98% ??? BMI 31.75 kg/m2 ENT normal. Ear - right TM small effusion, left normal. Neck supple. No adenopathy or thyromegaly. LI. Lungs are clear, good air entry, no wheezes, rhonchi or rales. S1 and S2 normal, no murmurs, regular rate and rhythm. Abdomen is soft without tenderness, guarding, mass or organomegaly. exam: no penile lesions or discharge, no testicular masses or tenderness, no hernias. Extremities show no edema, normal peripheral pulses. Neurological is normal without focal findings. ASSESSMENT: healthy adult male Residual serous otitis right PLAN: continue current healthy lifestyle patterns Flonase puffs daily for ear congestion BILITY PROGRAM NAVIGATOR documented in this encounter Plan of Treatment Not on file documented as of this encounter Visit Diagnoses Diagnosis Routine general medical examination at a health care facility- Primary Right chronic serous otitis media Simple or unspecified chronic serous otitis media documented in this encounter Care Teams Fisher Diving Relationship Specialty Start Date End Date Maverick Vu Jr., MD NO ADDRESS ON FILE PCP - General 05/19/12 01/17/20 documented as of this encounter
--- OUTSIDE RECORDS SUMMARY | 2024-03-07 22:35 | XMS_ITS | Encounter Summary ---
Author Organization [facility] Address [address] [place] [address] Care Team Providers Care Payroll Administrative Assistant Name Role Phone Singer Qiana MD, Maverick Hong Primary Care Provider Kyle wood Reason for Visit * Reason Onset Date Comments Results 01/17/2016 Had lab work don e at work - Glucose 101 and kidney levels where high but not out of range Encounter Details Date Type Department Care Team (Late st Contact Info) Description 01/17/2016 Telephone [facility] Primary Care - [address] [address] Maverick Vu Jr., MD NO ADDRESS ON FILE Results (Had lab work done at work - Glucose 101 and kidney levels where high but not out of range) Social History Tobacco Use Types Packs/Day Years [...] encounter Miscellaneous Notes * Telephone Encounter - Lianet Mina - 01/17/2016 4:56 PM CDT Pt advised * Telephone Encounter - Maverick Vu MD - 01/17/2016 4:51 PM CDT OK for patient to be seen in February, he should bring his lab tests with him. The results are not concerning. * Telephone Encounter - Abrahan Ch - 01/17/2016 3:50 PM CDT Pt is calling in - He had Fasting lab work done at work on 12/29/15 - they told him to discuss it with his PCP. His Glucose was 101, A1C 5.5 and his kidney levels were high, but not outside normal ranges. Pt said he has someone tell him his numbers were high in his kidneys 5 years ago, when he was in the hospital. Next available 03/19/[address] Vu, I scheduled him, but wanted to make sure he didn't need to be seen sooner. Please advise. documented in this encounter Plan of Treatment Not on file documented as of this encounter Visit Diagnoses Not on filedocumented in this encounter Care Teams Payroll Administrative Assistant Relationship Specialty Start Date End Date Maverick Vu Jr., MD NO ADDRESS ON FILE PCP - General 05/19/12 01/17/20 documented as of this encounter
--- OUTSIDE RECORDS SUMMARY | 2024-03-07 22:35 | XMS_ITS | Encounter Summary ---
Author Organization [facility] Address [address] [place] [address] Care Team Providers Care Light Technician Name Role Phone Singer Qiana MD, Maverick Hong Primary Care Provider Kyle wood Reason for Visit * Reason Onset Date Comments Ear Pain 11/26/2016 Encounter Details Date Type Department Care Team (Late st Contact Info) Description 11/26/2016 Telephone [facility] Primary Care - [address] [address] Maverick Vu Jr., MD NO ADDRESS ON FILE Ear Pain Social History Tobacco Use Types Packs/Day Years [...] encounter Miscellaneous Notes * Telephone Encounter - Annabelle Goldsmith - 11/26/2016 4:29 PM CDT Patient contacted. * Telephone Encounter - Maverick Vu MD - 11/26/2016 4:19 PM CDT Notify pt augmentin prescribed * Telephone Encounter - Abrahan Ch - 11/26/2016 4:14 PM CDT Patient was offered appointment No wishes not to be seen No Duration : Patient has been sick for 2 days Sore throat No Nasal congestion No Lung congestion No Cough no Discolored secretions No Ear pain Yes, Right Ear - trying to get before he goes down to his jaw Fever No No. Patients condition is mild Comments : Pt has been getting this 2-3 times a year and has gotten Augmentin in the past. Please advise. . documented in this encounter Plan of Treatment Not on file documented as of this encounter Visit Diagnoses Not on filedocumented in this encounter Care Teams Light Technician Relationship Specialty Start Date End Date Maverick Vu Jr., MD NO ADDRESS ON FILE PCP - General 05/19/12 01/17/20 documented as of this encounter
--- OUTSIDE RECORDS SUMMARY | 2024-03-07 22:35 | XMS_ITS | Encounter Summary ---
Author Organization [facility] Address [address] [place] [address] Care Team Providers Care Preforms Laminator Name Role Phone Singer Qiana MD, Maverick Hong Primary Care Provider Kyle wood Reason for Visit * Reason Onset Date Comments Results 04/23/2015 Encounter Details Date Type Department Care Team (Late st Contact Info) Description 04/23/2015 Telephone [facility] [address] [facility] [address] [place] [address] Julián Beatty PA [address] [place] [address] Results Social History Tobacco Use Types Packs/Day [...] encounter Miscellaneous Notes * Telephone Encounter - Ольга Pelaez RN - 04/23/2015 8:40 AM CRYPTOLOGIST Contacted patient and left message of benign biopsy results. Patient to call the office if there isfurther questions. ----- Message from KECIA Davis sent at 04/23/2015 8:32 AM CRYPTOLOGIST ----- Benign nevus of nose. RTC 1 year TOLOGIST documented in this encounter Plan of Treatment Not on file documented as of this encounter Visit Diagnoses Not on filedocumented in this encounter Care Teams Preforms Laminator Relationship Specialty Start Date End Date Maverick Vu Jr., MD NO ADDRESS ON FILE PCP - General 05/19/12 01/17/20 documented as of this encounter
--- OUTSIDE RECORDS SUMMARY | 2024-03-07 22:36 | XMS_ITS | Encounter Summary ---
Author Organization [facility] Address [address] [place] [address] Care Team Providers Care National Stormwater Leader Name Role Phone Singer Qiana MD, Maverick Hong Primary Care Provider Kyle wood Reason for Visit * Reason Comments Hypertension Sleep Problem Esophageal Reflux Encounter Details Date Type Department Care Team (Late st Contact Info) Description 08/03/2012 9:30 AM CDT Office Visit [facility] Internal Medicine - [facility] [address] [facility] [address] [place] [address] Maverick Vu Jr., MD NO ADDRESS ON FILE Anxiety state, unspecified (Primary Dx); Essential hypertension, benign; Obstructive sleep apnea (adult) (pediatric) Social History Tobacco Use Types Packs/Day Years Used Date Smoking Tobacco: Every Day Cigarettes Alcohol Use Standard Drinks/Week Comments No 0 (1 standard drink = 0.6 oz pur e alcohol) Sex and Gender Information Value Date Recorded Sex Assigned at Not on file Gender Identity Not on file Sexual Orientation Not on file documented as of this encounter Last Filed Vital Signs Vital Sign Reading Time Taken Comments Blood Pressure 124/84 08/03/2012 9:40 AM CDT Pulse 76 08/03/2012 9:40 AM CDT Temperature - - Respiratory Rate - - Oxygen Saturation - - Inhaled Oxygen Concentration - - Weight 107 kg (236 lb) 08/03/2012 9:40 AM CDT Height 175.3 cm (5' 9 ) 08/03/2012 9:40 AM CDT Body Mass Index 34.85 08/03/2012 9:40 AM CDT documented in this encounter Progress Notes * Maverick Vu MD - 08/03/2012 10:21 AM CDT Hypertension follow up. Patient adhering to medication well [...] -- no bruits IMP: Hypertension controlled with medication. REC: Continue present meds. Discussed diet, exercise and weight control Check lab as indicated. GERD. Reviewed antireflux therapy with patient including PPI therapy, diet modification and lifestyle changes including avoidance alcohol and tobacco products. and eating within 3 hrs of bedtime. ROS: no change dyspepsia frequency since last visit. No hoarseness, cough or dysphagia. No symptoms related to GI bleeding. PE: oropharyx clear, no erythema or erosions Neck -- no masses Chest -clear BS Abdomen -- nontender -- no masses, guarding, or HSM IMP: GERD symptomatic REC: Discussed treatment plan including medication and lifestyle modification. Add omeprazole 40mg/d Sleep apnea. Pt tolerating only 1hr/night of cpap. Discussed ways to improve tolerance of cpap. Trial tylenol pm. If unsuccessful then trial trazodone documented in this encounter Plan of Treatment Not on file documented as of this encounter Visit Diagnoses Diagnosis Anxiety state, unspecified- Primary Essential hypertension, benign Obstructive sleep apnea (adult) (pediatric) documented in this encounter Care Teams National Stormwater Leader Relationship Specialty Start Date End Date Maverick Vu Jr., MD NO ADDRESS ON FILE PCP - General 05/19/12 01/17/20 documented as of this encounter
--- OUTSIDE RECORDS SUMMARY | 2024-03-07 22:36 | XMS_ITS | Encounter Summary ---
Author Organization [facility] Address [address] [place] [address] Care Team Providers Care Beef Selector Name Role Phone Singer Qiana MD, Maverick Hong Primary Care Provider Kyle wood Reason for Visit * Reason Comments Medication Refill Encounter Details Date Type Department Care Team (Late st Contact Info) Description 12/19/2012 Refill [facility] Internal Medicine - [facility] [address] [facility] [address] [place] [address] Maverick Vu Jr., MD NO ADDRESS ON [...] Notes * Telephone Encounter - Annabelle Goldsmith RMA - 12/19/2012 2:19 PM CDT Faxed documented in this encounter Plan of Treatment Not on file documented as of this encounter Visit Diagnoses Not on filedocumented in this encounter Care Teams Beef Selector Relationship Specialty Start Date End Date Maverick Vu Jr., MD NO ADDRESS ON FILE PCP - General 05/19/12 01/17/20 documented as of this encounter
--- OUTSIDE RECORDS SUMMARY | 2024-03-07 22:36 | XMS_ITS | Encounter Summary ---
Author Organization [facility] Address [address] [place] [address] Care Team Providers Care Financial Services Rep Name Role Phone Singer Qiana MD, Maverick Hong Primary Care Provider Kyle wood Encounter Details Date Type Department Care Team (Late st Contact Info) Description 04/12/2013 Orders Only [facility] Internal Medicine - [facility] [address] [facility] [address] [place] [address] Maverick Vu Jr., MD NO [...] Procedure Name Priority Date/Time Associated Diagnosis Comments IMAGING REPORT Routine 11/17/2012 documented in this encounter Results * IMAGING REPORT (11/17/2012) Anatomical Region Laterality Modality Other Maverick Vu Jr., MD DIAGNOSTIC IMAGI NG ORDERABLES documented in this encounter Visit Diagnoses Not on filedocumented in this encounter Care Teams Financial Services Rep Relationship Specialty Start Date End Date Maverick Vu Jr., MD NO ADDRESS ON FILE PCP - General 05/19/12 01/17/20 documented as of this encounter
--- OUTSIDE RECORDS SUMMARY | 2024-03-07 22:36 | XMS_ITS | Encounter Summary ---
Author Organization [facility] Address [address] [place] [address] Care Team Providers Care Serging Machine Operator Name Role Phone Singer Qiana MD, Maverick Hong Primary Care Provider Kyle wood Reason for Visit * Reason Comments Hypertension Sleep Problem Esophageal Reflux Encounter Details Date Type Department Care Team (Late st Contact Info) Description 11/02/2012 9:15 AM CDT Office Visit [facility] Internal Medicine - [facility] [address] [facility] [address] [place] [address] Maverick Vu Jr., MD NO ADDRESS ON FILE Essential hypertension, benign (Primary Dx); Obstructive sleep apnea (adult) (pediatric); GERD (gastroesophageal reflux disease); Spermatocele of epididymis, single Social History Tobacco Use Types Packs/Day Years [...] Reading Time Taken Comments Blood Pressure 120/78 11/02/2012 9:18 AM CDT Pulse 68 11/02/2012 9:18 AM CDT Temperature 37 ??C (98.6 ??F) 11/02/2012 9:18 AM CDT Respiratory Rate 16 11/02/2012 9:18 AM CDT Oxygen Saturation - - Inhaled Oxygen Concentration - - Weight 107 kg (236 lb) 11/02/2012 9:18 AM CDT Height 175.3 cm (5' 9 ) 11/02/2012 9:18 AM CDT Body Mass Index 34.85 11/02/2012 9:18 AM CDT documented in this encounter Progress Notes * Maverick Vu MD - 11/02/2012 9:26 AM CDT Hypertension follow up. Patient adhering [...] no masses, guarding, or HSM IMP: GERD clinically stable on omeprazole REC: Discussed treatment plan including medication and lifestyle modification. MICHELLE. Pt is not using cpap due intolerance mask. Discussed trial of nasal cpap. Pt still experiencing daytime hypersomnia. DIscussed need to improve sleep hygeine. Pt noted nodule on left spermatic cord for several months PE -- scrotum -- nodule 1 cm left spermatic cord/epididymis proximal to testes -- right testes normal. IMP: 1. Epididymal cyst left. REC: 1. Ultrasound. documented in this encounter Plan of Treatment Not on file documented as of this encounter Visit Diagnoses Diagnosis Essential hypertension, benign- Primary Obstructive sleep apnea (adult) (pediatric) GERD (gastroesophageal reflux disease) Esophageal reflux Spermatocele of epididymis, single Spermatocele documented in this encounter Care Teams Serging Machine Operator Relationship Specialty Start Date End Date Maverick Vu Jr., MD NO ADDRESS ON FILE PCP - General 05/19/12 01/17/20 documented as of this encounter
--- OUTSIDE RECORDS SUMMARY | 2024-03-07 22:36 | XMS_ITS | Encounter Summary ---
Author Organization [facility] Address [address] [place] [address] Care Team Providers Care Grade Tamper Name Role Phone Singer Qiana MD, Maverick Hong Primary Care Provider Kyle wood Reason for Visit * Reason Onset Date Comments Other 11/28/2012 Encounter Details Date Type Department Care Team (Late st Contact Info) Description 11/28/2012 Telephone [facility] Internal Medicine - [facility] [address] [facility] [address] [place] [address] Maverick Vu Jr., MD NO ADDRESS ON FILE Other Social History Tobacco Use Types Packs/Day [...] * Telephone Encounter - Archana Kwan - 11/28/2012 1:40 PM CDT Number provided is not correct * Telephone Encounter - Maverick Vu MD - 11/28/2012 12:10 PM CDT Trial cortisporin ear drops 3 times daily * Telephone Encounter - Khadijah Beard - 11/28/2012 11:53 AM CDT Patient states that he called in last wk with some symptoms of an ear infection and he says he was prescribed Amoxicillin and another medicine but he would like to know if the doctor could prescribe some ear drops. TO GO TO [facility] documented in this encounter Plan of Treatment Not on file documented as of this encounter Visit Diagnoses Not on filedocumented in this encounter Care Teams Grade Tamper Relationship Specialty Start Date End Date Maverick Vu Jr., MD NO ADDRESS ON FILE PCP - General 05/19/12 01/17/20 documented as of this encounter
--- OUTSIDE RECORDS SUMMARY | 2024-03-07 22:36 | XMS_ITS | Encounter Summary ---
Author Organization [facility] Address [address] [place] [address] Care Team Providers Care Switchboard Operator Helper Name Role Phone Singer Qiana MD, Maverick Hong Primary Care Provider Kyle wood Reason for Visit * Reason Comments Medication Refill Encounter Details Date Type Department Care Team (Late st Contact Info) Description 09/13/2012 Refill [facility] Internal Medicine - [facility] [address] [facility] [address] [place] [address] Maverick Vu Jr., MD NO ADDRESS ON [...] on filedocumented in this encounter Care Teams Switchboard Operator Helper Relationship Specialty Start Date End Date Maverick Vu Jr., MD NO ADDRESS ON FILE PCP - General 05/19/12 01/17/20 documented as of this encounter
--- OUTSIDE RECORDS SUMMARY | 2024-03-07 22:36 | XMS_ITS | Encounter Summary ---
Author Organization [facility] Address [address] [place] [address] Care Team Providers Care Deburr Operator Name Role Phone Singer Qiana MD, Maverick Hong Primary Care Provider Kyle wood Reason for Visit * Reason Onset Date Comments Sleep Problem 06/16/2012 obstructive slee p apnea Encounter Details Date Type Department Care Team (Late st Contact Info) Description 06/16/2012 Telephone [facility] Internal Medicine - [facility] [address] [facility] [address] [place] [address] Maverick Vu Jr., MD NO ADDRESS ON FILE Sleep Problem (obstructive sleep apnea) Social History Tobacco Use Types Packs/Day Years Used Date Smoking Tobacco: Never Assessed Sex and Gender Information Value Date Recorded Sex Assigned at Not on file Gender Identity Not on file Sexual Orientation Not on file documented as of this encounter Miscellaneous Notes * Telephone Encounter - Maverick Vu MD - 06/16/2012 6:07 PM CDT Sleep study 05/18/2012 -- AHI 7.7, during REM AHI 15.8, RDI 22.3, supine 7.2/hr, no desat below 91%.Moderate MICHELLE. Successfully treated with nasal CPAP 8cm H20, set up through [facility] with cpap machine with a Respironics Wisp mask documented in this encounter Plan of Treatment Not on file documented as of this encounter Visit Diagnoses Not on filedocumented in this encounter Care Teams Deburr Operator Relationship Specialty Start Date End Date Maverick Vu Jr., MD NO ADDRESS ON FILE PCP - General 2/28/13 10/28/20 documented as of this encounter
--- OUTSIDE RECORDS SUMMARY | 2024-03-07 22:36 | XMS_ITS | Encounter Summary ---
Author Organization [facility] Address [address] [place] [address] Care Team Providers Care Information Writer Name Role Phone Singer Qiana MD, Maverick Hong Primary Care Provider Kyle wood Reason for Visit * Reason Comments Upper Respiratory Symptoms Encounter Details Date Type Department Care Team (Late st Contact Info) Description 08/08/2013 3:30 PM CDT Office Visit [facility] Internal Medicine - [facility] [address] [place] [address] [place] [id number] [facility] [address] [place] [address] Maverick Vu Jr., MD NO ADDRESS ON FILE URI (upper respiratory infection) (Primary Dx) Social History Tobacco Use Types [...] Sign Reading Time Taken Comments Blood Pressure 116/80 08/08/2013 3:27 PM CDT L a rm Pulse 64 08/08/2013 3:27 PM CDT Temperature 36.9 ??C (98.4 ??F) 08/08/2013 3:27 PM CD T Respiratory Rate - - Oxygen Saturation - - Inhaled Oxygen Concentration - - Weight 105.2 kg (232 lb) 08/08/2013 3:27 PM CDT Height 175.3 cm (5' 9 ) 08/08/2013 3:27 PM CDT Body Mass Index 34.26 08/08/2013 3:27 PM CDT documented in this encounter Progress Notes * Zaina Claudio NP - 08/08/2013 3:36 PM CDT HISTORY OF PRESENT ILLNESS Lyudmila Tillman, a 33 y.o. male. The history is provided by the patient. Upper Respiratory Symptoms Presenting symptoms: congestion, ear pain, fatigue, rhinorrhea and sore throat Presenting symptoms: no cough Severity: Moderate Onset quality: Gradual Duration: 3 days Timing: Constant Progression: Worsening Relieved by: Nothing Ineffective treatments: None tried Associated symptoms: headaches Associated symptoms: no wheezing REVIEW OF SYSTEMS Review of Systems Constitutional: Positive for fatigue. HENT: Positive for ear pain, congestion, sore throat and rhinorrhea. Eyes: Positive for itching. Respiratory: Negative for cough and wheezing. Neurological: Positive for headaches. PHYSICAL EXAM BP 116/80 Pulse 64 Temp(Src) 98.4 ??F (36.9 ??C) Ht 5' 9 (1.753 m) Wt 232 lb (105.235 kg) BMI 34.24 kg/m2 Physical Exam Constitutional: He is oriented to person, place, and time. He appears well- developed and well-nourished. No distress. HENT: Head: Normocephalic. Right Ear: Tympanic membrane, external ear and ear canal normal. Left Ear: Tympanic membrane, external ear and ear canal normal. Nose: Rhinorrhea present. Right sinus exhibits no maxillary sinus tenderness and no frontal sinus tenderness. Left sinus exhibits no maxillary sinus tenderness and no frontal sinus tenderness. Mouth/Throat: Uvula is midline. Posterior oropharyngeal erythema present. No oropharyngeal exudate. Cardiovascular: Normal rate, regular rhythm and normal heart sounds. Pulmonary/Chest: Effort normal and breath sounds normal. Lymphadenopathy: Head (right side): No submental and no submandibular adenopathy present. Head (left side): No submental and no submandibular adenopathy present. He has no cervical adenopathy. Neurological: He is alert and oriented to person, place, and time. Skin: Skin is warm and dry. ASSESSMENT and PLAN: ICD-9-CM ICD-10-CM 1. URI (upper respiratory infection) 465.9 J06.9 amoxicillin-clavulanate (AUGMENTIN) 875-125 mg tablet Currently viral, instructed patient to take sudafed as directed, saline spray to each nostril dailyand PRN, ibuprofen 600mg TID with food for next few days. If symptoms persist start into weekend start antibiotic. documented in this encounter Plan of Treatment Not on file documented as of this encounter Visit Diagnoses Diagnosis URI (upper respiratory infection)- Primary Acute upper respiratory infections of unspecified site documented in this encounter Care Teams Information Writer Relationship Specialty Start Date End Date Maverick Vu Jr., MD NO ADDRESS ON FILE PCP - General 05/19/12 01/17/20 documented as of this encounter
--- OUTSIDE RECORDS SUMMARY | 2024-03-07 22:36 | XMS_ITS | Encounter Summary ---
Author Organization [facility] Address [address] [place] [address] Care Team Providers Care Distribution Supervisor Name Role Phone Singer Qiana MD, Maverick Hong Primary Care Provider Kyle wodo Reason for Visit * Reason Comments Other circulation problem noted in hands Encounter Details Date Type Department Care Team (Late st Contact Info) Description 02/13/2013 10:45 AM ELECTROMECHANICAL ASSEMBLER Office Visit [facility] Internal Medicine - [facility] [address] [facility] [address] [facility] [place] [address] Maverick Vu Jr., MD [place] [id number] [facility] [address] [place] [address] Raynaud's syndrome (Primary Dx) Social History Tobacco Use Types [...] Sign Reading Time Taken Comments Blood Pressure 136/78 02/13/2013 10:41 AM ELECTROMECHANICAL ASSEMBLER Pulse 72 02/13/2013 10:41 AM ELECTROMECHANICAL ASSEMBLER Temperature - - Respiratory Rate - - Oxygen Saturation - - Inhaled Oxygen Concentration - - Weight 108.9 kg (240 lb) 02/13/2013 10:41 AM ELECTROMECHANICAL ASSEMBLER Height 175.3 cm (5' 9 ) 02/13/2013 10:41 AM ELECTROMECHANICAL ASSEMBLER Body Mass Index 35.44 02/13/2013 10:41 AM ELECTROMECHANICAL ASSEMBLER documented in this encounter Progress Notes * Zaina Claudio NP - 02/13/2013 11:02 AM CST HISTORY OF PRESENT ILLNESS Lyudmila Tillman, a 32 y.o. male. HPI Comments: Pt states over the past two months he has noticed that his two middle fingers on bothsides turn white when patient goes outside in the cold and when he smokes. The history is provided by the patient. REVIEW OF SYSTEMS Review of Systems Constitutional: Negative for fever and chills. Respiratory: Negative. Cardiovascular: Negative. Musculoskeletal: Negative for joint swelling. Neurological: Positive for numbness. Negative for dizziness and tremors. Numbness and tingling occurs in fingers when outside PHYSICAL EXAM BP 136/78 Pulse 72 Ht 5' 9 (1.753 m) Wt 240 lb (108.863 kg) BMI 35.43 kg/m2 Physical Exam Constitutional: He is oriented to person, place, and time. Cardiovascular: Pulses: Radial pulses are 2+ on the right side, and 2+ on the left side. Neurological: He is alert and oriented to person, place, and time. Skin: Skin is warm, dry and intact. He is not diaphoretic. No cyanosis. No pallor. Nails show clubbing. Psychiatric: His speech is normal and behavior is normal. Judgment and thought content normal. His mood appears anxious. Cognition and memory are normal. ASSESSMENT and PLAN: (443.0) Raynaud's syndrome- exam normal, discussed condition, ways to reduce reaction by keeping hands warm, avoiding smoking and stress. If symptoms worsen or new symptoms develop contact office forfurther testing. Information given to patient from Up to Date on syndrome. TROMECHANICAL ASSEMBLER documented in this encounter Plan of Treatment Not on file documented as of this encounter Visit Diagnoses Diagnosis Raynaud's syndrome- Primary documented in this encounter Care Teams Distribution Supervisor Relationship Specialty Start Date End Date Maverick Vu Jr., MD NO ADDRESS ON FILE PCP - General 05/19/12 01/17/20 documented as of this encounter
--- OUTSIDE RECORDS SUMMARY | 2024-03-07 22:36 | XMS_ITS | Encounter Summary ---
Author Organization [facility] Address [address] [place] [address] Care Team Providers Care Covering And Lining Supervisor Name Role Phone Singer Qiana MD, Maverick Hong Primary Care Provider Kyle wood Reason for Visit * Reason Onset Date Comments Medication Refill 06/06/2012 Encounter Details Date Type Department Care Team (Late st Contact Info) Description 06/06/2012 Refill [facility] Internal Medicine - [facility] [address] [facility] [place] [address] Maverick Vu Jr., MD NO ADDRESS ON [...] on filedocumented in this encounter Care Teams Covering And Lining Supervisor Relationship Specialty Start Date End Date Maverick Vu Jr., MD NO ADDRESS ON FILE PCP - General 05/19/12 01/17/20 documented as of this encounter
--- OUTSIDE RECORDS SUMMARY | 2024-03-07 22:36 | XMS_ITS | Encounter Summary ---
Author Organization [facility] Address [address] [place] [address] Care Team Providers Care Computer Science Professor Name Role Phone Singer Qiana MD, Maverick Hong Primary Care Provider Kyle wood Reason for Visit * Reason Onset Date Comments Other 11/28/[address] Encounter Details Date Type Department Care Team (Late st Contact Info) Description 11/28/2012 Telephone [facility] Internal Medicine - [facility] [address] [facility] [address] [place] [address] Maverick Vu Jr., MD NO ADDRESS ON FILE Other (MEDICATION REQUEST) Social History Tobacco Use Types Packs/Day Years [...] Telephone Encounter - Archana Kwan - 11/28/2012 1:45 PM CDT Pt contacted * Telephone Encounter - Heather Trevino - 11/28/2012 1:42 PM CDT RETURNING YOUR CALL ABOUT THE MEDICATION HE IS REQUESTING. VERIFIED NUMBER WAS CORRECT WITH PATIENT. PLEASE ADVISE. documented in this encounter Plan of Treatment Not on file documented as of this encounter Visit Diagnoses Not on filedocumented in this encounter Care Teams Computer Science Professor Relationship Specialty Start Date End Date Maverick Vu Jr., MD NO ADDRESS ON FILE PCP - General 05/19/12 01/17/20 documented as of this encounter
--- OUTSIDE RECORDS SUMMARY | 2024-03-07 22:36 | XMS_ITS | Encounter Summary ---
Author Organization [facility] Address [address] [place] [address] Care Team Providers Care Workforce Specialist Name Role Phone Singer Qiana MD, Maverick Hong Primary Care Provider Kyle wood Reason for Visit * Reason Onset Date Comments Ear Pain 11/22/2012 feels like inner ear infection Encounter Details Date Type Department Care Team (Late st Contact Info) Description 11/22/2012 Telephone [facility] Internal Medicine - [facility] [address] [place] [address] Maverick Vu Jr., MD NO ADDRESS ON FILE Ear Pain (feels like inner ear infection) Social History Tobacco Use Types Packs/Day Years [...] Telephone Encounter - Annabelle Goldsmith RMA - 11/22/2012 4:19 PM CDT Called * Telephone Encounter - Maverick Vu MD - 11/22/2012 3:36 PM CDT Pt to stop amoxicillin and trial cefuroxime for ear infection * Telephone Encounter - Subha Santana - 11/22/2012 3:24 PM CDT feels like inner ear infection---side of head and face hurt --can't hardly open his mouth because it hurts--amoxicillin not working---would like call back--and [place] documented in this encounter Plan of Treatment Not on file documented as of this encounter Visit Diagnoses Not on filedocumented in this encounter Care Teams Workforce Specialist Relationship Specialty Start Date End Date Maverick Vu Jr., MD NO ADDRESS ON FILE PCP - General 05/19/12 01/17/20 documented as of this encounter
--- OUTSIDE RECORDS SUMMARY | 2024-03-07 22:36 | XMS_ITS | Encounter Summary ---
Author Organization [facility] Address [address] [place] [address] Care Team Providers Care Custodial Foreman Name Role Phone Singer Qiana MD, Maverick Hong Primary Care Provider Kyle wood Reason for Visit * Reason Onset Date Comments Ultrasound 11/17/2012 scrotal ultrasou nd Encounter Details Date Type Department Care Team (Late st Contact Info) Description 11/17/2012 Telephone [facility] Internal Medicine - [facility] [address] [facility] [place] [address] Maverick Vu Jr., MD NO ADDRESS ON FILE Ultrasound (scrotal ultrasound) Social History Tobacco Use Types Packs/Day Years [...] Telephone Encounter - Maverick Vu MD - 11/17/2012 5:12 PM CDT Small bilateral hydroceles, small 3mm bilateral epididymal cysts. Pt notified. No treatment at this time. Pt also reports left earache and painful swelling lymph nodes same side. No fever or headaches. Pt concerned about ear infection. Trial antibiotics. documented in this encounter Plan of Treatment Not on file documented as of this encounter Visit Diagnoses Not on filedocumented in this encounter Care Teams Custodial Foreman Relationship Specialty Start Date End Date Maverick Vu Jr., MD NO ADDRESS ON FILE PCP - General 05/19/12 01/17/20 documented as of this encounter
--- OUTSIDE RECORDS SUMMARY | 2024-03-07 22:36 | XMS_ITS | Encounter Summary ---
Author Organization [facility] Address [address] [place] [address] Care Team Providers Care Acidizer Water Well Name Role Phone Singer Qiana MD, Maverick Hong Primary Care Provider Kyle wood Reason for Visit * Reason Comments Sore Throat congestion Hypertension Anxiety Encounter Details Date Type Department Care Team (Late st Contact Info) Description 05/15/2013 4:15 PM STRUCTURAL STEEL TRADES WORKER Office Visit [facility] Internal Medicine - [facility] [address] [facility] [address] [place] [address] Maverick Vu Jr., MD NO ADDRESS ON FILE Essential hypertension, benign (Primary Dx); Panic disorder without agoraphobia; Acute pharyngitis Social History Tobacco Use Types Packs/Day Years [...] Sign Reading Time Taken Comments Blood Pressure 120/80 05/15/2013 4:11 PM STRUCTURAL STEEL TRADES WORKER Pulse - - Temperature 36.8 ??C (98.3 ??F) 05/15/2013 4:11 PM CS T Respiratory Rate - - Oxygen Saturation - - Inhaled Oxygen Concentration - - Weight 111.6 kg (246 lb) 05/15/2013 4:11 PM STRUCTURAL STEEL TRADES WORKER Height 175.3 cm (5' 9 ) 05/15/2013 4:11 PM STRUCTURAL STEEL TRADES WORKER Body Mass Index 36.33 05/15/2013 4:11 PM STRUCTURAL STEEL TRADES WORKER documented in this encounter Progress Notes * Maverick Vu MD - 05/15/2013 4:31 PM CST Hypertension follow up. Pt stopped lisinopril. ROS: No chest pain, headaches, lightheadedness, orthostasis, dyspnea, edema. No cough or visual disturbance. No change in urinary habits. Pt compliant with sodium restricted diet. PE: Vital sign stable. Chest -- clear BS COR -- RRR with normal heart sounds, no murmur or gallop, peripheral pulses intact -- carotids palpable and no bruits Extremites -- no edema Abdomen -- no bruits IMP: Hypertension stable off medication REC: Monitor off medication. Discussed diet, exercise and weight control Check lab as indicated. [place]/Alcoholism Pt stable of lexapro. Still attends AA weekly. URI. New onset upper respiratory symptoms this past with including coryza, rhinorrhea, nasal congestion,and cough. Sore throat. Additional symptoms include: ROS: No chest pain, dyspnea, or wheezing. No nausea, vomiting, or diarrhea. PE: Vital signs obtained including temperature.No acute distress. HEENT -- eyes: conjunctiva - clear -- ears: TM's - normal TM -- oropharynx - erythema with exudates -- nose -- clear drainage -- sinuses -- nontender Neck -- mild anterior adenopathy Chest - hacking cough, no rales or wheezing Skin - normal temp and turgor, no rash IMP: Pharyngitis acute REC: Amoxicillin 500mg tid for 10d Adverse effects medications reviewed with patient. If symptoms worsen or do not improve over the next 7-10 days then contact the office. CTURAL STEEL TRADES WORKER documented in this encounter Plan of Treatment Not on file documented as of this encounter Visit Diagnoses Diagnosis Essential hypertension, benign- Primary Panic disorder without agoraphobia Acute pharyngitis documented in this encounter Care Teams Acidizer Water Well Relationship Specialty Start Date End Date Maverick Vu Jr., MD NO ADDRESS ON FILE PCP - General 05/19/12 01/17/20 documented as of this encounter
--- OUTSIDE RECORDS SUMMARY | 2024-03-07 22:37 | XMS_ITS | CONTINUITY OF CARE DOCUMENT ---
Author Name nicole rivera Address Unknown Organization [facility] Address [address] [place] [address] Phone [phone] Care Team Providers Care Distance Learning Unit Leader Name Role Phone nicole rivera Unavailable Unavailable INSURANCE PROVIDERS Payer name Policy type / Coverage type [place] red [id number] PPO Other [id number]
--- OUTSIDE RECORDS SUMMARY | 2024-03-07 22:38 | XMS_ITS | Encounter Summary ---
Author Organization [facility] Address [address] [place] [address] Care Team Providers Care Service Person Name Role Phone Singer Qiana MD, Maverick Hong Primary Care Provider Kyle wood Reason for Visit * Reason Onset Date Comments question tamiflu? 05/20/2018 Encounter Details Date Type Department Care Team (Late st Contact Info) Description 05/20/2018 Telephone [facility] Primary Care - [address] [address] Maverick Vu Jr., MD NO ADDRESS ON FILE question tamiflu? Social History Tobacco Use Types Packs/Day Years [...] * Telephone Encounter - Sakina Pang - 05/20/2018 1:14 PM CST Patient called; provided drs comments. Verbalized understanding. He states he can't come in but will probably go to Urgent Care near where he lives(km) WAY ENGINEERING TECHNICIAN * Telephone Encounter - Maverick Vu MD - 05/20/2018 12:52 PM CST Pt has not been seen in the office in over 2 years, he cannot be treated over the phone. He would have to be seen for me to prescribe tamiflu. Patient's cannot be prescribed medications over the phone if they have not been seen in the office in the past year. WAY ENGINEERING TECHNICIAN * Telephone Encounter - Sakina Pagn - 05/20/2018 12:45 PM CST Patient is not currently having symptoms. WAY ENGINEERING TECHNICIAN * Telephone Encounter - Maverick Vu MD - 05/20/2018 12:37 PM CST Is the patient symptomatic of the flu WAY ENGINEERING TECHNICIAN * Telephone Encounter - Lianet Whaley - 05/20/2018 12:24 PM CST pts girlfrined dx'd with flu a - asking for a tamiflu rx - pls advise WAY ENGINEERING TECHNICIAN documented in this encounter Plan of Treatment Not on file documented as of this encounter Visit Diagnoses Not on filedocumented in this encounter Care Teams Service Person Relationship Specialty Start Date End Date Maverick Vu Jr., MD NO ADDRESS ON FILE PCP - General 05/19/12 01/17/20 documented as of this encounter
== END 2024-03-04 09:11 | disposition home or self-care (01) ==
PROVIDERS: Emergency Provider Nurse Practitioner Family; PCP Family Medicine
DX: J18.9 Pneumonia, unspecified organism (principal); I48.91 Unspecified atrial fibrillation; K21.9 Gastro-esophageal reflux disease without esophagitis; F41.9 Anxiety disorder, unspecified; Z87.891 Personal history of nicotine dependence
CPT/HCPCS: 99213; G0463